=== PATIENT | female | born 1945 | race Caucasian/White ===

== ENCOUNTER → 2017-04-12 | Outpatient (CLI) | payer MEDICARE ==
--- NOTE | 2017-04-18 10:42 | P.ARTDOP ---
Arterial Doppler LOWER EXTREMITY ARTERIAL DOPPLER: DATE OF SERVICE: 04/12/2017 Reason for study: Leg pain with walking. Doppler waveforms: Multiphasic bilaterally throughout. Pulse volume recording: Normal configuration. Pressure gradients: Mild gradient at the foot level. Ankle-brachial indices: Greater than 1 bilaterally. Toe pressures: 57 on the right, 75 on the left Impression: Normal study at the ankle and above. Mild decrease in toe pressures could be related to very distal disease or vasospastic phenomenon. Clinical correlation recommended.
== END ==
LOC: RADUSWWP 13:50
PROVIDERS: ATTEND Family Medicine
DX: I70.213 Atherosclerosis of native arteries of extremities with intermittent claudication, bilateral legs (principal)
CPT/HCPCS: 93923

== ENCOUNTER → 2018-09-05 | Outpatient (CLI) | payer MEDICARE ==
--- NOTE | 2018-09-05 18:29 | BD ---
EXAMINATION TYPE: Axial Bone Density DATE OF EXAM: 09/05/2018 CLINICAL HISTORY: 73-year-old female postmenopausal screening Height: 60.5 inches Weight: 198 FRAX RISK QUESTIONS: Alcohol (3 or more units per day): no Family History (Parent hip fracture): no Glucocorticoids (More than 3mos): no (Ex: prednisone, prednisolone, methylprednisolone, dexamethasone, and hydrocortisone). History of Fracture in Adulthood: yes Secondary Osteoporosis: 1. Type 1 Diabetes: no 2. Hyperthyroidism: no 3. Menopause before 45: hysterectomy age 37, 48 bilateral ovary removal 4. Malnutrition: no 5. Chronic liver disease: no Rheumatoid Arthritis: no Current Tobacco Use: no RISK FACTORS HISTORY OF: History of Wrist Fracture: yes When: 1989 Surgery to Wrist (right): yes, no metal used, was bone grafted When: about 1989 Family History of Osteoporosis: yes Active: yes Diet low in dairy products/other sources of calcium: no Postmenopausal woman: yes Take estrogen and/or progesterone medications: unsure Lost more than 2 inches in height since high school: yes Frequent falls: no Poor Health: no Hyperparathyroidism: no Adrenal Insufficiency: no MEDICATIONS: Prednisone or other steroids: no Thyroid Medications: no Osteoporosis Medications: no Additional Medications: blood pressure meds Additional History: checks sugar but not on meds for diabetes EXAM MEASUREMENTS: Bone mineral densitometry was performed using the [employer] System. Bone mineral density as measured about the Lumbar spine is: ----- L1-L4(G/cm2): 1.223 T Score Values are as follows: ----- L2: 0.8 ----- L3: -0.2 ----- L4: 0.3 ----- L1-L4: 0.4 Bone mineral density not previously done at this facility Bone mineral density about the R hip (g/cm2): 0.981 Bone mineral density about the L hip (g/cm2): 1.061 T Score values are as follows: -----R Neck: -0.4 -----L Neck: 0.2 -----R Total: -0.7 -----L Total: -0.9 Bone mineral density not previously done at this facility IMPRESSION: Normal (Values between +1 and -1 indicate normal bone mass). Consider repeating this study in 5 year s or sooner if there is some new clinical indication. NOTE: T-SCORE=SD OF THE YOUNG ADULT MEAN.
== END | disposition home or self-care (01) ==
LOC: RADBDWWP 12:15
PROVIDERS: ATTEND Family Medicine
DX: N95.1 Menopausal and female climacteric states (principal)
CPT/HCPCS: 77080

== ENCOUNTER 2019-12-09 19:42 | Emergency (ER) | payer MEDICARE ==
[2019-12-09] MEDS ORDERED: ACETAMINOPHEN TAB 500 MG TAB PO STA (21:24)
[2019-12-09] MEDS ORDERED: SODIUM CHLORIDE 0.9% 1,000 ML IV STA (21:25)
--- NOTE | 2019-12-09 21:49 | XR ---
EXAMINATION TYPE: XR chest 2V DATE OF EXAM: 12/09/2019 COMPARISON: NONE HISTORY: Cough and fever TECHNIQUE: 2 views FINDINGS: There is some mild linear density left lung base. Heart size is normal. There is thoracolum bar kyphotic deformity. Thoracic aorta is atheromatous. There are no hilar masses. IMPRESSION: Subsegmental atelectasis at the left lung base. No heart failure seen. Mild pulmonary fib rotic changes.
[2019-12-09 22:24] LABS: Basophils % (A) 1 %; Eosinophils # (A) 0.1 k/uL (0-0.7); Eosinophils % (A) 1 %; HCT 42.2 % (34.0-46.0); Lymphocytes # (A) 0.5 k/uL (1.0-4.8); Lymphocytes % (A) 9 %; MCH 31.1 pg (25.0-35.0); MCHC 33.3 g/dL (31.0-37.0); MCV 93.4 fL (80.0-100.0); Monocytes # (A) 0.3 k/uL (0-1.0); Monocytes % (A) 6 %; Neutrophils % (A) 83 %; Platelet Count 209 k/uL (150-450); RBC 4.52 m/uL (3.80-5.40); WBC 6.1 k/uL (3.8-10.6)
[2019-12-09 22:28] LABS: ALT 18 U/L (4-34); AST 25 U/L (14-36); African American GFR (CKD) >90 (>60 ml/min/1.73 sqM); Albumin 4.1 g/dL (3.5-5.0); Alkaline Phosphatase 69 U/L (38-126); Anion Gap 8 mmol/L; Blood Urea Nitrogen 16 mg/dL (7-17); Calcium 9.2 mg/dL (8.4-10.2); Carbon Dioxide 28 mmol/L (22-30); Chloride 95 mmol/L (98-107); Glucose 130 mg/dL (74-99); Non-African American GFR(CKD) 88 (>60 ml/min/1.73 sqM); Potassium 3.8 mmol/L (3.5-5.1); Sodium 131 mmol/L (137-145); Total Bilirubin 0.5 mg/dL (0.2-1.3); Total Protein 7.2 g/dL (6.3-8.2)
[2019-12-09] MEDS ORDERED: IPRATROPIUM-ALBUTEROL 3 ML NEB INHALATION STA (22:41)
[2019-12-09 22:49] VITALS: BP 145/95; RESP 20
--- NOTE | 2019-12-09 23:35 | ED ---
General Adult HPI - General Chief complaint: Upper Respiratory Infection Stated complaint: Pneumonia, SOB Time Seen by Provider: 12/09/19 20:37 Source: patient, RN notes reviewed Mode of arrival: wheelchair Limitations: no limitations - History of Present Illness Initial comments: 74-year-old female presents to the emergency department for a chief complaint of cough. Patient has had a cough for about 4-5 days. Patient was unaware of any fevers until she presented to the emergency Department. Patient denies any shortness of breath or chest pain associated with this. States cough is nonproductive. States she does feel a little bit tired because of this cough but does not feel weak. She has mild congestion as well. Denies sore throat. Patient denies any recent travel. Patient has no other complaints at this time including shortness of breath, chest pain, abdominal pain, nausea or vomiting, headache, or visual changes. - Related Data Home Medications Medication Instructions Recorded Confirmed Atenolol [Tenormin] 50 mg PO BID 10/02/14 06/10/18 Losartan/Hydrochlorothiazide 1 each PO DAILY 10/02/14 06/10/18 [Losartan-Hctz 100-25 mg Tab] Multivitamin/Iron/Folic Acid 1 each PO DAILY 10/10/14 06/10/18 [Centrum Complete Multivit Tab] Cholecalciferol [Vitamin D3] 1,000 unit PO DAILY 06/06/18 06/10/18 Garlic 1 each PO DAILY 06/06/18 06/10/18 Oxybutynin Chloride [Ditropan XL] 5 mg PO DAILY 06/06/18 06/10/18 Previous Rx's Medication Instructions Recorded Albuterol Inhaler [Ventolin Hfa 1 - 2 puff INHALATION Q6HR PRN #1 12/09/19 Inhaler] inhaler Azithromycin [Zithromax Z-pack] 250 mg PO DIRECTED #6 tab 12/09/19 Allergies Allergy/AdvReac Type Severity Reaction Status Date / Time No Known Allergies Allergy Verified 12/09/19 20:25 Review of Systems ROS Statement: Those systems with pertinent positive or pertinent negative responses have been documented in the HPI. ROS Other: All systems not noted in ROS Statement are negative. Past Medical History Past Medical History: Diabetes Mellitus, Eye Disorder, GERD/Reflux, Hearing Disorder / Deafness, Hypertension, Osteoarthritis (OA) Additional Past Medical History / Comment(s): MACULAR DEGENERATION, cataracts, osteoporosis, diet controlled diabetic History of Any Multi-Drug Resistant Organisms: None Reported Past Surgical History: Cholecystectomy, Hysterectomy Additional Past Surgical History / Comment(s): ORIF RT WRIST-HAD BONE GRAFT FROM HIP, asher fundoplasty Past Anesthesia/Blood Transfusion Reactions: No Reported Reaction Past Psychological History: No Psychological Hx Reported Smoking Status: Never smoker Past Alcohol Use History: None Reported Past Drug Use History: None Reported - Past Family History Brother(s) Family Medical History: Cancer Mother Family Medical History: Cancer General Exam Limitations: no limitations General appearance: alert, in no apparent distress Head exam: Present: atraumatic, normocephalic, normal inspection Eye exam: Present: normal appearance, PERRL, EOMI. Absent: scleral icterus, conjunctival injection, periorbital swelling ENT exam: Present: normal exam, normal oropharynx, mucous membranes moist, TM's normal bilaterally, normal external ear exam Neck exam: Present: normal inspection, full ROM. Absent: tenderness, meningismus, lymphadenopathy Respiratory exam: Present: normal lung sounds bilaterally. Absent: respiratory distress, wheezes, rales, rhonchi, stridor Cardiovascular Exam: Present: regular rate, normal rhythm, normal heart sounds. Absent: systolic murmur, diastolic murmur, rubs, gallop, clicks GI/Abdominal exam: Present: soft, normal bowel sounds. Absent: distended, tenderness, guarding, rebound, rigid Neurological exam: Present: alert Course Vital Signs 12/09/19 12/09/19 20:21 22:45 Temperature 101.7 F H Pulse Rate 85 91 Respiratory 18 20 Rate Blood Pressure 165/119 145/95 O2 Sat by Pulse 94 L 95 Oximetry Medical Decision Making - Medical Decision Making Vitals are stable. Patient does have a fever of 101.7, given Tylenol. CBC is unremarkable. CMP does show mild hyponatremia, patient given normal saline. Chest x-ray shows subsegmental atelectasis at the left lung base without heart failure. Mild pulmonary fibrotic changes. Patient denies any smoking history. I discussed this with patient. Patient is concerned she could still have an underlying pneumonia. Patient will be treated with a Z-Quinn although I did discuss that this is likely viral in nature. Patient was also given an inhaler as she did feel that the albuterol treatment helped with her cough. I discussed following up with primary care in 1-2 days and returning for any worsening symptoms. Strict return parameters given. I discussed this case with attending Dr. Simmons who agrees with this assessment and treatment plan. - Lab Data Result diagrams: 12/09/19 22:09 12/09/19 22:09 Lab Results 12/09/19 12/09/19 12/09/19 Range/Units 22:09 22:09 22:09 WBC 6.1 (3.8-10.6) k/uL RBC 4.52 (3.80-5.40) m/uL Hgb 14.0 (11.4-16.0) gm/dL Hct 42.2 (34.0-46.0) % MCV 93.4 (80.0-100.0) fL MCH 31.1 (25.0-35.0) pg MCHC 33.3 (31.0-37.0) g/dL RDW 13.0 (11.5-15.5) % Plt Count 209 (150-450) k/uL Neutrophils % 83 % Lymphocytes % 9 % Monocytes % 6 % Eosinophils % 1 % Basophils % 1 % Neutrophils # 5.0 (1.3-7.7) k/uL Lymphocytes # 0.5 L (1.0-4.8) k/uL Monocytes # 0.3 (0-1.0) k/uL Eosinophils # 0.1 (0-0.7) k/uL Basophils # 0.0 (0-0.2) k/uL Sodium 131 L (137-145) mmol/L Potassium 3.8 (3.5-5.1) mmol/L Chloride 95 L (98-107) mmol/L Carbon Dioxide 28 (22-30) mmol/L Anion Gap 8 mmol/L BUN 16 (7-17) mg/dL Creatinine 0.68 (0.52-1.04) mg/dL Est GFR (CKD-EPI)AfAm >90 (>60 ml/min/1.73 sqM) Est GFR (CKD-EPI)NonAf 88 (>60 ml/min/1.73 sqM) Glucose 130 H (74-99) mg/dL Plasma Lactic Acid Carlos A 1.4 (0.7-2.0) mmol/L Calcium 9.2 (8.4-10.2) mg/dL Total Bilirubin 0.5 (0.2-1.3) mg/dL AST 25 (14-36) U/L ALT 18 (4-34) U/L Alkaline Phosphatase 69 (38-126) U/L Total Protein 7.2 (6.3-8.2) g/dL Albumin 4.1 (3.5-5.0) g/dL Disposition Clinical Impression: Cough, Fever Disposition: HOME SELF-CARE Condition: Good Instructions (If sedation given, give patient instructions): Acute Cough (ED) Additional Instructions: Please take Motrin and Tylenol for fever. Please drink plenty of fluids. Use inhaler as needed. Take medications as prescribed. Follow up with primary care tomorrow for recheck. If you have any worsening symptoms return to the emergency department. Prescriptions: Albuterol Inhaler [Ventolin Hfa Inhaler] 1 - 2 puff INHALATION Q6HR PRN #1 inhaler PRN Reason: Shortness Of Breath Azithromycin [Zithromax Z-pack] 250 mg PO DIRECTED #6 tab Is patient prescribed a controlled substance at d/c from ED?: No Referrals: Peter De Santiago MD [Primary Care Provider] - 1-2 days Time of Disposition: 23:33
[2019-12-09 23:45] VITALS: PULSE 68
[2019-12-09 23:46] VITALS: TEMP 98.5
== END 2019-12-09 23:46 | disposition home or self-care (01) ==
LOC: EC 19:42
DX: R05 Cough (principal); R50.9 Fever, unspecified; R09.89 Other specified symptoms and signs involving the circulatory and respiratory systems; E87.1 Hypo-osmolality and hyponatremia; J98.11 Atelectasis; E11.9 Type 2 diabetes mellitus without complications; I10 Essential (primary) hypertension; M81.0 Age-related osteoporosis without current pathological fracture; K21.9 Gastro-esophageal reflux disease without esophagitis; Z79.899 Other long term (current) drug therapy
CPT/HCPCS: 36415; 71046; 80053; 83605; 85025; 87040; 94640; 96360; 96361; 99284

== ENCOUNTER → 2019-12-15 | Outpatient (CLI) | payer MEDICARE | END | disposition home or self-care (01) | CPT/HCPCS: 36415; 83036; 87502; 87634 ==

== ENCOUNTER → 2020-03-04 | Outpatient (CLI) | payer MEDICARE ==
--- NOTE | 2020-03-04 14:25 | XR ---
EXAMINATION TYPE: XR cervical spine limited DATE OF EXAM: 03/04/2020 TECHNIQUE: Frontal, lateral, swimmers, and open mouth view of the cervical spine are obtained. HISTORY: DDD neck pain COMPARISON: None FINDINGS: The cervical spine is visualized from C1 thru the top of T6 level, it is satisfactory in a lignment without evidence of acute fracture or dislocation. The pre-vertebral soft tissue appears wi thin normal limits. The C1-C2 articulation is within normal limits on the open mouth view. Multileve l uncovertebral hypertrophy is seen. Fullness of the right superior mediastinum noted on the frontal view. Mild diffuse osseous demineralization. Carotid atherosclerosis is incidentally seen. IMPRESSION: No acute fracture or dislocation is seen in the cervical spine. Mild multilevel degenera tive change of the cervical spine. Right superior mediastinal fullness. Chest x-ray recommended.
--- NOTE | 2020-03-04 14:31 | XR ---
EXAMINATION TYPE: XR thoracic spine 2V DATE OF EXAM: 03/04/2020 CLINICAL HISTORY: Degenerative disc disease and back pain TECHNIQUE: Frontal, lateral, and swimmer's view of thoracic spine are obtained. COMPARISON: Chest x-ray dated 12/09/2019. FINDINGS: There is an exaggerated thoracic kyphosis. Mid thoracic mild compression deformities appear unchanged from 12/09/2019. Compression deformity at the lumbosacral junction also appears unchanged. Moderate degenerative change of the thoracic spine with intervertebral disc height loss at multiple l evels, endplate sclerosis and anterior osteophytes. Mediastinum is suboptimally evaluated given the d egree of penetration on the current exam. Cholecystectomy clips noted. Diffuse osseous demineralizati on. Very mild reverse S-shaped scoliosis seen. IMPRESSION: No acute fracture or dislocation is seen in the thoracic spine. Multiple chronic daniel josué deformities as seen on 12/09/2019, very mild reverse S-shaped scoliosis, diffuse osseous deminera lization, exaggerated thoracic kyphosis and moderate degenerative disc disease of the thoracic spine.
== END | disposition home or self-care (01) ==
LOC: RADXRMAIN 13:06
PROVIDERS: ATTEND Family Medicine
DX: M51.34 Other intervertebral disc degeneration, thoracic region (principal); M43.8X4 Other specified deforming dorsopathies, thoracic region; M40.294 Other kyphosis, thoracic region
CPT/HCPCS: 72040; 72070

== ENCOUNTER → 2021-01-28 | Outpatient (CLI) | payer MEDICARE ==
--- NOTE | 2021-01-31 10:35 | MM ---
Reason for exam: screening (asymptomatic). Last mammogram was performed 4 years and 8 months ago. History: Patient is postmenopausal. Benign cyst aspiration of the right breast. Physical Findings: A clinical breast exam by your physician is recommended on an annual basis and results should be correlated with mammographic findings. MG Screening Mammo w CAD Bilateral CC and MLO view(s) were taken. Prior study comparison: June 14, 2016, bilateral MG 3d screening mammo w/cad. April 29, 2015, bilateral MG screening mammo w CAD. There are scattered fibroglandular densities. Benign appearing bilateral calcifications. There is chronic nodularity in the left breast. No significant changes when compared with prior studies. ASSESSMENT: Benign, BI-RAD 2 RECOMMENDATION: Routine screening mammogram of both breasts in 1 year.
== END | disposition home or self-care (01) ==
LOC: RADMAMWWP 10:49
PROVIDERS: ATTEND Family Medicine
DX: Z12.31 Encounter for screening mammogram for malignant neoplasm of breast (principal); Z78.0 Asymptomatic menopausal state
CPT/HCPCS: 77067

== ENCOUNTER 2021-05-09 12:05 | Emergency (ER) | payer MEDICARE ==
[2021-05-09 12:18] VITALS: RESP 18; TEMP 98.1
--- NOTE | 2021-05-09 13:51 | ED ---
Lower Extremity Injury HPI - General Chief Complaint: Extremity Injury, Lower Stated Complaint: hip pain Time Seen by Provider: 05/09/21 12:55 Source: patient Mode of arrival: ambulatory Limitations: physical limitation - History of Present Illness Initial Comments: Patient is a 76-year-old female presenting to the emergency Department with complaints of pain in her left low back that shoots into her left hip. She states she has been going to physical therapy for left-sided sciatic pain, has been helping. She states she ran out of visits a couple weeks ago but has been doing well since then. She states over the past 2 days she's been walking more and feels like she might have aggravated it. That 2 mornings ago and started having some discomfort of her left lower back. She states it feels the same as her sciatica in the past. She has been taking Tylenol which does seem to help a little bit. She does use a walker with a seat on it. She denies any falls or trauma. She denies any bowel or bladder incontinence, no numbness and tingling into her lower extremity. She denies any fevers or chills, no chest pain or shortness of breath. She has no further complaints. - Related Data Home Medications Medication Instructions Recorded Confirmed Atenolol [Tenormin] 50 mg PO BID 10/02/14 06/10/18 Losartan/Hydrochlorothiazide 1 each PO DAILY 10/02/14 06/10/18 [Losartan-Hctz 100-25 mg Tab] Multivitamin/Iron/Folic Acid 1 each PO DAILY 10/10/14 06/10/18 [Centrum Complete Multivit Tab] Cholecalciferol [Vitamin D3] 1,000 unit PO DAILY 06/06/18 06/10/18 Garlic 1 each PO DAILY 06/06/18 06/10/18 Oxybutynin Chloride [Ditropan XL] 5 mg PO DAILY 06/06/18 06/10/18 Previous Rx's Medication Instructions Recorded Albuterol Inhaler (Mhu) [Ventolin 1 - 2 puff INHALATION Q6HR PRN #1 12/09/19 Hfa Inhaler (Mhu)] inhaler Azithromycin [Zithromax Z-pack (6 250 mg PO DIRECTED #6 tab 12/09/19 tabs)] Cyclobenzaprine [Flexeril] 5 mg PO HS #5 tab 05/09/21 predniSONE [Deltasone] 20 mg PO BID 5 Days #10 tab 05/09/21 Allergies Allergy/AdvReac Type Severity Reaction Status Date / Time No Known Allergies Allergy Verified 05/09/21 12:18 Review of Systems ROS Statement: Those systems with pertinent positive or pertinent negative responses have been documented in the HPI. ROS Other: All systems not noted in ROS Statement are negative. Past Medical History Past Medical History: Diabetes Mellitus, Eye Disorder, GERD/Reflux, Hearing Disorder / Deafness, Hypertension, Osteoarthritis (OA) Additional Past Medical History / Comment(s): MACULAR DEGENERATION, cataracts, osteoporosis, diet controlled diabetic, History of Any Multi-Drug Resistant Organisms: None Reported Past Surgical History: Cholecystectomy, Hysterectomy Additional Past Surgical History / Comment(s): ORIF RT WRIST-HAD BONE GRAFT FROM HIP, asher fundoplasty, Past Anesthesia/Blood Transfusion Reactions: No Reported Reaction Past Psychological History: No Psychological Hx Reported Smoking Status: Never smoker Past Alcohol Use History: None Reported Past Drug Use History: None Reported - Past Family History Brother(s) Family Medical History: Cancer Mother Family Medical History: Cancer General Exam - General Exam Comments Initial Comments: GENERAL: Patient is well-developed and well-nourished. Patient is nontoxic and in no acute distress. HEAD: Atraumatic, normocephalic. EYES: Pupils equal round and reactive to light, extraocular movements intact, sclera anicteric, conjunctiva are normal. Eyelids were unremarkable. NECK: Normal range of motion, supple without lymphadenopathy or JVD.no midline tenderness. LUNGS: Unlabored respirations. Breath sounds clear to auscultation bilaterally and equal. No wheezes rales or rhonchi. HEART: Regular rate and rhythm without murmurs, rubs or gallops. ABDOMEN: Soft, nontender, normoactive bowel sounds. No guarding, no rebound. No masses appreciated. : Deferred MUSCULOSKELETAL: Mild pain with palpation of the left lumbar paraspinals, left glute area. Normal extremities with adequate strength and normal range of motion, no pitting or edema. No clubbing or cyanosis. NEUROLOGICAL: Patient is alert and oriented x 3. Motor and sensory are also intact. Cranial nerves II through XII grossly intact. Symmetrical smile. Normal speech, normal gait. PSYCH: Normal mood, normal affect. SKIN: Warm, Dry, normal turgor, no rashes or lesions noted. Limitations: physical limitation Course Vital Signs 05/09/21 12:14 Temperature 98.1 F Pulse Rate 67 Respiratory 18 Rate Blood Pressure 144/71 O2 Sat by Pulse 95 Oximetry Medical Decision Making - Medical Decision Making patient is a 76-year-old female here with left-sided low back pain with some mild sciatica. She has had history with this in the past, finished with physical therapy 2 weeks ago. She does a lot of walking over the past few days and feels like it is flared up. She denies any falls or trauma. No fevers. She has no alarming symptoms or findings on exam. Her exam is consistent with some mild sciatica with low back pain. I did recommend her continue the Ty lenol, I will give her a few days of steroids as well as a mild muscle relaxer take at night. She is agreeable to this plan of care. She can follow up with her primary care. Return parameters were discussed with her and she verbalized understanding. Discussed with Dr. Carlos. Disposition Clinical Impression: Left-sided low back pain with sciatica Disposition: HOME SELF-CARE Condition: Stable Instructions (If sedation given, give patient instructions): Sciatica (ED) Additional Instructions: Please return to the Emergency Department if symptoms worsen or any other concerns. Take steroids as prescribed. You may continue with Tylenol. Please use heat to the area. Try a muscle relaxer at night to try and help with spasm. Follow-up with your primary care physician. Prescriptions: predniSONE [Deltasone] 20 mg PO BID 5 Days #10 tab Cyclobenzaprine [Flexeril] 5 mg PO HS #5 tab Is patient prescribed a controlled substance at d/c from ED?: No Referrals: Peter De Santiago MD [Primary Care Provider] - 1-2 days Time of Disposition: 13:50
[2021-05-09 14:18] VITALS: BP 142/70; PULSE 70
== END 2021-05-09 14:16 | disposition home or self-care (01) ==
LOC: EC 12:05
DX: M54.42 Lumbago with sciatica, left side (principal); M25.552 Pain in left hip; E11.9 Type 2 diabetes mellitus without complications; H91.90 Unspecified hearing loss, unspecified ear; I10 Essential (primary) hypertension; M81.0 Age-related osteoporosis without current pathological fracture; Z79.899 Other long term (current) drug therapy
CPT/HCPCS: 99283

== ENCOUNTER → 2021-05-19 | Outpatient (CLI) | payer MEDICARE ==
--- NOTE | 2021-05-19 13:39 | US ---
EXAMINATION TYPE: US venous doppler duplex LE BI DATE OF EXAM: 05/19/2021 1:32 PM COMPARISON: NONE CLINICAL HISTORY: I73.9 PERIPHERAL VASCULAR DISEASE. back/hip pain SIDE PERFORMED: Bilateral TECHNIQUE: The lower extremity deep venous system is examined utilizing real time linear array sonog mariluz with graded compression, doppler sonography and color-flow sonography. VESSELS IMAGED: Common Femoral Vein Deep Femoral Vein Greater Saphenous Vein * Femoral Vein Popliteal Vein Small Saphenous Vein * Proximal Calf Veins (* superficial vessels) Right Leg: Negative for DVT Left Leg: Negative for DVT IMPRESSION: No evidence for DVT at this time.
== END | disposition home or self-care (01) ==
LOC: RADUSWWP 12:47
PROVIDERS: ATTEND Family Medicine
DX: I73.9 Peripheral vascular disease, unspecified (principal); M79.662 Pain in left lower leg; M79.661 Pain in right lower leg
CPT/HCPCS: 93970

== ENCOUNTER → 2022-03-09 | Outpatient (CLI) | payer MEDICARE ==
--- NOTE | 2022-03-09 16:51 | BD ---
EXAMINATION TYPE: Axial Bone Density DATE OF EXAM: 03/09/2022 COMPARISON: 09/05/2018 CLINICAL HISTORY: 76 years year old Female. ICD-10 CODE: Z78.0 post menop without HRT Height: 59.5 IN Weight: 217 LBS RISK FACTORS HISTORY OF: History of Wrist Fracture: RT WRIST FX AGE 32 Active: LIMITED Postmenopausal woman: HYSTERECTOMY AGE 47 Lost more than 2 inches in height since high school: YES 4" MEDICATIONS: Additional Medications: VIT D, CALCIUM, HIGH BLOOD PRESSURE MEDS, ACID REFLUX MEDS, ALLERGY MEDS, EXAM MEASUREMENTS: Bone mineral densitometry was performed using the [employer] System. Bone mineral density as measured about the Lumbar spine is: ----- L1-L4(G/cm2): 1.169 T Score Values are as follows: ----- L1: -0.7 ----- L2: 0.0 ----- L3: 0.3 ----- L4: 0.0 ----- L1-L4: -0.1 Bone mineral density has: Decreased -1.9% since study of: 09/05/2018 Bone mineral density about the R hip (g/cm2): 0.852 Bone mineral density about the L hip (g/cm2): 1.034 T Score values are as follows: -----R Neck: -1.3 -----L Neck: 0.0 -----R Total: -1.8 -----L Total: -0.8 Bone mineral density has: Decreased -7.1% since study of: 09/05/2018 FRAX%s: The graph provided illustrates a 5.0 chance for a major osteoporotic fx and a 1.1 chance for the hips probability for fx in 10 years time. IMPRESSION: Osteopenia (T Score between -2.5 and -1). There is slightly increased risk of fracture and the patient may be considered for treatment. Re-Screen 2-5 years. NOTE: T-SCORE=SD OF THE YOUNG ADULT MEAN.
--- NOTE | 2022-03-10 13:54 | MM ---
Reason for Exam: Screening (asymptomatic). Last mammogram was performed 1 year(s) and 2 month(s) ago. Patient History: Menarche at age 15. First Full-Term at age 21. Left ovary removed at age 48. Right ovary removed at age 48. Hysterectomy at age 37. Postmenopausal. Benign Cyst Aspiration on the right side. Risk Values: Melonie 5 year model risk: 1.3%. NCI Lifetime model risk: 3.0%. Prior Study Comparison: 04/29/2015 Bilateral Screening Mammogram, [facility]. 06/14/2016 Bilateral Screening Mammogram, [facility]. 01/28/2021 Bilateral Screening Mammogram, [facility]. Tissue Density: There are scattered fibroglandular densities. Findings: Analyzed By CAD. Chronic nodularity is on the left. No suspicious groups of microcalcifications, spiculated or lobular masses, architectural distortion or other secondary signs of malignancy are mammographically apparent. Overall Assessment: Benign, BI-RAD 2 Management: Screening Mammogram of both breasts in 1 year. A negative mammogram report should not preclude additional follow up of suspicious palpable abnormalities. Patient should continue monthly self breast exam. A clinical breast exam by your physician is recommended on an annual basis and results should be correlated with mammographic findings. Electronically signed and approved by: Stas Zamora D.O. Radiologis
== END | disposition home or self-care (01) ==
LOC: RADMAMWWP 14:40
PROVIDERS: ATTEND Family Medicine
DX: Z12.31 Encounter for screening mammogram for malignant neoplasm of breast (principal); M85.89 Other specified disorders of bone density and structure, multiple sites; Z78.0 Asymptomatic menopausal state
CPT/HCPCS: 77063; 77067; 77080

== ENCOUNTER 2022-08-03 06:48 | Day surgery (SDC) | payer MEDICARE ==
[2022-07-31 14:47] VITALS: BMI 43.0
[~2022-08-03 06:48] MED LIST: LACTATED RINGERS 1,000 ML IV SCH
[2022-08-03 07:15] VITALS: TEMP 97
[2022-08-03 07:24] LABS: Glucose,Whole Blood 166 mg/dL (70-110)
[2022-08-03] MEDS ORDERED: LACTATED RINGERS 1,000 ML IV ONE (07:26)
[2022-08-03] MEDS ORDERED: LIDOCAINE 2% INJ 20 MG/ML (2 ML VIAL) ONE (07:48)
[2022-08-03] MEDS ORDERED: PROPOFOL 10 MG/ML 20 ML VIAL IV ONE (07:48)
--- NOTE | 2022-08-03 07:52 | P.GSHP ---
History of Present Illness H&P Date: 08/03/22 Chief Complaint: History of colon polyps Is a 77-year-old female with previous history of colon polyps. Patient presents today for colonoscopy. Past Medical History Past Medical History: Diabetes Mellitus, Eye Disorder, GERD/Reflux, Hearing Disorder / Deafness, Hypertension, Osteoarthritis (OA) Additional Past Medical History / Comment(s): MACULAR DEGENERATION, cataracts, osteoporosis, diet controlled diabetic, History of Any Multi-Drug Resistant Organisms: None Reported Past Surgical History: Cholecystectomy, Hysterectomy Additional Past Surgical History / Comment(s): ORIF RT WRIST-HAD BONE GRAFT FROM HIP, asher fundoplasty, Past Anesthesia/Blood Transfusion Reactions: No Reported Reaction Smoking Status: Never smoker - Past Family History Brother(s) Family Medical History: Cancer Additional Family Medical History / Comment(s): LUNG Mother Family Medical History: Cancer Sister(s) Family Medical History: Cancer Medications and Allergies Home Medications Medication Instructions Recorded Confirmed Type Losartan/Hydrochlorothiazide 1 each PO BID 10/02/14 08/03/22 History [Losartan-Hctz 100-25 mg Tab] Multivitamin/Iron/Folic Acid 1 each PO DAILY 10/10/14 08/03/22 History [Centrum Complete Multivit Tab] Cholecalciferol [Vitamin D3] 1,000 unit PO DAILY 06/06/18 08/03/22 History Oxybutynin Chloride [Ditropan XL] 10 mg PO HS 06/06/18 08/03/22 History Montelukast [Singulair] 10 mg PO DAILY 07/31/22 08/03/22 History Omeprazole [PriLOSEC] 40 mg PO DAILY 07/31/22 08/03/22 History Vit C/E/Zn/Coppr/Lutein/Zeaxan 1 each PO DAILY 07/31/22 08/03/22 History [Preservision Areds 2 Softgel] atenoloL [Tenormin] 100 mg PO BID 07/31/22 08/03/22 History Allergies Allergy/AdvReac Type Severity Reaction Status Date / Time No Known Allergies Allergy Verified 08/03/22 07:10 Surgical - Exam Vital Signs Temp Pulse Resp BP Pulse Ox 97 F L 81 16 145/70 97 08/03/22 07:08 08/03/22 07:08 08/03/22 07:08 08/03/22 07:08 08/03/22 07:08 - General well developed, well nourished, no distress - Eyes PERRL - ENT normal pinna - Neck no masses - Respiratory normal expansion - Cardiovascular Rhythm: regular - Abdomen Abdomen: soft, non tender Results - Labs Abnormal Lab Results - Last 24 Hours (Table) 08/03/22 Range/Units 07:23 POC Glucose (mg/dL) 166 H (70-110) mg/dL Assessment and Plan Assessment: History of colon polyps. We'll perform colonoscopy.
--- NOTE | 2022-08-03 08:04 | P.OP ---
Date of Procedure: 08/03/22 Preoperative Diagnosis: History of colon polyps Postoperative Diagnosis: Right colon polyp diverticulosis Procedure(s) Performed: Colonoscopy Anesthesia: MAC Surgeon: Gaurav Correa Pathology: other (Right colon polyp) Condition: stable Disposition: PACU Description of Procedure: The patient's placed on the endoscopy table in the lateral position. She received IV sedation. Digital rectal exam was performed. This revealed no abnormalities. The flexible colonoscope was then placed patient anus and passed throughout the entire colon. The ileocecal valve was visualized. The cecum, an ascending colon appeared normal. In the right colon there was a small polyp seen this was near the hepatic flexure. This removed the cold forcep. In the transverse colon a few scattered diverticula. In the descending sigmoid colon there was more extensive diverticulosis. Scope was then brought back the rectum and this appeared normal. Scope withdrawn for patient.
[2022-08-03 08:43] VITALS: BP 111/65; PULSE 72; RESP 15
== END 2022-08-03 09:03 | disposition home or self-care (01) ==
LOC: ORWHC2ENDO 06:48
PROVIDERS: ATTEND Surgery
DX: Z12.11 Encounter for screening for malignant neoplasm of colon (principal); K63.5 Polyp of colon; K57.30 Diverticulosis of large intestine without perforation or abscess without bleeding; E11.9 Type 2 diabetes mellitus without complications; K21.9 Gastro-esophageal reflux disease without esophagitis; I10 Essential (primary) hypertension; M19.90 Unspecified osteoarthritis, unspecified site; Z90.49 Acquired absence of other specified parts of digestive tract; Z90.710 Acquired absence of both cervix and uterus; Z80.1 Family history of malignant neoplasm of trachea, bronchus and lung; Z79.899 Other long term (current) drug therapy; Z86.010 Personal history of colon polyps
CPT/HCPCS: 88305; 45380; J2704; J2001

== ENCOUNTER 2022-12-17 18:11 | Emergency (ER) | payer MEDICARE, OTHER ==
[2022-12-17 18:30] VITALS: RESP 18; TEMP 97.9
[2022-12-17] MEDS ORDERED: SODIUM CHLORIDE 0.9% 500 ML 500 ML IV ONE (18:46)
--- NOTE | 2022-12-17 18:57 | ED ---
General Adult HPI - General Chief complaint: Dizziness Stated complaint: Hypotension,Blurred Vision Time Seen by Provider: 12/17/22 18:36 Source: patient, RN notes reviewed, old records reviewed Mode of arrival: ambulatory Limitations: no limitations - History of Present Illness Initial comments: 77 yo female who presents emergency department with low blood pressure here patient is on multiple antihypertensive medications. These have not recently changed. She had some low blood pressure is 90 systolic. This was associated with some blurred vision. No chest pain or abdominal pain. No vomiting or diarrhea. No fevers. No focal numbness or weakness. - Related Data Home Medications Medication Instructions Recorded Confirmed Losartan/Hydrochlorothiazide 1 each PO BID 10/02/14 08/03/22 [Losartan-Hctz 100-25 mg Tab] Oxybutynin Chloride [Ditropan XL] 10 mg PO HS 06/06/18 08/03/22 Montelukast [Singulair] 10 mg PO DAILY 07/31/22 08/03/22 Omeprazole [PriLOSEC] 40 mg PO DAILY 07/31/22 08/03/22 atenoloL [Tenormin] 100 mg PO BID 07/31/22 08/03/22 Acetaminophen [Tylenol Arthritis] 1,300 mg PO HS 12/17/22 12/17/22 Acetaminophen [Tylenol Extra 1,000 mg PO Q6H PRN 12/17/22 12/17/22 Strength] Alendronate Sodium [Fosamax] 70 mg PO MO 12/17/22 12/17/22 Ibuprofen [Motrin Ib] 400 mg PO HS PRN 12/17/22 12/17/22 Lidocaine 5% Patch [Lidoderm] 1 patch TOPICAL DAILY PRN 12/17/22 12/17/22 Tirzepatide [Mounjaro] 2.5 mg SQ WE 12/17/22 12/17/22 rOPINIRole HCL [Requip] 1 mg PO HS 12/17/22 12/17/22 Allergies Allergy/AdvReac Type Severity Reaction Status Date / Time No Known Allergies Allergy Verified 12/17/22 20:40 Review of Systems ROS Statement: Those systems with pertinent positive or pertinent negative responses have been documented in the HPI. ROS Other: All systems not noted in ROS Statement are negative. Past Medical History Past Medical History: Diabetes Mellitus, Eye Disorder, GERD/Reflux, Hearing Disorder / Deafness, Hypertension, Osteoarthritis (OA) Additional Past Medical History / Comment(s): MACULAR DEGENERATION, cataracts, osteoporosis, diet controlled diabetic, History of Any Multi-Drug Resistant Organisms: None Reported Past Surgical History: Cholecystectomy, Hysterectomy Additional Past Surgical History / Comment(s): ORIF RT WRIST-HAD BONE GRAFT FROM HIP, asher fundoplasty, Past Anesthesia/Blood Transfusion Reactions: No Reported Reaction Past Psychological History: Anxiety, Depression Smoking Status: Never smoker Past Alcohol Use History: None Reported Past Drug Use History: None Reported - Past Family History Brother(s) Family Medical History: Cancer Additional Family Medical History / Comment(s): LUNG Mother Family Medical History: Cancer Sister(s) Family Medical History: Cancer General Exam Limitations: no limitations General appearance: alert, in no apparent distress Head exam: Present: atraumatic, normocephalic Eye exam: Present: normal appearance ENT exam: Present: mucous membranes dry Neck exam: Present: normal inspection. Absent: tenderness, meningismus Respiratory exam: Present: normal lung sounds bilaterally. Absent: respiratory distress Cardiovascular Exam: Present: regular rate, normal rhythm GI/Abdominal exam: Present: soft. Absent: distended, tenderness Extremities exam: Present: normal inspection, normal capillary refill Neurological exam: Present: alert, oriented X3, CN II-XII intact. Absent: motor sensory deficit Psychiatric exam: Present: normal affect, normal mood Skin exam: Present: warm, dry, intact. Absent: cyanosis, diaphoretic Course Vital Signs 12/17/22 18:26 Temperature 97.9 F Pulse Rate 84 Respiratory 18 Rate Blood Pressure 130/72 O2 Sat by Pulse 98 Oximetry EKG Findings - EKG Comments: EKG Findings:: EKG: Sinus rhythm rate of 76, AR interval 149, QRS duration 86, QTC [address] segment changes. - EKG Results: EKG: interpreted by ER[facility] Medical Decision Making - Medical Decision Making Was pt. sent in by a medical professional or institution (, PA, ELECTRONIC SCALE TESTER, urgent care, hospital, or [place] health [place] facility...) When possible be specific @ -No Did you speak to anyone other than the patient for history (EMS, parent, family, police, friend...)? What history was obtained from this source @ -No Did you review nursing and triage notes (agree or disagree)? Why? @ -I reviewed and agree with nursing and triage notes Were old charts reviewed (outside hosp., previous admission, EMS record, old EKG, old radiological studies, urgent care reports/EKG's, [place] health care facility records)? Report findings @ -No old charts were reviewed Differential Diagnosis (chest pain, altered mental status, abdominal pain women, abdominal pain men, vaginal bleeding, weakness, fever, dyspnea, syncope, headache, dizziness, GI bleed, back pain, seizure, CVA, palpatations, mental health, musculoskeletal)? @ -Differential Weakness: Hypoglycemia, shock, sepsis, hyponatremia, anemia, infection, IL, ETOH, adverse medicine reaction, overdose, stroke, this is not meant to be an all-inclusive list. EKG interpreted by me (3pts min.). @ -As above X-rays interpreted by me (1pt min.). @ -None done CT interpreted by me (1pt min.). @ -None done U/S interpreted by me (1pt. min.). @ -None done What testing was considered but not performed or refused? (CT, X-rays, U/S, labs)? Why? @ -None What meds were considered but not given or refused? Why? @ -None Did you discuss the management of the patient with other professionals (professionals i.e. , PA, ELECTRONIC SCALE TESTER, lab, RT, psych nurse, child welfare social worker, produce production team member, teacher, financial officer, employment case manager)? Give summary @ -No Was smoking cessation discussed for >3mins.? @ -No Was critical care preformed (if so, how long)? @ -No Were there social determinants of health that impacted care today? How? (Homelessness, low income, unemployed, alcoholism, drug addiction, transp ortation, low edu. Level, literacy, decrease access to med. care, halfway, rehab)? @ -No Was there de-escalation of care discussed even if they declined (Discuss DNR or withdrawal of care, Hospice)? DNR status @ -No What co-morbidities impacted this encounter? (DM, HTN, Smoking, COPD, CAD, Cancer, CVA, ARF, Chemo, Hep., AIDS, mental health diagnosis, sleep apnea, morbid obesity)? @ -None Was patient admitted / discharged? Hospital course, mention meds given and route, prescriptions, significant lab abnormalities, going to OR and other pertinent info. @ -77-year-old female with several low reading cell blood pressure at home. Patient is essentially asymptomatic at the time my evaluation, blood pressure is stable. She is in sinus rhythm. She has normal laboratory testing. We did discuss the blood pressure medications that she is currently on which is aten olol to the morning and 2 in the evening as well as losartan the morning and losartan the evening. We discussed cutting her atenolol dose in half. She will monitor her blood pressure at home and follow up with her primary care physician Dr. De Santiago. This plan was discussed with movement Dr. De Santiago who will follow up as an outpatient. @ -No Drug Therapy requiring intensive monitoring for toxicity (Heparin, Nitro, Insulin, Cardizem)? @ -No Were any procedures done? @ -No Diagnosis/symptom? @ -hypotension, medication effect Acute, or Chronic, or Acute on Chronic? @ -acute Uncomplicated (without systemic symptoms) or Complicated (systemic symptoms)? @ -uncomplicated Side effects of treatment? @ -No Exacerbation, Progression, or Severe Exacerbation? @ -No Poses a threat to life or bodily function? How? (Chest pain, USA, IL, pneumonia, PE, COPD, DKA, ARF, appy, cholecystitis, CVA, Diverticulitis, Homicidal, Suicidal, threat to staff... and all critical care pts) @ -No - Lab Data Result diagrams: 12/17/22 19:20 12/17/22 19:20 Lab Results 12/17/22 12/17/22 12/17/22 Range/Units 17:57 19:20 19:20 WBC 9.3 (3.8-10.6) k/uL RBC 4.34 (3.80-5.40) m/uL Hgb 12.6 (11.4-16.0) gm/dL Hct 38.0 (34.0-46.0) % MCV 87.5 (80.0-100.0) fL MCH 29.1 (25.0-35.0) pg MCHC 33.2 (31.0-37.0) g/dL RDW 14.0 (11.5-15.5) % Plt Count 274 (150-450) k/uL MPV 8.1 Neutrophils % 74 % Lymphocytes % 15 % Monocytes % 7 % Eosinophils % 1 % Basophils % 0 % Neutrophils # 6.9 (1.3-7.7) k/uL Lymphocytes # 1.4 (1.0-4.8) k/uL Monocytes # 0.6 (0-1.0) k/uL Eosinophils # 0.1 (0-0.7) k/uL Basophils # 0.0 (0-0.2) k/uL PT 9.7 (9.0-12.0) sec INR 0.9 (<1.2) APTT 22.3 (22.0-30.0) sec Sodium (137-145) mmol/L Potassium (3.5-5.1) mmol/L Chloride (98-107) mmol/L Carbon Dioxide (22-30) mmol/L Anion Gap mmol/L BUN (7-17) mg/dL Creatinine (0.52-1.04) mg/dL Est GFR (CKD-EPI)AfAm (>60 ml/min/1.73 sqM) Est GFR (CKD-EPI)NonAf (>60 ml/min/1.73 sqM) Glucose (74-99) mg/dL Calcium (8.4-10.2) mg/dL Magnesium (1.6-2.3) mg/dL Total Bilirubin (0.2-1.3) mg/dL AST (14-36) U/L ALT (4-34) U/L Alkaline Phosphatase (38-126) U/L Total Protein (6.3-8.2) g/dL Albumin (3.5-5.0) g/dL Urine Color Yellow Urine Appearance Clear (Clear) Urine pH 5.5 (5.0-8.0) Ur Specific [place] 1.023 (1.001-1.035) Urine Protein Negative (Negative) Urine Glucose (UA) Negative (Negative) Urine Ketones Negative (Negative) Urine Blood Negative (Negative) Urine Nitrite Negative (Negative) Urine Bilirubin Negative (Negative) Urine Urobilinogen <2.0 (<2.0) mg/dL Ur Leukocyte Esterase Small H (Negative) Urine RBC <1 (0-5) /hpf Urine WBC 11 H (0-5) /hpf Ur Squamous Epith Cells 1 (0-4) /hpf Urine Mucus Rare H (None) /hpf 12/17/22 Range/Units 19:20 WBC (3.8-10.6) k/uL RBC (3.80-5.40) m/uL Hgb (11.4-16.0) gm/dL Hct (34.0-46.0) % MCV (80.0-100.0) fL MCH (25.0-35.0) pg MCHC (31.0-37.0) g/dL RDW (11.5-15.5) % Plt Count (150-450) k/uL MPV Neutrophils % % Lymphocytes % % Monocytes % % Eosinophils % % Basophils % % Neutrophils # (1.3-7.7) k/uL Lymphocytes # (1.0-4.8) k/uL Monocytes # (0-1.0) k/uL Eosinophils # (0-0.7) k/uL Basophils # (0-0.2) k/uL PT (9.0-12.0) sec INR (<1.2) APTT (22.0-30.0) sec Sodium 131 L (137-145) mmol/L Potassium 3.7 (3.5-5.1) mmol/L Chloride 98 (98-107) mmol/L Carbon Dioxide 26 (22-30) mmol/L Anion Gap 7 mmol/L BUN 27 H (7-17) mg/dL Creatinine 0.56 (0.52-1.04) mg/dL Est GFR (CKD-EPI)AfAm >90 (>60 ml/min/1.73 sqM) Est GFR (CKD-EPI)NonAf >90 (>60 ml/min/1.73 sqM) Glucose 95 (74-99) mg/dL Calcium 8.7 (8.4-10.2) mg/dL Magnesium 1.6 (1.6-2.3) mg/dL Total Bilirubin 0.3 (0.2-1.3) mg/dL AST 23 (14-36) U/L ALT 20 (4-34) U/L Alkaline Phosphatase 79 (38-126) U/L Total Protein 6.4 (6.3-8.2) g/dL Albumin 3.7 (3.5-5.0) g/dL Urine Color Urine Appearance (Clear) Urine pH (5.0-8.0) Ur Specific [place] (1.001-1.035) Urine Protein (Negative) Urine Glucose (UA) (Negative) Urine Ketones (Negative) Urine Blood (Negative) Urine Nitrite (Negative) Urine Bilirubin (Negative) Urine Urobilinogen (<2.0) mg/dL Ur Leukocyte Esterase (Negative) Urine RBC (0-5) /hpf Urine WBC (0-5) /hpf Ur Squamous Epith Cells (0-4) /hpf Urine Mucus (None) /hpf Disposition Clinical Impression: Orthostatic hypotension Disposition: HOME SELF-CARE Condition: Fair Instructions (If sedation given, give patient instructions): Dizziness (ED) Additional Instructions: Please cut your atenolol dose in half both morning and evening. Please follow up with her primary care physician. Is patient prescribed a controlled substance at d/c from ED?: No Referrals: Peter De Santiago MD [Primary Care Provider] - 1-2 days Time of Disposition: 20:50
[2022-12-17 20:05] LABS: Basophils % (A) 0 %; Eosinophils # (A) 0.1 k/uL (0-0.7); Eosinophils % (A) 1 %; HGB 12.6 gm/dL (11.4-16.0); Lymphocytes # (A) 1.4 k/uL (1.0-4.8); Lymphocytes % (A) 15 %; MCH 29.1 pg (25.0-35.0); MCHC 33.2 g/dL (31.0-37.0); MCV 87.5 fL (80.0-100.0); Mean Platelet Volume 8.1; Monocytes # (A) 0.6 k/uL (0-1.0); Monocytes % (A) 7 %; Neutrophils # (A) 6.9 k/uL (1.3-7.7); Neutrophils % (A) 74 %; Platelet Count 274 k/uL (150-450); RBC 4.34 m/uL (3.80-5.40); WBC 9.3 k/uL (3.8-10.6)
[2022-12-17 20:16] LABS: Appearance,Urine Clear (Clear); Bilirubin,Urine Negative (Negative); Blood,Urine Negative (Negative); Color,Urine Yellow; Glucose,Urine (UA) Negative (Negative); Ketones,Urine Negative (Negative); Leukocyte Esterase,Urine Small (Negative); Mucus,Urine Rare /hpf; Nitrite,Urine Negative (Negative); PH, Urine 5.5 (5.0-8.0); Protein,Urine Negative (Negative); RBC,Urine <1 /hpf (0-5); Specific Gravity,Urine 1.023 (1.001-1.035); Squamous Epithelial Cell,Urine 1 /hpf (0-4); Urobilinogen,Urine <2.0 mg/dL (<2.0); WBC,Urine 11 /hpf (0-5)
[2022-12-17 20:18] LABS: INR 0.9 (<1.2); Partial Thromboplastin Time 22.3 sec (22.0-30.0); Prothrombin Time 9.7 sec (9.0-12.0)
[2022-12-17 20:30] LABS: ALT 20 U/L (4-34); AST 23 U/L (14-36); African American GFR (CKD) >90 (>60 ml/min/1.73 sqM); Albumin 3.7 g/dL (3.5-5.0); Alkaline Phosphatase 79 U/L (38-126); Anion Gap 7 mmol/L; Blood Urea Nitrogen 27 mg/dL (7-17); Calcium 8.7 mg/dL (8.4-10.2); Carbon Dioxide 26 mmol/L (22-30); Chloride 98 mmol/L (98-107); Glucose 95 mg/dL (74-99); Magnesium 1.6 mg/dL (1.6-2.3); Non-African American GFR(CKD) >90 (>60 ml/min/1.73 sqM); Potassium 3.7 mmol/L (3.5-5.1); Sodium 131 mmol/L (137-145); Total Bilirubin 0.3 mg/dL (0.2-1.3); Total Protein 6.4 g/dL (6.3-8.2)
[2022-12-17 21:29] VITALS: BP 136/76; PULSE 87
== END 2022-12-17 21:29 | disposition home or self-care (01) ==
LOC: EC 18:11
DX: I95.1 Orthostatic hypotension (principal); E11.9 Type 2 diabetes mellitus without complications; K21.9 Gastro-esophageal reflux disease without esophagitis; I10 Essential (primary) hypertension; M19.90 Unspecified osteoarthritis, unspecified site; M81.0 Age-related osteoporosis without current pathological fracture; F41.9 Anxiety disorder, unspecified; F32.A Depression, unspecified; Z90.49 Acquired absence of other specified parts of digestive tract; Z79.899 Other long term (current) drug therapy
CPT/HCPCS: 36415; 80053; 81001; 83735; 85025; 85610; 85730; 87086; 93005; 99284

== ENCOUNTER 2023-03-11 17:10 | Observation (INO) | payer MEDICARE, OTHER ==
[2023-03-11] MEDS ORDERED: MECLIZINE 12.5 MG TAB PO STA ×2 (19:19→21:37)
[2023-03-11] MEDS ORDERED: ONDANSETRON 4 MG/2 ML VIAL IVP STA (19:19)
[2023-03-11] MEDS ORDERED: SODIUM CHLORIDE 0.9% 500 ML 500 ML IV STA (19:19)
[2023-03-11 20:07] LABS: Basophils % (A) 0 %; Eosinophils # (A) 0.2 k/uL (0-0.7); Eosinophils % (A) 2 %; HCT 37.7 % (34.0-46.0); Lymphocytes # (A) 1.6 k/uL (1.0-4.8); Lymphocytes % (A) 17 %; MCH 27.5 pg (25.0-35.0); MCHC 31.9 g/dL (31.0-37.0); MCV 86.2 fL (80.0-100.0); Mean Platelet Volume 8.1; Monocytes # (A) 0.5 k/uL (0-1.0); Monocytes % (A) 6 %; Neutrophils # (A) 6.9 k/uL (1.3-7.7); Neutrophils % (A) 73 %; Platelet Count 277 k/uL (150-450); RBC 4.38 m/uL (3.80-5.40); RDW 15.3 % (11.5-15.5); WBC 9.4 k/uL (3.8-10.6)
[2023-03-11 20:19] LABS: ALT 22 U/L (4-34); AST 27 U/L (14-36); African American GFR (CKD) >90 (>60 ml/min/1.73 sqM); Albumin 3.8 g/dL (3.5-5.0); Alkaline Phosphatase 91 U/L (38-126); Anion Gap 10 mmol/L; Blood Urea Nitrogen 17 mg/dL (7-17); Calcium 9.1 mg/dL (8.4-10.2); Carbon Dioxide 24 mmol/L (22-30); Chloride 97 mmol/L (98-107); Glucose 89 mg/dL (74-99); Magnesium 1.8 mg/dL (1.6-2.3); Non-African American GFR(CKD) >90 (>60 ml/min/1.73 sqM); Potassium 3.8 mmol/L (3.5-5.1); Sodium 131 mmol/L (137-145); Total Bilirubin 0.3 mg/dL (0.2-1.3); Total Protein 6.7 g/dL (6.3-8.2)
--- NOTE | 2023-03-11 20:55 | CT ---
EXAMINATION TYPE: CT brain wo con CT DLP: 1198.4 mGycm, Automated exposure control for dose reduction was used. DATE OF EXAM: 03/11/2023 8:45 PM COMPARISON: None. CLINICAL INDICATION:Female, 77 years old with history of dizziness, dizziness TECHNIQUE: Brain: Axial CT images of the brain were obtained with coronal and sagittal reformats created and rev iewed. Contrast used: None. Oral contrast used: None. FINDINGS: Brain: Extra-axial spaces: No abnormal extra-axial fluid collections. Ventricular system: Dilatation in proportion to cerebral atrophy. Cerebral parenchyma: No acute intraparenchymal hemorrhage or mass effect. The ramirez-white junction is well differentiated. Scattered hypoattenuating areas are seen within the white matter. Cerebellum: Unremarkable. Mass effect: No evidence of midline shift. Intracranial vasculature: Atherosclerotic calcifications of the intracranial vessels. Soft tissues: Normal. Calvarium/osseous structures: No depressed skull fracture. Paranasal sinuses and mastoid air cells: Mild scattered paranasal sinus disease. Left maxillary sinus retention cyst. Visualized orbits: Bilateral aphakia IMPRESSION: 1. No acute intracranial process. 2. Nonspecific white matter changes, likely secondary to chronic small vessel ischemic disease.
[2023-03-11 21:14] LABS: Appearance,Urine Clear (Clear); Bacteria,Urine Rare /hpf; Bilirubin,Urine Negative (Negative); Blood,Urine Negative (Negative); Color,Urine Light Yellow; Glucose,Urine (UA) Negative (Negative); Ketones,Urine Negative (Negative); Leukocyte Esterase,Urine Large (Negative); Nitrite,Urine Negative (Negative); PH, Urine 6.5 (5.0-8.0); Protein,Urine Negative (Negative); RBC,Urine 1 /hpf (0-5); Specific Gravity,Urine 1.007 (1.001-1.035); Squamous Epithelial Cell,Urine 1 /hpf (0-4); Urobilinogen,Urine <2.0 mg/dL (<2.0); WBC,Urine 59 /hpf (0-5)
--- NOTE | 2023-03-11 21:15 | ED ---
General Adult HPI - General Chief complaint: Dizziness Stated complaint: DIZZINESS Time Seen by Provider: 03/11/23 18:59 Source: patient, RN notes reviewed Mode of arrival: ambulatory Limitations: no limitations - History of Present Illness Initial comments: 77-year-old female presents emergency Department chief complaint of feeling lightheaded, dizzy. Patient states that she had a busy day yesterday woke up this morning felt slightly off balance but she isn't dehydrated her meds and states that shortly back down initially helped but states that she felt dizzy again with movement. States is up at rest denies any focal weakness no chest pain or shortness breath patient denies other associated symptoms - Related Data Home Medications Medication Instructions Recorded Confirmed Losartan/Hydrochlorothiazide 1 tab PO DAILY 10/02/14 03/11/23 [Losartan-Hctz 100-25 mg Tab] Montelukast [Singulair] 10 mg PO DAILY 07/31/22 03/11/23 Omeprazole [PriLOSEC] 40 mg PO DAILY 07/31/22 03/11/23 atenoloL [Tenormin] 50 mg PO BID 07/31/22 03/11/23 Acetaminophen [Tylenol Extra 1,000 mg PO Q6H PRN 12/17/22 03/11/23 Strength] rOPINIRole HCL [Requip] 1 mg PO HS 12/17/22 03/11/23 Terbinafine [LamISIL] 250 mg PO DAILY 03/11/23 03/11/23 Tiotropium 2.5 Mcg/Puff [Spiriva 1 puff INHALATION RT-DAILY 03/11/23 03/11/23 Respimat 2.5 Mcg] Tirzepatide [Mounjaro] 7.5 mg SQ WE 03/11/23 03/11/23 oxyBUTYnin chloride [Ditropan] 5 mg PO BID 03/11/23 03/11/23 Allergies Allergy/AdvReac Type Severity Reaction Status Date / Time No Known Allergies Allergy Verified 03/11/23 21:52 Review of Systems ROS Statement: Those systems with pertinent positive or pertinent negative responses have been documented in the HPI. ROS Other: All systems not noted in ROS Statement are negative. Past Medical History Past Medical History: Diabetes Mellitus, Eye Disorder, GERD/Reflux, Hearing Disorder / Deafness, Hypertension, Osteoarthritis (OA) Additional Past Medical History / Comment(s): MACULAR DEGENERATION, cataracts, osteoporosis, diet controlled diabetic, History of Any Multi-Drug Resistant Organisms: None Reported Past Surgical History: Cholecystectomy, Hysterectomy Additional Past Surgical History / Comment(s): ORIF RT WRIST-HAD BONE GRAFT FROM HIP, asher fundoplasty, Past Anesthesia/Blood Transfusion Reactions: No Reported Reaction Past Psychological History: Anxiety, Depression Smoking Status: Never smoker Past Alcohol Use History: None Reported Past Drug Use History: None Reported - Past Family History Brother(s) Family Medical History: Cancer Additional Family Medical History / Comment(s): LUNG Mother Family Medical History: Cancer Sister(s) Family Medical History: Cancer General Exam Limitations: no limitations General appearance: alert, in no apparent distress Head exam: Present: atraumatic, normocephalic, normal inspection Eye exam: Present: normal appearance, PERRL, EOMI. Absent: scleral icterus, conjunctival injection, periorbital swelling ENT exam: Present: normal exam, mucous membranes moist Neck exam: Present: normal inspection, full ROM. Absent: tenderness, meningismus, lymphadenopathy Respiratory exam: Present: normal lung sounds bilaterally. Absent: respiratory distress, wheezes, rales, rhonchi, stridor Cardiovascular Exam: Present: regular rate, normal rhythm, normal heart sounds. Absent: systolic murmur, diastolic murmur, rubs, gallop, clicks GI/Abdominal exam: Present: soft, normal bowel sounds. Absent: distended, tenderness, guarding, rebound, rigid Neurological exam: Present: alert, oriented X3, CN II-XII intact, reflexes normal. Absent: motor sensory deficit Skin exam: Present: warm, dry, intact, normal color. Absent: rash Course Vital Signs 03/11/23 17:29 Temperature 98.3 F Pulse Rate 85 Respiratory 20 Rate Blood Pressure 131/75 O2 Sat by Pulse 99 Oximetry EKG Findings - EKG Comments: EKG Findings:: EKG performed at 19:38 sinus rhythm rate of 84 DE 147 QRS 76 QT status QTC 373 /414 - EKG Results: EKG: interpreted by JUAN Medical Decision Making - Medical Decision Making Was pt. sent in by a medical professional or institution (, PA, VAULT MAKER, urgent care, hospital, or longterm...) When possible be specific @ -No Did you speak to anyone other than the patient for history (EMS, parent, family, police, friend...)? What history was obtained from this source @ -No Did you review nursing and triage notes (agree or disagree)? Why? @ -I reviewed and agree with nursing and triage notes Were old charts reviewed (outside hosp., previous admission, EMS record, old EKG, old radiological studies, urgent care reports/EKG's, longterm records)? Report findings @ -Reviewed prior laboratory studies reviewed Differential Diagnosis (chest pain, altered mental status, abdominal pain women, abdominal pain men, vaginal bleeding, weakness, fever, dyspnea, syncope, headache, dizziness, GI bleed, back pain, seizure, CVA, palpatations, mental health, musculoskeletal)? @ -Differential Dizziness: Benign paroxysmal positional Vertigo, Menieres disease, otitis media, acoustic neuroma, vertebrobasilar insufficiency, cerebellar stroke, encephalitis, hypovolemic, arrhythmia, coronary artery syndrome, anemia, this is not meant to be an all-inclusive listable EKG interpreted by me (3pts min.). @ -As above X-rays interpreted by me (1pt min.). @ -None done CT interpreted by me (1pt min.). @ -CT of the brain shows no acute intracranial process U/S interpreted by me (1pt. min.). @ -None done What testing was considered but not performed or refused? (CT, X-rays, U/S, lab s)? Why? @ -None What meds were considered but not given or refused? Why? @ -None Did you discuss the management of the patient with other professionals (professionals i.e. , PA, VAULT MAKER, lab, RT, psych nurse, foster care social worker, rn pediatric icu, teacher, corporate officer, rn case management)? Give summary @ - for admission given persistent for dizziness symptoms patient was given multiple rounds of medications with no relief symptoms. Patient unsteady to go home. Was smoking cessation discussed for >3mins.? @ -No Was critical care preformed (if so, how long)? @ -No Were there social determinants of health that impacted care today? How? (Homelessness, low income, unemployed, alcoholism, drug addiction, transportat ion, low edu. Level, literacy, decrease access to med. care, half-way, rehab)? @ -No Was there de-escalation of care discussed even if they declined (Discuss DNR or withdrawal of care, Hospice)? DNR status @ -No What co-morbidities impacted this encounter? (DM, HTN, Smoking, COPD, CAD, Cancer, CVA, ARF, Chemo, Hep., AIDS, mental health diagnosis, sleep apnea, morbid obesity)? @ -Diabetes hypertension Was patient admitted / discharged? Hospital course, mention meds given and route, prescriptions, significant lab abnormalities, going to OR and other pertinent info. @ -Admitted patient has significant for dizziness symptoms with no focal deficits. Patient will be admitted for neurology evaluation and treatment for UTI. Undiagnosed new problem with uncertain prognosis? @ -No Drug Therapy requiring intensive monitoring for toxicity (Heparin, Nitro, Insulin, Cardizem)? @ -No Were any procedures done? @ -No Diagnosis/symptom? @ -vertigo, UTI Acute, or Chronic, or Acute on Chronic? @ -Acute Uncomplicated (without systemic symptoms) or Complicated (systemic symptoms)? @ -Uncomplicated Side effects of treatment? @ -No Exacerbation, Progression, or Severe Exacerbation? @ -No Poses a threat to life or bodily function? How? (Chest pain, [place], NE, pneumonia, PE, COPD, DKA, ARF, appy, cholecystitis, CVA, Diverticulitis, Homicidal, Suicidal, threat to staff... and all critical care pts) @ -No - Lab Data Result diagrams: 03/11/23 19:30 03/11/23 19:30 Lab Results 03/11/23 03/11/23 03/11/23 Range/Units 19:30 19:30 19:30 WBC 9.4 (3.8-10.6) k/uL RBC 4.38 (3.80-5.40) m/uL Hgb 12.0 (11.4-16.0) gm/dL Hct 37.7 (34.0-46.0) % MCV 86.2 (80.0-100.0) fL MCH 27.5 (25.0-35.0) pg MCHC 31.9 (31.0-37.0) g/dL RDW 15.3 (11.5-15.5) % Plt Count 277 (150-450) k/uL MPV 8.1 Neutrophils % 73 % Lymphocytes % 17 % Monocytes % 6 % Eosinophils % 2 % Basophils % 0 % Neutrophils # 6.9 (1.3-7.7) k/uL Lymphocytes # 1.6 (1.0-4.8) k/uL Monocytes # 0.5 (0-1.0) k/uL Eosinophils # 0.2 (0-0.7) k/uL Basophils # 0.0 (0-0.2) k/uL Sodium 131 L (137-145) mmol/L Potassium 3.8 (3.5-5.1) mmol/L Chloride 97 L (98-107) mmol/L Carbon Dioxide 24 (22-30) mmol/L Anion Gap 10 mmol/L BUN 17 (7-17) mg/dL Creatinine 0.54 (0.52-1.04) mg/dL Est GFR (CKD-EPI)AfAm >90 (>60 ml/min/1.73 sqM) Est GFR (CKD-EPI)NonAf >90 (>60 ml/min/1.73 sqM) Glucose 89 (74-99) mg/dL Calcium 9.1 (8.4-10.2) mg/dL Magnesium 1.8 (1.6-2.3) mg/dL Total Bilirubin 0.3 (0.2-1.3) mg/dL AST 27 (14-36) U/L ALT 22 (4-34) U/L Alkaline Phosphatase 91 (38-126) U/L Troponin I <0.012 (0.000-0.034) ng/mL Total Protein 6.7 (6.3-8.2) g/dL Albumin 3.8 (3.5-5.0) g/dL Urine Color Urine Appearance (Clear) Urine pH (5.0-8.0) Ur Specific [place] (1.001-1.035) Urine Protein (Negative) Urine Glucose (UA) (Negative) Urine Ketones (Negative) Urine Blood (Negative) Urine Nitrite (Negative) Urine Bilirubin (Negative) Urine Urobilinogen (<2.0) mg/dL Ur Leukocyte Esterase (Negative) Urine RBC (0-5) /hpf Urine WBC (0-5) /hpf Ur Squamous Epith Cells (0-4) /hpf Urine Bacteria (None) /hpf 03/11/23 Range/Units 20:58 WBC (3.8-10.6) k/uL RBC (3.80-5.40) m/uL Hgb (11.4-16.0) gm/dL Hct (34.0-46.0) % MCV (80.0-100.0) fL MCH (25.0-35.0) pg MCHC (31.0-37.0) g/dL RDW (11.5-15.5) % Plt Count (150-450) k/uL MPV Neutrophils % % Lymphocytes % % Monocytes % % Eosinophils % % Basophils % % Neutrophils # (1.3-7.7) k/uL Lymphocytes # (1.0-4.8) k/uL Monocytes # (0-1.0) k/uL Eosinophils # (0-0.7) k/uL Basophils # (0-0.2) k/uL Sodium (137-145) mmol/L Potassium (3.5-5.1) mmol/L Chloride (98-107) mmol/L Carbon Dioxide (22-30) mmol/L Anion Gap mmol/L BUN (7-17) mg/dL Creatinine (0.52-1.04) mg/dL Est GFR (CKD-EPI)AfAm (>60 ml/min/1.73 sqM) Est GFR (CKD-EPI)NonAf (>60 ml/min/1.73 sqM) Glucose (74-99) mg/dL Calcium (8.4-10.2) mg/dL Magnesium (1.6-2.3) mg/dL Total Bilirubin (0.2-1.3) mg/dL AST (14-36) U/L ALT (4-34) U/L Alkaline Phosphatase (38-126) U/L Troponin I (0.000-0.034) ng/mL Total Protein (6.3-8.2) g/dL Albumin (3.5-5.0) g/dL Urine Color Light Yellow Urine Appearance Clear (Clear) Urine pH 6.5 (5.0-8.0) Ur Specific [place] 1.007 (1.001-1.035) Urine Protein Negative (Negative) Urine Glucose (UA) Negative (Negative) Urine Ketones Negative (Negative) Urine Blood Negative (Negative) Urine Nitrite Negative (Negative) Urine Bilirubin Negative (Negative) Urine Urobilinogen <2.0 (<2.0) mg/dL Ur Leukocyte Esterase Large H (Negative) Urine RBC 1 (0-5) /hpf Urine WBC 59 H (0-5) /hpf Ur Squamous Epith Cells 1 (0-4) /hpf Urine Bacteria Rare H (None) /hpf Disposition Clinical Impression: Vertigo, UTI (urinary tract infection) Disposition: ADMITTED IP TO THIS HOSP Referrals: Peter De Santiago MD [Primary Care Provider] - 1-2 days Time of Disposition: 22:12
[2023-03-11] MEDS ORDERED: METOCLOPRAMIDE 5 MG/ML 2 ML VIAL IVP STA (21:37)
[2023-03-11] MEDS ORDERED: cefTRIAXone IN SWFI 1,000 MG/10 ML SYRINGE IVP STA (22:08)
[2023-03-11] MEDS ORDERED: ONDANSETRON 4 MG/2 ML VIAL IVP PRN (22:12)
[2023-03-11] MEDS ORDERED: NALOXONE 0.4 MG/ML 1 ML VIAL IV PRN (22:12)
[2023-03-11] MEDS ORDERED: MECLIZINE 25 MG TAB PO PRN (22:13)
[2023-03-11] MEDS: ACETAMINOPHEN TAB 325 MG TAB PO PRN (22:24)
[2023-03-12] MEDS: ACETAMINOPHEN TAB 325 MG TAB PO PRN ×3 (04:53→21:35)
[2023-03-12] MEDS: PANTOPRAZOLE 40 MG TABLET PO SCH (08:24)
[2023-03-12] MEDS: MONTELUKAST 10 MG TAB PO SCH (08:24)
[2023-03-12] MEDS: atenoloL 50 MG TAB PO SCH ×2 (08:24→20:33)
[2023-03-12] MEDS: oxyBUTYnin chloride 5 MG TAB PO SCH ×2 (08:24→20:33)
[2023-03-12] MEDS: IPRATROPIUM 0.5 MG/2.5 ML NEBU INHALATION SCH ×3 (08:50→16:25)
[2023-03-12] MEDS: LOSARTAN-HCTZ 50-12.5 MG 1 EACH TAB PO SCH (09:32)
--- NOTE | 2023-03-12 12:54 | US ---
EXAMINATION TYPE: US carotid duplex BILAT DATE OF EXAM: 03/12/2023 COMPARISON: NONE CLINICAL INDICATION: Female, 77 years old with history of Dizziness; Dizziness TECHNIQUE: Carotid duplex ultrasound examination. Indirect Doppler criteria was utilized. FINDINGS: EXAM MEASUREMENTS: RIGHT: Peak Systolic Velocity (PSV) cm/sec ----- Right CCA: 62.5 ----- Right ICA: 88.4 ----- Right ECA: 58.0 ICA/CCA ratio: 1.41 RIGHT: End Diastole cm/sec ----- Right CCA: 17.8 ----- Right ICA: 22.4 ----- Right ECA: 4.0 LEFT: Peak Systolic Velocity (PSV) cm/sec ----- Left CCA: 84.2 ----- Left ICA: 104 ----- Left ECA: 80.9 ICA/CCA ratio: 1.24 LEFT: End Diastole cm/sec ----- Left CCA: 23.4 ----- Left ICA: 27.5 ----- Left ECA: 6.9 VERTEBRALS (direction of flow): Right Vertebral: Antegrade Left Vertebral: Antegrade Rhythm: Normal ADMINISTRATIVE HEARING OFFICER NOTES: Mild plaque bilateral bifurcations. No evidence of increased velocities IMPRESSION: No evidence for hemodynamically significant stenosis. Criteria for Assigning % of Stenosis / Diameter reduction (Estimation based on the indirect measurements of the internal carotid artery velocities (ICA PSV). 1. Normal (no stenosis)=ICA PSV < 125 cm/s: ratio < 2.0: ICA EDV<40 cm/s. 2. Less than 50% stenosis=ICA PSV < 125 cm/s: ratio < 2.0: ICA EDV<40 cm/s. 3. 50 to 69% stenosis=ICA PSV of 125 to 230 cm/s: ration 2.0 ? 4.0: ICA EDV 40-100 cm/s. 4. Greater than 70% stenosis to near occlusion= ICA PSV > 230 cm/s: ratio > 4.0: ICA EDV > 100 cm/s. 5. Near occlusion= ICA PSV velocities may be low or undetectable: variable ratio and ICA EDV. 6. Total occlusion=unable to detect flow.
--- NOTE | 2023-03-12 13:42 | P.CNNES ---
History of Present Illness Consult date: 03/12/23 Requesting physician: Elver Kaba Reason for Consult: Dizziness History of Present Illness: Patient is a 77-year-old right handed female came to the hospital yesterday at 5:10 PM for dizziness. Patient states that she got up yesterday at 7 AM and was feeling fine. She took her pills, drink her coffee and sat in the chair. At around 11 AM while watching TV, she developed blurred vision, felt dizzy. She got up, walked around and felt was spinning. She said on because of dizziness. She felt that she was not drinking water, drank some water thinking that she would be better, but later as she was not feeling better, she called her kids and they drove her to the hospital. Patient denies any slurred speech, facial droop, or any pain anywhere, any visual problems besides her history of macular degeneration. Patient denies any recent upper respiratory infection, although about 2 weeks ago she was sneezing, blowing nose has some sinus congestion which she just got over it. Vital signs on arrival blood pressure 131/75, pulse rate 85 temperature 98.3. Orthostatics checked supine blood pressure 146/83, pulse rate 85, sitting was 152/102 and pulse rate 100 and standing blood pressure was 181/102, with pulse rate of 96. Orthostatics negative. Blood test shows normal CBC, sodium 131 potassium 3.8, normal renal, hepatic panel, troponin is negative. UA shows large amount of leukocyte esterase and 59 WBC and rare bacteria. CT head showed no acute intracranial process. I pe rsonally reviewed CT head, agree with the findings. External auditory canals are clear. 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 EKG with sinus rhythm. Patient has never smoked, does not drink alcohol. Patient says that she has been using walker for last 6 months because of balance issues. She has never had experienced vertigo like this. Patient's home medications include losartan/HCTZ, omeprazole, Singulair, atenolol 50 mg twice a day, Requip 1 mg at bedtime, oxybutynin 5 mg twice a day, Lamisil and Mounjero. Overall she states that she is feeling better, her vision is better since early this morning. Review of Systems Patient has history of hip pain with sciatica, weight loss related to medication use. Constitutional: Reports weight loss, Denies chills, Denies fever Eyes: bilateral blurred vision, denies diplopia, denies pain (eyes aching ), denies loss of vision, denies tunnel vision/blind spots Ears: bilateral: decreased hearing (Hearing aids), deny: ear discharge, tinnitus Ears, nose, mouth and throat: Denies headache, Denies sore throat Cardiovascular: Denies chest pain, Denies shortness of breath Respiratory: Denies cough, Denies excessive sputum Gastrointestinal: Denies abdominal pain, Denies diarrhea, Denies nausea, Denies vomiting Genitourinary: Denies dysuria, Denies hematuria Musculoskeletal: Denies low back pain, Denies myalgias, Denies neck pain Integumentary: Denies pruritus, Denies rash Neurological: Reports as per HPI Psychiatric: Denies anxiety, Denies depression Endocrine: Reports weight change, Denies fatigue Past Medical History Past Medical History: Diabetes Mellitus, Eye Disorder, GERD/Reflux, Hearing Disorder / Deafness, Hypertension, Osteoarthritis (OA) Additional Past Medical History / Comment(s): MACULAR DEGENERATION, cataracts, osteoporosis, diet controlled diabetic, History of Any Multi-Drug Resistant Organisms: None Reported Past Surgical History: Cholecystectomy, Hysterectomy Additional Past Surgical History / Comment(s): ORIF RT WRIST-HAD BONE GRAFT FROM HIP, asher fundoplasty, Past Anesthesia/Blood Transfusion Reactions: No Reported Reaction Past Psychological History: Anxiety, Depression Smoking Status: Never smoker Past Alcohol Use History: None Reported Past Drug Use History: None Reported - Past Family History Brother(s) Family Medical History: Cancer Additional Family Medical History / Comment(s): LUNG Mother Family Medical History: Cancer Sister(s) Family Medical History: Cancer Medications and Allergies Home Medications Medication Instructions Recorded Confirmed Type Losartan/Hydrochlorothiazide 1 tab PO DAILY 10/02/14 03/11/23 History [Losartan-Hctz 100-25 mg Tab] Montelukast [Singulair] 10 mg PO DAILY 07/31/22 03/11/23 History Omeprazole [PriLOSEC] 40 mg PO DAILY 07/31/22 03/11/23 History atenoloL [Tenormin] 50 mg PO BID 07/31/22 03/11/23 History Acetaminophen [Tylenol Extra 1,000 mg PO Q6H PRN 12/17/22 03/11/23 History Strength] rOPINIRole HCL [Requip] 1 mg PO HS 12/17/22 03/11/23 History Terbinafine [LamISIL] 250 mg PO DAILY 03/11/23 03/11/23 History Tiotropium 2.5 Mcg/Puff [Spiriva 1 puff INHALATION RT-DAILY 03/11/23 03/11/23 History Respimat 2.5 Mcg] Tirzepatide [Mounjaro] 7.5 mg SQ WE 03/11/23 03/11/23 History oxyBUTYnin chloride [Ditropan] 5 mg PO BID 03/11/23 03/11/23 History Allergies Allergy/AdvReac Type Severity Reaction Status Date / Time No Known Allergies Allergy Verified 03/11/23 21:52 Physical Examination - Vital Signs Vital Signs: Vital Signs Temp Pulse Pulse Pulse Pulse Resp BP 03/12/23 09:01 87 03/12/23 08:54 03/12/23 08:48 91 03/12/23 07:45 98.1 F 100 96 85 16 03/12/23 06:44 106 H 18 154/84 03/12/23 04:27 99 18 146/81 03/12/23 00:04 89 18 153/92 03/11/23 22:00 70 180/92 03/11/23 21:00 03/11/23 20:45 03/11/23 17:29 98.3 F 85 20 131/75 BP BP BP Pulse Ox 03/12/23 09:01 03/12/23 08:54 94 L 03/12/23 08:48 03/12/23 07:45 152/102 181/102 146/83 97 03/12/23 06:44 95 03/12/23 04:27 96 03/12/23 00:04 96 03/11/23 22:00 03/11/23 21:00 94 L 03/11/23 20:45 95 03/11/23 17:29 99 Intake and Output 03/11/23 03/12/23 03/12/23 22:59 06:59 14:59 Intake Total 118 Balance 118 Intake: Oral 118 Other: Weight 94.801 kg Patient is an elderly female, very pleasant, in no acute distress. Patient is alert awake oriented to time place and person. Speech and language functions are normal. Patient can name and repeat very well. No aphasia or dysarthria. Attention, concentration and fund of knowledge is adequate. On cranial nerve examination, pupils are equal, round and reacting to light, visual blunt are full on confrontation, with no neglect on double simultaneous stimulation. Extraocular muscles are intact with no nystagmus. Face is symmetric, tongue protrudes to the midline. Palatal elevation and sensation normal, hearing is decreased bilaterally and shoulder shrug normal, facial sensation normal. On muscle strength testing, there is no pronator drift and the strength is norm al in arms and legs distally and proximally. Deep tendon reflexes are symmetric 2 at the biceps, 2 brachioradialis, 2 at the knees, 1+ ankles and plantars are downgoing bilaterally. Sensory to touch is equal with no neglect on double simultaneous stimulation. Cerebellar function showed no ataxia for [id number] testing. No dysdiadochokinesia. No ataxia for [id number] testing on either side. Tone and bulk of muscles normal. Gait deferred.. On general examination, there is no carotid bruit or murmur, S1-S2 audible. Chest is clear on consultation. Abdomen is soft nontender. No organomegaly, bowel sounds present. Peripheral pulses are present. No edema. Results - Laboratory Findings CBC and BMP: 03/11/23 19:30 03/11/23 19:30 Abnormal Lab Findings: Abnormal Labs 03/11/23 03/11/23 19:30 20:58 Sodium 131 L Chloride 97 L Ur Leukocyte Esterase Large H Urine WBC 59 H Urine Bacteria Rare H Assessment and Plan Assessment: * New onset vertigo, probably due to peripheral vestibular dysfunction. Patient does have mild upper respiratory symptoms in the last 2 weeks, which may have contributed to the vertigo. Patient also has possible mild UTI. * Blurred vision, probably due to above. * Diabetes * Hypertension * Osteoarthritis * Macular degeneration Plan: * Carotid Doppler to rule out stenosis * B12, folate, TSH * Patient has probable UTI. Patient on ceftriaxone, ID on board. * Meclizine as needed. * May consider Medrol Dosepak. * Neurology will follow. Thank you for the consult.
--- NOTE | 2023-03-12 21:54 | P.CONS ---
History of Present Illness - Reason for Consult Consult date: 03/12/23 - History of Present Illness Patient is 77-year-old female with a past medical history significant for diabetes mellitus hypertension osteoarthritis reflux has been brought to the ER for evaluation of feeling lightheaded and dizzy patient denies any headache or URI symptoms denies any pain to the ear or any drainage patient denies having any chest pain or shortness of breath or cough no nausea vomiting abdominal pain or diarrhea on presentation to hospital patient was afebrile and no fever has been recorded subsequently patient did have a normal white count kidney function was normal liver enzymes are normal did have a positive UA with large leukocyte esterase more than 5010 WBC patient did have a CT of the brain that was negative for any bleed patient was given a dose of Rocephin has been admitted to hospital concerning for UTI infectious disease was consulted for further management of antibiotic therapy Past Medical History Past Medical History: Diabetes Mellitus, Eye Disorder, GERD/Reflux, Hearing Disorder / Deafness, Hypertension, Osteoarthritis (OA) Additional Past Medical History / Comment(s): MACULAR DEGENERATION, cataracts, osteoporosis, diet controlled diabetic, History of Any Multi-Drug Resistant Organisms: None Reported Past Surgical History: Cholecystectomy, Hysterectomy Additional Past Surgical History / Comment(s): ORIF RT WRIST-HAD BONE GRAFT FROM HIP, asher fundoplasty, Past Anesthesia/Blood Transfusion Reactions: No Reported Reaction Past Psychological History: Anxiety, Depression Smoking Status: Never smoker Past Alcohol Use History: None Reported Past Drug Use History: None Reported - Past Family History Brother(s) Family Medical History: Cancer Additional Family Medical History / Comment(s): LUNG Mother Family Medical History: Cancer Sister(s) Family Medical History: Cancer Medications and Allergies Home Medications Medication Instructions Recorded Confirmed Type Losartan/Hydrochlorothiazide 1 tab PO DAILY 10/02/14 03/11/23 History [Losartan-Hctz 100-25 mg Tab] Montelukast [Singulair] 10 mg PO DAILY 07/31/22 03/11/23 History Omeprazole [PriLOSEC] 40 mg PO DAILY 07/31/22 03/11/23 History atenoloL [Tenormin] 50 mg PO BID 07/31/22 03/11/23 History Acetaminophen [Tylenol Extra 1,000 mg PO Q6H PRN 12/17/22 03/11/23 History Strength] rOPINIRole HCL [Requip] 1 mg PO HS 12/17/22 03/11/23 History Terbinafine [LamISIL] 250 mg PO DAILY 03/11/23 03/11/23 History Tiotropium 2.5 Mcg/Puff [Spiriva 1 puff INHALATION RT-DAILY 03/11/23 03/11/23 History Respimat 2.5 Mcg] Tirzepatide [Mounjaro] 7.5 mg SQ WE 03/11/23 03/11/23 History oxyBUTYnin chloride [Ditropan] 5 mg PO BID 03/11/23 03/11/23 History Allergies Allergy/AdvReac Type Severity Reaction Status Date / Time No Known Allergies Allergy Verified 03/11/23 21:52 Physical Exam Vitals: Vital Signs Temp Pulse Pulse Pulse Pulse Resp BP 03/12/23 16:35 85 03/12/23 16:25 82 03/12/23 14:51 97.5 F L 83 16 03/12/23 12:47 84 03/12/23 12:37 87 03/12/23 09:01 87 03/12/23 08:54 03/12/23 08:48 91 03/12/23 07:45 98.1 F 100 96 85 16 03/12/23 06:44 106 H 18 154/84 03/12/23 04:27 99 18 146/81 03/12/23 00:04 89 18 153/92 03/11/23 22:00 70 180/92 BP BP BP Pulse Ox 03/12/23 16:35 03/12/23 16:25 03/12/23 14:51 127/84 97 03/12/23 12:47 03/12/23 12:37 03/12/23 09:01 03/12/23 08:54 94 L 03/12/23 08:48 03/12/23 07:45 152/102 181/102 146/83 97 03/12/23 06:44 95 03/12/23 04:27 96 03/12/23 00:04 96 03/11/23 22:00 Intake and Output 03/12/23 03/12/23 03/12/23 06:59 14:59 22:59 Intake Total 648 600 Balance 648 600 Intake: Intake, IV Titration 50 Amount cefTRIAXone 1 gm In 50 Sodium Chloride 0.9% 50 ml @ 100 mls/hr IVPB Q24HR [facility] Rx#:[id number] Oral 598 600 Results CBC & Chem 7: 03/11/23 19:30 03/11/23 19:30 Assessment and Plan Plan: 1patient is in hospital with weakness feeling tired did have a positive UA some urinary symptoms concerning for possible symptomatic UTI likely from enteric gram-negative pathogen patient currently do not have any URI symptoms, lungs are clear to auscultation abdominal soft on clinical examination 2-we will start patient on Rocephin 1 g daily while waiting for the culture to finalize 3-gentle IV fluid We will follow on clinical condition and cultures to further adjust medication if needed Thank you for this consultation we will follow the patient along with you Time with Patient: Greater than 30
[2023-03-12] MEDS ORDERED: ZOLPIDEM 5 MG TAB PO ONE (23:59)
[2023-03-13] MEDS: IPRATROPIUM 0.5 MG/2.5 ML NEBU INHALATION SCH ×4 (00:13→16:09)
--- NOTE | 2023-03-13 01:56 | HP ---
HISTORY AND PHYSICAL HISTORY OF PRESENT ILLNESS: The patient came to emergency room with dizziness, lightheadedness. She is dehydrated. She was out in poor air outside all day, breathing in this high polluted air. She levels. She became dizzy, lightheaded, and was admitted for dehydration, given fluids. She feels much better since she has been admitted. Neurology consult is pending. Does not drink alcohol, but has difficulty with her breathing. REVIEW OF SYSTEMS: A 14-point review of system negative except for mentioned in HPI. PAST MEDICAL HISTORY: Diabetes mellitus, eye disorder, GERD, hearing disorder, hypertension, osteoarthritis . PAST SURGICAL HISTORY: Cholecystectomy, hysterectomy. MEDICATIONS: See list reviewed. ALLERGIES: Negative. PHYSICAL EXAMINATION: VITAL SIGNS: 150s to 140s up to 180s over 83 to 102, O2 saturation is 94, up to 99. LUNGS: Decreased breath sounds x4. CARDIOVASCULAR: S1, S2. HEMATOLOGY: Negative for Homans. NEUROLOGIC: Alert and oriented x3. LABS: Reviewed, sodium 131, potassium 3.8. ASSESSMENT: Dehydration, COPD exacerbation, hypoxemia, respiratory failure, hypertension acceleration, probable UTI. Did give her meclizine, Medrol Dosepak, Rocephin. Wait for urine cultures. Rehydrate. Prognosis guarded. MMODL / IJN: [id number] /
[2023-03-13] MEDS: PANTOPRAZOLE 40 MG TABLET PO SCH (06:28)
[2023-03-13 07:26] VITALS: RESP 16
[2023-03-13] MEDS: atenoloL 50 MG TAB PO SCH (08:15)
[2023-03-13] MEDS: ACETAMINOPHEN TAB 325 MG TAB PO PRN (08:15)
[2023-03-13] MEDS: MONTELUKAST 10 MG TAB PO SCH (08:15)
[2023-03-13] MEDS: oxyBUTYnin chloride 5 MG TAB PO SCH (08:15)
[2023-03-13] MEDS: LOSARTAN-HCTZ 50-12.5 MG 1 EACH TAB PO SCH (08:15)
[2023-03-13 14:25] VITALS: BP 147/85; TEMP 97.8
[2023-03-13 16:21] VITALS: PULSE 90
[2023-03-13] MEDS ORDERED: CEPHALEXIN 250 MG CAP PO SCH (22:00)
[2023-03-14] MEDS ORDERED: NON FORMULARY DRUG (Tirzepatide [Mounjaro] 7.5 MG/0.5 ML Pen.Injctr) SQ SCH (09:00)
== END 2023-03-13 18:38 | disposition home or self-care (01) ==
LOC: EC 17:10 → 6NMEDSUR 22:16
PROVIDERS: ADMIT Family Medicine; ATTEND Family Medicine
DX: E86.0 Dehydration (principal); J44.1 Chronic obstructive pulmonary disease with (acute) exacerbation; J96.91 Respiratory failure, unspecified with hypoxia; I67.2 Cerebral atherosclerosis; J34.1 Cyst and mucocele of nose and nasal sinus; H27.03 Aphakia, bilateral; K21.9 Gastro-esophageal reflux disease without esophagitis; I10 Essential (primary) hypertension; H35.30 Unspecified macular degeneration; M54.30 Sciatica, unspecified side; M81.0 Age-related osteoporosis without current pathological fracture; F41.9 Anxiety disorder, unspecified; F32.A Depression, unspecified; E11.36 Type 2 diabetes mellitus with diabetic cataract; Z79.899 Other long term (current) drug therapy; Z90.49 Acquired absence of other specified parts of digestive tract; Z90.710 Acquired absence of both cervix and uterus; Z80.1 Family history of malignant neoplasm of trachea, bronchus and lung; Z80.9 Family history of malignant neoplasm, unspecified
CPT/HCPCS: 96365; 96366; 96376; 96361; 96375; 99285; 36415; 94640 ×4; 94760 ×2; 93005; 85379; 80053; 84443; 82607; 82746; 83735; 84484; 85025; 81001; 87086; 93880; 70450; G0378 ×3; J2765; J2405; J0696 ×3

== ENCOUNTER 2023-05-24 16:28 | Inpatient (IN) | payer MEDICARE, OTHER ==
[2023-05-24 17:00] LABS: Glucose,Whole Blood 90 mg/dL (70-110)
--- NOTE | 2023-05-24 17:30 | ED ---
Altered Mental Status HPI - General Chief Complaint: Altered Mental Status Stated Complaint: AMS Time Seen by Provider: 05/24/23 17:10 Source: patient, EMS Mode of arrival: EMS Limitations: altered mental status - History of Present Illness Initial Comments: 78-year-old female with past history of diabetes, hypertension who presents emergency department with altered mental status. EMS originally report that the patient has had some confusion which has been slowly progressive. Evaluating the patient she is unable to really describe her symptoms. Patient daughter does arrive at 17 10 PM and states that her mother was completely normal around 3 PM when they were running some errands. Shortly after 3 PM patient became acutely confused with speech difficulties. She did drop the patient off at home and she made a phone call to her daughter. Daughter states that she had completely garbled speech and therefore she called EMS. Patient denies any headaches or visual changes. No lateralizing weakness. No history of stroke. Does not take any blood thinners. She denies any chest pain or shortness of breath. No bowel or bladder changes. No other alleviating, precipitating modifying factors - Related Data Home Medications Medication Instructions Recorded Confirmed Losartan/Hydrochlorothiazide 1 tab PO BID 10/02/14 05/24/23 [Losartan-Hctz 100-25 mg Tab] Montelukast [Singulair] 10 mg PO DAILY 07/31/22 05/24/23 Omeprazole [PriLOSEC] 40 mg PO DAILY 07/31/22 05/24/23 atenoloL [Tenormin] 100 mg PO BID 07/31/22 05/24/23 Acetaminophen [Tylenol Extra 1,000 mg PO Q6H PRN 12/17/22 05/24/23 Strength] rOPINIRole HCL [Requip] 1 mg PO HS 12/17/22 05/24/23 Terbinafine [LamISIL] 250 mg PO DAILY 03/11/23 05/24/23 Tiotropium 2.5 Mcg/Puff [Spiriva 1 puff INHALATION RT-DAILY 03/11/23 05/24/23 Respimat 2.5 Mcg] Tirzepatide [Mounjaro] 7.5 mg SQ WE 03/11/23 05/24/23 oxyBUTYnin chloride [Ditropan] 5 mg PO BID 03/11/23 05/24/23 Nystatin 100,000Unit/gm Cream 1 applic TOPICAL BID 05/24/23 05/24/23 [Mycostatin Cream] Allergies Allergy/AdvReac Type Severity Reaction Status Date / Time No Known Allergies Allergy Verified 05/24/23 19:09 Review of Systems ROS Statement: Those systems with pertinent positive or pertinent negative responses have been documented in the HPI. ROS Other: All systems not noted in ROS Statement are negative. Past Medical History Past Medical History: Diabetes Mellitus, Eye Disorder, GERD/Reflux, Hearing Disorder / Deafness, Hypertension, Osteoarthritis (OA) Additional Past Medical History / Comment(s): MACULAR DEGENERATION, cataracts, osteoporosis, diet controlled diabetic, History of Any Multi-Drug Resistant Organisms: None Reported Past Surgical History: Cholecystectomy, Hysterectomy Additional Past Surgical History / Comment(s): ORIF RT WRIST-HAD BONE GRAFT FROM HIP, asher fundoplasty, Past Anesthesia/Blood Transfusion Reactions: No Reported Reaction Past Psychological History: Anxiety, Depression Smoking Status: Never smoker Past Alcohol Use History: None Reported Past Drug Use History: None Reported - Past Family History Brother(s) Family Medical History: Cancer Additional Family Medical History / Comment(s): LUNG Mother Family Medical History: Cancer Sister(s) Family Medical History: Cancer General Exam Limitations: altered mental status General appearance: alert, anxious Head exam: Present: atraumatic, normocephalic, normal inspection Eye exam: Present: normal appearance, PERRL, EOMI. Absent: scleral icterus, conjunctival injection, periorbital swelling ENT exam: Present: normal exam, mucous membranes moist Respiratory exam: Present: normal lung sounds bilaterally. Absent: respiratory distress, wheezes, rales, rhonchi, stridor Cardiovascular Exam: Present: regular rate, normal rhythm, normal heart sounds. Absent: systolic murmur, diastolic murmur, rubs, gallop, clicks GI/Abdominal exam: Present: soft, normal bowel sounds. Absent: distended, tenderness, guarding, rebound, rigid Extremities exam: Present: normal inspection, full ROM, normal capillary refill. Absent: tenderness, pedal edema, joint swelling, calf tenderness Neurological exam: Present: alert, oriented X3, other (Patient is able to name items off of the page. She has no slurred speech. She is unable to describe the image within the stroke packet. She does have significant expressive aphasia however she can repeat words without difficulty) Psychiatric exam: Present: anxious Skin exam: Present: warm, dry, intact, normal color. Absent: rash Course Vital Signs 05/24/23 05/24/23 05/24/23 16:52 17:15 17:45 Temperature 97.3 F L Pulse Rate 86 100 91 Respiratory 18 20 22 Rate Blood Pressure 145/67 135/77 137/111 O2 Sat by Pulse 100 99 100 Oximetry 05/24/23 05/24/23 05/24/23 18:00 18:15 18:30 Temperature Pulse Rate 107 H 98 96 Respiratory 22 19 19 Rate Blood Pressure 165/144 172/92 145/88 O2 Sat by Pulse 100 99 100 Oximetry 05/24/23 05/24/23 05/24/23 18:45 19:00 19:15 Temperature Pulse Rate 94 93 100 Respiratory 19 19 20 Rate Blood Pressure 133/81 125/75 135/77 O2 Sat by Pulse 100 100 99 Oximetry 05/24/23 05/24/23 05/24/23 20:00 20:03 21:00 Temperature Pulse Rate 98 92 94 Respiratory 20 18 17 Rate Blood Pressure 134/79 129/80 135/77 O2 Sat by Pulse 99 98 100 Oximetry 05/24/23 05/24/23 05/25/23 21:03 22:03 00:03 Temperature Pulse Rate 95 93 92 Respiratory 18 18 18 Rate Blood Pressure 122/78 135/87 132/86 O2 Sat by Pulse 98 96 98 Oximetry - Reevaluation(s) Reevaluation #1: Spoke with stroke team - can not see images. working to see images. 05/24/23 17:38 Reevaluation #2: Dr. Alberts states he recommends tPA if the patient has an NIH of 3 or greater. I did repeat a NIH on the patient and her deficit remains at a 2 therefore it is not recommend that TPA be administered. Spoke with the patient's family who also agrees that they do not want TPA is not recommended by the neuro proposal development manager 05/24/23 17:45 Medical Decision Making - Medical Decision Making Was pt. sent in by a medical professional or institution (, PA, INSIDE SALES DIRECTOR, urgent care, hospital, or half-way...) When possible be specific @ -No Did you speak to anyone other than the patient for history (EMS, parent, family, police, friend...)? What history was obtained from this source @ -I spoke with EMS who state that the confusion was slowly progressive. Daughter does present at 1710 and states that the mental status change was acute and at 3:00 Did you review nursing and triage notes (agree or disagree)? Why? @ -I reviewed and agree with nursing and triage notes Were old charts reviewed (outside hosp., previous admission, EMS record, old EKG, old radiological studies, urgent care reports/EKG's, half-way records)? Report findings @ -No old charts were reviewed Differential Diagnosis (chest pain, altered mental status, abdominal pain women, abdominal pain men, vaginal bleeding, weakness, fever, dyspnea, syncope, headache, dizziness, GI bleed, back pain, seizure, CVA, palpatations, mental health, musculoskeletal)? @ -Differential CVA Ischemic stroke, hemorrhagic stroke, brain tumor, atypical migraine, Wernicke's encephalopathy, seizure, multiple sclerosis, meningitis, encephalitis, hypoglycemia, Guillain-[place], electrolytes disturbance, myasthenia gravis.... This is not meant to be an all-inclusive list EKG interpreted by me (3pts min.). @ -Yes and demonstrates sinus rhythm rate 91. UT interval of 156. QRS 81. QTC of 431. No acute ST segment elevations or depressions X-rays interpreted by me (1pt min.). @ -Yes and demonstrates no acute intrathoracic process CT interpreted by me (1pt min.). @ -Yes and demonstrates no acute intracranial process U/S interpreted by me (1pt. min.). @ -None done What testing was considered but not performed or refused? (CT, X-rays, U/S, labs)? Why? @ -None What meds were considered but not given or refused? Why? @ -Alteplase was considered however NIH is 1. Neuro-proposal development manager did recommend alteplase if patient had an NIH of 3 or greater. I did discuss the reasoning with the family and they were agreeable to not receiving alteplase due to risks versus benefits Did you discuss the management of the patient with other professionals (professionals i.e. , PA, INSIDE SALES DIRECTOR, lab, RT, psych nurse, social insurance adviser, financial aids officer, teacher, employment security officer, family service caseworker)? Give summary @ -Spoke with Dr. Coburn who stated that the patient should receive alteplase if NIH was greater or equal to 3 Was smoking cessation discussed for >3mins.? @ -No Was critical care preformed (if so, how long)? @ -Yes, 40 minutes for code alteplase Were there social determinants of health that impacted care today? How? (Elizabeth elessness, low income, unemployed, alcoholism, drug addiction, transportation, low edu. Level, literacy, decrease access to med. care, halfway, rehab)? @ -No Was there de-escalation of care discussed even if they declined (Discuss DNR or withdrawal of care, Hospice)? DNR status @ -No What co-morbidities impacted this encounter? (DM, HTN, Smoking, COPD, CAD, Cancer, CVA, ARF, Chemo, Hep., AIDS, mental health diagnosis, sleep apnea, morbid obesity)? @ -None Was patient admitted / discharged? Hospital course, mention meds given and route, prescriptions, significant lab abnormalities, going to OR and other pertinent info. @ -Upon arrival patient had been placed into room 3. Thorough history and physical exam was performed. Patient cannot voice to me her symptoms. EMS did state that the altered mental status was slowly progressive and did not alert to possible stroke. I evaluated the patient myself and daughter doesn't enter the room 1710. It is recognized the patient has expressive aphasia. Daughter states that the altered mental status was sudden onset at 3 PM. Because of this I did feel the patient met code alteplase criteria and it is activated at this time. Patient does go for CT and CT angiography. I spoke with Dr. Coburn who states that the patient should receive alteplase if her NIH is greater than 3. NIH is 1 in the patient for her expressive aphasia. Family was agreeable that the patient should not receive alteplase due to risks versus benefits. Therefore it is not given. CT angiography does not demonstrate clot and theref ore patient has not a thrombectomy candidate. Remaining labs are within normal limits. Did recommend admission as there is concern for stroke. Patient was agreeable to admission. She was given an aspirin and a statin. Patient is admitted to Dr. Henry who did accept the admission with neurology on consultation Undiagnosed new problem with uncertain prognosis? @ -Yes Drug Therapy requiring intensive monitoring for toxicity (Heparin, Nitro, Insulin, Cardizem)? @ -No Were any procedures done? @ -No Diagnosis/symptom? @ -Acute expressive aphasia, suspected acute CVA Acute, or Chronic, or Acute on Chronic? @ -Acute Uncomplicated (without systemic symptoms) or Complicated (systemic symptoms)? @ -complicated Side effects of treatment? @ -No Exacerbation, Progression, or Severe Exacerbation? @ -No Poses a threat to life or bodily function? How? (Chest pain, USA, MS, pneumonia, PE, COPD, DKA, ARF, appy, cholecystitis, CVA, Diverticulitis, Homicidal, Suicidal, threat to staff... and all critical care pts) @ -Yes patient does present with concerning signs for stroke - Lab Data Result diagrams: 05/24/23 17:38 05/24/23 17:38 Lab Results 05/24/23 05/24/23 05/24/23 Range/Units 16:59 17:38 17:38 WBC 8.1 (3.8-10.6) k/uL RBC 4.51 (3.80-5.40) m/uL Hgb 11.9 (11.4-16.0) gm/dL Hct 35.9 (34.0-46.0) % MCV 79.7 L (80.0-100.0) fL MCH 26.3 (25.0-35.0) pg MCHC 33.0 (31.0-37.0) g/dL RDW 14.7 (11.5-15.5) % Plt Count 331 (150-450) k/uL MPV 7.6 Neutrophils % 75 % Lymphocytes % 16 % Monocytes % 6 % Eosinophils % 1 % Basophils % 0 % Neutrophils # 6.1 (1.3-7.7) k/uL Lymphocytes # 1.3 (1.0-4.8) k/uL Monocytes # 0.5 (0-1.0) k/uL Eosinophils # 0.1 (0-0.7) k/uL Basophils # 0.0 (0-0.2) k/uL PT 9.8 (9.0-12.0) sec INR 0.9 (<1.2) APTT 22.6 (22.0-30.0) sec Sodium (137-145) mmol/L Potassium (3.5-5.1) mmol/L Chloride (98-107) mmol/L Carbon Dioxide (22-30) mmol/L Anion Gap mmol/L BUN (7-17) mg/dL Creatinine (0.52-1.04) mg/dL Est GFR (CKD-EPI)AfAm (>60 ml/min/1.73 sqM) Est GFR (CKD-EPI)NonAf (>60 ml/min/1.73 sqM) Glucose (74-99) mg/dL POC Glucose (mg/dL) 90 (70-110) mg/dL POC Glu Manager [employer] ID March, Calcium (8.4-10.2) mg/dL Total Bilirubin (0.2-1.3) mg/dL AST (14-36) U/L ALT (4-34) U/L Alkaline Phosphatase (38-126) U/L Creatine Kinase (30-135) U/L Troponin I (0.000-0.034) ng/mL Total Protein (6.3-8.2) g/dL Albumin (3.5-5.0) g/dL Urine Color Urine Appearance (Clear) Urine pH (5.0-8.0) Ur Specific [place] (1.001-1.035) Urine Protein (Negative) Urine Glucose (UA) (Negative) Urine Ketones (Negative) Urine Blood (Negative) Urine Nitrite (Negative) Urine Bilirubin (Negative) Urine Urobilinogen (<2.0) mg/dL Ur Leukocyte Esterase (Negative) 05/24/23 05/24/23 05/24/23 Range/Units 17:38 17:38 18:07 WBC (3.8-10.6) k/uL RBC (3.80-5.40) m/uL Hgb (11.4-16.0) gm/dL Hct (34.0-46.0) % MCV (80.0-100.0) fL MCH (25.0-35.0) pg MCHC (31.0-37.0) g/dL RDW (11.5-15.5) % Plt Count (150-450) k/uL MPV Neutrophils % % Lymphocytes % % Monocytes % % Eosinophils % % Basophils % % Neutrophils # (1.3-7.7) k/uL Lymphocytes # (1.0-4.8) k/uL Monocytes # (0-1.0) k/uL Eosinophils # (0-0.7) k/uL Basophils # (0-0.2) k/uL PT (9.0-12.0) sec INR (<1.2) APTT (22.0-30.0) sec Sodium 129 L (137-145) mmol/L Potassium 3.2 L (3.5-5.1) mmol/L Chloride 97 L (98-107) mmol/L Carbon Dioxide 18 L (22-30) mmol/L Anion Gap 14 mmol/L BUN 14 (7-17) mg/dL Creatinine 0.63 (0.52-1.04) mg/dL Est GFR (CKD-EPI)AfAm >90 (>60 ml/min/1.73 sqM) Est GFR (CKD-EPI)NonAf 87 (>60 ml/min/1.73 sqM) Glucose 89 (74-99) mg/dL POC Glucose (mg/dL) (70-110) mg/dL POC Glu Manager [employer] ID Calcium 9.3 (8.4-10.2) mg/dL Total Bilirubin 0.5 (0.2-1.3) mg/dL AST 25 (14-36) U/L ALT 21 (4-34) U/L Alkaline Phosphatase 94 (38-126) U/L Creatine Kinase 51 (30-135) U/L Troponin I <0.012 (0.000-0.034) ng/mL Total Protein 7.0 (6.3-8.2) g/dL Albumin 4.0 (3.5-5.0) g/dL Urine Color Yellow Urine Appearance Clear (Clear) Urine pH 8.5 H (5.0-8.0) Ur Specific [place] 1.028 (1.001-1.035) Urine Protein Negative (Negative) Urine Glucose (UA) Negative (Negative) Urine Ketones 1+ H (Negative) Urine Blood Negative (Negative) Urine Nitrite Negative (Negative) Urine Bilirubin Negative (Negative) Urine Urobilinogen <2.0 (<2.0) mg/dL Ur Leukocyte Esterase Negative (Negative) Disposition Clinical Impression: Expressive aphasia, CVA (cerebral vascular accident) Disposition: ADMITTED IP TO THIS [facility] Condition: Stable Is patient prescribed a controlled substance at d/c from ED?: No Time of Disposition: 18:55 Decision to Admit Reason: Admit from EC Decision Date: 05/24/23 Decision Time: 18:55
--- NOTE | 2023-05-24 17:46 | CT ---
EXAMINATION: CT brain wo con for TPA: 05/24/2023 5:33 PM CLINICAL INDICATION: Neuro deficit, acute, stroke suspected TECHNIQUE: Standard departmental protocol.; CT DLP: 1140.3 mGycm. Automated Exposure Control for Dose Reduction was Utilized. COMPARISON: 03/11/2023 FINDINGS: The calvarium is intact. There is no intracranial hemorrhage. There is no intracranial mass or mass effect. No definite new intra-axial or extra-axial attenuation defect. The paranasal sinuses, middle ear cavities, and mastoid sinus air cells are clear. The orbits are unremarkable. IMPRESSION: No acute process.
--- NOTE | 2023-05-24 17:48 | XR ---
EXAMINATION: XR chest 2V: 05/24/2023 5:40 PM CLINICAL INDICATION: altered mental status TECHNIQUE: Departmental protocol COMPARISON: 12/09/2019 FINDINGS: Prominent overlying soft tissues and prominent AP chest dimension noted. The lungs appear to be clear. The pleural spaces are negative. The cardiac silhouette is at least moderately enlarged. Tortuosity of the thoracic aorta redemonstrat ed. The skeletal structures and soft tissues are negative for acute findings. IMPRESSION: No definite acute process.
[2023-05-24 18:07] LABS: Basophils % (A) 0 %; Eosinophils # (A) 0.1 k/uL (0-0.7); Eosinophils % (A) 1 %; HCT 35.9 % (34.0-46.0); HGB 11.9 gm/dL (11.4-16.0); Lymphocytes # (A) 1.3 k/uL (1.0-4.8); Lymphocytes % (A) 16 %; MCH 26.3 pg (25.0-35.0); MCV 79.7 fL (80.0-100.0); Mean Platelet Volume 7.6; Monocytes # (A) 0.5 k/uL (0-1.0); Monocytes % (A) 6 %; Neutrophils # (A) 6.1 k/uL (1.3-7.7); Neutrophils % (A) 75 %; Platelet Count 331 k/uL (150-450); RBC 4.51 m/uL (3.80-5.40); RDW 14.7 % (11.5-15.5); WBC 8.1 k/uL (3.8-10.6)
--- NOTE | 2023-05-24 18:07 | CT ---
EXAMINATION TYPE: CT angio head neck DATE OF EXAM: 05/24/2023 HISTORY: cva COMPARISON: CT head without contrast 05/24/2023 5:[address] DLP: 575.2 mGycm. Automated Exposure Control for Dose Reduction was Utilized. TECHNIQUE: CTA scan of the head and neck is performed with IV Contrast, patient injected with 65cc m L of Isovue 370, axial images are obtained, coronal and sagittal reformatted images are reviewed. 3D reconstructed images are created on an independent workstation and reviewed. FINDINGS: CTA NECK Carotid arteries: There is marked bilateral CCA and ICA tortuosity. At the right carotid bulb there i s calcified plaque producing approximately 40% stenosis. There are no hemodynamically significant rig ht or left carotid stenoses, and no dissection or other acute abnormality. Vertebral arteries: The right and left vertebral arteries are widely patent, without evidence of diss ection or thrombus. They are of equal caliber. Miscellaneous: No acute incidental findings. CTA BRAIN Anterior circulation is widely patent, without thrombus or dissection or aneurysm. Posterior circulation is widely patent, without thrombus or dissection or aneurysm. Dural venous sinuses are patent. Miscellaneous: No acute incidental findings. Limitation of the study: There is patient motion artifact degradation of image quality. IMPRESSION: No acute CTA process. NASCET criteria was used in interpretation of this exam?
[2023-05-24 18:14] LABS: ALT 21 U/L (4-34); AST 25 U/L (14-36); African American GFR (CKD) >90 (>60 ml/min/1.73 sqM); Alkaline Phosphatase 94 U/L (38-126); Anion Gap 14 mmol/L; Blood Urea Nitrogen 14 mg/dL (7-17); Calcium 9.3 mg/dL (8.4-10.2); Carbon Dioxide 18 mmol/L (22-30); Chloride 97 mmol/L (98-107); Creatine Kinase 51 U/L (30-135); Glucose 89 mg/dL (74-99); Non-African American GFR(CKD) 87 (>60 ml/min/1.73 sqM); Potassium 3.2 mmol/L (3.5-5.1); Sodium 129 mmol/L (137-145); Total Bilirubin 0.5 mg/dL (0.2-1.3)
[2023-05-24] MEDS ORDERED: SODIUM CHLORIDE 0.9% 1,000 ML IV ONE (18:16)
[2023-05-24 18:17] LABS: Appearance,Urine Clear (Clear); Bilirubin,Urine Negative (Negative); Blood,Urine Negative (Negative); Color,Urine Yellow; Glucose,Urine (UA) Negative (Negative); Ketones,Urine 1+ (Negative); Leukocyte Esterase,Urine Negative (Negative); Nitrite,Urine Negative (Negative); PH, Urine 8.5 (5.0-8.0); Protein,Urine Negative (Negative); Specific Gravity,Urine 1.028 (1.001-1.035); Urobilinogen,Urine <2.0 mg/dL (<2.0)
[2023-05-24 18:18] LABS: INR 0.9 (<1.2); Partial Thromboplastin Time 22.6 sec (22.0-30.0); Prothrombin Time 9.8 sec (9.0-12.0)
[2023-05-24] MEDS ORDERED: NALOXONE 0.4 MG/ML 1 ML VIAL IV PRN (18:55)
[2023-05-24] MEDS: SODIUM CHLORIDE 0.9% 1,000 ML IV SCH (18:56)
[2023-05-24] MEDS ORDERED: ASPIRIN 325 MG TAB PO STA (18:58)
[2023-05-24] MEDS ORDERED: ACETAMINOPHEN TAB 325 MG TAB PO PRN (19:24)
[2023-05-24] MEDS ORDERED: ATORVASTATIN 80 MG TAB PO ONE (21:00)
[2023-05-25] MEDS: SODIUM CHLORIDE 0.9% 1,000 ML IV SCH ×3 (05:21→21:26)
[2023-05-25] MEDS ORDERED: IPRATROPIUM 0.5 MG/2.5 ML NEBU INHALATION SCH (08:00)
[2023-05-25] MEDS ORDERED: LOSARTAN-HCTZ 50-12.5 MG 1 EACH TAB PO SCH (09:00)
[2023-05-25] MEDS ORDERED: oxyBUTYnin chloride 5 MG TAB PO SCH (09:00)
[2023-05-25] MEDS: BUDESONIDE 0.5 MG/2 ML NEBU INHALATION SCH ×2 (10:16→21:17)
[2023-05-25] MEDS: IPRATROPIUM-ALBUTEROL 3 ML NEB INHALATION SCH ×4 (10:17→21:18)
[2023-05-25] MEDS: MONTELUKAST 10 MG TAB PO SCH (11:00)
[2023-05-25] MEDS: ATORVASTATIN 40 MG TAB PO SCH (11:00)
[2023-05-25] MEDS: atenoloL 50 MG TAB PO SCH ×2 (11:00→21:25)
[2023-05-25] MEDS: ASPIRIN 325 MG TAB PO SCH (11:00)
[2023-05-25 11:11] LABS: Chol/HDL Ratio 2.32 Ratio; LDL Cholesterol,Calculated 38.8 mg/dL (0.0-131.0); VLDL Calculation 14.16 mg/dL (5.00-40.00)
[2023-05-25 11:35] LABS: Glucose,Whole Blood 97 mg/dL (70-110)
--- NOTE | 2023-05-25 12:33 | CA ---
Transthoracic Echo Report Name: Katherine Barlow Age: 78 Gender: F : 1945 Exam Date: 05/25/2023 10:50 Exam Location: [facility] Ht (in): 64 Wt (lb): 200 Ordering Physician: Peter De Santiago MD Attending/Referring Phys: Platen Press Operator Apprentice Giovana Duong RDCS Procedure CPT: Indications: dyspnea Cardiac Hx: Technical Quality: Good Contrast 1: Total Dose (mL): Contrast 2: Total Dose (mL): MEASUREMENTS (Male / Female) Normal Values 2D ECHO LV Diastolic Diameter PLAX 4.6 cm 4.2 - 5.9 / 3.9 - 5.3 cm LV Systolic Diameter PLAX 3.5 cm IVS Diastolic Thickness 1.1 cm 0.6 - 1.0 / 0.6 - 0.9 cm LVPW Diastolic Thickness 1.0 cm 0.6 - 1.0 / 0.6 - 0.9 cm LV Relative Wall Thickness 0.5 RV Internal Dim ED PLAX 3.5 cm LA Systolic Diameter LX 3.6 cm 3.0 - 4.0 / 2.7 - 3.8 cm LV Diastolic Volume MOD 4C 52.6 cm??? LV Systolic Volume MOD 4C 21.7 cm??? LV Ejection Fraction MOD 4C 58.7 % LV Cardiac Index MOD 4C 1228.1 cm???/min???m??? LV Diastolic Length 4C 6.2 cm LV Systolic Length 4C 5.3 cm LV Diastolic Volume MOD 2C 35.6 cm??? LV Systolic Volume MOD 2C 16.6 cm??? LV Ejection Fraction MOD 2C 53.4 % LV Cardiac Index MOD 2C 756.5 cm???/min???m??? LV Diastolic Length 2C 6.0 cm LV Systolic Length 2C 4.8 cm LA Volume 62.7 cm??? 18 - 58 / 22 - 52 cm??? M-MODE Aortic Root Diameter MM 3.1 cm MV E Point Septal Separation 0.3 cm AV Cusp Separation MM 1.9 cm DOPPLER AV Peak Velocity 135.5 cm/s AV Peak Gradient 7.3 mmHg MV Peak Velocity 145.4 cm/s MV Peak Gradient 8.5 mmHg MV Mean Velocity 86.9 cm/s MV Mean Gradient 3.6 mmHg MV Velocity Time Integral 28.1 cm MV Area PHT 3.7 cm??? Mitral E Point Velocity 125.2 cm/s Mitral A Point Velocity 92.3 cm/s Mitral E to A Ratio 1.4 MV Deceleration Time 204.0 ms MV E' Velocity 4.7 cm/s Mitral E to MV E' Ratio 26.4 TR Peak Velocity 275.9 cm/s TR Peak Gradient 30.5 mmHg Right Ventricular Systolic Press 35.4 mmHg FINDINGS Left Ventricle Left ventricular ejection fraction is estimated at 55-60 %. Left ventricular cavity size normal. Mildly increased septal wall thickness. Right Ventricle Mild right ventricular dilatation. Mild pulmonary hypertension. Right Atrium Normal right atrial size. Left Atrium Mildly increased left atrial volume. Mitral Valve Mitral valve thickened. Mild mitral annular calcification. Mild mitral regurgitation. Aortic Valve Trileaflet aortic valve. No aortic valve stenosis or regurgitation. Tricuspid Valve Structurally normal tricuspid valve. Mild tricuspid regurgitation. Pulmonic Valve Pulmonic valve not well visualized. No pulmonic regurgitation. Pericardium No pericardial effusion. Aorta Normal size aortic root and proximal ascending aorta. CONCLUSIONS normal Previewed by: Dr. Raphael Mitchell MD (Electronically Signed) Final Date: 25 May 2023 12:33
[2023-05-25] MEDS: ACETAMINOPHEN TAB 500 MG TAB PO PRN ×2 (15:39→21:27)
[2023-05-25 16:47] LABS: Glucose,Whole Blood 100 mg/dL (70-110)
[2023-05-25 17:30] LABS: Basophils % (A) 0 %; Eosinophils # (A) 0.2 k/uL (0-0.7); Eosinophils % (A) 3 %; HCT 30.9 % (34.0-46.0); Hypochromasia Slight; Lymphocytes # (A) 1.1 k/uL (1.0-4.8); Lymphocytes % (A) 22 %; MCH 26.4 pg (25.0-35.0); MCHC 32.2 g/dL (31.0-37.0); Mean Platelet Volume 7.7; Monocytes # (A) 0.4 k/uL (0-1.0); Monocytes % (A) 7 %; Neutrophils # (A) 3.4 k/uL (1.3-7.7); Neutrophils % (A) 66 %; Platelet Count 298 k/uL (150-450); RBC 3.76 m/uL (3.80-5.40); RDW 14.8 % (11.5-15.5); WBC 5.2 k/uL (3.8-10.6)
[2023-05-25 17:47] LABS: HGB 9.9 gm/dL (11.4-16.0)
[2023-05-25 17:50] LABS: ALT 16 U/L (4-34); AST 18 U/L (14-36); African American GFR (CKD) >90 (>60 ml/min/1.73 sqM); Albumin 2.9 g/dL (3.5-5.0); Alkaline Phosphatase 65 U/L (38-126); Anion Gap 7 mmol/L; Blood Urea Nitrogen 13 mg/dL (7-17); Calcium 8.3 mg/dL (8.4-10.2); Carbon Dioxide 20 mmol/L (22-30); Chloride 104 mmol/L (98-107); Glucose 93 mg/dL (74-99); Non-African American GFR(CKD) >90 (>60 ml/min/1.73 sqM); Potassium 3.9 mmol/L (3.5-5.1); Sodium 131 mmol/L (137-145); Total Bilirubin 0.3 mg/dL (0.2-1.3); Total Protein 5.4 g/dL (6.3-8.2)
[2023-05-25 20:20] LABS: Glucose,Whole Blood 131 mg/dL (70-110)
--- NOTE | 2023-05-25 22:23 | HP ---
HISTORY AND PHYSICAL HISTORY OF PRESENT ILLNESS: The patient was outside with her daughter shopping at [employer]. She came in, was unpacking groceries and she had some garbled speech. Daughter was concerned at which time because she had some confusion too and some garbled speech. EMS was called, brought to the hospital, was admitted for possible CVA, TIA. HOME MEDICINES: 1. Losartan 100/25 daily. 2. Singulair 10 mg daily. 3. Prilosec 40 mg daily. 4. Tenormin 100 b.i.d. 5. She takes ReQuip 1 mg at night. 6. Lamisil 250 daily. 7. Mounjaro weekly. 8. Oxybutynin 5 mg b.i.d. REVIEW OF SYSTEMS: A 14-point review of systems otherwise negative. ALLERGIES: Negative. PAST MEDICAL HISTORY: Diabetes mellitus, GERD, hearing disorder, deafness, hypertension, COPD, osteoarthritis, macular degeneration. PAST SURGICAL HISTORY: Cholecystectomy, hysterectomy. PSYCHIATRIC HISTORY: Anxiety, depression. FAMILY HISTORY: Mother and sister with cancers. PHYSICAL EXAMINATION: VITAL SIGNS: Temperature 97.3, blood pressure is 130s to 140s over 60s to 70s, O2 is 99% to 100%, pulse rate is 98 to 106, respiratory rate 18 to 22. She did not have tPA in the ER due to NIH less than 3. PSYCH: She is alert, oriented x3. Speech is normal. CARDIOVASCULAR: S1, S2. LUNGS: Decreased breath sounds x4 NEUROLOGIC: She can move 4 extremities. Cranial nerves appear to be intact. ENDOCRINE: BMI is over 40 CT of the head, CAT scan of the head shows no strokes. Currently today she is feeling back to her normal self. She is talking, no speech impediments, no dysarthria or dysphagia. She feels her normal self, sitting up in the chair, moving all extremities, talking normally. Hematology 1 to 2+ edema. Sodium is 129, potassium 3.2, BUN is 14, creatinine 0.63. UA is negative. Albumin is 4.0. Troponins negative. ASSESSMENT: Expressive an aphasia, probable TIA versus CVA. MRI of the brain was ordered, echo with a bubble study has been ordered. She has COPD, pulmonary hypertension, dehydration, hyponatremia secondary to dehydration, hypokalemia secondary to dehydration. She is rehydrated. She is doing much better today back to her normal self left toe. Rule out TIA. She wants to be ruled out for CVA with an MRI of the brain. Electrolytes are being replaced. IV fluids have been given. Wait for Neurology recommendations. MMODL / IJN: [id number] /
--- NOTE | 2023-05-26 02:00 | CT ---
EXAMINATION TYPE: CT angio chest DATE OF EXAM: 05/25/2023 11:12 PM COMPARISON: None HISTORY: elevated d dimer CT DLP: 635.2 mGycm Automated exposure control for dose reduction was used. CONTRAST: CTA scan of the thorax is performed with IV Contrast, patient injected with 50 mL of Isovue 370, pulm onary embolism protocol. . FINDINGS: LUNGS: Bilateral groundglass changes with subsegmental areas of consolidation. No sizable pleural eff usion or pneumothorax. 1 the posterior wall of the trachea there is a soft tissue nodule. MEDIASTINUM: There is suboptimal enhancement of the pulmonary artery and its branches, there is no ce ntral pulmonary embolism. Secondary and distal branches are nondiagnostic and limited pulmonary embo lism in this distribution not excluded particular attention to the right upper lobe branch and bilate ral lower lobe branches. There are no greater than 1 cm hilar or mediastinal lymph nodes. Small peric ardial effusion is seen. Aorta of normal caliber OTHER: Large hiatal hernia. Esophagus is dilated at the level of the upper thoracic level. Postchole cystectomy changes are noted. Diffuse osteopenia with hypertrophic and degenerative changes of the sp ine. Correlate for previous gastric surgery. IMPRESSION: 1. Suboptimal enhancement of pulmonary arteries with artifact. No evidence of pulmonary embolism with in the central pulmonary artery or main right or left branches. Secondary, segmental and distal branc hes nondiagnostic. Pulmonary embolism cannot be excluded in this region. 2. Bilateral areas of consolidation and favor atelectasis over pneumonia correlate clinically. Large hiatal hernia.
[2023-05-26] MEDS: SODIUM CHLORIDE 0.9% 1,000 ML IV SCH ×3 (05:41→17:52)
[2023-05-26 05:46] VITALS: RESP 16
[2023-05-26 06:21] LABS: Glucose,Whole Blood 103 mg/dL (70-110)
--- NOTE | 2023-05-26 07:52 | P.CNNES ---
History of Present Illness Consult date: 05/25/23 Requesting physician: Karon Mercer Reason for Consult: acute expressive aphasia, suspected cva History of Present Illness: Patient is a 78-year-old right-handed female with history of diabetes came to the hospital by ambulance yesterday at 4:28 PM for an acute episode of speech difficulty. Patient states that yesterday she came from shopping, put stuff over and suddenly developed acute confusion with speech difficulty in the afternoon. She was confused, mixed up words and could not put words together. She did not know what was going on. They called the EMS at 3:49 PM. Patient bit his symptoms were present for about 20 minutes prior to calling the EMS. She denied any numbness tingling, paralysis, facial droop, visual disturbance any vertigo, dizziness or nausea vomiting. Patient states when EMS came, was not making sense. In the ED report, it was mentioned that patient's daughter has mentioned that she had completely garbled speech therefore they called the EMS. It was also reported by the patient's family that shortly after 3 PM patient became acutely confused with speech difficulties. As per EMS to sheet, it was reported that patient called family and she sounded confused on the phone. Patient was recently treated for UTI. Patient is alert and oriented 3 with slight confusion on assessment. Patient is normally alert and oriented 4. Patient denied any chest pain shortness of breath, dizziness headache nausea vomiting or diarrhea. Patient has rapid respirations. Pupils are equal. EKG shows sinus rhythm. Stroke scale was negative. Vital signs at the scene was blood pressure 152/94, pulse rate 86, respiration 22, saturation 95%, blood sugar 118. Temperature 97.6. Vital signs arrival blood pressure 145/67, pulse 86, temperature 97.3. Blood test shows normal CBC PT/PTT, sodium 129 potassium 3.2, normal hepatic panel, liver panel, troponin, CK. Cholesterol is 93, LDL 38, HDL 40 and triglycerides 70. UA negative. CT head revealed no acute process. I personally reviewed CT head, agree with the findings. There is some small vessel disease. Chest x-ray normal, EKG with sinus rhythm with sinus arrhythmia. Patient was evaluated by ED staff, and the ED staff discussed with neuro intervention Dr. Coburn. Patient was considered not a candidate for TPA, as her NIH stroke scale was 1. ED staff also discussed with family, and the declined TPA because risks are more than benefits. Patient states that when she was in the ER, she still could not talk and could not find words to say. Her symptoms persisted before she went to sleep. However this morning she woke up and the symptoms have resolved. Patient admits that her symptoms may be because she was not using oxygen at night as she should. She was also not using her nebulizer as she should. She also believes that it was very hot, humid and there was no air conditioning working. She felt she was dehydrated. She had history of hip replacement 2 weeks ago. Patient has history of hypertension, diabetes for last couple years. Denies hyperlipidemia, no previous history of strokes or TIA. Patient does take losartan/ACTZ, omeprazole, Singulair, atenolol, Requip, oxybutynin, Lamisil, Mounjaro. Patient does not take any antiplatelet medication at home. Patient denies any tobacco or alcohol use. Patient lives by herself. She uses walker all the time for last 6 was because of her balance issues. Review of Systems Constitutional: Denies chills, Denies fever Eyes: denies blurred vision, denies diplopia, denies pain Ears: deny: decreased hearing, ear discharge Ears, nose, mouth and throat: Denies headache, Denies sore throat Cardiovascular: Denies chest pain, Denies shortness of breath Respiratory: Denies cough, Denies excessive sputum Gastrointestinal: Denies abdominal pain, Denies diarrhea, Denies nausea, Denies vomiting Genitourinary: Denies dysuria, Denies hematuria Musculoskeletal: Denies low back pain, Denies myalgias, Denies neck pain Integumentary: Denies pruritus, Denies rash Neurological: Reports as per HPI Psychiatric: Denies anxiety, Denies depression Endocrine: Reports fatigue, Denies weight change Hematologic/Lymphatic: Denies easy bleeding, Denies easy bruising Past Medical History Past Medical History: Diabetes Mellitus, Eye Disorder, GERD/Reflux, Hearing Disorder / Deafness, Hypertension, Osteoarthritis (OA) Additional Past Medical History / Comment(s): MACULAR DEGENERATION, cataracts, osteoporosis, diet controlled diabetic, History of Any Multi-Drug Resistant Organisms: None Reported Past Surgical History: Cholecystectomy, Hysterectomy Additional Past Surgical History / Comment(s): ORIF RT WRIST-HAD BONE GRAFT FROM HIP, asher fundoplasty, Past Anesthesia/Blood Transfusion Reactions: No Reported Reaction Past Psychological History: Anxiety, Depression Smoking Status: Never smoker Past Alcohol Use History: None Reported Past Drug Use History: None Reported - Past Family History Brother(s) Family Medical History: Cancer Additional Family Medical History / Comment(s): LUNG Mother Family Medical History: Cancer Sister(s) Family Medical History: Cancer Medications and Allergies Home Medications Medication Instructions Recorded Confirmed Type Losartan/Hydrochlorothiazide 1 tab PO BID 10/02/14 05/24/23 History [Losartan-Hctz 100-25 mg Tab] Montelukast [Singulair] 10 mg PO DAILY 07/31/22 05/24/23 History Omeprazole [PriLOSEC] 40 mg PO DAILY 07/31/22 05/24/23 History atenoloL [Tenormin] 100 mg PO BID 07/31/22 05/24/23 History Acetaminophen [Tylenol Extra 1,000 mg PO Q6H PRN 12/17/22 05/24/23 History Strength] rOPINIRole HCL [Requip] 1 mg PO HS 12/17/22 05/24/23 History Terbinafine [LamISIL] 250 mg PO DAILY 03/11/23 05/24/23 History Tiotropium 2.5 Mcg/Puff [Spiriva 1 puff INHALATION RT-DAILY 03/11/23 05/24/23 History Respimat 2.5 Mcg] Tirzepatide [Mounjaro] 7.5 mg SQ WE 03/11/23 05/24/23 History oxyBUTYnin chloride [Ditropan] 5 mg PO BID 03/11/23 05/24/23 History Nystatin 100,000Unit/gm Cream 1 applic TOPICAL BID 05/24/23 05/24/23 History [Mycostatin Cream] Allergies Allergy/AdvReac Type Severity Reaction Status Date / Time No Known Allergies Allergy Verified 05/24/23 19:09 Physical Examination - Vital Signs Vital Signs: Vital Signs Temp Pulse Pulse Pulse Resp BP BP 05/25/23 20:00 97.6 F 77 16 138/80 05/25/23 18:00 83 18 127/77 05/25/23 16:38 80 05/25/23 16:28 76 05/25/23 12:30 97.5 F L 77 18 128/77 05/25/23 10:25 84 05/25/23 10:17 84 05/25/23 08:20 98 F 96 16 156/88 05/25/23 00:03 92 18 132/86 05/25/23 00:00 98.4 F 78 20 157/88 05/24/23 22:03 93 18 135/87 05/24/23 21:03 95 18 122/78 05/24/23 21:00 94 17 135/77 Pulse Ox FiO2 05/25/23 20:00 96 05/25/23 18:00 98 05/25/23 16:38 05/25/23 16:28 05/25/23 12:30 94 L 05/25/23 10:25 05/25/23 10:17 97 21 05/25/23 08:20 98 05/25/23 00:03 98 05/25/23 00:00 96 05/24/23 22:03 96 05/24/23 21:03 98 05/24/23 21:00 100 Intake and Output 05/25/23 05/25/23 05/25/23 06:59 14:59 22:59 Intake Total 720 Balance 720 Intake: Oral 720 Other: # Voids 1 3 Weight 90.718 kg Patient is an elderly female, very pleasant, in no acute distress. Patient is alert awake oriented to time place and person. Speech and language functions are normal. Patient can name and repeat very well. No aphasia or dysarthria. Attention, concentration and fund of knowledge is adequate. On cranial nerve examination, pupils are equal, round and reacting to light, visual blunt are full on confrontation, with no neglect on double simultaneous stimulation. Extraocular muscles are intact with no nystagmus. Face is symmetric, tongue protrudes to the midline. Palatal elevation and sensation normal, hearing and shoulder shrug normal, facial sensation normal. On muscle strength testing, there is no pronator drift and the strength is normal in arms and legs distally and proximally. Deep tendon reflexes are symmetric 2 at the biceps, 2 brachioradialis, 1+ at the knees and plantars downgoing bilaterally. Sensory to touch is equal with no neglect on double simultaneous stimulation. Cerebellar function showed no ataxia for [id number] testing. No dysdiadochokinesia. No ataxia for [id number] testing on either side. Tone and bulk of muscles normal. Gait deferred.. On general examination, there is no carotid bruit or murmur, S1-S2 audible. Chest is clear on consultation. Abdomen is soft nontender. No organomegaly, bowel sounds present. Peripheral pulses are present. No edema. Results - Laboratory Findings CBC and BMP: 05/25/23 16:58 05/25/23 16:58 Abnormal Lab Findings: Abnormal Labs 05/24/23 05/24/23 05/24/23 17:38 17:38 18:07 RBC Hgb Hct MCV 79.7 L D-Dimer Sodium 129 L Potassium 3.2 L Chloride 97 L Carbon Dioxide 18 L POC Glucose (mg/dL) Calcium Total Protein Albumin Urine pH 8.5 H Urine Ketones 1+ H 05/25/23 05/25/23 05/25/23 03:19 16:58 16:58 RBC 3.76 L Hgb 9.9 L D Hct 30.9 L MCV D-Dimer 0.82 H Sodium 131 L Potassium Chloride Carbon Dioxide 20 L POC Glucose (mg/dL) Calcium 8.3 L Total Protein 5.4 L Albumin 2.9 L Urine pH Urine Ketones 05/25/23 20:18 RBC Hgb Hct MCV D-Dimer Sodium Potassium Chloride Carbon Dioxide POC Glucose (mg/dL) 131 H Calcium Total Protein Albumin Urine pH Urine Ketones Assessment and Plan Assessment: * Probable TIA manifesting with expressive aphasia that lasted for several hours. This morning the symptoms have completely resolved. Her current NIH stroke scale is 0. * Hypertension * Diabetes * Recent hip replacement Plan: * Patient's symptoms at present has completely resolved. * MRI of the brain has been initiated by PCP to rule out CVA. * 2-D echo revealed normal left ventricular ejection fraction about 55-60%. Mildly increased septal wall thickness. Left atrium mildly increased in size. No aortic stenosis. * CTA head and neck showed: No abnormalities. No stenosis or aneurysm. * Fasting a.m. lipid panel with cholesterol 93, LDL 38, HDL 40 and triglycerides 70. Patient started on Lipitor 40 mg daily. * Hemoglobin A1c * Permissive hypertension for next 24-48 hours * Patient was not taking any antiplatelet medication at home. Patient has been started on aspirin 325 mg daily. This will be continued. * Close neuro checks as per protocol. * Telemetry monitoring rule out any arrhythmia * DVT prophylaxis: Heparin 5000 units subcu every 8 hours * Neurology will continue ot follow. Thank you for the consult.
[2023-05-26 08:48] VITALS: TEMP 97.7
[2023-05-26] MEDS: ATORVASTATIN 40 MG TAB PO SCH (08:48)
[2023-05-26] MEDS: atenoloL 50 MG TAB PO SCH (08:48)
[2023-05-26] MEDS: MONTELUKAST 10 MG TAB PO SCH (08:48)
[2023-05-26] MEDS: ASPIRIN 325 MG TAB PO SCH (08:48)
[2023-05-26 09:43] LABS: Basophils % (A) 0 %; Eosinophils # (A) 0.2 k/uL (0-0.7); Eosinophils % (A) 4 %; HCT 29.7 % (34.0-46.0); HGB 9.2 gm/dL (11.4-16.0); Hypochromasia Moderate; Lymphocytes # (A) 0.8 k/uL (1.0-4.8); Lymphocytes % (A) 17 %; MCH 25.8 pg (25.0-35.0); MCHC 31.1 g/dL (31.0-37.0); MCV 82.9 fL (80.0-100.0); Mean Platelet Volume 7.5; Monocytes # (A) 0.3 k/uL (0-1.0); Monocytes % (A) 6 %; Neutrophils # (A) 3.6 k/uL (1.3-7.7); Neutrophils % (A) 72 %; Platelet Count 275 k/uL (150-450); RBC 3.58 m/uL (3.80-5.40); RDW 14.8 % (11.5-15.5); WBC 5.1 k/uL (3.8-10.6)
[2023-05-26] MEDS: BUDESONIDE 0.5 MG/2 ML NEBU INHALATION SCH (09:43)
[2023-05-26] MEDS: IPRATROPIUM-ALBUTEROL 3 ML NEB INHALATION SCH ×3 (09:43→15:53)
[2023-05-26 09:58] LABS: ALT 15 U/L (4-34); AST 18 U/L (14-36); African American GFR (CKD) >90 (>60 ml/min/1.73 sqM); Albumin 2.7 g/dL (3.5-5.0); Alkaline Phosphatase 59 U/L (38-126); Anion Gap 7 mmol/L; Blood Urea Nitrogen 12 mg/dL (7-17); Carbon Dioxide 21 mmol/L (22-30); Chloride 107 mmol/L (98-107); Glucose 128 mg/dL (74-99); Non-African American GFR(CKD) >90 (>60 ml/min/1.73 sqM); Potassium 3.8 mmol/L (3.5-5.1); Sodium 135 mmol/L (137-145); Total Bilirubin 0.3 mg/dL (0.2-1.3); Total Protein 5.1 g/dL (6.3-8.2)
[2023-05-26 11:13] LABS: Glucose,Whole Blood 85 mg/dL (70-110)
--- NOTE | 2023-05-26 13:13 | MR ---
EXAMINATION TYPE: MR brain wo/w con DATE OF EXAM: 05/26/2023 12:17 PM CLINICAL INDICATION:Female, 78 years old with history of cva/tia; Acute expressive aphasia, evaluate for CVA. COMPARISON: 05/24/2023 CT TECHNIQUE: Multi planar, multi sequence imaging was performed through the brain including: T1, T2, In version recovery, susceptibility weighted imaging and gradient echo imaging and Diffusion weighted im aging. The patient was then given intravenous contrast and multi planar, T1 fat-saturation images wer e obtained. IV Contrast: 9 cc Gadavist FINDINGS: Motion artifact limits evaluation. Cerebral atrophy with proportional dilation of ventricular system. . Diffusion-weighted imaging shows no evidence of restricted diffusion to suggest acute/subacute inf arct. Intracranial arterial flow voids are maintained. Midline structures show no abnormality. Scatte red foci of high T2 signal intensity are seen within the periventricular white matter. The susceptibi lity weighted images do not reveal any evidence for micro-hemorrhage. After administration of gadolin ium, no abnormal enhancement is seen. The bone marrow signal is within normal limits. Paranasal sinuses and mastoid air cells: No significant paranasal sinus disease. Visualized orbits: Orbital contents are intact. IMPRESSION: Motion limited exam. 1. No evidence of intracranial mass, acute/subacute infarct, or abnormal enhancement. 2. Nonspecific white matter changes, likely related to small vessel ischemic disease
[2023-05-26 15:17] VITALS: BP 147/86
[2023-05-26 16:04] VITALS: PULSE 72
[2023-05-26] MEDS: ACETAMINOPHEN TAB 500 MG TAB PO PRN (16:30)
--- NOTE | 2023-05-27 12:22 | P.PN ---
Subjective Progress Note Date: 05/26/23 Patient was seen for a follow-up. Patient offers no complains. No deficits. Objective - Vital Signs Vital signs: Vital Signs Temp 97.7 F 05/26/23 08:47 Pulse 72 05/26/23 16:04 Resp 16 05/26/23 16:04 BP 147/86 05/26/23 15:16 Pulse Ox 97 05/26/23 15:53 FiO2 21 05/25/23 10:17 Intake & Output 05/26/23 05/27/23 05/27/23 18:59 06:59 18:59 Other: Voiding Method Toilet Diaper - Exam Examination nonfocal. - Labs CBC & Chem 7: 05/26/23 08:49 05/26/23 08:49 Assessment and Plan Assessment: * Probable TIA manifesting with expressive aphasia that lasted for several hours. This morning the symptoms have completely resolved. Her current NIH stroke scale is 0. * Hypertension * Diabetes * Recent hip replacement Plan: * Patient's symptoms at present has completely resolved. * MRI of the brain showed no evidence of intracranial mass, acute/subacute infarct or abnormal enhancement. Nonspecific white matter changes, likely is related to small vessel ischemic disease. * 2-D echo revealed normal left ventricular ejection fraction about 55-60%. Mildly increased septal wall thickness. Left atrium mildly increased in size. No aortic stenosis. * CTA head and neck showed: No abnormalities. No stenosis or aneurysm. * Fasting a.m. lipid panel with cholesterol 93, LDL 38, HDL 40 and triglycerides 70. Patient started on Lipitor 40 mg daily. * Hemoglobin A1c pending * Optimize control of blood pressure to normotensive level. * Patient was not taking any antiplatelet medication at home. Patient has been started on aspirin 325 mg daily. This will be continued. * Telemetry monitoring rule out any arrhythmia * Neurologically clear for discharge.
--- NOTE | 2023-05-30 15:27 | PN ---
PROGRESS NOTE SUBJECTIVE: A 78-year-old white female with a TIA versus CVA. Waiting for MRI and pelvis study and the echo to be read. She is back to her normal, so she wants to go home, but I told her she should wait there and she gets those tests back before going home. OBJECTIVE: VITAL SIGNS: Stable at this point. GENERAL: She is sitting up in the chair, giving appropriate answers. NEUROLOGIC: No neurologic weakness found. She is not garbled in her speech at all. CARDIOVASCULAR: S1, S2. LUNGS: Clear. EXTREMITIES: She can move four extremities. 2+ edema. ENDOCRINE: BMI is over 40. ASSESSMENT: Transient ischemic attack versus cerebrovascular accident, restless legs syndrome. She has chronic obstructive pulmonary disease, pulmonary hypertension, dyslipidemia, and hypertension. Continue to wait for MRI and pelvis study prior to going home. MMODL / IJN: [id number] /
== END 2023-05-26 17:47 | disposition home or self-care (01) | DRG 69 ==
LOC: EC 16:28 → 3SCARD 18:58
PROVIDERS: ADMIT Family Medicine; ATTEND Family Medicine
DX: G45.9 Transient cerebral ischemic attack, unspecified (principal); R47.01 Aphasia; E87.1 Hypo-osmolality and hyponatremia; I27.20 Pulmonary hypertension, unspecified; E86.0 Dehydration; I10 Essential (primary) hypertension; E11.9 Type 2 diabetes mellitus without complications; J44.9 Chronic obstructive pulmonary disease, unspecified; H91.90 Unspecified hearing loss, unspecified ear; K21.9 Gastro-esophageal reflux disease without esophagitis; M19.90 Unspecified osteoarthritis, unspecified site; M81.0 Age-related osteoporosis without current pathological fracture; H35.30 Unspecified macular degeneration; E87.6 Hypokalemia; Z96.649 Presence of unspecified artificial hip joint; Z79.899 Other long term (current) drug therapy
CPT/HCPCS: 36415; 70450; 70496; 70498; 70553; 71046; 71275; 80053; 80061; 81003; 82550; 83036; 84484; 85025; 85379; 85610; 85730; 93005; 93306; 94640; 94760; 96360; 99291

== ENCOUNTER 2023-10-06 10:35 | Inpatient (IN) | payer MEDICARE, OTHER ==
--- NOTE | 2023-10-06 11:22 | ED ---
General Adult HPI - General Source: patient Mode of arrival: ambulatory Limitations: no limitations <Wayne De Santiago - Last Filed: 10/06/23 11:17> <Leon Trinidad - Last Filed: 10/06/23 15:05> - General Chief complaint: Shortness of Breath Stated complaint: sob yellowing of skin - History of Present Illness Initial comments: Quick note: 78 year old female presents for shortness of breath which started about 1 week ago. She has never had similar issues. She is also concerned because she feels her skin has been yellow. She was also told this at urgent care. Patient does require 2 L O2 at night and an inhaler. She thinks she maybe has COPD (Wayne De Santiago) Dictation was produced using [employer] dictation software. please excuse any grammatical, word or spelling errors. Chief Complaint: 78-year-old female presents to the emergency department for several days of shortness of breath. She was seen in urgent care told her to come here because her skin looked jaundiced History of Present Illness: Patient is 78-year-old male she has no significant comorbidities. Presents emergency department for yellowing of the skin. She was seen at an urgent care and was told that he has some yellowing on her skin. She is also told by friends that she should be evaluated for jaundice. Patient has any abdominal pain. She has been complaining of some shortness of breath for the last few days. Patient has a history of cardiac disease or heart failure. Denies any fever or constitutional symptoms. No cough. The ROS documented in this emergency department record has been reviewed and confirmed by me. Those systems with pertinent positive or negative responses have been documented in the HPI. All other systems are other negative and/or noncontributory. (Leon Trinidad) - Related Data Home Medications Medication Instructions Recorded Confirmed Montelukast [Singulair] 10 mg PO DAILY 07/31/22 05/24/23 Omeprazole [PriLOSEC] 40 mg PO DAILY 07/31/22 05/24/23 atenoloL [Tenormin] 100 mg PO BID 07/31/22 05/24/23 Acetaminophen [Tylenol Extra 1,000 mg PO Q6H PRN 12/17/22 05/24/23 Strength] rOPINIRole HCL [Requip] 1 mg PO HS 12/17/22 05/24/23 Terbinafine [LamISIL] 250 mg PO DAILY 03/11/23 05/24/23 Tiotropium 2.5 Mcg/Puff [Spiriva 1 puff INHALATION RT-DAILY 03/11/23 05/24/23 Respimat 2.5 Mcg] Tirzepatide [Mounjaro] 7.5 mg SQ WE 03/11/23 05/24/23 Nystatin 100,000Unit/gm Cream 1 applic TOPICAL BID 05/24/23 05/24/23 [Mycostatin Cream] Previous Rx's Medication Instructions Recorded Aspirin 325 mg PO DAILY tab 05/26/23 Atorvastatin [Lipitor] 40 mg PO DAILY 90 Days #90 tab 05/26/23 Budesonide [Pulmicort] 0.5 mg INHALATION RT-BID 30 Days 05/26/23 #60 ml Ipratropium-Albuterol Nebulize 3 ml INHALATION RT-QID 30 Days 05/26/23 [Duoneb 0.5 mg-3 mg/3 ml Soln] #120 each Allergies Allergy/AdvReac Type Severity Reaction Status Date / Time No Known Allergies Allergy Verified 10/06/23 11:06 Review of Systems ROS Other: All systems not noted in ROS Statement are negative. <Wayne De Santiago - Last Filed: 10/06/23 11:17> ROS Other: All systems not noted in ROS Statement are negative. <Leon Trinidad - Last Filed: 10/06/23 15:05> ROS Statement: Those systems with pertinent positive or pertinent negative responses have been documented in the HPI. Past Medical History Past Medical History: Diabetes Mellitus, Eye Disorder, GERD/Reflux, Hearing Disorder / Deafness, Hypertension, Osteoarthritis (OA) Additional Past Medical History / Comment(s): MACULAR DEGENERATION, cataracts, osteoporosis, diet controlled diabetic, History of Any Multi-Drug Resistant Organisms: None Reported Past Surgical History: Cholecystectomy, Hysterectomy Additional Past Surgical History / Comment(s): ORIF RT WRIST-HAD BONE GRAFT FROM HIP, asher fundoplasty, Past Anesthesia/Blood Transfusion Reactions: No Reported Reaction Past Psychological History: Anxiety, Depression Smoking Status: Never smoker Past Alcohol Use History: None Reported Past Drug Use History: None Reported - Past Family History Brother(s) Family Medical History: Cancer Additional Family Medical History / Comment(s): LUNG Mother Family Medical History: Cancer Sister(s) Family Medical History: Cancer <Wayne DeS antiago - Last Filed: 10/06/23 11:17> General Exam Limitations: no limitations <Wayne De Santiago - Last Filed: 10/06/23 11:17> <Leon Trinidad - Last Filed: 10/06/23 15:05> - General Exam Comments Initial Comments: visual physical exam: well appearing no distress (Wayne De Santiago) PHYSICAL EXAM: General Impression: Alert and oriented x3, not in acute distress HEENT: Normocephalic atraumatic, extra-ocular movements intact, pupils equal and reactive to light bilaterally, mucous membranes moist. Cardiovascular: Heart regular rate and rhythm Chest: Able to complete full sentences, no retractions, no tachypnea Abdomen: abdomen soft, non-tender, non-distended, no organomegaly Musculoskeletal: Pulses present and equal in all extremities, no peripheral edema Motor: no focal deficits noted Neurological: CN II-XII grossly intact, no focal motor or sensory deficits noted Skin: Intact with no visualized rashes Psych: Normal affect and mood (Leon Trinidad) Course Vital Signs 10/06/23 11:04 Temperature 98.4 F Pulse Rate 73 Respiratory 20 Rate Blood Pressure 118/67 O2 Sat by Pulse 96 Oximetry EKG Findings - EKG Comments: EKG Findings:: My EKG interpretation: Ventricular rate 68, sinus rhythm,. 141, QRS 77, QTC 428. No ND prolongation, no QTC prolongation, no ST changes noted. EKG compared to 05/24/2023 showing new t wave lead 2 and avf. Overall, this EKG is nonspecific. <Leon Trinidad - Last Filed: 10/06/23 15:05> Medical Decision Making - Lab Data Result diagrams: 10/06/23 12:58 10/06/23 12:58 <Leon Trinidad - Last Filed: 10/06/23 15:05> - Medical Decision Making Was pt. sent in by a medical professional or institution (, PA, STREET INSPECTOR, urgent care, hospital, or [facility]...) When possible be specific @ -Instructed to come to the ER per urgent care Did you speak to anyone other than the patient for history (EMS, parent, family, police, friend...)? What history was obtained from this source @ -No Did you review nursing and triage notes (agree or disagree)? Why? @ -I reviewed and agree with nursing and triage notes Were old charts reviewed (outside hosp., previous admission, EMS record, old EKG, old radiological studies, urgent care reports/EKG's, [facility] records)? Report findings @ -No old charts were reviewed Differential Diagnosis (chest pain, altered mental status, abdominal pain women, abdominal pain men, vaginal bleeding, musculoskeletal, weakness, fever, dyspnea, syncope, headache, dizziness, GI bleed, back pain, seizure, CVA, palpatations, mental health)? @ -Differential Dyspnea: Coronary syndrome, arrhythmia, tamponade, asthma, COPD, pulmonary embolism, pneumonia, pneumothorax, pulmonary effusion, anaphylaxis, diabetic ketoacidosis, flailed chest, pulmonary contusion, diaphragmatic rupture, anemia, neuromuscular, this is not meant to be an all-inclusive list. EKG interpreted by me (3pts min.). @ -see above X-rays interpreted by me (1pt min.). @ -Chest x-ray shows pulmonary edema CT interpreted by me (1pt min.). @ -None done U/S interpreted by me (1pt. min.). @ -None done What testing was considered but not performed or refused? (CT, X-rays, U/S, labs)? Why? @ -None What meds were considered but not given or refused? Why? @ -None Did you discuss the management of the patient with other professionals (professionals i.e. , PA, STREET INSPECTOR, lab, RT, psych nurse, social media analyst, chucking machine set up operator tool, teacher, debt recovery officer, embedded case manager)? Give summary @ -Case discussed with hospitalist for admission Was smoking cessation discussed for >3mins.? @ -No Was critical care preformed (if so, how long)? @ -No Were there social determinants of health that impacted care today? How? (Homelessness, low income, unemployed, alcoholism, drug addiction, tr ansportation, low edu. Level, literacy, decrease access to med. care, senior care, rehab)? @ -No Was there de-escalation of care discussed even if they declined (Discuss DNR or withdrawal of care, Hospice)? DNR status @ -No What co-morbidities impacted this encounter? (DM, HTN, Smoking, COPD, CAD, Cancer, CVA, ARF, Chemo, Hep., AIDS, mental health diagnosis, sleep apnea, morbid obesity)? @ -None Was patient admitted / discharged? Hospital course, mention meds given and route, prescriptions, significant lab abnormalities, going to OR and other pertinent info. @ -78-year-old female presents to the emergency department for exertional dyspnea along with yellowing of the skin. Vital signs are stable. Patient is well-appearing at this time. In no acute distress at the bedside. Laboratory evaluation obtained. Patient has microcytic anemia likely secondary deficiency. Coag panel metabolic panel is unremarkable. She was negative. BNP is elevated. Viral testing negative. Chest X-ray shows heart failure. Patient has no history of cardiomyopathy. Patient be admitted with cartilage consultation. Started on oral Lasix regimen. Undiagnosed new problem with uncertain prognosis? @ -No Drug Therapy requiring intensive monitoring for toxicity (Heparin, Nitro, Insulin, Cardizem)? @ -No Were any procedures done? @ -No Diagnosis/symptom? Acute, or Chronic, or Acute on Chronic? Uncomplicated (without systemic symptoms) or Complicated (systemic symptoms)? @ -New onset cardiomyopathy Side effects of treatment? @ -No Exacerbation, Progression, or Severe Exacerbation? @ -No Poses a threat to life or bodily function? How? (Chest pain, [place], [place], pneumonia, PE, COPD, DKA, ARF, appy, cholecystitis, CVA, Diverticulitis, Homicidal, Suicidal, threat to staff... and all critical care pts) @ -yes (Leon Trinidad) - Lab Data Lab Results 10/06/23 10/06/23 10/06/23 Range/Units 12:58 12:58 12:58 WBC 8.5 (3.8-10.6) k/uL RBC 3.61 L (3.80-5.40) m/uL Hgb 7.5 L (11.4-16.0) gm/dL Hct 25.5 L (34.0-46.0) % MCV 70.6 L (80.0-100.0) fL MCH 20.6 L (25.0-35.0) pg MCHC 29.2 L (31.0-37.0) g/dL RDW 18.6 H (11.5-15.5) % Plt Count 335 (150-450) k/uL MPV 8.0 Neutrophils % 78 % Lymphocytes % 12 % Monocytes % 6 % Eosinophils % 3 % Basophils % 1 % Neutrophils # 6.6 (1.3-7.7) k/uL Lymphocytes # 1.0 (1.0-4.8) k/uL Monocytes # 0.5 (0-1.0) k/uL Eosinophils # 0.3 (0-0.7) k/uL Basophils # 0.1 (0-0.2) k/uL Hypochromasia Marked Poikilocytosis Slight Anisocytosis Slight Microcytosis Marked PT 10.7 (10.0-12.5) sec INR 1.0 (<1.2) APTT 22.1 (22.0-30.0) sec Sodium 137 (137-145) mmol/L Potassium 4.7 (3.5-5.1) mmol/L Chloride 104 (98-107) mmol/L Carbon Dioxide 23 (22-30) mmol/L Anion Gap 10 mmol/L BUN 14 (7-17) mg/dL Creatinine 0.54 (0.52-1.04) mg/dL Est GFR (CKD-EPI)AfAm >90 (>60 ml/min/1.73 sqM) Est GFR (CKD-EPI)NonAf >90 (>60 ml/min/1.73 sqM) Glucose 100 H (74-99) mg/dL Calcium 8.7 (8.4-10.2) mg/dL Total Bilirubin 0.6 (0.2-1.3) mg/dL Conjugated Bilirubin 0.0 (0.0-0.3) mg/dL Unconjugated Bilirubin 0.5 (0.0-1.1) mg/dL Delta Bilirubin 0.1 (0.0-0.2) mg/dL AST 47 H (14-36) U/L ALT 49 H (4-34) U/L Alkaline Phosphatase 226 H (38-126) U/L Troponin I (0.000-0.034) ng/mL NT-Pro-B Natriuret Pep 1420 pg/mL Total Protein 6.2 L (6.3-8.2) g/dL Albumin 3.4 L (3.5-5.0) g/dL Influenza Type A (PCR) (Not Detectd) Influenza Type B (PCR) (Not Detectd) RSV (PCR) (Not Detectd) SARS-CoV-2 (PCR) (Not Detectd) 10/06/23 10/06/23 Range/Units 12:58 12:58 WBC (3.8-10.6) k/uL RBC (3.80-5.40) m/uL Hgb (11.4-16.0) gm/dL Hct (34.0-46.0) % MCV (80.0-100.0) fL MCH (25.0-35.0) pg MCHC (31.0-37.0) g/dL RDW (11.5-15.5) % Plt Count (150-450) k/uL MPV Neutrophils % % Lymphocytes % % Monocytes % % Eosinophils % % Basophils % % Neutrophils # (1.3-7.7) k/uL Lymphocytes # (1.0-4.8) k/uL Monocytes # (0-1.0) k/uL Eosinophils # (0-0.7) k/uL Basophils # (0-0.2) k/uL Hypochromasia Poikilocytosis Anisocytosis Microcytosis PT (10.0-12.5) sec INR (<1.2) APTT (22.0-30.0) sec Sodium (137-145) mmol/L Potassium (3.5-5.1) mmol/L Chloride (98-107) mmol/L Carbon Dioxide (22-30) mmol/L Anion Gap mmol/L BUN (7-17) mg/dL Creatinine (0.52-1.04) mg/dL Est GFR (CKD-EPI)AfAm (>60 ml/min/1.73 sqM) Est GFR (CKD-EPI)NonAf (>60 ml/min/1.73 sqM) Glucose (74-99) mg/dL Calcium (8.4-10.2) mg/dL Total Bilirubin (0.2-1.3) mg/dL Conjugated Bilirubin (0.0-0.3) mg/dL Unconjugated Bilirubin (0.0-1.1) mg/dL Delta Bilirubin (0.0-0.2) mg/dL AST (14-36) U/L ALT (4-34) U/L Alkaline Phosphatase (38-126) U/L Troponin I 0.012 (0.000-0.034) ng/mL NT-Pro-B Natriuret Pep pg/mL Total Protein (6.3-8.2) g/dL Albumin (3.5-5.0) g/dL Influenza Type A (PCR) Not Detected (Not Detectd) Influenza Type B (PCR) Not Detected (Not Detectd) RSV (PCR) Not Detected (Not Detectd) SARS-CoV-2 (PCR) Not Detected (Not Detectd) Disposition <Wayne De Santiago - Last Filed: 10/06/23 11:17> Decision Time: 15:05 <Leon Trinidad - Last Filed: 10/06/23 15:05> Clinical Impression: Congestive heart failure Disposition: ADMITTED IP TO THIS HOSP Condition: Fair Referrals: Peter De Santiago MD [Primary Care Provider] - 1-2 days
[2023-10-06 13:25] LABS: Anisocytosis Slight; Basophils # (A) 0.1 k/uL (0-0.2); Basophils % (A) 1 %; Eosinophils # (A) 0.3 k/uL (0-0.7); Eosinophils % (A) 3 %; HCT 25.5 % (34.0-46.0); HGB 7.5 gm/dL (11.4-16.0); Hypochromasia Marked; Lymphocytes % (A) 12 %; MCH 20.6 pg (25.0-35.0); MCHC 29.2 g/dL (31.0-37.0); MCV 70.6 fL (80.0-100.0); Microcytosis Marked; Monocytes # (A) 0.5 k/uL (0-1.0); Monocytes % (A) 6 %; Neutrophils # (A) 6.6 k/uL (1.3-7.7); Neutrophils % (A) 78 %; Platelet Count 335 k/uL (150-450); Poikilocytosis Slight; RBC 3.61 m/uL (3.80-5.40); RDW 18.6 % (11.5-15.5); WBC 8.5 k/uL (3.8-10.6)
--- NOTE | 2023-10-06 13:40 | XR ---
EXAMINATION TYPE: XR chest 2V DATE OF EXAM: 10/06/2023 COMPARISON: 05/24/2023 HISTORY: 78 year-old female shortness of breath TECHNIQUE: PA and lateral views FINDINGS: [id number] bilateral pleural effusions partially obscuring the heart margins. Heart likely mildly enlarged. Interstitial prominence. Similar accentuated lower thoracic kyphosis. IMPRESSION: Correlate for the development of CHF with pulmonary vascular congestion. New [id number] bilate ral pleural effusions.
[2023-10-06 13:41] LABS: Partial Thromboplastin Time 22.1 sec (22.0-30.0); Prothrombin Time 10.7 sec (10.0-12.5)
[2023-10-06 13:52] LABS: ALT 49 U/L (4-34); AST 47 U/L (14-36); African American GFR (CKD) >90 (>60 ml/min/1.73 sqM); Albumin 3.4 g/dL (3.5-5.0); Alkaline Phosphatase 226 U/L (38-126); Anion Gap 10 mmol/L; Bilirubin, Delta 0.1 mg/dL (0.0-0.2); Bilirubin,Unconjugated 0.5 mg/dL (0.0-1.1); Blood Urea Nitrogen 14 mg/dL (7-17); Calcium 8.7 mg/dL (8.4-10.2); Carbon Dioxide 23 mmol/L (22-30); Chloride 104 mmol/L (98-107); Glucose 100 mg/dL (74-99); Non-African American GFR(CKD) >90 (>60 ml/min/1.73 sqM); Potassium 4.7 mmol/L (3.5-5.1); Sodium 137 mmol/L (137-145); Total Bilirubin 0.6 mg/dL (0.2-1.3); Total Protein 6.2 g/dL (6.3-8.2)
[2023-10-06 14:00] LABS: NT-Pro-B-Type Natriuretic Pept 1420 pg/mL
[2023-10-06] MEDS: FUROSEMIDE 10 MG/ML 4 ML VIAL IV SCH ×2 (15:30→21:34)
[2023-10-06] MEDS: IPRATROPIUM-ALBUTEROL 3 ML NEB INHALATION SCH (19:55)
[2023-10-06] MEDS ORDERED: ALBUTEROL NEBULIZED 2.5 MG/3 ML INHALATION PRN (20:00)
[2023-10-06] MEDS ORDERED: ZOLPIDEM 5 MG TAB PO PRN (20:05)
[2023-10-06 20:23] LABS: Glucose,Whole Blood 153 mg/dL (70-110)
[2023-10-06] MEDS: INSULIN ASPART (NovoLOG) 100 UNIT/ML VIAL SQ SCH (20:44)
--- NOTE | 2023-10-06 21:13 | HP ---
HISTORY AND PHYSICAL HISTORY OF PRESENT ILLNESS: A 78-year-old female with shortness of breath started a week ago. She has been exposed to COVID. Her family all has COVID. she has trouble with shortness of breath. She is supposed to wear her oxygen and doing her breathing treatments, which she has not been doing. She is admitted with congestive heart failure. She has PND, orthopnea, and dyspnea with exertion. HOME MEDICATIONS: 1. Singulair 10 mg daily. 2. Atenolol 100 b.i.d. 3. Prilosec 40 daily. 4. Requip 1 mg daily. 5. Lamisil 250 daily. 6. Spiriva 2 puffs daily. 7. Mounjaro 7.5 weekly. 8. Nystatin swish and swallow. ALLERGIES: Negative. REVIEW OF SYSTEMS: A 14-point review of systems as mentioned above. PAST MEDICAL HISTORY: GERD, hearing disorder, deafness, hypertension, osteoarthritis, diabetes mellitus. FAMILY HISTORY: Brother, cancer of the lung. Mother, cancer. Sister, cancer. PHYSICAL EXAMINATION: VITAL SIGNS: Temperature 98.4, pulse 73, respiratory rate 18 to 20, blood pressure 118/67, O2 of 96%. EKG sinus rhythm, no ischemia. LUNGS: Scattered rhonchi and wheeze. CARDIOVASCULAR: S1, S2. NEUROLOGIC: Cranial nerves intact. PSYCH: Fair mood and affect. HEMATOLOGY: 2+ edema. HEENT: Normocephalic, atraumatic. ASSESSMENT: Respiratory failure, acute on chronic. Suspect possible early COVID that has not tested positive yet. She is exposed to it. Chronic obstructive pulmonary disease exacerbation, tracheobronchitis, acute on chronic diastolic heart failure, pulmonary hypertension. Please see further orders. Prognosis guarded. Get Dr. Ley involved. Cardiology is involved. Please see further orders. MMODL / IJN: [id number] /
[2023-10-06] MEDS: atenoloL 50 MG TAB PO SCH (21:27)
[2023-10-06] MEDS: ENOXAPARIN 40 MG/0.4 ML SYRINGE SQ SCH (21:28)
[2023-10-06] MEDS: traMADol 50 MG TAB PO SCH (21:29)
[2023-10-06] MEDS: DAPAGLIFLOZIN PROPANEDIOL 5 MG TABLET PO SCH (21:30)
[2023-10-06] MEDS: GABAPENTIN 300 MG CAP PO SCH (21:30)
[2023-10-06] MEDS: PANTOPRAZOLE 40 MG TABLET PO SCH (21:31)
[2023-10-06] MEDS: methylPREDNISolone SOD SUCCI 40 MG/ML 1 ML VIAL IV SCH (21:35)
[2023-10-06] MEDS: DOXYCYCLINE 100 MG in SODIUM CHLORIDE 0.9% 100 ML IVPB SCH (21:36)
[2023-10-07] MEDS: methylPREDNISolone SOD SUCCI 40 MG/ML 1 ML VIAL IV SCH ×4 (00:08→22:01)
--- NOTE | 2023-10-07 01:32 | CT ---
EXAM: CT Angiography Chest With Intravenous Contrast CLINICAL HISTORY: ITS.REASON CT Reason: elevated ddimer TECHNIQUE: Axial computed tomographic angiography images of the chest with intravenous contrast. CTDI is 31.8 mGy and DLP is 562.5 mGy-cm. This CT exam was performed using one or more of the following dose reduction techniques: automated exposure control, adjustment of the mA and/or kV according to patient size, and/or use of iterative reconstruction technique. MIP reconstructed images were created and reviewed. COMPARISON: Chest CT May 25, 2023. FINDINGS: Pulmonary arteries: Unremarkable. No acute pulmonary embolism. Aorta: No acute findings. No thoracic aortic aneurysm. Lungs: Atelectasis in the angle and lung bases. No mass. Pleural space: Mild-moderate bilateral pleural effusions. No pneumothorax. Heart: Cardiomegaly. No significant pericardial effusion. No evidence of RV dysfunction. Bones/joints: No acute fracture. No dislocation. Soft tissues: Mild-moderate hiatal hernia contains a proximal stomach. Lymph nodes: Unremarkable. No enlarged lymph nodes. Gallbladder and bile ducts: Hepatic steatosis. Cholecystectomy. IMPRESSION: 1. No acute pulmonary embolism. 2. Mild-moderate bilateral pleural effusions. 3. Mild-moderate hiatal hernia contains a proximal stomach. 4. Hepatic steatosis. Cholecystectomy.
[2023-10-07] MEDS: ACETAMINOPHEN TAB 500 MG TAB PO PRN ×2 (03:36→16:06)
[2023-10-07 06:15] LABS: Glucose,Whole Blood 180 mg/dL (70-110)
[2023-10-07] MEDS: PANTOPRAZOLE 40 MG TABLET PO SCH ×2 (06:44→16:06)
[2023-10-07] MEDS: INSULIN ASPART (NovoLOG) 100 UNIT/ML VIAL SQ SCH ×4 (06:45→20:17)
[2023-10-07] MEDS ORDERED: PANTOPRAZOLE 40 MG TABLET PO SCH (07:30)
[2023-10-07] MEDS: IPRATROPIUM-ALBUTEROL 3 ML NEB INHALATION SCH ×4 (08:26→20:55)
[2023-10-07] MEDS: FUROSEMIDE 10 MG/ML 4 ML VIAL IV SCH ×2 (08:58→20:17)
[2023-10-07] MEDS: ENOXAPARIN 40 MG/0.4 ML SYRINGE SQ SCH (08:58)
[2023-10-07] MEDS: ASPIRIN 325 MG TAB PO SCH (08:59)
[2023-10-07] MEDS: LIDOCAINE 4% PATCH TOPICAL SCH (08:59)
[2023-10-07] MEDS: MONTELUKAST 10 MG TAB PO SCH (08:59)
[2023-10-07] MEDS: atenoloL 50 MG TAB PO SCH ×2 (08:59→20:17)
[2023-10-07] MEDS: ATORVASTATIN 40 MG TAB PO SCH (08:59)
[2023-10-07] MEDS: DOXYCYCLINE 100 MG in SODIUM CHLORIDE 0.9% 100 ML IVPB SCH ×2 (09:03→22:01)
[2023-10-07] MEDS: DAPAGLIFLOZIN PROPANEDIOL 5 MG TABLET PO SCH (11:05)
[2023-10-07 11:13] LABS: Glucose,Whole Blood 234 mg/dL (70-110)
--- NOTE | 2023-10-07 13:08 | P.CRDCN ---
History of Present Illness Consult date: 10/07/23 Consult reason: congestive heart failure History of present illness: The patient is a 78-year-old female who presented to the emergency room with worsening shortness of breath. She states this has been occurring over the last 2-3 weeks, with repeat noticeably worse within the last 48 hours. DIAGNOSTICS: EKG shows sinus rhythm without acute ST or T-wave abnormalities Chest x-ray shows pulmonary vascular congestion with small to moderate bilateral pleural effusions Computed tomography scan of the chest shows moderate size bilateral pleural effusions. No evidence of pulmonary embolism Lab data: WBC 8.5, hemoglobin 7.5, hematocrit 25.5, platelet 335, d-dimer 1.65, sodium 137, potassium 4.7, BUN 14, creatinine 0.54, AST 47, ALT 49, ALP 226, troponin negative 2, BNP 1420 REVIEW OF SYSTEMS: No fever or chills. No cough or expectoration. No diaphoresis. Patient denies headache, dizziness, blurred vision, double vision. Patient denies any stomach discomfort. No nausea, vomiting. No hematochezia. No hematemesis. Denies any black stools or blood in his stools. Denies dysuria or hematuria. No muscle weakness or numbness. Positive for shortness of breath. Positive for fatigue PHYSICAL EXAMINATION: This is a 78-year-old female in no apparent distress at the time of my examination. HEENT: Head is atraumatic, normocephalic. Pupils are equal, round. There is no jugular venous distention. No carotid bruit is heard. CHEST EXAMINATION: Lungs are diminished to auscultation. No chest wall tenderness is noted on palpation or with deep breathing. HEART EXAMINATION: Heart regular rate and rhythm. S1, S2 heard. No murmurs, gallops or rub. ABDOMEN: Soft, nontender. Bowel sounds are heard. No organomegaly noted. EXTREMITIES: 2+ peripheral pulses. Mild peripheral edema and no calf tenderness noted. NEUROLOGIC EXAMINATION: Patient is awake, alert and oriented x3. FINAL ASSESSMENT AND PLAN: Shortness of breath, COPD versus CHF Elevated BNP Diabetes mellitus type 2 History of TIA Hypertension PLAN: Echocardiogram and Doppler study to assess heart structure and function Agree with IV diuresis Further recommendations based on clinical course I am dictating on behalf of Dr Raphael Mitchell's history/physical and assessment/pl an. Past Medical History Past Medical History: Diabetes Mellitus, Eye Disorder, GERD/Reflux, Hearing Disorder / Deafness, Hypertension, Osteoarthritis (OA) Additional Past Medical History / Comment(s): MACULAR DEGENERATION, cataracts, osteoporosis, diet controlled diabetic, TIA History of Any Multi-Drug Resistant Organisms: None Reported Past Surgical History: Cholecystectomy, Hysterectomy Additional Past Surgical History / Comment(s): ORIF RT WRIST-HAD BONE GRAFT FROM HIP, asher fundoplasty, teeth pulled Past Anesthesia/Blood Transfusion Reactions: No Reported Reaction Past Psychological History: Anxiety, Depression Smoking Status: Never smoker Past Alcohol Use History: None Reported Past Drug Use History: None Reported - Past Family History Brother(s) Family Medical History: Cancer Additional Family Medical History / Comment(s): LUNG Mother Family Medical History: Cancer Sister(s) Family Medical History: Cancer Medications and Allergies Home Medications Medication Instructions Recorded Confirmed Type Montelukast [Singulair] 10 mg PO DAILY 07/31/22 10/06/23 History Omeprazole [PriLOSEC] 40 mg PO DAILY 07/31/22 10/06/23 History atenoloL [Tenormin] 50 mg PO BID 07/31/22 10/06/23 History Acetaminophen [Tylenol Extra 1,000 mg PO Q6H PRN 12/17/22 10/06/23 History Strength] Tiotropium 2.5 Mcg/Puff [Spiriva 1 puff INHALATION RT-DAILY 03/11/23 10/06/23 History Respimat 2.5 Mcg] Nystatin 100,000Unit/gm Cream 1 applic TOPICAL BID 05/24/23 10/06/23 History [Mycostatin Cream] Aspirin 325 mg PO DAILY tab 05/26/23 10/06/23 Rx Atorvastatin [Lipitor] 40 mg PO DAILY 90 Days #90 tab 05/26/23 10/06/23 Rx Ipratropium-Albuterol Nebulize 3 ml INHALATION RT-QID 30 Days 05/26/23 10/06/23 Rx [Duoneb 0.5 mg-3 mg/3 ml Soln] #120 each Albuterol Sulfate [Albuterol 2 puff INHALATION RT-QID PRN 10/06/23 10/06/23 History Sulfate Hfa] Bumetanide [Bumex] 1 mg PO DAILY 10/06/23 10/06/23 History Gabapentin 300 mg PO HS 10/06/23 10/06/23 History Garlique 1 cap PO DAILY 10/06/23 10/06/23 History Ibuprofen [Motrin Ib] 400 mg PO HS 10/06/23 10/06/23 History Ibuprofen [Motrin] 600 mg PO Q8HR PRN 10/06/23 10/06/23 History Lidocaine 5% Patch [Lidoderm] 1 patch TRANSDERM DAILY 10/06/23 10/06/23 History Prevagen 1 cap PO DAILY 10/06/23 10/06/23 History traMADol HCL 50 mg PO HS 10/06/23 10/06/23 History Allergies Allergy/AdvReac Type Severity Reaction Status Date / Time No Known Allergies Allergy Verified 10/06/23 11:06 Physical Exam Vitals: Vital Signs Temp Pulse Pulse Resp BP BP Pulse Ox 10/07/23 12:22 66 10/07/23 12:13 65 10/07/23 11:05 63 18 123/68 96 10/07/23 08:53 97.8 F 76 18 136/74 95 10/07/23 08:38 66 10/07/23 08:27 71 10/07/23 03:33 97.5 F L 70 16 137/75 96 10/07/23 00:40 98.0 F 81 20 144/77 95 10/06/23 20:06 76 10/06/23 19:57 75 10/06/23 19:42 80 18 137/71 97 10/06/23 16:48 98.2 F 65 18 127/70 Intake and Output 10/06/23 10/07/23 10/07/23 22:59 06:59 14:59 Intake Total 540 Output Total 1100 Balance -560 Intake: IV 20 Invasive Line 1 20 Intake, IV Titration 100 Amount Doxycycline 100 mg In 100 Sodium Chloride 0.9% 100 ml @ 100 mls/hr IVPB Q12HR [facility] Rx#:[id number] Oral 420 Output: Urine 1100 Other: # Voids 4 2 Weight 91.626 kg Results 10/06/23 12:58 10/06/23 12:58 Cardiac Enzymes 10/06/23 10/06/23 10/06/23 Range/Units 12:58 12:58 20:12 AST 47 H (14-36) U/L Troponin I 0.012 <0.012 (0.000-0.034) ng/mL Coagulation 10/06/23 Range/Units 12:58 PT 10.7 (10.0-12.5) sec APTT 22.1 (22.0-30.0) sec CBC 10/06/23 Range/Units 12:58 WBC 8.5 (3.8-10.6) k/uL RBC 3.61 L (3.80-5.40) m/uL Hgb 7.5 L (11.4-16.0) gm/dL Hct 25.5 L (34.0-46.0) % Plt Count 335 (150-450) k/uL Comprehensive Metabolic Panel 10/06/23 Range/Units 12:58 Sodium 137 (137-145) mmol/L Potassium 4.7 (3.5-5.1) mmol/L Chloride 104 (98-107) mmol/L Carbon Dioxide 23 (22-30) mmol/L BUN 14 (7-17) mg/dL Creatinine 0.54 (0.52-1.04) mg/dL Glucose 100 H (74-99) mg/dL Calcium 8.7 (8.4-10.2) mg/dL Unconjugated Bilirubin 0.5 (0.0-1.1) mg/dL AST 47 H (14-36) U/L ALT 49 H (4-34) U/L Alkaline Phosphatase 226 H (38-126) U/L Total Protein 6.2 L (6.3-8.2) g/dL Albumin 3.4 L (3.5-5.0) g/dL Current Medications Generic Name Dose Route Start Last Admin Trade Name Freq PRN Reason Stop Dose Admin Acetaminophen 1,000 mg 10/06/23 20:00 10/07/23 03:36 Acetaminophen Tab 500 Mg Tab PO 1,000 mg Q6H PRN Administration Fever and/ or Pain Albuterol Sulfate 2.5 mg 10/06/23 20:00 Albuterol Nebulized 2.5 Mg/3 Ml INHALATION RT-QID PRN Shortness Of Breath Albuterol/Ipratropium 3 ml 10/06/23 20:00 10/07/23 12:12 Ipratropium-Albuterol 3 Ml Neb INHALATION 3 ml RT-QID KEE Administration Aspirin 325 mg 10/07/23 09:00 10/07/23 08:59 Aspirin 325 Mg Tab PO 325 mg DAILY KEE Administration Atenolol 50 mg 10/06/23 21:00 10/07/23 08:59 Atenolol 50 Mg Tab PO 50 mg BID KEE Administration Atorvastatin Calcium 40 mg 10/07/23 09:00 10/07/23 08:59 Atorvastatin 40 Mg Tab PO 40 mg DAILY KEE Administration Dapagliflozin 5 mg 10/06/23 19:30 10/07/23 11:05 Dapagliflozin Propanediol 5 Mg Tablet PO 5 mg DAILY KEE Administration Enoxaparin Sodium 40 mg 10/06/23 19:45 10/07/23 08:58 Enoxaparin 40 Mg/0.4 Ml Syringe SQ 40 mg DAILY KEE Administration Furosemide 40 mg 10/06/23 15:00 10/07/23 08:58 Furosemide 10 Mg/Ml 4 Ml Vial IV 40 mg Q12HR KEE Administration Gabapentin 300 mg 10/06/23 21:00 10/06/23 21:30 Gabapentin 300 Mg Cap PO 300 mg HS KEE Administration Doxycycline Hyclate 100 mg/ 100 mls @ 100 mls/hr 10/06/23 21:00 10/07/23 09:03 Sodium Chloride IVPB 100 mls/hr Q12HR KEE Administration Protocol Insulin Aspart 0 unit 10/06/23 21:00 10/07/23 12:11 Insulin Aspart (Novolog) 100 Unit/Ml Vial SQ 4 unit ACHS KEE Administration Protocol Lidocaine 1 patch 10/07/23 09:00 10/07/23 08:59 Lidocaine 4% Patch TOPICAL 1 patch DAILY KEE Administration Methylprednisolone Sodium Succinate 40 mg 10/06/23 19:30 10/07/23 08:59 Methylprednisolone Sod Succi 40 Mg/Ml 1 Ml Vial IV 40 mg Q8HR KEE Administration Montelukast Sodium 10 mg 10/07/23 09:00 10/07/23 08:59 Montelukast 10 Mg Tab PO 10 mg DAILY KEE Administration Pantoprazole Sodium 40 mg 10/06/23 19:15 10/07/23 06:44 Pantoprazole 40 Mg Tablet PO 40 mg AC-BID KEE Administration Tramadol HCl 50 mg 10/06/23 21:00 10/06/23 21:29 Tramadol 50 Mg Tab PO 50 mg HS KEE Administration Zolpidem Tartrate 5 mg 10/06/23 20:05 Zolpidem 5 Mg Tab PO HS PRN Insomnia Intake and Output 10/06/23 10/07/23 10/07/23 22:59 06:59 14:59 Intake Total 540 Output Total 1100 Balance -560 Intake: IV 20 Invasive Line 1 20 Intake, IV Titration 100 Amount Doxycycline 100 mg In 100 Sodium Chloride 0.9% 100 ml @ 100 mls/hr IVPB Q12HR [facility] Rx#:[id number] Oral 420 Output: Urine 1100 Other: # Voids 4 2 Weight 91.626 kg 10/06/23 12:58 10/06/23 12:58
[2023-10-07 16:20] LABS: Glucose,Whole Blood 283 mg/dL (70-110)
[2023-10-07 20:12] LABS: Glucose,Whole Blood 248 mg/dL (70-110)
[2023-10-07] MEDS: traMADol 50 MG TAB PO SCH (20:17)
[2023-10-07] MEDS: GABAPENTIN 300 MG CAP PO SCH (20:17)
[2023-10-07 23:06] LABS: % Iron Saturation 2.6 (12.00-45.00)
[2023-10-08] MEDS ORDERED: SODIUM CHLORIDE 0.9% IVPB SCH ×2
[2023-10-08] MEDS ORDERED: [UNRECOGNIZED DRUG - OTHER] IVPB SCH ×2
[2023-10-08] MEDS: SODIUM FERRIC GLUCONAT-SUCROSE 125 MG in SODIUM CHLORIDE 0.9% 100 ML IVPB SCH ×2 (00:23→08:46)
[2023-10-08 05:54] LABS: Glucose,Whole Blood 231 mg/dL (70-110)
[2023-10-08] MEDS: INSULIN ASPART (NovoLOG) 100 UNIT/ML VIAL SQ SCH ×4 (06:02→20:48)
[2023-10-08] MEDS: PANTOPRAZOLE 40 MG TABLET PO SCH ×2 (06:02→17:22)
[2023-10-08] MEDS: IPRATROPIUM-ALBUTEROL 3 ML NEB INHALATION SCH ×4 (08:29→21:12)
[2023-10-08] MEDS: atenoloL 50 MG TAB PO SCH ×2 (08:46→20:48)
[2023-10-08] MEDS: MONTELUKAST 10 MG TAB PO SCH (08:46)
[2023-10-08] MEDS: ATORVASTATIN 40 MG TAB PO SCH (08:46)
[2023-10-08] MEDS: DAPAGLIFLOZIN PROPANEDIOL 5 MG TABLET PO SCH (08:46)
[2023-10-08] MEDS: ASPIRIN 325 MG TAB PO SCH (08:46)
[2023-10-08] MEDS: LIDOCAINE 4% PATCH TOPICAL SCH (08:47)
[2023-10-08] MEDS: FUROSEMIDE 10 MG/ML 4 ML VIAL IV SCH ×2 (08:47→20:48)
[2023-10-08] MEDS: DOXYCYCLINE 100 MG in SODIUM CHLORIDE 0.9% 100 ML IVPB SCH ×2 (08:47→20:48)
[2023-10-08] MEDS: methylPREDNISolone SOD SUCCI 40 MG/ML 1 ML VIAL IV SCH ×3 (08:47→23:22)
[2023-10-08] MEDS: ENOXAPARIN 40 MG/0.4 ML SYRINGE SQ SCH (08:47)
--- NOTE | 2023-10-08 10:29 | CA ---
Transthoracic Echo Report Name: Katherine Barlow Age: 78 Gender: F : 1945 Exam Date: 10/08/2023 07:58 Exam Location: [facility] Ht (in): 60 Wt (lb): 202 Ordering Physician: Peter De Santiago MD Attending/Referring Phys: [employer] Preparer Giovana Duong RDCS Procedure CPT: Indications: chf Cardiac Hx: Technical Quality: Fair Contrast 1: Total Dose (mL): Contrast 2: Total Dose (mL): MEASUREMENTS (Male / Female) Normal Values 2D ECHO LV Diastolic Diameter PLAX 4.6 cm 4.2 - 5.9 / 3.9 - 5.3 cm LV Systolic Diameter PLAX 3.1 cm IVS Diastolic Thickness 1.4 cm 0.6 - 1.0 / 0.6 - 0.9 cm LVPW Diastolic Thickness 1.4 cm 0.6 - 1.0 / 0.6 - 0.9 cm LV Relative Wall Thickness 0.6 RV Internal Dim ED PLAX 2.5 cm LA Systolic Diameter LX 3.9 cm 3.0 - 4.0 / 2.7 - 3.8 cm LV Diastolic Volume MOD 4C 55.0 cm??? LV Systolic Volume MOD 4C 18.9 cm??? LV Ejection Fraction MOD 4C 65.7 % LV Cardiac Index MOD 4C 1306.4 cm???/min???m??? LV Diastolic Length 4C 7.3 cm LV Systolic Length 4C 5.7 cm LV Diastolic Volume MOD 2C 52.5 cm??? LV Systolic Volume MOD 2C 21.0 cm??? LV Ejection Fraction MOD 2C 60.1 % LV Cardiac Index MOD 2C 1140.2 cm???/min???m??? LV Diastolic Length 2C 6.8 cm LV Systolic Length 2C 5.3 cm LA Volume 68.7 cm??? 18 - 58 / 22 - 52 cm??? LA Volume Index 34.0 cm???/m??? 16 - 28 cm???/m??? M-MODE Aortic Root Diameter MM 3.2 cm MV E Point Septal Separation 0.6 cm AV Cusp Separation MM 2.2 cm DOPPLER AV Peak Velocity 187.0 cm/s AV Peak Gradient 14.0 mmHg MV Area PHT 2.7 cm??? Mitral E Point Velocity 122.5 cm/s Mitral A Point Velocity 71.8 cm/s Mitral E to A Ratio 1.7 MV Deceleration Time 285.9 ms MV E' Velocity 5.3 cm/s Mitral E to MV E' Ratio 23.0 TR Peak Velocity 364.7 cm/s TR Peak Gradient 53.2 mmHg Right Ventricular Systolic Press 56.2 mmHg FINDINGS Left Ventricle Left ventricular ejection fraction is estimated at 60-65 %. Left ventricular cavity size normal. Moderately increased septal wall thickness. Moderately increased posterior wall thickness. Right Ventricle Normal right ventricular size. mioderate to Severe pulmonary hypertension. Right ventricular systolic pressure estimated at 56 mm hg. Right Atrium Normal right atrial size. Left Atrium Moderately increased left atrial volume. Mildly increased left atrial area. Mitral Valve Structurally normal mitral valve. Mild mitral annular calcification. Trace to mild mitral regurgitation. Aortic Valve Trileaflet aortic valve. No aortic valve stenosis or regurgitation. Tricuspid Valve Structurally normal tricuspid valve. Mild tricuspid regurgitation. Pulmonic Valve Pulmonic valve not well visualized. No pulmonic regurgitation. Pericardium No pericardial effusion. Aorta Normal size aortic root and proximal ascending aorta. CONCLUSIONS Normal LV systolic function Moderate to severe pulmonary hypertension Dilated left atrium Previewed by: Dr. Jj Crews MD (Electronically Signed) Final Date: 08 October 2023 10:28
[2023-10-08 11:51] LABS: Glucose,Whole Blood 142 mg/dL (70-110)
--- NOTE | 2023-10-08 12:20 | P.PN ---
Subjective HISTORY OF PRESENT ILLNESS: The patient is a 78-year-old female who presented to the emergency room with worsening shortness of breath. She states this has been occurring over the last 2-3 weeks, with repeat noticeably worse within the last 48 hours. DIAGNOSTICS: EKG shows sinus rhythm without acute ST or T-wave abnormalities Chest x-ray shows pulmonary vascular congestion with small to moderate bilateral pleural effusions Computed tomography scan of the chest shows moderate size bilateral pleural effusions. No evidence of pulmonary embolism Lab data: WBC 8.5, hemoglobin 7.5, hematocrit 25.5, platelet 335, d-dimer 1.65, sodium 137, potassium 4.7, BUN 14, creatinine 0.54, AST 47, ALT 49, ALP 226, troponin negative 2, BNP 1420 10/08/2023 Patient examined this morning. Patient is sitting up in the chair. She denies chest pain or pressure. She reports mild shortness of breath. She continues to have lower extremity edema. She is currently receiving IV diuretics. Vital signs are stable. Telemetry reveals sinus mechanism. Echocardiogram completed revealing ejection fraction 60-65% with moderate to severe pulmonary hypertension PHYSICAL EXAM: VITAL SIGNS: Reviewed. GENERAL: Well-developed in no acute distress. NECK: Supple. No JVD or thyromegaly LUNGS: Respirations even and unlabored. Lungs with crackles at the bases HEART: Regular rate and rhythm. S1 and S2 heard. EXTREMITIES: Normal range of motion. No clubbing or cyanosis. Peripheral pulses intact. 2+ bilateral pitting lower extremity edema ASSESSMENT: Shortness of breath Acute COPD exacerbation Acute on chronic heart failure with preserved EF, 60-65% Hypertension History of TIA Diabetes Moderate to severe pulmonary hypertension PLAN: Continue current cardiac medications Continue IV Lasix 40 mg every 12 hours Daily weights, accurate I&O, and monitor kidney function Further recommendations pending patient's course Nurse practitioner note has been reviewed by physician. Signing provider agrees with the documented findings, assessment, and plan of care. Objective - Vital Signs Vital signs: Vital Signs Temp 97.4 F L 10/08/23 08:00 Pulse 68 10/08/23 11:38 Resp 18 10/08/23 08:00 BP 140/73 10/08/23 08:00 Pulse Ox 97 10/08/23 08:00 FiO2 Intake & Output 01/07/24 01/08/24 01/08/24 18:59 06:59 18:59 Intake Total 900 260 120 Output Total 1999 1200 850 Balance -6116 -730 -060 Weight 88.1 kg Intake: IV 20 20 Invasive Line 1 20 20 Intake, IV Titration 100 Amount Doxycycline 100 mg In 100 Sodium Chloride 0.9% 100 ml @ 100 mls/hr IVPB Q12HR [facility] Rx#:[id number] Oral 780 240 120 Output: Urine 1999 1200 850 Other: Voiding Method Bedside Commode Bedside Commode # Voids 2 2 1 # Bowel Movements 0 - Labs CBC & Chem 7: 10/06/23 12:58 10/06/23 12:58 Labs: Abnormal Lab Results - Last 24 Hours (Table) 10/07/23 10/07/23 10/07/23 Range/Units 15:47 16:15 20:06 POC Glucose (mg/dL) 283 H 248 H (70-110) mg/dL Iron 9 L (50-170) UG/DL % Saturation 2.60 L (12.00-45.00) 10/08/23 10/08/23 Range/Units 05:52 11:49 POC Glucose (mg/dL) 231 H 142 H (70-110) mg/dL Iron (50-170) UG/DL % Saturation (12.00-45.00)
[2023-10-08] MEDS: ACETAMINOPHEN TAB 500 MG TAB PO PRN (14:45)
[2023-10-08 16:24] VITALS: BMI 37.9
[2023-10-08 16:45] LABS: Glucose,Whole Blood 177 mg/dL (70-110)
[2023-10-08] MEDS ORDERED: MELATONIN 1 MG TAB PO PRN (20:41)
[2023-10-08 20:45] LABS: Glucose,Whole Blood 229 mg/dL (70-110)
[2023-10-08] MEDS: GABAPENTIN 300 MG CAP PO SCH (20:48)
[2023-10-08] MEDS: traMADol 50 MG TAB PO SCH (20:49)
[2023-10-09 05:47] LABS: Glucose,Whole Blood 248 mg/dL (70-110)
[2023-10-09] MEDS: INSULIN ASPART (NovoLOG) 100 UNIT/ML VIAL SQ SCH ×2 (06:09→12:07)
[2023-10-09] MEDS: PANTOPRAZOLE 40 MG TABLET PO SCH ×2 (06:09→16:20)
[2023-10-09 07:24] LABS: African American GFR (CKD) >90 (>60 ml/min/1.73 sqM); Anion Gap 10 mmol/L; Blood Urea Nitrogen 26 mg/dL (7-17); Calcium 8.7 mg/dL (8.4-10.2); Carbon Dioxide 25 mmol/L (22-30); Chloride 101 mmol/L (98-107); Glucose 207 mg/dL (74-99); Non-African American GFR(CKD) 89 (>60 ml/min/1.73 sqM); Potassium 3.7 mmol/L (3.5-5.1); Sodium 136 mmol/L (137-145)
[2023-10-09] MEDS: DOXYCYCLINE 100 MG in SODIUM CHLORIDE 0.9% 100 ML IVPB SCH (08:35)
[2023-10-09] MEDS: atenoloL 50 MG TAB PO SCH (08:36)
[2023-10-09] MEDS: FUROSEMIDE 40 MG TAB PO SCH ×2 (08:36→16:20)
[2023-10-09] MEDS: ASPIRIN 325 MG TAB PO SCH (08:36)
[2023-10-09] MEDS: MONTELUKAST 10 MG TAB PO SCH (08:36)
[2023-10-09] MEDS: SODIUM FERRIC GLUCONAT-SUCROSE 125 MG in SODIUM CHLORIDE 0.9% 100 ML IVPB SCH (08:36)
[2023-10-09] MEDS: ENOXAPARIN 40 MG/0.4 ML SYRINGE SQ SCH (08:36)
[2023-10-09] MEDS: ATORVASTATIN 40 MG TAB PO SCH (08:36)
[2023-10-09] MEDS: DAPAGLIFLOZIN PROPANEDIOL 5 MG TABLET PO SCH (08:36)
[2023-10-09] MEDS: LIDOCAINE 4% PATCH TOPICAL SCH (08:37)
[2023-10-09] MEDS: IPRATROPIUM-ALBUTEROL 3 ML NEB INHALATION SCH ×3 (08:58→15:08)
[2023-10-09] MEDS ORDERED: predniSONE 20 MG TAB PO SCH (09:00)
[2023-10-09] MEDS ORDERED: DOCUSATE 100 MG CAP PO SCH (09:00)
[2023-10-09 11:14] LABS: Glucose,Whole Blood 196 mg/dL (70-110)
[2023-10-09 11:26] VITALS: RESP 14; TEMP 98
--- NOTE | 2023-10-09 12:33 | P.PN ---
Subjective HISTORY OF PRESENT ILLNESS: The patient is a 78-year-old female who presented to the emergency room with worsening shortness of breath. She states this has been occurring over the last 2-3 weeks, with repeat noticeably worse within the last 48 hours. DIAGNOSTICS: EKG shows sinus rhythm without acute ST or T-wave abnormalities Chest x-ray shows pulmonary vascular congestion with small to moderate bilateral pleural effusions Computed tomography scan of the chest shows moderate size bilateral pleural effusions. No evidence of pulmonary embolism Lab data: WBC 8.5, hemoglobin 7.5, hematocrit 25.5, platelet 335, d-dimer 1.65, sodium 137, potassium 4.7, BUN 14, creatinine 0.54, AST 47, ALT 49, ALP 226, troponin negative 2, BNP 1420 10/08/2023 Patient examined this morning. Patient is sitting up in the chair. She denies chest pain or pressure. She reports mild shortness of breath. She continues to have lower extremity edema. She is currently receiving IV diuretics. Vital signs are stable. Telemetry reveals sinus mechanism. Echocardiogram completed revealing ejection fraction 60-65% with moderate to severe pulmonary hypertension Lopez 2023 Patient examined this morning at the bedside. Patient denies chest pain or pressure. She denies shortness of breath. She's been transitioned to oral Lasix. Her lower extremity edema has improved. Vital signs are stable. PHYSICAL EXAM: VITAL SIGNS: Reviewed. GENERAL: Well-developed in no acute distress. NECK: Supple. No JVD or thyromegaly LUNGS: Respirations even and unlabored. Lungs with crackles at the bases HEART: Regular rate and rhythm. S1 and S2 heard. EXTREMITIES: Normal range of motion. No clubbing or cyanosis. Peripheral pulses intact. 2+ bilateral pitting lower extremity edema ASSESSMENT: Shortness of breath Acute COPD exacerbation Acute on chronic heart failure with preserved EF, 60-65% Hypertension History of TIA Diabetes Moderate to severe pulmonary hypertension PLAN: Continue current cardiac medications Patient is currently stable for discharge from a cardiac standpoint Patient to follow-up post discharge in the office Nurse practitioner note has been reviewed by physician. Signing provider agrees with the documented findings, assessment, and plan of care. Objective - Vital Signs Vital signs: Vital Signs Temp 98.0 F 10/09/23 12:00 Pulse 68 10/09/23 12:00 Resp 14 10/09/23 12:00 BP 132/76 10/09/23 12:00 Pulse Ox 97 10/09/23 12:00 FiO2 Intake & Output 10/08/23 10/09/23 10/09/23 18:59 06:59 18:59 Intake Total 560 20 180 Output Total 1150 1150 300 Balance -590 -1130 -120 Weight 88.1 kg Intake: IV 20 Invasive Line 1 10 Invasive Line 3 10 Intake, IV Titration 200 Amount Doxycycline 100 mg In 100 Sodium Chloride 0.9% 100 ml @ 100 mls/hr IVPB Q12HR [facility] Rx#:[id number] Sodium Ferric Gluconat- 100 Sucrose 125 mg In Sodium Chloride 0.9% 100 ml @ 100 mls/hr IVPB DAILY [facility] Rx#:[id number] Oral 360 0 180 Output: Urine 1150 1150 300 Other: Voiding Method Bedside Commode Toilet Toilet # Voids 0 # Bowel Movements 0 - Labs CBC & Chem 7: 10/06/23 12:58 10/09/23 06:28 Labs: Abnormal Lab Results - Last 24 Hours (Table) 10/08/23 10/08/23 10/09/23 Range/Units 16:42 20:44 05:46 Sodium (137-145) mmol/L BUN (7-17) mg/dL Glucose (74-99) mg/dL POC Glucose (mg/dL) 177 H 229 H 248 H (70-110) mg/dL 10/09/23 10/09/23 Range/Units 06:28 11:13 Sodium 136 L (137-145) mmol/L BUN 26 H (7-17) mg/dL Glucose 207 H (74-99) mg/dL POC Glucose (mg/dL) 196 H (70-110) mg/dL
[2023-10-09 16:45] LABS: Glucose,Whole Blood 246 mg/dL (70-110)
[2023-10-09 17:02] VITALS: BP 126/71; PULSE 63
--- NOTE | 2023-10-09 23:08 | PN ---
PROGRESS NOTE SUBJECTIVE: This is a 78-year-old white female, CHF, COPD. She has been treated with IV Lasix. Cardiology kind of cleared her to go home. She is getting better. OBJECTIVE: VITAL SIGNS: Blood pressure 130/87, 95 on room air, pulse 75, respiratory rate 18, and temperature 97.6. CARDIOVASCULAR: S1, S2. LUNGS: Wheezes at the bases. HEMATOLOGY: 2 to 3+ edema. ABDOMEN: Distended and obese. PSYCH: Fair mood and affect. Her sugars are mid 200s to mid 100s. Echocardiogram was done, chest CTA was done. Echocardiogram showed right ventricular systolic pressure 56, 60% to 65% ejection fraction, [id number] pulmonary hypertension. Prognosis guarded. Continue current treatment. PROGNOSIS: Guarded. Follow up as an outpatient. MMODL / IJN: [id number] /
== END 2023-10-09 18:06 | disposition home or self-care (01) | DRG 291 ==
LOC: EC 10:35 → OBSVTOIN 15:02 → 3SCARD 15:02
PROVIDERS: ADMIT Family Medicine; ATTEND Family Medicine
DX: I11.0 Hypertensive heart disease with heart failure (principal); I50.33 Acute on chronic diastolic (congestive) heart failure; J96.20 Acute and chronic respiratory failure, unspecified whether with hypoxia or hypercapnia; J44.1 Chronic obstructive pulmonary disease with (acute) exacerbation; F41.9 Anxiety disorder, unspecified; I27.20 Pulmonary hypertension, unspecified; H91.90 Unspecified hearing loss, unspecified ear; H35.30 Unspecified macular degeneration; Z20.822 Contact with and (suspected) exposure to COVID-19; K21.9 Gastro-esophageal reflux disease without esophagitis; M19.90 Unspecified osteoarthritis, unspecified site; F32.A Depression, unspecified; D50.9 Iron deficiency anemia, unspecified; I42.9 Cardiomyopathy, unspecified; M81.0 Age-related osteoporosis without current pathological fracture; Z79.82 Long term (current) use of aspirin; Z79.899 Other long term (current) drug therapy; Z86.73 Personal history of transient ischemic attack (TIA), and cerebral infarction without residual deficits; Z79.51 Long term (current) use of inhaled steroids; Z79.1 Long term (current) use of non-steroidal anti-inflammatories (NSAID)
CPT/HCPCS: 36415; 71046; 71275; 80048; 80053; 82248; 83540; 83550; 83880; 84145; 84484; 85025; 85379; 85610; 85730; 87636; 93005; 93306; 94640; 96365; 96366; 96375; 96376; 99285

== ENCOUNTER 2023-10-09 22:12 | Emergency (ER) | payer MEDICARE ==
[2023-10-09 22:36] VITALS: RESP 18
[2023-10-09 23:48] LABS: Anisocytosis Slight; Basophils % (A) 0 %; Eosinophils % (A) 0 %; HCT 27.9 % (34.0-46.0); HGB 8.3 gm/dL (11.4-16.0); Hypochromasia Marked; Lymphocytes # (A) 1.8 k/uL (1.0-4.8); Lymphocytes % (A) 10 %; MCH 20.7 pg (25.0-35.0); MCV 69.2 fL (80.0-100.0); Mean Platelet Volume 7.7; Microcytosis Marked; Monocytes # (A) 1.1 k/uL (0-1.0); Monocytes % (A) 6 %; Neutrophils # (A) 15.1 k/uL (1.3-7.7); Neutrophils % (A) 83 %; Platelet Count 441 k/uL (150-450); Poikilocytosis Moderate; RBC 4.02 m/uL (3.80-5.40); RDW 19.2 % (11.5-15.5); WBC 18.2 k/uL (3.8-10.6)
[2023-10-09 23:59] LABS: ALT 32 U/L (4-34); AST 26 U/L (14-36); African American GFR (CKD) 63 (>60 ml/min/1.73 sqM); Albumin 3.6 g/dL (3.5-5.0); Alkaline Phosphatase 195 U/L (38-126); Anion Gap 15 mmol/L; Blood Urea Nitrogen 31 mg/dL (7-17); Carbon Dioxide 22 mmol/L (22-30); Chloride 97 mmol/L (98-107); Glucose 227 mg/dL (74-99); Non-African American GFR(CKD) 54 (>60 ml/min/1.73 sqM); Potassium 3.4 mmol/L (3.5-5.1); Sodium 134 mmol/L (137-145); Total Bilirubin 0.4 mg/dL (0.2-1.3); Total Protein 6.5 g/dL (6.3-8.2)
[2023-10-10 00:07] LABS: NT-Pro-B-Type Natriuretic Pept 1210 pg/mL
[2023-10-10] MEDS ORDERED: INSULIN REGULAR 100 UNIT/ML VIAL (IV) SQ STA (01:09)
--- NOTE | 2023-10-10 01:36 | ED ---
General Adult HPI - General Chief complaint: Dizziness Stated complaint: Dizziness Time Seen by Provider: 10/09/23 22:24 Source: patient, EMS Mode of arrival: EMS Limitations: no limitations - History of Present Illness Initial comments: This patient is 78-year-old woman who presents to have evaluation for elevated blood sugar and also feeling off balance. The patient relates that she had been in the hospital from October 06 to October 09 being just discharged today. She states that after she got home her blood sugar had been over 300 and she was fe eling off balance. Patient denies chest pain, dyspnea, vomiting. No fever noted. No focal weakness. -: hour(s) Severity scale (1-10): 0 Consistency: intermittent Improves with: none Worsens with: movement Associated Symptoms: other (Dizziness) Treatments Prior to Arrival: none - Related Data Home Medications Medication Instructions Recorded Confirmed Montelukast [Singulair] 10 mg PO DAILY 07/31/22 10/06/23 atenoloL [Tenormin] 50 mg PO BID 07/31/22 10/06/23 Acetaminophen [Tylenol Extra 1,000 mg PO Q6H PRN 12/17/22 10/06/23 Strength] Tiotropium 2.5 Mcg/Puff [Spiriva 1 puff INHALATION RT-DAILY 03/11/23 10/06/23 Respimat 2.5 Mcg] Nystatin 100,000Unit/gm Cream 1 applic TOPICAL BID 05/24/23 10/06/23 [Mycostatin Cream] Albuterol Sulfate [Albuterol 2 puff INHALATION RT-QID PRN 10/06/23 10/06/23 Sulfate Hfa] Gabapentin 300 mg PO HS 10/06/23 10/06/23 Garlique 1 cap PO DAILY 10/06/23 10/06/23 Ibuprofen [Motrin Ib] 400 mg PO HS 10/06/23 10/06/23 Lidocaine 5% Patch [Lidoderm 5% 1 patch TRANSDERM DAILY 10/06/23 10/06/23 Patch] Prevagen 1 cap PO DAILY 10/06/23 10/06/23 traMADol HCL 50 mg PO HS 10/06/23 10/06/23 Previous Rx's Medication Instructions Recorded Aspirin 325 mg PO DAILY tab 05/26/23 Atorvastatin [Lipitor] 40 mg PO DAILY 90 Days #90 tab 05/26/23 Ipratropium-Albuterol Nebulize 3 ml INHALATION RT-QID 30 Days 05/26/23 [Duoneb 0.5 mg-3 mg/3 ml Soln] #120 each Dapagliflozin Propanediol [Farxiga] 5 mg PO DAILY 90 Days #90 tab 10/09/23 Docusate [Colace] 100 mg PO BID cap 10/09/23 Furosemide [Lasix] 40 mg PO BID@0900,1600 90 Days 10/09/23 #180 tab Pantoprazole [Protonix] 40 mg PO AC-BID 90 Days #189 tab 10/09/23 predniSONE [Deltasone] 40 mg PO DAILY 5 Days #5 tab 10/09/23 metFORMIN HCL [Glucophage] 500 mg PO BID #10 tab 10/10/23 Allergies Allergy/AdvReac Type Severity Reaction Status Date / Time No Known Allergies Allergy Verified 10/09/23 22:25 Review of Systems ROS Statement: Those systems with pertinent positive or pertinent negative responses have been documented in the HPI. ROS Other: All systems not noted in ROS Statement are negative. Constitutional: Denies: fever, chills Eyes: Denies: vision change Respiratory: Denies: cough, dyspnea Cardiovascular: Denies: chest pain, palpitations, syncope Gastrointestinal: Denies: abdominal pain, vomiting, diarrhea Genitourinary: Denies: dysuria Musculoskeletal: Denies: back pain Skin: Denies: rash Neurological: Denies: headache, weakness Past Medical History Past Medical History: Diabetes Mellitus, Eye Disorder, GERD/Reflux, Hearing Disorder / Deafness, Hypertension, Osteoarthritis (OA) Additional Past Medical History / Comment(s): MACULAR DEGENERATION, cataracts, osteoporosis, diet controlled diabetic, TIA History of Any Multi-Drug Resistant Organisms: None Reported Past Surgical History: Cholecystectomy, Hysterectomy Additional Past Surgical History / Comment(s): ORIF RT WRIST-HAD BONE GRAFT FROM HIP, asher fundoplasty, teeth pulled Past Anesthesia/Blood Transfusion Reactions: No Reported Reaction Past Psychological History: Anxiety, Depression Smoking Status: Never smoker Past Alcohol Use History: None Reported Past Drug Use History: None Reported - Past Family History Brother(s) Family Medical History: Cancer Additional Family Medical History / Comment(s): LUNG Mother Family Medical History: Cancer Sister(s) Family Medical History: Cancer General Exam Limitations: no limitations General appearance: alert, in no apparent distress Head exam: Present: atraumatic, normocephalic Eye exam: Present: normal appearance. Absent: scleral icterus, conjunctival injection Neck exam: Present: normal inspection Respiratory exam: Present: normal lung sounds bilaterally. Absent: respiratory distress, wheezes, rales, rhonchi, stridor Cardiovascular Exam: Present: regular rate, normal rhythm, normal heart sounds. Absent: systolic murmur, diastolic murmur, rubs, gallop GI/Abdominal exam: Present: soft. Absent: distended, tenderness, guarding, rebound, rigid, mass Extremities exam: Present: normal inspection, normal capillary refill Back exam: Present: normal inspection Neurological exam: Present: alert, oriented X3, CN II-XII intact. Absent: motor sensory deficit Skin exam: Present: warm, dry, intact, normal color. Absent: rash Course Vital Signs 10/09/23 10/10/23 22:16 02:45 Temperature 97.7 F 98.1 F Pulse Rate 122 H 113 H Respiratory 18 18 Rate Blood Pressure 127/81 114/72 O2 Sat by Pulse 97 96 Oximetry Medical Decision Making - Medical Decision Making Patient is 78-year-old woman just discharged from the hospital today and concerned because her blood sugar remained high and she was feeling off balance. Patient feeling better here after treatment. We discussed that she had been discharged on steroids and that these will tend to affect blood sugar. The diabetic diarrhea and forced. Also discussed other strategies related to blood sugar. Patient stable at this point to continue as outpatient. She does have leukocytosis that does appear to be related to the steroid use rather than acute infection at this point. Was pt. sent in by a medical professional or institution (, PA, RN FACULTY, urgent care, hospital, or halfway...) When possible be specific @ -[No] Did you speak to anyone other than the patient for history (EMS, parent, family, police, friend...)? What history was obtained from this source @ -[No] Did you review nursing and triage notes (agree or disagree)? Why? @ -[I reviewed and agree with nursing and triage notes] Were old charts reviewed (outside hosp., previous admission, EMS record, old EKG, old radiological studies, urgent care reports/EKG's, halfway records)? Report findings @ -[No old charts were reviewed] Differential Diagnosis (chest pain, altered mental status, abdominal pain women, abdominal pain men, vaginal bleeding, weakness, fever, dyspnea, syncope, headache, dizziness, GI bleed, back pain, seizure, CVA, palpatations, mental health, musculoskeletal)? @ -[Differential Dizziness: Benign paroxysmal positional Vertigo, Menieres disease, otitis media, acoustic neuroma, vertebrobasilar insufficiency, cerebellar stroke, encephalitis, hypovolemic, arrhythmia, coronary artery syndrome, anemia, this is not meant to be an all-inclusive list EKG interpreted by me (3pts min.). @ -[As above] X-rays interpreted by me (1pt min.). @ -[None done] CT interpreted by me (1pt min.). @ -[None done] U/S interpreted by me (1pt. min.). @ -[None done] What testing was considered but not performed or refused? (CT, X-rays, U/S, labs)? Why? @ -[None] What meds were considered but not given or refused? Why? @ -[None] Did you discuss the management of the patient with other professionals (professionals i.e. , PA, RN FACULTY, lab, RT, psych nurse, medical social worker, leadlighter, teacher, airport operations officer, case advocate)? Give summary @ -[No] Was smoking cessation discussed for >3mins.? @ -[No] Was critical care preformed (if so, how long)? @ -[No] Were there social determinants of health that impacted care today? How? (Homelessness, low income, unemployed, alcoholism, drug addiction, transportation, low edu. Level, literacy, decrease access to med. care, penitentiary, rehab)? @ -[No] Was there de-escalation of care discussed even if they declined (Discuss DNR or withdrawal of care, Hospice)? DNR status @ -[No] What co-morbidities impacted this encounter? (DM, HTN, Smoking, COPD, CAD, Cancer, CVA, ARF, Chemo, Hep., AIDS, mental health diagnosis, sleep apnea, morbid obesity)? @ -[Diabetes hypertension COPD Was patient admitted / discharged? Hospital course, mention meds given and route, prescriptions, significant lab abnormalities, going to OR and other pertinent info. @ -['s see above, patient discharged with close follow-up Undiagnosed new problem with uncertain prognosis? @ -[No] Drug Therapy requiring intensive monitoring for toxicity (Heparin, Nitro, Insulin, Cardizem)? @ -[No] Were any procedures done? @ -[No] Diagnosis/symptom? @ -[Acute hyperglycemia in diabetic patient Acute, or Chronic, or Acute on Chronic? @ -Acute on chronic Uncomplicated (without systemic symptoms) or Complicated (systemic symptoms)? @ -[Complicated by dizziness Side effects of treatment? @ -[No] Exacerbation, Progression, or Severe Exacerbation? @ -[No] Poses a threat to life or bodily function? How? (Chest pain, [place], [place], pneumonia, PE, COPD, DKA, ARF, appy, cholecystitis, CVA, Diverticulitis, Homicidal, Suicidal, threat to staff... and all critical care pts) @ -[Low likelihood - Lab Data Result diagrams: 10/09/23 23:39 10/09/23 23:39 Lab Results 10/09/23 10/09/23 10/10/23 Range/Units 23:39 23:39 02:37 WBC 18.2 H (3.8-10.6) k/uL RBC 4.02 (3.80-5.40) m/uL Hgb 8.3 L (11.4-16.0) gm/dL Hct 27.9 L (34.0-46.0) % MCV 69.2 L (80.0-100.0) fL MCH 20.7 L (25.0-35.0) pg MCHC 30.0 L (31.0-37.0) g/dL RDW 19.2 H (11.5-15.5) % Plt Count 441 (150-450) k/uL MPV 7.7 Neutrophils % 83 % Lymphocytes % 10 % Monocytes % 6 % Eosinophils % 0 % Basophils % 0 % Neutrophils # 15.1 H (1.3-7.7) k/uL Lymphocytes # 1.8 (1.0-4.8) k/uL Monocytes # 1.1 H (0-1.0) k/uL Eosinophils # 0.0 (0-0.7) k/uL Basophils # 0.0 (0-0.2) k/uL Hypochromasia Marked Poikilocytosis Moderate Anisocytosis Slight Microcytosis Marked Sodium 134 L (137-145) mmol/L Potassium 3.4 L (3.5-5.1) mmol/L Chloride 97 L (98-107) mmol/L Carbon Dioxide 22 (22-30) mmol/L Anion Gap 15 mmol/L BUN 31 H (7-17) mg/dL Creatinine 1.01 (0.52-1.04) mg/dL Est GFR (CKD-EPI)AfAm 63 (>60 ml/min/1.73 sqM) Est GFR (CKD-EPI)NonAf 54 (>60 ml/min/1.73 sqM) Glucose 227 H (74-99) mg/dL POC Glucose (mg/dL) 173 H (70-110) mg/dL POC Glu Senior Foreman ID Anila Jauregui Calcium 9.0 (8.4-10.2) mg/dL Total Bilirubin 0.4 (0.2-1.3) mg/dL AST 26 (14-36) U/L ALT 32 (4-34) U/L Alkaline Phosphatase 195 H (38-126) U/L NT-Pro-B Natriuret Pep 1210 pg/mL Total Protein 6.5 (6.3-8.2) g/dL Albumin 3.6 (3.5-5.0) g/dL Acetone, Qual Negative (Negative) Disposition Clinical Impression: Hyperglycemia Disposition: HOME SELF-CARE Condition: Good Instructions (If sedation given, give patient instructions): Diabetic Hyperglycemia (ED) Prescriptions: metFORMIN HCL [Glucophage] 500 mg PO BID #10 tab Is patient prescribed a controlled substance at d/c from ED?: No Referrals: Peter De Santiago MD [Primary Care Provider] - 1-2 days
[2023-10-10] MEDS ORDERED: ACETAMINOPHEN TAB 325 MG TAB PO STA (02:25)
[2023-10-10 02:48] LABS: Glucose,Whole Blood 173 mg/dL (70-110)
[2023-10-10 02:57] VITALS: BP 114/72; PULSE 113; TEMP 98.1
== END 2023-10-10 02:47 | disposition home or self-care (01) ==
LOC: EC 22:12
DX: E11.65 Type 2 diabetes mellitus with hyperglycemia (principal); D72.829 Elevated white blood cell count, unspecified; E11.36 Type 2 diabetes mellitus with diabetic cataract; I10 Essential (primary) hypertension; J44.9 Chronic obstructive pulmonary disease, unspecified; Z79.899 Other long term (current) drug therapy; Z86.73 Personal history of transient ischemic attack (TIA), and cerebral infarction without residual deficits; Z90.49 Acquired absence of other specified parts of digestive tract
CPT/HCPCS: 36415; 80053; 82009; 83880; 85025; 99284

== ENCOUNTER 2023-11-02 19:24 | Inpatient (IN) | payer MEDICARE ==
--- NOTE | 2023-11-02 19:54 | ED ---
General Adult HPI - General Chief complaint: Recheck/Abnormal Lab/Rx Stated complaint: Low Hemoglobin Time Seen by Provider: 11/02/23 19:30 Source: patient, EMS, RN notes reviewed, old records reviewed Mode of arrival: EMS - History of Present Illness Initial comments: This is a 78-year-old female comes to us from shelter because patient was weak in the shower and they did a hemoglobin and she was 6.9. Patient's states she has a history of atrial fibrillation congestive heart failure and recently diagnosed with influenza. Patient states she has been feeling weaker lately. Patient states she is on Eliquis. Patient states your hemoglobin has been slowly coming down lately. Patient denies any black or bloody stools. Patient denies any chest pain or palpitations. Patient [place] shortness of breath or difficulty breathing. Patient denies any leg swelling or calf tenderness - Related Data Home Medications Medication Instructions Recorded Confirmed Montelukast [Singulair] 10 mg PO DAILY 07/31/22 10/06/23 atenoloL [Tenormin] 50 mg PO BID 07/31/22 10/06/23 Acetaminophen [Tylenol Extra 1,000 mg PO Q6H PRN 12/17/22 10/06/23 Strength] Tiotropium 2.5 Mcg/Puff [Spiriva 1 puff INHALATION RT-DAILY 03/11/23 10/06/23 Respimat 2.5 Mcg] Nystatin 100,000Unit/gm Cream 1 applic TOPICAL BID 05/24/23 10/06/23 [Mycostatin Cream] Albuterol Sulfate [Albuterol 2 puff INHALATION RT-QID PRN 10/06/23 10/06/23 Sulfate Hfa] Gabapentin 300 mg PO HS 10/06/23 10/06/23 Garlique 1 cap PO DAILY 10/06/23 10/06/23 Ibuprofen [Motrin Ib] 400 mg PO HS 10/06/23 10/06/23 Lidocaine 5% Patch [Lidoderm 5% 1 patch TRANSDERM DAILY 10/06/23 10/06/23 Patch] Prevagen 1 cap PO DAILY 10/06/23 10/06/23 traMADol HCL 50 mg PO HS 10/06/23 10/06/23 Previous Rx's Medication Instructions Recorded Aspirin 325 mg PO DAILY tab 05/26/23 Atorvastatin [Lipitor] 40 mg PO DAILY 90 Days #90 tab 05/26/23 Ipratropium-Albuterol Nebulize 3 ml INHALATION RT-QID 30 Days 05/26/23 [Duoneb 0.5 mg-3 mg/3 ml Soln] #120 each Dapagliflozin Propanediol [Farxiga] 5 mg PO DAILY 90 Days #90 tab 10/09/23 Docusate [Colace] 100 mg PO BID cap 10/09/23 Furosemide [Lasix] 40 mg PO BID@0900,1600 90 Days 10/09/23 #180 tab Pantoprazole [Protonix] 40 mg PO AC-BID 90 Days #189 tab 10/09/23 predniSONE [Deltasone] 40 mg PO DAILY 5 Days #5 tab 10/09/23 metFORMIN HCL [Glucophage] 500 mg PO BID #10 tab 10/10/23 Allergies Allergy/AdvReac Type Severity Reaction Status Date / Time No Known Allergies Allergy Verified 11/02/23 19:32 Review of Systems ROS Statement: Those systems with pertinent positive or pertinent negative responses have been documented in the HPI. ROS Other: All systems not noted in ROS Statement are negative. Past Medical History Past Medical History: Diabetes Mellitus, Eye Disorder, GERD/Reflux, Hearing Disorder / Deafness, Hypertension, Osteoarthritis (OA) Additional Past Medical History / Comment(s): MACULAR DEGENERATION, cataracts, osteoporosis, diet controlled diabetic, TIA History of Any Multi-Drug Resistant Organisms: None Reported Past Surgical History: Cholecystectomy, Hysterectomy Additional Past Surgical History / Comment(s): ORIF RT WRIST-HAD BONE GRAFT FROM HIP, asher fundoplasty, teeth pulled Past Anesthesia/Blood Transfusion Reactions: No Reported Reaction Past Psychological History: Anxiety, Depression Smoking Status: Never smoker Past Alcohol Use History: None Reported Past Drug Use History: None Reported - Past Family History Brother(s) Family Medical History: Cancer Additional Family Medical History / Comment(s): LUNG Mother Family Medical History: Cancer Sister(s) Family Medical History: Cancer General Exam - General Exam Comments Initial Comments: GENERAL: Patient is well-developed and well-nourished. Patient is nontoxic and well- hydrated and is in mild e distress. ENT: Neck is soft and supple. No significant lymphadenopathy is noted. Oropharynx is clear. Moist mucous membranes. Neck has full range of motion without eliciting any pain. EYES: The sclera were anicteric and conjunctiva were pink and moist. Extraocular movements were intact and pupils were equal round and reactive to light. Eyelids were unremarkable. PULMONARY: Unlabored respirations. Good breath sounds bilaterally. No audible rales rhonchi or wheezing was noted. CARDIOVASCULAR: There is a regular rate and rhythm without any murmurs gallops or rubs. ABDOMEN: Soft and nontender with normal bowel sounds. SKIN: Patient's skin is pale NEUROLOGIC: Patient is alert and oriented x3. Cranial nerves II through XII are grossly intact. Motor and sensory are also intact. Normal speech, volume and content. Symmetrical smile. MUSCULOSKELETAL: Normal extremities with adequate strength and full range of motion. LYMPHATICS: No significant lymphadenopathy is noted PSYCHIATRIC: Normal psychiatric evaluation. Course Vital Signs 11/02/23 19:26 Temperature 98.9 F Pulse Rate 53 L Respiratory 14 Rate Blood Pressure 100/62 O2 Sat by Pulse 100 Oximetry Medical Decision Making - Medical Decision Making Was pt. sent in by a medical professional or institution (, PA, PATHOLOGY SECRETARY, urgent care, hospital, or shelter...) When possible be specific @ -[facility] sent the patient in Did you speak to anyone other than the patient for history (EMS, parent, family, police, friend...)? What history was obtained from this source @ -No Did you review nursing and triage notes (agree or disagree)? Why? @ -I reviewed and agree with nursing and triage notes Were old charts reviewed (outside hosp., previous admission, EMS record, old EKG, old radiological studies, urgent care reports/EKG's, shelter records)? Report findings @ -I reviewed prior charts and prior lab work on this patient Differential Diagnosis (chest pain, altered mental status, abdominal pain women, abdominal pain men, vaginal bleeding, weakness, fever, dyspnea, syncope, headache, dizziness, GI bleed, back pain, seizure, CVA, palpatations, mental health, musculoskeletal)? @ -Differential GI Bleed: Esophageal varices, aortoenteric fistula, Leisa-Lawler, gastritis, peptic ulcer disease, diverticulosis, inflammatory bowel disease, hemorrhoids, fissure, colitis, malignancy, Meckels diverticulum, this is not meant to be an all- inclusive list. EKG interpreted by me (3pts min.). @ -As above X-rays interpreted by me (1pt min.). @ -None done CT interpreted by me (1pt min.). @ -None done U/S interpreted by me (1pt. min.). @ -None done What testing was considered but not performed or refused? (CT, X-rays, U/S, labs)? Why? @ -None What meds were considered but not given or refused? Why? @ -None Did you discuss the management of the patient with other professionals (professionals i.e. , PA, PATHOLOGY SECRETARY, lab, RT, psych nurse, social media marketer, solar sales, teacher, navigating officer, nurse case management)? Give summary @ -[facility] the patient wrote admitting orders Was smoking cessation discussed for >3mins.? @ -No Was critical care preformed (if so, how long)? @ -No Were there social determinants of health that impacted care today? How? (Homelessness, low income, unemployed, alcoholism, drug addiction, transportation, low edu. Level, literacy, decrease access to med. care, penitentiary, rehab)? @ -No Was there de-escalation of care discussed even if they declined (Discuss DNR or withdrawal of care, Hospice)? DNR status @ -No What co-morbidities impacted this encounter? (DM, HTN, Smoking, COPD, CAD, Cancer, CVA, ARF, Chemo, Hep., AIDS, mental health diagnosis, sleep apnea, morbid obesity)? @ -None Was patient admitted / discharged? Hospital course, mention meds given and route, prescriptions, significant lab abnormalities, going to OR and other pertinent info. @ -Patient's hemoglobin 6.8. I ordered 1 unit of packed red blood cells. [facility] admit the patient and wrote admitting orders. Undiagnosed new problem with uncertain prognosis? @ -No Drug Therapy requiring intensive monitoring for toxicity (Heparin, Nitro, Insulin, Cardizem)? @ -No Were any procedures done? @ -No Diagnosis/symptom? @ -Anemia Acute, or Chronic, or Acute on Chronic? @ -Acute on chronic Uncomplicated (without systemic symptoms) or Complicated (systemic symptoms)? @ -Complicated Side effects of treatment? @ -No Exacerbation, Progression, or Severe Exacerbation? @ -No Poses a threat to life or bodily function? How? (Chest pain, [place], [place], pneumonia, PE, COPD, DKA, ARF, appy, cholecystitis, CVA, Diverticulitis, Homicidal, Suicidal, threat to staff... and all critical care pts) @ -Yes this could lead to hypoxia and endorgan dysfunction - Lab Data Result diagrams: 11/02/23 19:51 11/02/23 19:51 Lab Results 11/02/23 11/02/23 11/02/23 Range/Units 19:50 19:51 19:51 WBC 7.2 (3.8-10.6) k/uL RBC 3.26 L (3.80-5.40) m/uL Hgb 6.8 L* D (11.4-16.0) gm/dL Hct 23.6 L (34.0-46.0) % MCV 72.2 L (80.0-100.0) fL MCH 20.7 L (25.0-35.0) pg MCHC 28.7 L (31.0-37.0) g/dL RDW 20.8 H (11.5-15.5) % Plt Count 283 (150-450) k/uL MPV 8.1 Neutrophils % 81 % Lymphocytes % 11 % Monocytes % 5 % Eosinophils % 3 % Basophils % 0 % Neutrophils # 5.8 (1.3-7.7) k/uL Lymphocytes # 0.8 L (1.0-4.8) k/uL Monocytes # 0.3 (0-1.0) k/uL Eosinophils # 0.2 (0-0.7) k/uL Basophils # 0.0 (0-0.2) k/uL Hypochromasia Marked Poikilocytosis Moderate Anisocytosis Moderate Microcytosis Marked PT 12.2 (10.0-12.5) sec INR 1.1 (<1.2) APTT 22.5 (22.0-30.0) sec Sodium (137-145) mmol/L Potassium (3.5-5.1) mmol/L Chloride (98-107) mmol/L Carbon Dioxide (22-30) mmol/L Anion Gap mmol/L BUN (7-17) mg/dL Creatinine (0.52-1.04) mg/dL Est GFR (CKD-EPI)AfAm (>60 ml/min/1.73 sqM) Est GFR (CKD-EPI)NonAf (>60 ml/min/1.73 sqM) Glucose (74-99) mg/dL Calcium (8.4-10.2) mg/dL Total Bilirubin (0.2-1.3) mg/dL AST (14-36) U/L ALT (4-34) U/L Alkaline Phosphatase (38-126) U/L Troponin I (0.000-0.034) ng/mL Total Protein (6.3-8.2) g/dL Albumin (3.5-5.0) g/dL Blood Type O Positive Blood Type Recheck No Previous Record Bld Type Recheck Status CABO Indicated Antibody Screen NEGATIVE Spec Expiration Date 11/05/2023 - 235011/02/23 11/02/23 Range/Units 19:51 19:51 WBC (3.8-10.6) k/uL RBC (3.80-5.40) m/uL Hgb (11.4-16.0) gm/dL Hct (34.0-46.0) % MCV (80.0-100.0) fL MCH (25.0-35.0) pg MCHC (31.0-37.0) g/dL RDW (11.5-15.5) % Plt Count (150-450) k/uL MPV Neutrophils % % Lymphocytes % % Monocytes % % Eosinophils % % Basophils % % Neutrophils # (1.3-7.7) k/uL Lymphocytes # (1.0-4.8) k/uL Monocytes # (0-1.0) k/uL Eosinophils # (0-0.7) k/uL Basophils # (0-0.2) k/uL Hypochromasia Poikilocytosis Anisocytosis Microcytosis PT (10.0-12.5) sec INR (<1.2) APTT (22.0-30.0) sec Sodium 132 L (137-145) mmol/L Potassium 3.9 (3.5-5.1) mmol/L Chloride 99 (98-107) mmol/L Carbon Dioxide 26 (22-30) mmol/L Anion Gap 7 mmol/L BUN 17 (7-17) mg/dL Creatinine 0.92 (0.52-1.04) mg/dL Est GFR (CKD-EPI)AfAm 70 (>60 ml/min/1.73 sqM) Est GFR (CKD-EPI)NonAf 61 (>60 ml/min/1.73 sqM) Glucose 137 H (74-99) mg/dL Calcium 7.8 L (8.4-10.2) mg/dL Total Bilirubin 0.7 (0.2-1.3) mg/dL AST 27 (14-36) U/L ALT 21 (4-34) U/L Alkaline Phosphatase 98 (38-126) U/L Troponin I <0.012 (0.000-0.034) ng/mL Total Protein 5.3 L (6.3-8.2) g/dL Albumin 2.6 L (3.5-5.0) g/dL Blood Type Blood Type Recheck Bld Type Recheck Status Antibody Screen Spec Expiration Date Critical Care Time Critical Care Time: Yes Total Critical Care Time: 35 Disposition Clinical Impression: Anemia Disposition: ADMITTED IP TO THIS [facility] Referrals: Van Mo MD [Primary Care Provider] - 1-2 days Time of Disposition: 20:54
[2023-11-02 19:59] LABS: Anisocytosis Moderate; Basophils % (A) 0 %; Eosinophils # (A) 0.2 k/uL (0-0.7); Eosinophils % (A) 3 %; Hypochromasia Marked; Lymphocytes # (A) 0.8 k/uL (1.0-4.8); Lymphocytes % (A) 11 %; MCH 20.7 pg (25.0-35.0); MCHC 28.7 g/dL (31.0-37.0); MCV 72.2 fL (80.0-100.0); Mean Platelet Volume 8.1; Microcytosis Marked; Monocytes # (A) 0.3 k/uL (0-1.0); Monocytes % (A) 5 %; Neutrophils # (A) 5.8 k/uL (1.3-7.7); Neutrophils % (A) 81 %; Platelet Count 283 k/uL (150-450); Poikilocytosis Moderate; RBC 3.26 m/uL (3.80-5.40); RDW 20.8 % (11.5-15.5); WBC 7.2 k/uL (3.8-10.6)
[2023-11-02 20:08] LABS: ALT 21 U/L (4-34); AST 27 U/L (14-36); African American GFR (CKD) 70 (>60 ml/min/1.73 sqM); Albumin 2.6 g/dL (3.5-5.0); Alkaline Phosphatase 98 U/L (38-126); Anion Gap 7 mmol/L; Blood Urea Nitrogen 17 mg/dL (7-17); Calcium 7.8 mg/dL (8.4-10.2); Carbon Dioxide 26 mmol/L (22-30); Chloride 99 mmol/L (98-107); Glucose 137 mg/dL (74-99); Non-African American GFR(CKD) 61 (>60 ml/min/1.73 sqM); Potassium 3.9 mmol/L (3.5-5.1); Sodium 132 mmol/L (137-145); Total Bilirubin 0.7 mg/dL (0.2-1.3); Total Protein 5.3 g/dL (6.3-8.2)
[2023-11-02 20:09] LABS: INR 1.1 (<1.2); Partial Thromboplastin Time 22.5 sec (22.0-30.0); Prothrombin Time 12.2 sec (10.0-12.5)
[2023-11-02 20:32] LABS: HGB 6.8 gm/dL (11.4-16.0)
[2023-11-02 20:33] LABS: HCT 23.6 % (34.0-46.0)
[2023-11-02] MEDS: SODIUM CHLORIDE 0.9% 500 ML 500 ML IV STA (21:08)
--- NOTE | 2023-11-02 22:03 | XR ---
EXAMINATION TYPE: XR chest 2V DATE OF EXAM: 11/02/2023 9:29 PM CLINICAL INDICATION:Female, 78 years old with history of pain; low hemoglobin, productive cough COMPARISON: CT angiogram of chest and chest x-ray 10/06/2023 and 10/07/2023 TECHNIQUE: XR chest 2V. Frontal and lateral views of the chest.. FINDINGS: No indwelling lines are seen. The patient is slightly rotated exaggerating the cardiomediastinal silh ouette. Heart again appears enlarged. Similar appearing bulbous deformity /enlargement of the right u pper mediastinal silhouette, likely combination of tortuous aorta and other overlying anatomic struct ures on correlation with the recent prior CT. Mild pulmonary vascular congestion and interstitial prominence suggesting edema, similar to before. S mall to moderate bilateral pleural effusions and adjacent infiltrates/atelectasis have slightly impro rupesh, with small residual. No new or worsening infiltrate. No visible pneumothorax. Osseous structures appear grossly stable. Generalized osteopenia. Multilevel degenerative changes of the spine with exa ggerated kyphosis and at least one mild compression deformity in the lower thoracic region redemonstr ated without significant interval change. IMPRESSION: 1. Cardiomegaly with prominent cardiomediastinal silhouette. 2. Pulmonary vascular congestion and mild interstitial edema, unchanged. 3. Decreased bilateral pleural effusions compared to the prior study, now small.
[2023-11-03] MEDS: SODIUM CHLORIDE 0.9% 1,000 ML IV ONE (03:00)
[2023-11-03 03:58] LABS: Anisocytosis Moderate; Basophils % (A) 0 %; Eosinophils # (A) 0.2 k/uL (0-0.7); Eosinophils % (A) 3 %; Hypochromasia Marked; Lymphocytes % (A) 16 %; MCH 22.2 pg (25.0-35.0); MCHC 29.7 g/dL (31.0-37.0); MCV 74.8 fL (80.0-100.0); Mean Platelet Volume 8.6; Microcytosis Moderate; Monocytes # (A) 0.4 k/uL (0-1.0); Monocytes % (A) 6 %; Neutrophils # (A) 4.3 k/uL (1.3-7.7); Neutrophils % (A) 72 %; Platelet Count 269 k/uL (150-450); Poikilocytosis Moderate; RBC 3.74 m/uL (3.80-5.40)
[2023-11-03 03:59] LABS: HGB 8.3 gm/dL (11.4-16.0)
[2023-11-03] MEDS: IPRATROPIUM-ALBUTEROL 3 ML NEB INHALATION SCH (11:22)
--- NOTE | 2023-11-03 13:37 | P.CONS ---
History of Present Illness - Reason for Consult Consult date: 11/03/23 anemia Requesting physician: Peter De Santiago - Chief Complaint Weak - History of Present Illness Ms. Barlow is a very pleasant 78 yo female with multiple comoribidities inc luding atrial fibrillation and CHF on eliquis, who is here for increased weakness. Found to have Hgb 6.8, normal WBC and plt. She was admitted with hematology consult. Transfused and Hgb up to 8.3. MCV low at 74. Trending her labs, her Hgb was 11-13 as baseline prior to 05/2023, with MCV 80's, but since 05/2023, Hgb has been 7-8's, with MCV 70's. Denies any obvious bleeding. Had recent colonoscopy in 2022 which she says showed polyps that were removed. No prior EGD. No other complaints. She denies any smoking, alcohol, or drugs. No known family history of anemia or blood disorders. Past Medical History Past Medical History: Diabetes Mellitus, Eye Disorder, GERD/Reflux, Hearing Disorder / Deafness, Hypertension, Osteoarthritis (OA) Additional Past Medical History / Comment(s): MACULAR DEGENERATION, cataracts, osteoporosis, diet controlled diabetic, TIA History of Any Multi-Drug Resistant Organisms: None Reported Past Surgical History: Cholecystectomy, Hysterectomy Additional Past Surgical History / Comment(s): ORIF RT WRIST-HAD BONE GRAFT FROM HIP, asher fundoplasty, teeth pulled Past Anesthesia/Blood Transfusion Reactions: No Reported Reaction Past Psychological History: Anxiety, Depression Smoking Status: Never smoker Past Alcohol Use History: None Reported Past Drug Use History: None Reported - Past Family History Brother(s) Family Medical History: Cancer Additional Family Medical History / Comment(s): LUNG Mother Family Medical History: Cancer Sister(s) Family Medical History: Cancer Medications and Allergies Home Medications Medication Instructions Recorded Confirmed Type Montelukast [Singulair] 10 mg PO HS@2100 07/31/22 11/03/23 History Gabapentin 300 mg PO TID@0900,1300,2100 10/06/23 11/03/23 History Amiodarone [Cordarone] 200 mg PO BID@0900,2100 11/03/23 11/03/23 History Apixaban [Eliquis] 5 mg PO BID@0900,2100 11/03/23 11/03/23 History Aspirin EC [Ecotrin Low Dose] 81 mg PO DAILY@0911/03/23 11/03/23 History Atorvastatin [Lipitor] 40 mg PO HS@209911/03/23 11/03/23 History Budesonide [Pulmicort] 0.5 mg INHALATION RT-BID@0600,1800 11/03/23 11/03/23 History Empagliflozin [Jardiance] 10 mg PO DAILY@0911/03/23 11/03/23 History Furosemide [Lasix] 40 mg PO DAILY@0911/03/23 11/03/23 History Ipratropium-Albuterol Nebulize 3 ml INHALATION RT-QID@00,06,12,18 11/03/23 11/03/23 History [Duoneb 0.5 mg-3 mg/3 ml Soln] Lactulose 20 gm PO TID@06,,21 11/03/23 11/03/23 History Melatonin 10 mg PO HS@209911/03/23 11/03/23 History Metoprolol Tartrate [Lopressor] 50 mg PO BID@0900,2100 PRN 11/03/23 11/03/23 History Ondansetron [Zofran] 4 mg PO Q8H PRN 11/03/23 11/03/23 History Pantoprazole [Protonix] 40 mg PO DAILY@89911/03/23 11/03/23 History Potassium Bicarbonate/Cit AC 20 meq PO DAILY@0911/03/23 11/03/23 History [K-Lyte] metFORMIN HCL [Glucophage] 500 mg PO BID@0900,2100 11/03/23 11/03/23 History Allergies Allergy/AdvReac Type Severity Reaction Status Date / Time No Known Allergies Allergy Verified 11/03/23 12:21 Physical Exam Vitals: Vital Signs Temp Pulse Resp BP Pulse Ox 11/03/23 09:00 72 20 125/75 94 L 11/03/23 07:27 67 16 114/62 94 L 11/03/23 04:30 57 L 17 117/60 95 11/03/23 04:00 60 16 121/58 95 11/03/23 03:30 63 18 116/60 95 11/03/23 03:00 63 17 128/64 95 11/03/23 02:50 98.3 F 59 L 19 128/64 98 11/03/23 02:30 60 13 122/62 96 11/03/23 02:00 62 16 96/57 96 11/03/23 01:30 58 L 17 118/63 98 11/03/23 01:00 66 17 106/64 96 11/03/23 00:36 98.6 F 64 12 106/64 99 11/03/23 00:00 61 16 106/68 100 11/02/23 23:30 60 12 110/59 100 11/02/23 23:25 59 L 17 108/57 100 11/02/23 23:20 60 19 110/61 98 11/02/23 23:10 61 25 H 109/57 99 11/02/23 23:07 98.1 F 59 L 13 109/57 100 11/02/23 22:57 98.6 F 59 L 18 104/56 98 11/02/23 22:41 98.9 F 60 18 106/55 98 11/02/23 19:26 98.9 F 53 L 14 100/62 100 Intake and Output 11/02/23 11/03/23 11/03/23 22:59 06:59 14:59 Intake Total 0 310 Balance 0 310 Intake: Blood Product 0 310 Rc As-1 Unit 0 310 [id number] Other: Weight 89.358 kg Patient is alert and oriented 3. Appears in no acute distress. No respiratory distress. On oxygen by [place] (home oxygen). No jaundice. Mucosa moist. Does have generalized pallor and conjunctival pallor. Results CBC & Chem 7: 11/03/23 03:32 11/02/23 19:51 Labs: Abnormal Lab Results - Last 24 Hours (Table) 11/02/23 11/02/23 11/02/23 Range/Units 19:50 19:51 19:51 RBC 3.26 L (3.80-5.40) m/uL Hgb 6.8 L* D (11.4-16.0) gm/dL Hct 23.6 L (34.0-46.0) % MCV 72.2 L (80.0-100.0) fL MCH 20.7 L (25.0-35.0) pg MCHC 28.7 L (31.0-37.0) g/dL RDW 20.8 H (11.5-15.5) % Lymphocytes # 0.8 L (1.0-4.8) k/uL Sodium (137-145) mmol/L Glucose (74-99) mg/dL Plasma Lactic Acid Carlos A (0.7-2.0) mmol/L Calcium (8.4-10.2) mg/dL Total Protein (6.3-8.2) g/dL Albumin (3.5-5.0) g/dL Stool Occult Blood Positive H (Negative) Crossmatch See Detail 11/02/23 11/02/23 11/02/23 Range/Units 19:51 19:51 23:59 RBC (3.80-5.40) m/uL Hgb (11.4-16.0) gm/dL Hct (34.0-46.0) % MCV (80.0-100.0) fL MCH (25.0-35.0) pg MCHC (31.0-37.0) g/dL RDW (11.5-15.5) % Lymphocytes # (1.0-4.8) k/uL Sodium 132 L (137-145) mmol/L Glucose 137 H (74-99) mg/dL Plasma Lactic Acid Carlos A 3.2 H* 2.3 H* (0.7-2.0) mmol/L Calcium 7.8 L (8.4-10.2) mg/dL Total Protein 5.3 L (6.3-8.2) g/dL Albumin 2.6 L (3.5-5.0) g/dL Stool Occult Blood (Negative) Crossmatch 11/03/23 Range/Units 03:32 RBC 3.74 L (3.80-5.40) m/uL Hgb 8.3 L D (11.4-16.0) gm/dL Hct 28.0 L (34.0-46.0) % MCV 74.8 L (80.0-100.0) fL MCH 22.2 L (25.0-35.0) pg MCHC 29.7 L (31.0-37.0) g/dL RDW 20.0 H (11.5-15.5) % Lymphocytes # (1.0-4.8) k/uL Sodium (137-145) mmol/L Glucose (74-99) mg/dL Plasma Lactic Acid Carlos A (0.7-2.0) mmol/L Calcium (8.4-10.2) mg/dL Total Protein (6.3-8.2) g/dL Albumin (3.5-5.0) g/dL Stool Occult Blood (Negative) Crossmatch Chest x-ray: report reviewed Assessment and Plan Assessment: 1. Weakness due to acute on chronic anemia 2. Anemia likely due to iron deficiency 3. Rule out GIB 4. Pulmonary vascular congestion 5. Acute on chronic decompensated systolic heart failure Plan: Ms. Barlow is a very pleasant 78 yo female with history of multiple comorbidities including cardiac disease on eliquis, here for weakness, found to have severe microcytic anemia with Hgb 6.8. - Will complete work up for anemia, suspect iron deficiency with new microcytic anemia since 05/2023 - GI evaluation to rule out GIB, no other obvious signs of bleeding - Monitor H/H, supportive transfusion to maintain Hgb >7 - Hold AC for now if able from cardiac stand point - Being diuresed for CHF exacerbation - Antibiotics Discussed with pt and she is agreeable. All questions answered.
[2023-11-03] MEDS: FUROSEMIDE 40 MG TAB PO SCH (16:12)
[2023-11-03 16:41] LABS: Glucose,Whole Blood 73 mg/dL (70-110)
[2023-11-03] MEDS: PANTOPRAZOLE 40 MG TABLET PO SCH (18:04)
--- NOTE | 2023-11-03 18:58 | HP ---
HISTORY AND PHYSICAL HISTORY OF PRESENT ILLNESS: Katherine Barlow is a 78-year-old white female, came in with severe anemia from the [facility]. Apparently, she is noncompliant on the medicines up there. She has a history of AFib; CHF, on Eliquis; increased weakness. 6.8 normal white count. Hematology was consulted for blood transfusion, her hemoglobin is dropped. PAST MEDICAL HISTORY: Diabetes mellitus, hearing disorder, deafness, hypertension, osteoarthritis, macular degeneration, anxiety, depression. HOME MEDICINES: 1. Singulair 10 mg daily. 2. Gabapentin 300 t.i.d. 3. Cordarone 200 b.i.d. 4. Eliquis 5 b.i.d. 5. Aspirin 81 daily. 6. Lipitor 40 daily. 7. b.i.d. 8. Jardiance 10 mg daily. 9. Lasix 40 mg daily. 10.DuoNeb q.i.d. 11.Lactulose 20 t.i.d. 12.Metoprolol 50 b.i.d. 13.Protonix 40 daily. PHYSICAL EXAMINATION: VITAL SIGNS: Temperature 99, pulse 66, respiratory rate 14 to 16, blood pressure 100s over 50s to 60s. GENERAL: She is alert and oriented x3. Given appropriate answers. NEUROLOGIC: Cranial nerves are intact. CARDIOVASCULAR: S1, S2. LUNGS: Decreased breath sounds. ABDOMEN: Distended. Obesity. EXTREMITIES: 2 to 3+ edema. ASSESSMENT: Weakness due to acute on chronic anemia, chronic obstructive pulmonary disease, pulmonary hypertension, anemia, rule out gastrointestinal bleed, pulmonary vascular congestion, chronic decompensated heart failure if there are any signs of further bleeding. Prognosis is guarded. Blood pressure control. Please see further orders. MMODL / IJN: [id number] /
[2023-11-03] MEDS: FORMOTEROL FUMARATE 20 MCG/2 ML NEBU INHALATION SCH (20:25)
[2023-11-03 20:28] LABS: Glucose,Whole Blood 115 mg/dL (70-110)
[2023-11-03] MEDS ORDERED: traMADol 50 MG TAB PO SCH (21:00)
[2023-11-03] MEDS: DOCUSATE 100 MG CAP PO SCH (21:11)
[2023-11-03] MEDS: GABAPENTIN 300 MG CAP PO SCH (21:11)
[2023-11-03] MEDS: atenoloL 50 MG TAB PO SCH (21:11)
[2023-11-04] MEDS: ACETAMINOPHEN TAB 500 MG TAB PO PRN (00:45)
[2023-11-04 06:02] LABS: Glucose,Whole Blood 95 mg/dL (70-110)
[2023-11-04 07:45] LABS: % Iron Saturation 6.25 (12.00-45.00); Ferritin 53.9 ng/mL (10.0-291.0)
[2023-11-04 08:07] LABS: Anisocytosis Moderate; Basophils % (A) 0 %; Eosinophils # (A) 0.2 k/uL (0-0.7); Eosinophils % (A) 4 %; HCT 26.2 % (34.0-46.0); HGB 7.7 gm/dL (11.4-16.0); Hypochromasia Marked; Lymphocytes # (A) 0.7 k/uL (1.0-4.8); Lymphocytes % (A) 16 %; MCH 21.6 pg (25.0-35.0); MCHC 29.3 g/dL (31.0-37.0); MCV 73.8 fL (80.0-100.0); Mean Platelet Volume 9.2; Microcytosis Marked; Monocytes # (A) 0.5 k/uL (0-1.0); Monocytes % (A) 10 %; Neutrophils # (A) 3.1 k/uL (1.3-7.7); Neutrophils % (A) 67 %; Platelet Count 316 k/uL (150-450); Poikilocytosis Moderate; RBC 3.55 m/uL (3.80-5.40); RDW 20.4 % (11.5-15.5); WBC 4.6 k/uL (3.8-10.6)
[2023-11-04 08:21] LABS: ALT 15 U/L (4-34); AST 19 U/L (14-36); African American GFR (CKD) 83 (>60 ml/min/1.73 sqM); Albumin 2.1 g/dL (3.5-5.0); Albumin/Globulin Ratio 0.8; Alkaline Phosphatase 84 U/L (38-126); Anion Gap 4 mmol/L; Blood Urea Nitrogen 12 mg/dL (7-17); Calcium 7.9 mg/dL (8.4-10.2); Carbon Dioxide 30 mmol/L (22-30); Chloride 103 mmol/L (98-107); Globulin 2.5 g/dL; Glucose 63 mg/dL (74-99); Non-African American GFR(CKD) 72 (>60 ml/min/1.73 sqM); Potassium 3.6 mmol/L (3.5-5.1); Sodium 137 mmol/L (137-145); Total Bilirubin 0.8 mg/dL (0.2-1.3); Total Protein 4.6 g/dL (6.3-8.2)
[2023-11-04] MEDS ORDERED: ATORVASTATIN 40 MG TAB PO SCH (09:00)
[2023-11-04] MEDS ORDERED: GARLIQUE PO SCH (09:00)
[2023-11-04] MEDS ORDERED: ASPIRIN 325 MG TAB PO SCH (09:00)
[2023-11-04] MEDS ORDERED: LIDOCAINE 4% PATCH TOPICAL SCH (09:00)
[2023-11-04] MEDS ORDERED: NON FORMULARY DRUG (Empagliflozin [Jardiance] 10 MG Tablet) PO SCH (09:00)
[2023-11-04] MEDS: FUROSEMIDE 40 MG TAB PO SCH (09:45)
[2023-11-04] MEDS: DAPAGLIFLOZIN PROPANEDIOL 5 MG TABLET PO SCH (09:45)
[2023-11-04] MEDS: predniSONE 20 MG TAB PO SCH (09:45)
[2023-11-04] MEDS: APIXABAN 5 MG TAB PO SCH (09:45)
[2023-11-04] MEDS: MONTELUKAST 10 MG TAB PO SCH (09:45)
[2023-11-04] MEDS: AMIODARONE 200 MG TAB PO SCH (09:45)
[2023-11-04] MEDS: ASPIRIN 81 MG PO SCH (09:45)
--- NOTE | 2023-11-04 10:46 | PN ---
PROGRESS NOTE A 78-year-old white female, with atrial fibrillation, CHF on Eliquis, increased weakness. Hemoglobin of 6.8, normal white count, platelets normal. Hematology consult. Hemoglobin is up to 8.3. Denies any bleeding. She had a unit of blood in the ER. No prior EGD. No other complaints. PAST MEDICAL HISTORY: Diabetes mellitus, GERD, hearing disorder, deafness, hypertension, osteoarthritis, macular degeneration, cataracts, osteoporosis, TIA, anxiety, depression. PAST SURGICAL HISTORY: Cholecystectomy, hysterectomy. FAMILY HISTORY: Brother, with lung cancer. Mother had cancer. Sister with cancer. HOME MEDICINES: Reviewed. PHYSICAL EXAMINATION: VITAL SIGNS: Temp 98.9, blood pressure 100/62, pulse 50s to 60s, respiratory rate of 14 to 16. CARDIOVASCULAR: S1, S2. LUNGS: Scattered wheeze and rhonchi. Hemoglobin is now up to 8.3, weakness secondary to chronic anemia, secondary to iron deficiency, rule out GI bleed. Wait for surgical consult or GI consult. systolic heart failure, microcytic anemia, weakness. She is on Eliquis. prognosis guarded. Please see further orders. MMODL / IJN: [id number] /
[2023-11-04 11:27] LABS: Glucose,Whole Blood 97 mg/dL (70-110)
[2023-11-04] MEDS: LACTULOSE 20 GM/30 ML CUP PO PRN (11:36)
--- NOTE | 2023-11-04 12:28 | P.GSCN ---
History of Present Illness Consult date: 11/04/23 Reason for Consult: GI bleed History of present illness: 78-year-old female on outpatient anticoagulation came to the hospital for anemia and weakness. Patient hemoglobin 6.9. Up to 7.7 after 1 unit. Colonoscopy the last in August 2022 showed no recurrent colon polyps. Last EGD 2017. She is occult blood positive. We were consulted for possible GI bleed. Hematology advising GI workup. Patient without abdominal pain. No rectal bleeding or melena at home. Review of Systems The patient denies any acute changes in vision or hearing, no dysphagia or odynophagia, no chest pain or shortness of breath, no dysuria or hematuria, no headache, no runny nose, no rectal bleeding or melena, no unexplained weight loss Past Medical History Past Medical History: Diabetes Mellitus, Eye Disorder, GERD/Reflux, Hearing Disorder / Deafness, Hypertension, Osteoarthritis (OA) Additional Past Medical History / Comment(s): MACULAR DEGENERATION, cataracts, osteoporosis, diet controlled diabetic, TIA History of Any Multi-Drug Resistant Organisms: None Reported Past Surgical History: Cholecystectomy, Hysterectomy Additional Past Surgical History / Comment(s): ORIF RT WRIST-HAD BONE GRAFT FROM HIP, asher fundoplasty, teeth pulled Past Anesthesia/Blood Transfusion Reactions: No Reported Reaction Past Psychological History: Anxiety, Depression Smoking Status: Never smoker Past Alcohol Use History: None Reported Past Drug Use History: None Reported - Past Family History Brother(s) Family Medical History: Cancer Additional Family Medical History / Comment(s): LUNG Mother Family Medical History: Cancer Sister(s) Family Medical History: Cancer Medications and Allergies Home Medications Medication Instructions Recorded Confirmed Type Montelukast [Singulair] 10 mg PO HS@209907/31/22 11/03/23 History Gabapentin 300 mg PO TID@0900,1300,209910/06/23 11/03/23 History Amiodarone [Cordarone] 200 mg PO BID@0900,209911/03/23 11/03/23 History Apixaban [Eliquis] 5 mg PO BID@0900,209911/03/23 11/03/23 History Aspirin EC [Ecotrin Low Dose] 81 mg PO DAILY@0900 11/03/23 11/03/23 History Atorvastatin [Lipitor] 40 mg PO HS@209911/03/23 11/03/23 History Budesonide [Pulmicort] 0.5 mg INHALATION RT-BID@0600,1800 11/03/23 11/03/23 History Empagliflozin [Jardiance] 10 mg PO DAILY@0900 11/03/23 11/03/23 History Furosemide [Lasix] 40 mg PO DAILY@0900 11/03/23 11/03/23 History Ipratropium-Albuterol Nebulize 3 ml INHALATION RT-QID@00,06,12,18 11/03/23 11/03/23 History [Duoneb 0.5 mg-3 mg/3 ml Soln] Lactulose 20 gm PO TID@06,13,21 11/03/23 11/03/23 History Melatonin 10 mg PO HS@2100 11/03/23 11/03/23 History Metoprolol Tartrate [Lopressor] 50 mg PO BID@0900,2100 PRN 11/03/23 11/03/23 History Ondansetron [Zofran] 4 mg PO Q8H PRN 11/03/23 11/03/23 History Pantoprazole [Protonix] 40 mg PO DAILY@0900 11/03/23 11/03/23 History Potassium Bicarbonate/Cit AC 20 meq PO DAILY@0900 11/03/23 11/03/23 History [K-Lyte] metFORMIN HCL [Glucophage] 500 mg PO BID@0900,2100 11/03/23 11/03/23 History Allergies Allergy/AdvReac Type Severity Reaction Status Date / Time No Known Allergies Allergy Verified 11/03/23 12:21 Surgical - Exam Vital Signs Temp Pulse Resp BP Pulse Ox 98.9 F 53 L 14 100/62 100 11/02/23 19:26 11/02/23 19:26 11/02/23 19:26 11/02/23 19:26 11/02/23 19:26 Physical exam: General: Well-developed, well-nourished HEENT: Normocephalic, sclerae nonicteric Abdomen: Nontender, nondistended Extremities: No edema Neuro: Alert and oriented Results - Labs 11/04/23 06:32 11/04/23 06:32 Abnormal Lab Results - Last 24 Hours (Table) 11/03/23 11/03/23 11/04/23 Range/Units 12:26 20:27 06:32 RBC 3.55 L (3.80-5.40) m/uL Hgb 7.7 L (11.4-16.0) gm/dL Hct 26.2 L (34.0-46.0) % MCV 73.8 L (80.0-100.0) fL MCH 21.6 L (25.0-35.0) pg MCHC 29.3 L (31.0-37.0) g/dL RDW 20.4 H (11.5-15.5) % Lymphocytes # 0.7 L (1.0-4.8) k/uL Glucose (74-99) mg/dL POC Glucose (mg/dL) 115 H (70-110) mg/dL Calcium (8.4-10.2) mg/dL Iron 14 L (50-170) UG/DL TIBC 224 L (228-460) UG/DL % Saturation 6.25 L (12.00-45.00) Transferrin 160.0 L (204.0-354.0) mg/dL Total Protein (6.3-8.2) g/dL Albumin (3.5-5.0) g/dL Vitamin B12 1598.0 H (200.0-944.0) pg/mL 11/04/23 Range/Units 06:32 RBC (3.80-5.40) m/uL Hgb (11.4-16.0) gm/dL Hct (34.0-46.0) % MCV (80.0-100.0) fL MCH (25.0-35.0) pg MCHC (31.0-37.0) g/dL RDW (11.5-15.5) % Lymphocytes # (1.0-4.8) k/uL Glucose 63 L (74-99) mg/dL POC Glucose (mg/dL) (70-110) mg/dL Calcium 7.9 L (8.4-10.2) mg/dL Iron (50-170) UG/DL TIBC (228-460) UG/DL % Saturation (12.00-45.00) Transferrin (204.0-354.0) mg/dL Total Protein 4.6 L (6.3-8.2) g/dL Albumin 2.1 L (3.5-5.0) g/dL Vitamin B12 (200.0-944.0) pg/mL Microbiology - Last 24 Hours (Table) 11/02/23 22:18 Blood Culture - Preliminary Blood 11/02/23 22:14 Blood Culture - Preliminary Blood Diabetes panel 11/04/23 Range/Units 06:32 Sodium 137 (137-145) mmol/L Potassium 3.6 (3.5-5.1) mmol/L Chloride 103 (98-107) mmol/L Carbon Dioxide 30 (22-30) mmol/L BUN 12 (7-17) mg/dL Creatinine 0.80 (0.52-1.04) mg/dL Glucose 63 L (74-99) mg/dL Calcium 7.9 L (8.4-10.2) mg/dL AST 19 (14-36) U/L ALT 15 (4-34) U/L Alkaline Phosphatase 84 (38-126) U/L Total Protein 4.6 L (6.3-8.2) g/dL Albumin 2.1 L (3.5-5.0) g/dL Calcium panel 11/04/23 Range/Units 06:32 Calcium 7.9 L (8.4-10.2) mg/dL Albumin 2.1 L (3.5-5.0) g/dL Pituitary panel 11/04/23 Range/Units 06:32 Sodium 137 (137-145) mmol/L Potassium 3.6 (3.5-5.1) mmol/L Chloride 103 (98-107) mmol/L Carbon Dioxide 30 (22-30) mmol/L BUN 12 (7-17) mg/dL Creatinine 0.80 (0.52-1.04) mg/dL Glucose 63 L (74-99) mg/dL Calcium 7.9 L (8.4-10.2) mg/dL Adrenal panel 11/04/23 Range/Units 06:32 Sodium 137 (137-145) mmol/L Potassium 3.6 (3.5-5.1) mmol/L Chloride 103 (98-107) mmol/L Carbon Dioxide 30 (22-30) mmol/L BUN 12 (7-17) mg/dL Creatinine 0.80 (0.52-1.04) mg/dL Glucose 63 L (74-99) mg/dL Calcium 7.9 L (8.4-10.2) mg/dL Total Bilirubin 0.8 (0.2-1.3) mg/dL AST 19 (14-36) U/L ALT 15 (4-34) U/L Alkaline Phosphatase 84 (38-126) U/L Total Protein 4.6 L (6.3-8.2) g/dL Albumin 2.1 L (3.5-5.0) g/dL Assessment and Plan (1) GI bleed Narrative/Plan: 78-year-old female with suspected GI bleed. Continue to hold anticoagulation. Will plan upper and lower endoscopy this hospital stay. Current Visit: Yes Status: Acute Code(s): K92.2 - GASTROINTESTINAL HEMORRHAGE, UNSPECIFIED SNOMED Code(s): 50936905
[2023-11-04] MEDS: PEG 3350 (236 GM/BTL) + LYTES 4,000 ML BOTTLE PO ONE (16:12)
[2023-11-04 16:48] LABS: Glucose,Whole Blood 215 mg/dL (70-110)
[2023-11-04 19:51] LABS: Glucose,Whole Blood 302 mg/dL (70-110)
[2023-11-04] MEDS: ATORVASTATIN 40 MG TAB PO SCH (20:19)
[2023-11-04] MEDS: MELATONIN 5 MG TABLET PO SCH (20:19)
[2023-11-04] MEDS: BUDESONIDE 0.5 MG/2 ML NEBU INHALATION SCH (21:49)
[2023-11-05 05:35] LABS: Glucose,Whole Blood 174 mg/dL (70-110)
[2023-11-05 06:45] LABS: ALT 18 U/L (4-34); AST 19 U/L (14-36); African American GFR (CKD) >90 (>60 ml/min/1.73 sqM); Albumin 2.4 g/dL (3.5-5.0); Albumin/Globulin Ratio 0.9; Alkaline Phosphatase 93 U/L (38-126); Anion Gap 4 mmol/L; Blood Urea Nitrogen 11 mg/dL (7-17); Calcium 8.2 mg/dL (8.4-10.2); Carbon Dioxide 31 mmol/L (22-30); Chloride 103 mmol/L (98-107); Globulin 2.8 g/dL; Glucose 151 mg/dL (74-99); Non-African American GFR(CKD) >90 (>60 ml/min/1.73 sqM); Potassium 3.4 mmol/L (3.5-5.1); Sodium 138 mmol/L (137-145); Total Bilirubin 0.8 mg/dL (0.2-1.3); Total Protein 5.2 g/dL (6.3-8.2)
[2023-11-05 07:00] LABS: Anisocytosis Moderate; Basophils % (A) 0 %; Eosinophils % (A) 1 %; HCT 28.8 % (34.0-46.0); HGB 8.6 gm/dL (11.4-16.0); Hypochromasia Marked; Lymphocytes # (A) 0.7 k/uL (1.0-4.8); Lymphocytes % (A) 15 %; MCH 21.9 pg (25.0-35.0); MCHC 29.8 g/dL (31.0-37.0); MCV 73.6 fL (80.0-100.0); Mean Platelet Volume 7.6; Microcytosis Marked; Monocytes # (A) 0.4 k/uL (0-1.0); Monocytes % (A) 9 %; Neutrophils # (A) 3.4 k/uL (1.3-7.7); Neutrophils % (A) 72 %; Platelet Count 358 k/uL (150-450); Poikilocytosis Moderate; RBC 3.92 m/uL (3.80-5.40); RDW 20.7 % (11.5-15.5); WBC 4.7 k/uL (3.8-10.6)
[2023-11-05] MEDS: IPRATROPIUM 0.5 MG/2.5 ML NEBU INHALATION SCH (07:44)
[2023-11-05] MEDS: POTASSIUM CHLORIDE ER 20 MEQ TAB.ER PO STA (08:15)
[2023-11-05] MEDS ORDERED: LIDOCAINE 1% INJ 10MG/ML (20 ML MDV) ONE (10:39)
[2023-11-05] MEDS ORDERED: PROPOFOL 10 MG/ML 20 ML VIAL IV ONE (10:39)
[2023-11-05] MEDS: SODIUM CHLORIDE 0.9% 500 ML 500 ML IV ONE ×2 (10:45→11:11)
--- NOTE | 2023-11-05 11:24 | P.OP ---
Date of Procedure: 11/05/23 Preoperative Diagnosis: Anemia GI bleed Postoperative Diagnosis: Antral gastritis Lower Esophageal mass Diverticulosis Right colon polyp Procedure(s) Performed: EGD Colonoscopy Anesthesia: MAC Surgeon: Gaurav Correa Pathology: other (Antrum, esophagus, right colon polyp) Condition: stable Disposition: PACU Description of Procedure: Patient was placed on the endoscopy table in the lateral position. She received IV sedation. The gastro/oropharynx passed in the esophagus into the stomach. Scope was then placed through the pylorus. The first and second portion of the duodenum appeared normal. Scope was then repacked the antrum and this appeared minimally inflamed and a biopsy was performed. The scope was then brought back through the stomach. Then retroflexed and there was a large hiatal hernia. The GE junction was at 38 cm. In the distal esophagus there is a mass seen in the lower third. This was biopsied. The mass was friable and was bleeding minimally. The mid and upper esophagus appeared normal. The scope was then drawn from the patient. Next digital rectal exam was performed. This revealed no abnormalities. The flexible colonoscope was then placed the patient anus and passed throughout the entire colon. The ileocecal valve was visualized. The right colon appeared normal. In the distal right colon near the hepatic flexure a small polyp was seen. This removed with a cold forcep. The remainder the transverse colon appeared normal. The descending and sigmoid colon mild diverticulosis. The scope was then brought back to the rectum and this appeared normal. Scope withdrawn from the patient.
[2023-11-05 11:30] LABS: Glucose,Whole Blood 195 mg/dL (70-110)
[2023-11-05] MEDS: SODIUM FERRIC GLUCONAT-SUCROSE 125 MG in SODIUM CHLORIDE 0.9% 100 ML IVPB SCH (13:42)
[2023-11-05 16:29] LABS: Glucose,Whole Blood 313 mg/dL (70-110)
[2023-11-05] MEDS ORDERED: DEXTROSE 50% SYRINGE 50 ML IVP PRN ×2 (16:43)
[2023-11-05] MEDS: INSULIN ASPART (NovoLOG) 100 UNIT/ML VIAL SQ SCH (16:58)
--- NOTE | 2023-11-05 19:37 | PN ---
PROGRESS NOTE SUBJECTIVE: The patient had EGD today for GI bleed. She had stomach biopsy by Dr. Correa. She has some kind of esophageal tumor that he found is a large hiatal hernia. Distal esophagus with a mass in the lower 3rd, it was biopsied. The mid and upper esophagus appeared normal. Wait for the biopsy report to come back prior and check hemoglobin to be sure she is not bleeding anymore and wait for possible biopsy report on the esophageal mass. She has 100% on room air. OBJECTIVE: VITAL SIGNS: Blood pressure 144/78, temperature 97.4, pulse 60 to 64, respiratory rate 16 to 18. CARDIOVASCULAR: S1, S2. LUNGS: Decreased wheezes x4. PSYCH: Fair mood and affect. NEUROLOGIC: Alert and oriented x3. ASSESSMENT: Esophageal tumor, GI bleed, COPD, pulmonary hypertension. We will monitor electrolytes. Possibly go home. Wait for biopsy come back to further surgical workup on esophageal mass. MMODL / IJN: [id number] /
[2023-11-05 20:29] LABS: Glucose,Whole Blood 274 mg/dL (70-110)
[2023-11-06 06:18] LABS: Glucose,Whole Blood 198 mg/dL (70-110)
[2023-11-06 07:51] LABS: Albumin 2.6 g/dL (3.8-4.9); Protein, Total 4.7 g/dL (6.2-8.2)
--- NOTE | 2023-11-06 08:19 | P.PN ---
Subjective Progress Note Date: 11/05/23 Principal diagnosis: anemia, GI bleed At today's visit patient is resting comfortably in bed. Patient is scheduled for EGD and colonoscopy today. Hemoglobin stable at 8.6, S/P 1 unit PRBCs. Iron studies reveal iron deficiency anemia, parental iron ordered. Objective - Vital Signs Vital signs: Vital Signs Temp 97.7 F 11/05/23 07:14 Pulse 60 11/05/23 12:47 Resp 18 11/05/23 07:14 BP 131/76 11/05/23 07:14 Pulse Ox 100 11/05/23 07:14 FiO2 Intake & Output 11/04/23 11/05/23 11/05/23 18:59 06:59 18:59 Intake Total 400 Balance 400 Weight 85 kg Intake: IV 400 Other: Voiding Method Bedside Commode Bedside Commode # Voids 5 6 # Bowel Movements 1 6 - Constitutional General appearance: Present: average body habitus, no acute distress - EENT Eyes: Present: anicteric sclerae, EOMI ENT: Present: hearing grossly normal - Respiratory Details: breathing even and unlabored - Cardiovascular Details: skin warm and dry - Integumentary Integumentary: Absent: cyanotic - Musculoskeletal Musculoskeletal: Present: strength equal bilaterally - Psychiatric Psychiatric: Present: A&O x's 3 - Labs CBC & Chem 7: 11/05/23 06:44 11/05/23 06:06 Labs: Abnormal Lab Results - Last 24 Hours (Table) 11/04/23 11/04/23 11/05/23 Range/Units 16:45 19:50 05:33 Hgb (11.4-16.0) gm/dL Hct (34.0-46.0) % MCV (80.0-100.0) fL MCH (25.0-35.0) pg MCHC (31.0-37.0) g/dL RDW (11.5-15.5) % Lymphocytes # (1.0-4.8) k/uL Potassium (3.5-5.1) mmol/L Carbon Dioxide (22-30) mmol/L Glucose (74-99) mg/dL POC Glucose (mg/dL) 215 H 302 H 174 H (70-110) mg/dL Calcium (8.4-10.2) mg/dL Total Protein (6.3-8.2) g/dL Albumin (3.5-5.0) g/dL 11/05/23 11/05/23 11/05/23 Range/Units 06:06 06:44 11:29 Hgb 8.6 L (11.4-16.0) gm/dL Hct 28.8 L (34.0-46.0) % MCV 73.6 L (80.0-100.0) fL MCH 21.9 L (25.0-35.0) pg MCHC 29.8 L (31.0-37.0) g/dL RDW 20.7 H (11.5-15.5) % Lymphocytes # 0.7 L (1.0-4.8) k/uL Potassium 3.4 L (3.5-5.1) mmol/L Carbon Dioxide 31 H (22-30) mmol/L Glucose 151 H (74-99) mg/dL POC Glucose (mg/dL) 195 H (70-110) mg/dL Calcium 8.2 L (8.4-10.2) mg/dL Total Protein 5.2 L (6.3-8.2) g/dL Albumin 2.4 L (3.5-5.0) g/dL Microbiology - Last 24 Hours (Table) 11/02/23 22:18 Blood Culture - Preliminary Blood 11/02/23 22:14 Blood Culture - Preliminary Blood Assessment and Plan (1) Anemia Current Visit: Yes Status: Acute Priority: High Code(s): D64.9 - ANEMIA, UNSPECIFIED SNOMED Code(s): 500390011 (2) GI bleed Current Visit: Yes Status: Acute Priority: High Code(s): K92.2 - GASTROINTESTINAL HEMORRHAGE, UNSPECIFIED SNOMED Code(s): 83609364 Plan: Microcytic anemia: - Will complete work up for anemia, suspect iron deficiency with new microcytic anemia since 05/2023. Iron studies consistent with [place], parenteral iron ordered. No Vit B12 or folate def noted - GI evaluation to rule out GIB. Underwent EGD/colonoscopy today. Colonoscopy revealed small polyp in distal right colon. Mild diverticulosis in ascending and sigmoid colon. No acute bleeding noted. EGD revealed large hiatal hernia. With mass noted in distal esophagus, biopsy obtained. Mass appeared to be friable and was bleeding minimally. Esophageal mass biopsy pending. We will obtain PET CT the outpatient setting pending biopsy results. - Monitor H/H, supportive transfusion to maintain Hgb >7 - Hold AC for now if able from cardiac stand point
[2023-11-06 08:51] LABS: BUN/Creat Ratio 11.71 Ratio (12.00-20.00); Blood Urea Nitrogen 8.2 mg/dL (9.0-27.0); Carbon Dioxide 29.5 mmol/L (21.6-31.8); Chloride 103 mmol/L (96-109); Glucose 166 mg/dL (70-110); Potassium 3.5 mmol/L (3.5-5.5); Sodium 143 mmol/L (135-145)
[2023-11-06 08:52] LABS: ALT 14 U/L (8-44); AST 12 U/L (13-35); Albumin 2.8 g/dL (3.8-4.9); Albumin/Globulin Ratio 1.27 Ratio (1.60-3.17); Alkaline Phosphatase 80 U/L (41-126); Calcium 8.4 mg/dL (8.7-10.3); Globulin 2.2 g/dL (1.6-3.3); Total Bilirubin 0.4 mg/dL (0.3-1.2)
[2023-11-06 09:32] LABS: Basophils # (A) 0.01 X 10*3/uL (0.00-0.10); Basophils % (A) 0.2 %; Eosinophils # (A) 0.01 X 10*3/uL (0.04-0.35); Eosinophils % (A) 0.2 %; HCT 27.6 % (37.2-46.3); HGB 7.5 g/dL (12.0-15.0); Lymphocytes # (A) 0.75 X 10*3/uL (0.90-5.00); Lymphocytes % (A) 16.6 %; MCH 20.6 pg (27.0-32.0); MCHC 27.2 g/dL (32.0-37.0); MCV 75.8 FL (80.0-97.0); Mean Platelet Volume 10.4 FL (9.5-12.2); Monocytes # (A) 0.64 X 10*3/uL (0.20-1.00); Monocytes % (A) 14.2 %; NRBC Per 100 WBC 0.03 X 10*3/uL (0.00-0.01); Neutrophils # (A) 3.05 X 10*3/uL (1.80-7.70); Neutrophils % (A) 67.7 %; Platelet Count 440 X 10*3/uL (140-440); RBC 3.64 X 10*6/uL (4.10-5.20); RDW 23.2 % (11.5-14.5); WBC 4.51 X 10*3/uL (4.50-10.00)
[2023-11-06 11:54] LABS: Glucose,Whole Blood 191 mg/dL (70-110)
[2023-11-06 15:01] LABS: Free Kappa Lt Chain Qnt, Serum 5.99 mg/dL (0.33-1.94); Free Lambda Lt Chain Qnt, Seru 3.55 mg/dL (0.57-2.63)
--- NOTE | 2023-11-06 15:36 | P.PN ---
Subjective Progress Note Date: 11/06/23 CHIEF COMPLAINT: Anemia HISTORY OF PRESENT ILLNESS: Patient is status post EGD and colonoscopy revealing antral gastritis, lower esophageal mass with minimal bleeding, large hiatal hernia diverticulosis, right colon polyp and diverticulosis. Patient denies any abdominal pain. She is tolerating diet. She denies any blood in her stools. Hemoglobin 7.5. Biopsy results pending PHYSICAL EXAM: VITAL SIGNS: Reviewed. GENERAL: Well-developed in no acute distress. ABDOMEN: Soft. Nondistended. Nontender. NEUROLOGIC: Alert and oriented. Cranial nerves II through XII grossly intact. ASSESSMENT: 1. Anemia likely related to bleeding from the lower esophageal mass 2. Status post EGD and colonoscopy revealing antral gastritis, lower esophageal mass with minimal bleeding, large hiatal hernia diverticulosis, right colon polyp and diverticulosis. PLAN: -Follow-up on biopsy results -Continue to monitor hemoglobin -Continue to monitor for any signs or symptoms of bleeding -Continue regular diet Physician Network Analyst note has been reviewed by physician. Signing provider agrees with the documented findings, assessment, and plan of care. Objective - Vital Signs Vital signs: Vital Signs Temp 98.0 F 11/06/23 07:05 Pulse 68 11/06/23 09:13 Resp 18 11/06/23 07:05 BP 146/81 11/06/23 07:05 Pulse Ox 95 11/06/23 07:05 FiO2 Intake & Output 11/05/23 11/06/23 11/06/23 18:59 06:59 18:59 Intake Total 400 Balance 400 Weight 85.5 kg Intake: IV 400 Other: Voiding Method Bedside Commode # Voids 3 3 # Bowel Movements 3 - Labs CBC & Chem 7: 11/06/23 05:52 11/06/23 05:52 Labs: Abnormal Lab Results - Last 24 Hours (Table) 11/03/23 11/05/23 11/05/23 Range/Units 12:26 16:28 20:26 RBC (4.10-5.20) X 10*6/uL Hgb (12.0-15.0) g/dL Hct (37.2-46.3) % MCV (80.0-97.0) FL MCH (27.0-32.0) pg MCHC (32.0-37.0) g/dL RDW (11.5-14.5) % Immature Gran # (0.00-0.04) X 10*3/uL Lymphocytes # (0.90-5.00) X 10*3/uL Eosinophils # (0.04-0.35) X 10*3/uL NRBC/100 WBC Diff (0.00-0.01) X 10*3/uL BUN (9.0-27.0) mg/dL BUN/Creatinine Ratio (12.00-20.00) Ratio Glucose (70-110) mg/dL POC Glucose (mg/dL) 313 H 274 H (70-110) mg/dL Hemoglobin A1c (<=6.0) % Calcium (8.7-10.3) mg/dL AST (13-35) U/L Total Protein (6.2-8.2) g/dL Total Protein (PEP) 4.7 L (6.2-8.2) g/dL Albumin (3.8-4.9) g/dL Albumin (PEP) 2.6 L (3.8-4.9) g/dL Albumin/Globulin Ratio (1.60-3.17) Ratio 11/06/23 11/06/23 11/06/23 Range/Units 05:52 05:52 05:52 RBC 3.64 L (4.10-5.20) X 10*6/uL Hgb 7.5 L (12.0-15.0) g/dL Hct 27.6 L (37.2-46.3) % MCV 75.8 L (80.0-97.0) FL MCH 20.6 L (27.0-32.0) pg MCHC 27.2 L (32.0-37.0) g/dL RDW 23.2 H (11.5-14.5) % Immature Gran # 0.05 H (0.00-0.04) X 10*3/uL Lymphocytes # 0.75 L (0.90-5.00) X 10*3/uL Eosinophils # 0.01 L (0.04-0.35) X 10*3/uL NRBC/100 WBC Diff 0.03 H (0.00-0.01) X 10*3/uL BUN 8.2 L (9.0-27.0) mg/dL BUN/Creatinine Ratio 11.71 L (12.00-20.00) Ratio Glucose 166 H (70-110) mg/dL POC Glucose (mg/dL) (70-110) mg/dL Hemoglobin A1c 6.2 H (<=6.0) % Calcium 8.4 L (8.7-10.3) mg/dL AST 12 L (13-35) U/L Total Protein 5.0 L (6.2-8.2) g/dL Total Protein (PEP) (6.2-8.2) g/dL Albumin 2.8 L (3.8-4.9) g/dL Albumin (PEP) (3.8-4.9) g/dL Albumin/Globulin Ratio 1.27 L (1.60-3.17) Ratio /03/24 Range/Units 06:15 RBC (4.10-5.20) X 10*6/uL Hgb (12.0-15.0) g/dL Hct (37.2-46.3) % MCV (80.0-97.0) FL MCH (27.0-32.0) pg MCHC (32.0-37.0) g/dL RDW (11.5-14.5) % Immature Gran # (0.00-0.04) X 10*3/uL Lymphocytes # (0.90-5.00) X 10*3/uL Eosinophils # (0.04-0.35) X 10*3/uL NRBC/100 WBC Diff (0.00-0.01) X 10*3/uL BUN (9.0-27.0) mg/dL BUN/Creatinine Ratio (12.00-20.00) Ratio Glucose (70-110) mg/dL POC Glucose (mg/dL) 198 H (70-110) mg/dL Hemoglobin A1c (<=6.0) % Calcium (8.7-10.3) mg/dL AST (13-35) U/L Total Protein (6.2-8.2) g/dL Total Protein (PEP) (6.2-8.2) g/dL Albumin (3.8-4.9) g/dL Albumin (PEP) (3.8-4.9) g/dL Albumin/Globulin Ratio (1.60-3.17) Ratio Microbiology - Last 24 Hours (Table) 11/02/23 22:18 Blood Culture - Preliminary Blood 11/02/23 22:14 Blood Culture - Preliminary Blood
--- NOTE | 2023-11-06 15:50 | P.PN ---
Subjective Progress Note Date: 11/06/23 Principal diagnosis: anemia, GI bleed At today's visit patient is resting comfortably in bed. S/p EGD and colonoscopy with distal esophageal mass noted with minimal bleeding, biopsy pending. No reported episodes of melena. Hemoglobin 7.5. Iron studies reveal iron deficiency anemia, parental iron ordered. Objective - Vital Signs Vital signs: Vital Signs Temp 98.0 F 11/06/23 07:05 Pulse 70 11/06/23 12:33 Resp 18 11/06/23 07:05 BP 146/81 11/06/23 07:05 Pulse Ox 95 11/06/23 07:05 FiO2 Intake & Output 11/05/23 11/06/23 11/06/23 18:59 06:59 18:59 Intake Total 400 Balance 400 Weight 85.5 kg Intake: IV 400 Other: Voiding Method Bedside Commode # Voids 3 3 # Bowel Movements 3 - Constitutional General appearance: Present: average body habitus, no acute distress - EENT Eyes: Present: anicteric sclerae, EOMI ENT: Present: hearing grossly normal - Respiratory Details: breathing even and unlabored - Cardiovascular Details: skin warm and dry - Gastrointestinal General gastrointestinal: Present: soft. Absent: tenderness - Integumentary Integumentary: Absent: cyanotic, jaundiced - Musculoskeletal Musculoskeletal: Present: strength equal bilaterally - Psychiatric Psychiatric: Present: A&O x's 3 - Labs CBC & Chem 7: 11/06/23 05:52 11/06/23 05:52 Labs: Abnormal Lab Results - Last 24 Hours (Table) 11/03/23 11/05/23 11/05/23 Range/Units 12:26 16:28 20:26 RBC (4.10-5.20) X 10*6/uL Hgb (12.0-15.0) g/dL Hct (37.2-46.3) % MCV (80.0-97.0) FL MCH (27.0-32.0) pg MCHC (32.0-37.0) g/dL RDW (11.5-14.5) % Immature Gran # (0.00-0.04) X 10*3/uL Lymphocytes # (0.90-5.00) X 10*3/uL Eosinophils # (0.04-0.35) X 10*3/uL NRBC/100 WBC Diff (0.00-0.01) X 10*3/uL BUN (9.0-27.0) mg/dL BUN/Creatinine Ratio (12.00-20.00) Ratio Glucose (70-110) mg/dL POC Glucose (mg/dL) 313 H 274 H (70-110) mg/dL Hemoglobin A1c (<=6.0) % Calcium (8.7-10.3) mg/dL AST (13-35) U/L Total Protein (6.2-8.2) g/dL Total Protein (PEP) 4.7 L (6.2-8.2) g/dL Albumin (3.8-4.9) g/dL Albumin (PEP) 2.6 L (3.8-4.9) g/dL Albumin/Globulin Ratio (1.60-3.17) Ratio Free [place] LC, Quant 5.99 H (0.33-1.94) mg/dL Free Lambda LC, Quant 3.55 H (0.57-2.63) mg/dL 11/06/23 11/06/23 11/06/23 Range/Units 05:52 05:52 05:52 RBC 3.64 L (4.10-5.20) X 10*6/uL Hgb 7.5 L (12.0-15.0) g/dL Hct 27.6 L (37.2-46.3) % MCV 75.8 L (80.0-97.0) FL MCH 20.6 L (27.0-32.0) pg MCHC 27.2 L (32.0-37.0) g/dL RDW 23.2 H (11.5-14.5) % Immature Gran # 0.05 H (0.00-0.04) X 10*3/uL Lymphocytes # 0.75 L (0.90-5.00) X 10*3/uL Eosinophils # 0.01 L (0.04-0.35) X 10*3/uL NRBC/100 WBC Diff 0.03 H (0.00-0.01) X 10*3/uL BUN 8.2 L (9.0-27.0) mg/dL BUN/Creatinine Ratio 11.71 L (12.00-20.00) Ratio Glucose 166 H (70-110) mg/dL POC Glucose (mg/dL) (70-110) mg/dL Hemoglobin A1c 6.2 H (<=6.0) % Calcium 8.4 L (8.7-10.3) mg/dL AST 12 L (13-35) U/L Total Protein 5.0 L (6.2-8.2) g/dL Total Protein (PEP) (6.2-8.2) g/dL Albumin 2.8 L (3.8-4.9) g/dL Albumin (PEP) (3.8-4.9) g/dL Albumin/Globulin Ratio 1.27 L (1.60-3.17) Ratio Free [place] LC, Quant (0.33-1.94) mg/dL Free Lambda LC, Quant (0.57-2.63) mg/dL 11/06/23 11/06/23 Range/Units 06:15 11:53 RBC (4.10-5.20) X 10*6/uL Hgb (12.0-15.0) g/dL Hct (37.2-46.3) % MCV (80.0-97.0) FL MCH (27.0-32.0) pg MCHC (32.0-37.0) g/dL RDW (11.5-14.5) % Immature Gran # (0.00-0.04) X 10*3/uL Lymphocytes # (0.90-5.00) X 10*3/uL Eosinophils # (0.04-0.35) X 10*3/uL NRBC/100 WBC Diff (0.00-0.01) X 10*3/uL BUN (9.0-27.0) mg/dL BUN/Creatinine Ratio (12.00-20.00) Ratio Glucose (70-110) mg/dL POC Glucose (mg/dL) 198 H 191 H (70-110) mg/dL Hemoglobin A1c (<=6.0) % Calcium (8.7-10.3) mg/dL AST (13-35) U/L Total Protein (6.2-8.2) g/dL Total Protein (PEP) (6.2-8.2) g/dL Albumin (3.8-4.9) g/dL Albumin (PEP) (3.8-4.9) g/dL Albumin/Globulin Ratio (1.60-3.17) Ratio Free [place] LC, Quant (0.33-1.94) mg/dL Free Lambda LC, Quant (0.57-2.63) mg/dL Microbiology - Last 24 Hours (Table) 11/02/23 22:18 Blood Culture - Preliminary Blood 11/02/23 22:14 Blood Culture - Preliminary Blood Assessment and Plan (1) Anemia Current Visit: Yes Status: Acute Priority: High Code(s): D64.9 - ANEMIA, UNSPECIFIED SNOMED Code(s): 987596108 (2) GI bleed Current Visit: Yes Status: Acute Priority: High Code(s): K92.2 - GASTROINTESTINAL HEMORRHAGE, UNSPECIFIED SNOMED Code(s): 69504371 (3) Esophageal mass Current Visit: Yes Status: Acute Priority: High Code(s): K22.89 - OTHER S PECIFIED DISEASE OF ESOPHAGUS SNOMED Code(s): 812248525 Plan: Microcytic anemia: - Will complete work up for anemia, suspect iron deficiency with new microcytic anemia since 05/2023. Iron studies consistent with [place], parenteral iron ordered. No Vit B12 or folate def noted. SPEP, immunofixation and K/L LC pending - GI evaluation to rule out GIB. Underwent EGD/colonoscopy. Colonoscopy revealed small polyp in distal right colon. Mild diverticulosis in ascending and sigmoid colon. No acute bleeding noted. EGD revealed large hiatal hernia. With mass noted in distal esophagus, biopsy obtained. Mass appeared to be friable and was bleeding minimally. Esophageal mass biopsy pending. Discussed findings with patient and answered all questions - Monitor H/H, supportive transfusion to maintain Hgb >7 - Hold AC for now if able from cardiac stand point Esophageal mass: -Distal esophageal mass noted on EDG, biopsy pending -Pt denies personal history of cancer, but mother had hx of colon and esophageal cancer. Denies unintentional weight loss, but does report she was on ozempic and lost approx 15 lbs. Denies night sweats -Will await biopsy results. We will need to obtain PET CT in the outpatient setting pending biopsy results.
[2023-11-06 16:48] LABS: Glucose,Whole Blood 306 mg/dL (70-110)
--- NOTE | 2023-11-06 20:04 | PN ---
PROGRESS NOTE SUBJECTIVE: A 78-year-old female came in with a GI bleed. EGD showed distal esophageal mass. OBJECTIVE: VITAL SIGNS: Hemoglobin is 7.5, temperature 98, pulse 70, respiratory rate 16 to 18, blood pressure 146/81, O2 of 95%. CARDIOVASCULAR: S1, S2. LUNGS: Transmitted upper sounds. GI: Soft. HEMATOLOGY: Negative for Homans. PSYCH: Fair mood and affect. LABORATORY DATA: Hemoglobin A1c 6.2. Sugars in the mid 200s to 300s. Albumin is low at 2.6. ASSESSMENT AND PLAN: Anemia, GI bleed, esophageal mass. Workup for anemia is progressing iron deficiency, new microcytic anemia. Continue on IV parental iron. Status post biopsy. Waiting for that. Transfuse for hemoglobin under 7. Hold BARRY for now from a cardiac standpoint. Wait for biopsy. Possibly PET scan as an outpatient. Please see further orders. MMODL / IJN: [id number] /
[2023-11-06 21:16] LABS: Glucose,Whole Blood 195 mg/dL (70-110)
[2023-11-07] MEDS: METOPROLOL TARTRATE 50 MG TAB PO PRN (00:46)
[2023-11-07 06:23] LABS: Glucose,Whole Blood 173 mg/dL (70-110)
[2023-11-07 07:55] LABS: Gamma Globulin 0.87 g/dL (0.70-1.50)
[2023-11-07 11:06] LABS: Basophils # (A) 0.01 X 10*3/uL (0.00-0.10); Basophils % (A) 0.2 %; Eosinophils # (A) 0 X 10*3/uL (0.04-0.35); Eosinophils % (A) 0 %; HCT 27.5 % (37.2-46.3); HGB 7.7 g/dL (12.0-15.0); Lymphocytes # (A) 0.99 X 10*3/uL (0.90-5.00); MCH 21.2 pg (27.0-32.0); MCV 75.5 FL (80.0-97.0); Monocytes # (A) 0.61 X 10*3/uL (0.20-1.00); Monocytes % (A) 10.5 %; NRBC Per 100 WBC 0.08 X 10*3/uL (0.00-0.01); Neutrophils # (A) 4.08 X 10*3/uL (1.80-7.70); Neutrophils % (A) 70.1 %; Platelet Count 446 X 10*3/uL (140-440); RBC 3.64 X 10*6/uL (4.10-5.20); RDW 24.2 % (11.5-14.5); WBC 5.82 X 10*3/uL (4.50-10.00)
[2023-11-07 11:27] LABS: ALT 17 U/L (8-44); AST 12 U/L (13-35); Albumin 2.8 g/dL (3.8-4.9); Alkaline Phosphatase 81 U/L (41-126); BUN/Creat Ratio 13.29 Ratio (12.00-20.00); Blood Urea Nitrogen 9.3 mg/dL (9.0-27.0); Calcium 8.4 mg/dL (8.7-10.3); Carbon Dioxide 27.4 mmol/L (21.6-31.8); Chloride 102 mmol/L (96-109); Glucose 163 mg/dL (70-110); Potassium 3.9 mmol/L (3.5-5.5); Sodium 139 mmol/L (135-145); Total Bilirubin 0.3 mg/dL (0.3-1.2); Total Protein 4.8 g/dL (6.2-8.2)
[2023-11-07 11:47] LABS: Glucose,Whole Blood 154 mg/dL (70-110)
--- NOTE | 2023-11-07 15:45 | P.GSCN ---
History of Present Illness Consult date: 11/07/23 Reason for Consult: Esophageal cancer Requesting physician: Gaurav Correa History of present illness: This is a 78-year-old female patient follows outpatient with Dr. De Santiago for primary care. She has a previous medical history of hypertension, atrial fibrillation, diabetes, and TIA. She presented to [facility] emergency room from subacute rehab due to weakness. She was found to have a hemoglobin of 6.9, she had been on Eliquis for her atrial fibrillation. She denied any other symptoms. She was admitted for workup and underwent EGD and colonoscopy by Dr. Correa during which an esophageal biopsy was taken which was positive for invasive adenocarcinoma. Due to this finding consultation was placed to Dr. Barnes for surgical recommendations. Review of Systems Review of systems was completed and was negative except as noted - Constitutional Reports weakness Past Medical History Past Medical History: Diabetes Mellitus, Eye Disorder, GERD/Reflux, Hearing Disorder / Deafness, Hypertension, Osteoarthritis (OA) Additional Past Medical History / Comment(s): MACULAR DEGENERATION, cataracts, osteoporosis, diet controlled diabetic, TIA History of Any Multi-Drug Resistant Organisms: None Reported Past Surgical History: Cholecystectomy, Hysterectomy Additional Past Surgical History / Comment(s): ORIF RT WRIST-HAD BONE GRAFT FROM HIP, asher fundoplasty, teeth pulled Past Anesthesia/Blood Transfusion Reactions: No Reported Reaction Past Psychological History: Anxiety, Depression Smoking Status: Never smoker Past Alcohol Use History: None Reported Past Drug Use History: None Reported - Past Family History Brother(s) Family Medical History: Cancer Additional Family Medical History / Comment(s): LUNG Mother Family Medical History: Cancer Sister(s) Family Medical History: Cancer Medications and Allergies Home Medications Medication Instructions Recorded Confirmed Type Montelukast [Singulair] 10 mg PO HS@209907/31/22 11/03/23 History Gabapentin 300 mg PO TID@0900,1300,2100 10/06/23 11/03/23 History Amiodarone [Cordarone] 200 mg PO BID@0900,209911/03/23 11/03/23 History Apixaban [Eliquis] 5 mg PO BID@0900,2100 11/03/23 11/03/23 History Aspirin EC [Ecotrin Low Dose] 81 mg PO DAILY@0900 11/03/23 11/03/23 History Atorvastatin [Lipitor] 40 mg PO HS@2100 11/03/23 11/03/23 History Budesonide [Pulmicort] 0.5 mg INHALATION RT-BID@0600,1800 11/03/23 11/03/23 Hist ory Empagliflozin [Jardiance] 10 mg PO DAILY@0900 11/03/23 11/03/23 History Furosemide [Lasix] 40 mg PO DAILY@0900 11/03/23 11/03/23 History Ipratropium-Albuterol Nebulize 3 ml INHALATION RT-QID@00,06,12,18 11/03/23 11/03/23 History [Duoneb 0.5 mg-3 mg/3 ml Soln] Lactulose 20 gm PO TID@06,,11/03/23 11/03/23 History Melatonin 10 mg PO HS@2100 11/03/23 11/03/23 History Metoprolol Tartrate [Lopressor] 50 mg PO BID@0900,2100 PRN 11/03/23 11/03/23 History Ondansetron [Zofran] 4 mg PO Q8H PRN 11/03/23 11/03/23 History Pantoprazole [Protonix] 40 mg PO DAILY@0900 11/03/23 11/03/23 History Potassium Bicarbonate/Cit AC 20 meq PO DAILY@0900 11/03/23 11/03/23 History [K-Lyte] metFORMIN HCL [Glucophage] 500 mg PO BID@0900,2100 11/03/23 11/03/23 History Allergies Allergy/AdvReac Type Severity Reaction Status Date / Time No Known Allergies Allergy Verified 11/03/23 12:21 Surgical - Exam Vital Signs Temp Pulse Resp BP Pulse Ox 98.9 F 53 L 14 100/62 100 11/02/23 19:26 11/02/23 19:26 11/02/23 19:26 11/02/23 19:11/02/23 19:26 CONSTITUTIONAL: Awake and alert, appears comfortable, cooperative, well- developed, well-nourished, no pain, no acute distress EYES: Pupils equal, round, reactive to light, normal ocular movement ENT: Moist mucous membranes without oral lesions present NECK: No masses, no bruits, trachea midline RESPIRATORY: Lungs sounds diminished bilaterally. Respirations even, nonlabored. Currently on 2 L nasal cannula with oxygen saturation 95%. Strong cough. No chest wall deformities. No clubbing or cyanosis present CARDIOVASCULAR: S1, S2 present. Iregular rate and rhythm. Palpable peripheral pulses bilaterally. Bilateral lower extremity pitting edema present. No calf pain or tenderness noted GASTROINTESTINAL: Abdomen soft, nontender, nondistended without masses or organomegaly noted. There is no rebound or guarding present. Active bowel sounds present 4 quadrants. GENITOURINARY: Deferred INTEGUMENTARY: Skin is warm and dry NEUROLOGIC: Cranial nerves II through XII intact, normal coordination, no obvious motor or sensory deficits, speech is normal MUSKULOSKELETAL: Able to move all extremities, strength equal bilaterally, normal posture PSYCHIATRIC: Alert and oriented to person place and time, appropriate affect, intact judgment and insight Results - Labs 11/07/23 05:50 11/07/23 05:49 Abnormal Lab Results - Last 24 Hours (Table) 11/03/23 11/06/23 11/06/23 Range/Units 12:26 16:47 21:15 RBC (4.10-5.20) X 10*6/uL Hgb (12.0-15.0) g/dL Hct (37.2-46.3) % MCV (80.0-97.0) FL MCH (27.0-32.0) pg MCHC (32.0-37.0) g/dL RDW (11.5-14.5) % Plt Count (140-440) X 10*3/uL Immature Gran # (0.00-0.04) X 10*3/uL Eosinophils # (0.04-0.35) X 10*3/uL NRBC/100 WBC Diff (0.00-0.01) X 10*3/uL Glucose (70-110) mg/dL POC Glucose (mg/dL) 306 H 195 H (70-110) mg/dL Calcium (8.7-10.3) mg/dL AST (13-35) U/L Total Protein (6.2-8.2) g/dL Albumin (3.8-4.9) g/dL Albumin/Globulin Ratio (1.60-3.17) Ratio Kkxko-5-Pypznteqm 0.45 H (0.10-0.40) g/dL Beta Globulins 0.51 L (0.60-1.30) g/dL 11/07/23 11/07/23 11/07/23 Range/Units 05:49 05:50 06:21 RBC 3.64 L (4.10-5.20) X 10*6/uL Hgb 7.7 L (12.0-15.0) g/dL Hct 27.5 L (37.2-46.3) % MCV 75.5 L (80.0-97.0) FL MCH 21.2 L (27.0-32.0) pg MCHC 28.0 L (32.0-37.0) g/dL RDW 24.2 H (11.5-14.5) % Plt Count 446 H (140-440) X 10*3/uL Immature Gran # 0.13 H (0.00-0.04) X 10*3/uL Eosinophils # 0 L (0.04-0.35) X 10*3/uL NRBC/100 WBC Diff 0.08 H (0.00-0.01) X 10*3/uL Glucose 163 H (70-110) mg/dL POC Glucose (mg/dL) 173 H (70-110) mg/dL Calcium 8.4 L (8.7-10.3) mg/dL AST 12 L (13-35) U/L Total Protein 4.8 L (6.2-8.2) g/dL Albumin 2.8 L (3.8-4.9) g/dL Albumin/Globulin Ratio 1.40 L (1.60-3.17) Ratio Jrltg-6-Kwamctjus (0.10-0.40) g/dL Beta Globulins (0.60-1.30) g/dL 11/07/23 Range/Units 11:46 RBC (4.10-5.20) X 10*6/uL Hgb (12.0-15.0) g/dL Hct (37.2-46.3) % MCV (80.0-97.0) FL MCH (27.0-32.0) pg MCHC (32.0-37.0) g/dL RDW (11.5-14.5) % Plt Count (140-440) X 10*3/uL Immature Gran # (0.00-0.04) X 10*3/uL Eosinophils # (0.04-0.35) X 10*3/uL NRBC/100 WBC Diff (0.00-0.01) X 10*3/uL Glucose (70-110) mg/dL POC Glucose (mg/dL) 154 H (70-110) mg/dL Calcium (8.7-10.3) mg/dL AST (13-35) U/L Total Protein (6.2-8.2) g/dL Albumin (3.8-4.9) g/dL Albumin/Globulin Ratio (1.60-3.17) Ratio Ugseq-2-Kikcpyfcf (0.10-0.40) g/dL Beta Globulins (0.60-1.30) g/dL Diabetes panel 11/07/23 Range/Units 05:49 Sodium 139 (135-145) mmol/L Potassium 3.9 (3.5-5.5) mmol/L Chloride 102 (96-109) mmol/L Carbon Dioxide 27.4 (21.6-31.8) mmol/L BUN 9.3 (9.0-27.0) mg/dL Creatinine 0.7 (0.6-1.5) mg/dL Glucose 163 H (70-110) mg/dL Calcium 8.4 L (8.7-10.3) mg/dL AST 12 L (13-35) U/L ALT 17 (8-44) U/L Alkaline Phosphatase 81 (41-126) U/L Total Protein 4.8 L (6.2-8.2) g/dL Albumin 2.8 L (3.8-4.9) g/dL Calcium panel 11/07/23 Range/Units 05:49 Calcium 8.4 L (8.7-10.3) mg/dL Albumin 2.8 L (3.8-4.9) g/dL Pituitary panel 11/07/23 Range/Units 05:49 Sodium 139 (135-145) mmol/L Potassium 3.9 (3.5-5.5) mmol/L Chloride 102 (96-109) mmol/L Carbon Dioxide 27.4 (21.6-31.8) mmol/L BUN 9.3 (9.0-27.0) mg/dL Creatinine 0.7 (0.6-1.5) mg/dL Glucose 163 H (70-110) mg/dL Calcium 8.4 L (8.7-10.3) mg/dL Adrenal panel 11/07/23 Range/Units 05:49 Sodium 139 (135-145) mmol/L Potassium 3.9 (3.5-5.5) mmol/L Chloride 102 (96-109) mmol/L Carbon Dioxide 27.4 (21.6-31.8) mmol/L BUN 9.3 (9.0-27.0) mg/dL Creatinine 0.7 (0.6-1.5) mg/dL Glucose 163 H (70-110) mg/dL Calcium 8.4 L (8.7-10.3) mg/dL Total Bilirubin 0.3 (0.3-1.2) mg/dL AST 12 L (13-35) U/L ALT 17 (8-44) U/L Alkaline Phosphatase 81 (41-126) U/L Total Protein 4.8 L (6.2-8.2) g/dL Albumin 2.8 L (3.8-4.9) g/dL - Imaging CT scan - chest: report reviewed, image reviewed Assessment and Plan Assessment: Esophageal invasive adenocarcinoma Anemia History of hypertension Atrial fibrillation Diabetes TIA Addendum: Patient was seen and examined. Chart reviewed. She would be extremely high risk for Esophagectomy secondary multiple factors including very limited mobility, obesity, malnutrition. ECOG 3. Rec chemo/rad tx. Discussed w patient and daughter in law. JR Plan: The patient was seen and examined at the bedside with Dr. Barnes. Chart/ diagnostics reviewed. Patient is felt to be a very poor candidate for any surgical intervention and likely would not survive a major surgery. She has low albumin suggesting poor nutrition, BNP was elevated suggesting heart failure, she is obese and walks with a walker with limited mobility, and is currently residing in a rehab facility. Dr. Barnes did discuss these findings with Dr. Correa as well is the patient's [id number] Drew. Medical management per internal medicine, general surgery, oncology. Thank you Dr. Correa for this consult. Please call us with any further questions. I have personally seen and examined the patient, performed the documentation and the assessment and plan as written. Number of minutes spent on the visit: 30. YENY ShawC
--- NOTE | 2023-11-07 15:56 | P.PN ---
Subjective Progress Note Date: 11/07/23 CHIEF COMPLAINT: Anemia HISTORY OF PRESENT ILLNESS: Patient is status post EGD and colonoscopy revealing antral gastritis, lower esophageal mass with minimal bleeding, large hiatal hernia diverticulosis, right colon polyp and diverticulosis. Biopsy results positive for invasive adenocarcinoma of the esophagus. Patient denies any abdominal pain. She is tolerating diet. Hemoglobin 7.7 PHYSICAL EXAM: VITAL SIGNS: Reviewed. GENERAL: Well-developed in no acute distress. ABDOMEN: Soft. Nondistended. Nontender. NEUROLOGIC: Alert and oriented. Cranial nerves II through XII grossly intact. ASSESSMENT: 1. Anemia likely related to bleeding from the lower esophageal mass. Biopsy result positive for adenocarcinoma of the esophagus 2. Status post EGD and colonoscopy revealing antral gastritis, lower esophageal mass with minimal bleeding, large hiatal hernia diverticulosis, right colon polyp and diverticulosis. PLAN: -Consult cardiovascular surgeon regarding esophageal cancer -Continue regular diet -Continue to monitor hemoglobin Physician Heel Sander note has been reviewed by physician. Signing provider agrees with the documented findings, assessment, and plan of care. Objective - Vital Signs Vital signs: Vital Signs Temp 97.8 F 11/07/23 00:39 Pulse 72 11/07/23 15:41 Resp 17 11/07/23 00:39 BP 130/76 11/07/23 08:00 Pulse Ox 95 11/07/23 00:39 FiO2 Intake & Output 11/06/23 11/07/23 11/07/23 18:59 06:59 18:59 Intake Total 460 Balance 460 Weight 92 kg Intake: Intake, IV Titration 100 Amount Sodium Ferric Gluconat- 100 Sucrose 125 mg In Sodium Chloride 0.9% 100 ml @ 100 mls/hr IVPB DAILY [facility] Rx#:[id number] Oral 360 Other: Voiding Method Bedside Commode # Voids 4 - Labs CBC & Chem 7: 11/07/23 05:50 11/07/23 05:49 Labs: Abnormal Lab Results - Last 24 Hours (Table) 11/03/23 11/06/23 11/06/23 Range/Units 12:26 16:47 21:15 RBC (4.10-5.20) X 10*6/uL Hgb (12.0-15.0) g/dL Hct (37.2-46.3) % MCV (80.0-97.0) FL MCH (27.0-32.0) pg MCHC (32.0-37.0) g/dL RDW (11.5-14.5) % Plt Count (140-440) X 10*3/uL Immature Gran # (0.00-0.04) X 10*3/uL Eosinophils # (0.04-0.35) X 10*3/uL NRBC/100 WBC Diff (0.00-0.01) X 10*3/uL Glucose (70-110) mg/dL POC Glucose (mg/dL) 306 H 195 H (70-110) mg/dL Calcium (8.7-10.3) mg/dL AST (13-35) U/L Total Protein (6.2-8.2) g/dL Albumin (3.8-4.9) g/dL Albumin/Globulin Ratio (1.60-3.17) Ratio Udnbn-[id number] 0.45 H (0.10-0.40) g/dL Beta Globulins 0.51 L (0.60-1.30) g/dL 11/07/23 11/07/23 11/07/23 Range/Units 05:49 05:50 06:21 RBC 3.64 L (4.10-5.20) X 10*6/uL Hgb 7.7 L (12.0-15.0) g/dL Hct 27.5 L (37.2-46.3) % MCV 75.5 L (80.0-97.0) FL MCH 21.2 L (27.0-32.0) pg MCHC 28.0 L (32.0-37.0) g/dL RDW 24.2 H (11.5-14.5) % Plt Count 446 H (140-440) X 10*3/uL Immature Gran # 0.13 H (0.00-0.04) X 10*3/uL Eosinophils # 0 L (0.04-0.35) X 10*3/uL NRBC/100 WBC Diff 0.08 H (0.00-0.01) X 10*3/uL Glucose 163 H (70-110) mg/dL POC Glucose (mg/dL) 173 H (70-110) mg/dL Calcium 8.4 L (8.7-10.3) mg/dL AST 12 L (13-35) U/L Total Protein 4.8 L (6.2-8.2) g/dL Albumin 2.8 L (3.8-4.9) g/dL Albumin/Globulin Ratio 1.40 L (1.60-3.17) Ratio Ulesg-2-Fybbinblq (0.10-0.40) g/dL Beta Globulins (0.60-1.30) g/dL 11/07/23 Range/Units 11:46 RBC (4.10-5.20) X 10*6/uL Hgb (12.0-15.0) g/dL Hct (37.2-46.3) % MCV (80.0-97.0) FL MCH (27.0-32.0) pg MCHC (32.0-37.0) g/dL RDW (11.5-14.5) % Plt Count (140-440) X 10*3/uL Immature Gran # (0.00-0.04) X 10*3/uL Eosinophils # (0.04-0.35) X 10*3/uL NRBC/100 WBC Diff (0.00-0.01) X 10*3/uL Glucose (70-110) mg/dL POC Glucose (mg/dL) 154 H (70-110) mg/dL Calcium (8.7-10.3) mg/dL AST (13-35) U/L Total Protein (6.2-8.2) g/dL Albumin (3.8-4.9) g/dL Albumin/Globulin Ratio (1.60-3.17) Ratio Mmido-6-Gtfklfbit (0.10-0.40) g/dL Beta Globulins (0.60-1.30) g/dL
[2023-11-07] MEDS: ZINC OXIDE PASTE (Z-GUARD) 1 APPLIC TOPICAL PRN (16:37)
[2023-11-07 16:52] LABS: Glucose,Whole Blood 331 mg/dL (70-110)
[2023-11-07] MEDS: IOPAMIDOL CONTRAST (ORAL USE) VIAL PO PRN (20:07)
[2023-11-07 20:59] LABS: Glucose,Whole Blood 278 mg/dL (70-110)
--- NOTE | 2023-11-07 23:07 | PN ---
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 Surgery consultation does not recommend surgery. Discus with the family further options when I see her tonight. OBJECTIVE: VITAL SIGNS: Blood pressure 102/66, O2 98% on 3 L, pulse 104, pulse 70s, temperature 97.8. CARDIOVASCULAR: S1, S2. LUNGS: Transmitted upper sounds. GI: Soft. HEMATOLOGY: 2+ edema. NEUROLOGIC: Cranial nerves intact. PLAN: Transfuse if drops below 7. Possible transfer to [facility] if the patient agrees. Otherwise, we will send her home and get outpatient therapy, outpatient treatment with chemotherapy and radiation, etc. Prognosis guarded. Multiple other health problems. Continue current treatment. MMODL / IJN: [id number] /
[2023-11-08 06:34] LABS: Glucose,Whole Blood 185 mg/dL (70-110)
--- NOTE | 2023-11-08 08:14 | CT ---
EXAMINATION TYPE: CT ChestAbdPelvis w con CT DLP: 1844.2 mGycm, Automated exposure control for dose reduction was used. DATE OF EXAM: 11/07/2023 10:39 PM COMPARISON: None. CLINICAL INDICATION:Female, 78 years old with history of esophageal cancer; PHH, esophageal cancer Technique: CT ChestAbdPelvis w con; Multiple axial images were obtained. Two-dimensional coronal and sagittal reconstructions were obtained. Contrast used:100 mL of Isovue 300 with IV Contrast, Oral contrast used: with Oral Contrast Findings: CHEST: LUNGS/ PLEURA: 1 streaky atelectasis present throughout the lungs likely on basis of atelectasis/scar ring. No focal consolidation, pneumothorax or pleural effusion. AIRWAY: Patent and unremarkable. HEART: The heart is mildly enlarged for size. MEDIASTINUM: No gross evidence of adenopathy. Surgical clips in the distal esophagus with distal esop hageal circumferential wall thickening series 201 image 9 measuring up to 12 mm. VASCULATURE: No aortic aneurysm. MUSCULOSKELETAL: No acute osseous abnormalities. Multilevel wedging with osteophyte formation and fac et joint arthropathy. SOFT TISSUES/LYMPH NODES: Unremarkable. LOWER NECK: No significant findings. ABDOMEN: ABDOMEN LIVER: Unremarkable GALLBLADDER AND BILE DUCTS: Unremarkable. PANCREAS: Unremarkable. SPLEEN: Unremarkable. ADRENAL GLANDS: Unremarkable. KIDNEYS AND URETERS: No evidence of hydronephrosis or renal calculus. The ureters are unremarkable. Mild cortical thinning on the left mid kidney. PELVIS BLADDER: Unremarkable REPRODUCTIVE: Unremarkable. ABDOMEN & PELVIS STOMACH AND BOWEL: No evidence of bowel obstruction. Scattered colonic diverticula. PERITONEUM: No evidence of pneumoperitoneum or free fluid. VASCULATURE: No evidence of aortic aneurysm. MUSCULOSKELETAL: No acute osseous abnormalities, severe degeneration changes of the hips with joint s pace narrowing and osteophyte formation. LYMPH NODES: No gross evidence for lymphadenopathy. SOFT TISSUE/ABDOMINAL WALL: Unremarkable IMPRESSION: Circumferential wall thickening of the distal esophagus which may represent esophagitis versus remain ing tumor. No lymphadenopathy seen at this time or evidence for distant metastatic disease.
[2023-11-08 11:02] VITALS: BMI 39.8
[2023-11-08 11:34] LABS: Glucose,Whole Blood 230 mg/dL (70-110)
[2023-11-08 12:47] LABS: Anisocytosis Moderate; Basophils % (A) 0 %; Eosinophils % (A) 0 %; Hypochromasia Marked; Lymphocytes # (A) 0.7 k/uL (1.0-4.8); Lymphocytes % (A) 5 %; MCH 21.6 pg (25.0-35.0); MCHC 27.8 g/dL (31.0-37.0); MCV 77.7 fL (80.0-100.0); Mean Platelet Volume 7.9; Microcytosis Moderate; Monocytes # (A) 0.4 k/uL (0-1.0); Monocytes % (A) 3 %; Neutrophils # (A) 11.8 k/uL (1.3-7.7); Neutrophils % (A) 91 %; Platelet Count 518 k/uL (150-450); Poikilocytosis Moderate; RBC 4.63 m/uL (3.80-5.40); RDW 21.2 % (11.5-15.5); WBC 13.1 k/uL (3.8-10.6)
[2023-11-08 13:09] LABS: ALT 23 U/L (4-34); AST 38 U/L (14-36); African American GFR (CKD) >90 (>60 ml/min/1.73 sqM); Albumin 3.1 g/dL (3.5-5.0); Albumin/Globulin Ratio 1.1; Alkaline Phosphatase 116 U/L (38-126); Anion Gap 6 mmol/L; Blood Urea Nitrogen 14 mg/dL (7-17); Calcium 8.6 mg/dL (8.4-10.2); Carbon Dioxide 28 mmol/L (22-30); Chloride 101 mmol/L (98-107); Globulin 2.9 g/dL; Glucose 219 mg/dL (74-99); Non-African American GFR(CKD) 82 (>60 ml/min/1.73 sqM); Sodium 135 mmol/L (137-145); Total Bilirubin 0.6 mg/dL (0.2-1.3)
[2023-11-08 17:04] LABS: Glucose,Whole Blood 248 mg/dL (70-110)
--- NOTE | 2023-11-08 17:04 | P.PN ---
Subjective Progress Note Date: 11/08/23 CHIEF COMPLAINT: Anemia HISTORY OF PRESENT ILLNESS: Patient is status post EGD and colonoscopy revealing antral gastritis, lower esophageal mass with minimal bleeding, large hiatal hernia diverticulosis, right colon polyp and diverticulosis. Biopsy results positive for invasive adenocarcinoma of the esophagus. Patient denies any abdominal pain. She is tolerating diet. Patient seen by cardiothoracic service and is not considered a surgical candidate. Oncology service has ordered a CT scan of the chest abdomen pelvis PHYSICAL EXAM: VITAL SIGNS: Reviewed. GENERAL: Well-developed in no acute distress. ABDOMEN: Soft. Nondistended. Nontender. NEUROLOGIC: Alert and oriented. Cranial nerves II through XII grossly intact. ASSESSMENT: 1. Anemia likely related to bleeding from the lower esophageal mass. Biopsy result positive for adenocarcinoma of the esophagus 2. Status post EGD and colonoscopy revealing antral gastritis, lower esophageal mass with minimal bleeding, large hiatal hernia diverticulosis, right colon polyp and diverticulosis. PLAN: -Continue regular diet -Continue to monitor hemoglobin -Patient awaiting insurance authorization for ECF placement. The plan to follow -up with the cardiothoracic service at [facility] outpatient Physician Hr Generalist note has been reviewed by physician. Signing provider agrees with the documented findings, assessment, and plan of care. Objective - Vital Signs Vital signs: Vital Signs Temp 97.8 F 11/08/23 13:04 Pulse 76 11/08/23 15:52 Resp 18 11/08/23 13:04 BP 129/74 11/08/23 13:04 Pulse Ox 100 11/08/23 13:04 FiO2 Intake & Output 11/07/23 11/08/23 11/08/23 18:59 06:59 18:59 Intake Total 700 1840 Balance 700 1840 Weight 92.5 kg 92.5 kg Intake: Intake, IV Titration 100 100 Amount Sodium Ferric Gluconat- 100 Sucrose 125 mg In Sodium Chloride 0.9% 100 ml @ 100 mls/hr IVPB DAILY [facility] Rx#:[id number] cefTRIAXone 1 gm In 100 Sodium Chloride 0.9% 50 ml @ 100 mls/hr IVPB Q24H [facility] Rx#:[id number] Oral 600 1740 Other: Voiding Method Bedside Commode # Voids 2 - Labs CBC & Chem 7: 11/08/23 12:15 11/08/23 12:15 Labs: Abnormal Lab Results - Last 24 Hours (Table) 11/07/23 11/08/23 11/08/23 Range/Units 20:56 06:27 11:33 WBC (3.8-10.6) k/uL Hgb (11.4-16.0) gm/dL MCV (80.0-100.0) fL MCH (25.0-35.0) pg MCHC (31.0-37.0) g/dL RDW (11.5-15.5) % Plt Count (150-450) k/uL Neutrophils # (1.3-7.7) k/uL Lymphocytes # (1.0-4.8) k/uL Sodium (137-145) mmol/L Glucose (74-99) mg/dL POC Glucose (mg/dL) 278 H 185 H 230 H (70-110) mg/dL AST (14-36) U/L Total Protein (6.3-8.2) g/dL Albumin (3.5-5.0) g/dL 11/08/23 11/08/23 Range/Units 12:15 12:15 WBC 13.1 H (3.8-10.6) k/uL Hgb 10.0 L (11.4-16.0) gm/dL MCV 77.7 L (80.0-100.0) fL MCH 21.6 L (25.0-35.0) pg MCHC 27.8 L (31.0-37.0) g/dL RDW 21.2 H (11.5-15.5) % Plt Count 518 H (150-450) k/uL Neutrophils # 11.8 H (1.3-7.7) k/uL Lymphocytes # 0.7 L (1.0-4.8) k/uL Sodium 135 L (137-145) mmol/L Glucose 219 H (74-99) mg/dL POC Glucose (mg/dL) (70-110) mg/dL AST 38 H (14-36) U/L Total Protein 6.0 L (6.3-8.2) g/dL Albumin 3.1 L (3.5-5.0) g/dL Microbiology - Last 24 Hours (Table) 11/02/23 22:18 Blood Culture - Final Blood 11/02/23 22:14 Blood Culture - Final Blood
--- NOTE | 2023-11-08 18:30 | P.PN ---
Subjective Progress Note Date: 11/08/23 Principal diagnosis: anemia, GI bleed At today's visit patient is resting comfortably in bedside chair. No acute events. S/p EGD and colonoscopy with distal esophageal mass noted with minimal bleeding, biopsy positive for invasive adenocarcinoma. No reported episodes of melena/blood in stool. Hemoglobin 7.7 Objective - Vital Signs Vital signs: Vital Signs Temp 97.5 F L 11/08/23 07:09 Pulse 76 11/08/23 12:12 Resp 17 11/08/23 07:09 BP 125/85 11/08/23 07:09 Pulse Ox 100 11/08/23 07:09 FiO2 Intake & Output 11/07/23 11/08/23 11/08/23 18:59 06:59 18:59 Intake Total 700 1840 Balance 700 1840 Weight 92.5 kg 92.5 kg Intake: Intake, IV Titration 100 100 Amount Sodium Ferric Gluconat- 100 Sucrose 125 mg In Sodium Chloride 0.9% 100 ml @ 100 mls/hr IVPB DAILY [facility] Rx#:[id number] cefTRIAXone 1 gm In 100 Sodium Chloride 0.9% 50 ml @ 100 mls/hr IVPB Q24H [facility] Rx#:[id number] Oral 600 1740 Other: Voiding Method Bedside Commode # Voids 2 - Constitutional General appearance: Present: average body habitus, no acute distress - EENT Eyes: Present: anicteric sclerae, EOMI ENT: Present: hearing grossly normal - Respiratory Details: breathing mildly labored - Cardiovascular Details: skin warm and dry - Integumentary Integumentary: Absent: cyanotic, jaundiced - Neurologic Neurologic Comment(s): grossly intact - Musculoskeletal Musculoskeletal: Present: strength equal bilaterally - Psychiatric Psychiatric: Present: A&O x's 3 - Labs CBC & Chem 7: 11/08/23 12:15 11/08/23 12:15 Labs: Abnormal Lab Results - Last 24 Hours (Table) 11/07/23 11/07/23 11/08/23 Range/Units 16:51 20:56 06:27 POC Glucose (mg/dL) 331 H 278 H 185 H (70-110) mg/dL 11/08/23 Range/Units 11:33 POC Glucose (mg/dL) 230 H (70-110) mg/dL Microbiology - Last 24 Hours (Table) 11/02/23 22:18 Blood Culture - Final Blood 11/02/23 22:14 Blood Culture - Final Blood - Imaging and Cardiology CT scan - abdomen: report reviewed CT scan - chest: report reviewed CT scan - pelvis: report reviewed Assessment and Plan (1) Anemia Current Visit: Yes Status: Acute Priority: High Code(s): D64.9 - ANEMIA, UNSPECIFIED SNOMED Code(s): 772162124 (2) GI bleed Current Visit: Yes Status: Acute Priority: High Code(s): K92.2 - GASTROINTESTINAL HEMORRHAGE, UNSPECIFIED SNOMED Code(s): 78442725 (3) Esophageal mass Current Visit: Yes Status: Acute Priority: High Code(s): K22.89 - OTHER SPECIFIED DISEASE OF ESOPHAGUS SNOMED Code(s): 777590866 (4) Esophageal cancer Current Visit: Yes Status: Acute Priority: High Code(s): C15.9 - MALIGNANT NEOPLASM OF ESOPHAGUS, UNSPECIFIED SNOMED Code(s): 779157354 (5) MGUS (monoclonal gammopathy of unknown significance) Current Visit: Yes Status: Acute Priority: Medium Code(s): D47.2 - MONOCLONAL GAMMOPATHY SNOMED Code(s): 201020646 Plan: Microcytic anemia: - Anemia workup ordered, suspect iron deficiency with new microcytic anemia since 05/2023. - Iron studies consistent with [place], parenteral iron ordered. No Vit B12 or folate def noted. - Immunofixation revealed IgG lambda paraprotein, M spike 0.16 , K/L light chain ratio mildly elevated at 1.68. Findings consistent with MGUS. No need for further workup at this time, will continue to monitor in outpt setting. - GI evaluation to rule out GIB. Underwent EGD/colonoscopy. Colonoscopy revealed small polyp in distal right colon. Mild diverticulosis in ascending and sigmoid colon. No acute bleeding noted. EGD revealed large hiatal hernia. With mass noted in distal esophagus. Mass appeared to be friable and was bleeding minima lly. Esophageal mass biopsy positive invasive adenocarcinoma. - Monitor H/H, supportive transfusion to maintain Hgb >7 - Hold AC for now if able from cardiac stand point Esophageal adenocarcinoma: -Distal esophageal mass noted on EDG. Biopsy positive for invasive adenocarcinoma -CT CAP showed circumferential wall thickening of the distal esophagus. No lymphadenopathy seen at this time or evidence for distant metastatic disease -Will schedule outpt PET CT and EUS - NGS and PDL-1 requested on specimen - Clinic f/u will be scheduled to further discuss goals of care and treatment plan pending workup Patient and family updated on POC and were agreeable Greater than 30 mins spent with pt/family and coordinating care attests: I have seen and examined patient, performed H&P, developed impression and plan of care. Discussed with dictator. Agree with documentation, dictated as a scribe
[2023-11-08 21:12] LABS: Glucose,Whole Blood 301 mg/dL (70-110)
[2023-11-09 05:56] LABS: Glucose,Whole Blood 168 mg/dL (70-110)
[2023-11-09 08:37] LABS: Basophils # (A) 0.02 X 10*3/uL (0.00-0.10); Basophils % (A) 0.2 %; Eosinophils # (A) 0 X 10*3/uL (0.04-0.35); Eosinophils % (A) 0 %; HCT 31.1 % (37.2-46.3); HGB 8.8 g/dL (12.0-15.0); Lymphocytes # (A) 1.33 X 10*3/uL (0.90-5.00); MCH 21.6 pg (27.0-32.0); MCHC 28.3 g/dL (32.0-37.0); MCV 76.2 FL (80.0-97.0); Mean Platelet Volume 9.6 FL (9.5-12.2); Monocytes # (A) 0.69 X 10*3/uL (0.20-1.00); Monocytes % (A) 8.3 %; Neutrophils # (A) 6.06 X 10*3/uL (1.80-7.70); Neutrophils % (A) 73.1 %; Platelet Count 476 X 10*3/uL (140-440); RBC 4.08 X 10*6/uL (4.10-5.20); RDW 25.5 % (11.5-14.5)
[2023-11-09 08:56] LABS: ALT 16 U/L (8-44); AST 14 U/L (13-35); Albumin 2.9 g/dL (3.8-4.9); Albumin/Globulin Ratio 1.45 Ratio (1.60-3.17); Alkaline Phosphatase 80 U/L (41-126); BUN/Creat Ratio 19.43 Ratio (12.00-20.00); Blood Urea Nitrogen 13.6 mg/dL (9.0-27.0); Calcium 8.6 mg/dL (8.7-10.3); Carbon Dioxide 28.3 mmol/L (21.6-31.8); Chloride 103 mmol/L (96-109); Glucose 144 mg/dL (70-110); Potassium 3.4 mmol/L (3.5-5.5); Sodium 141 mmol/L (135-145); Total Bilirubin 0.3 mg/dL (0.3-1.2); Total Protein 4.9 g/dL (6.2-8.2)
[2023-11-09 11:00] LABS: Glucose,Whole Blood 221 mg/dL (70-110)
--- NOTE | 2023-11-09 11:36 | P.PN ---
Subjective Progress Note Date: 11/09/23 Ms. Barlow is a very pleasant 78 yo female with multiple comoribidities including atrial fibrillation and CHF on eliquis, who is here for increased weakness. Found to have Hgb 6.8, normal WBC and plt. Transfused and Hgb up to 8.3. MCV low at 74. Trending her labs, her Hgb was 11-13 as baseline prior to 05/2023, with MCV 80's, but since 05/2023, Hgb has been 7-8's, with MCV 70's. Denies any obvious bleeding. Had recent colonoscopy in 2022 which she says showed polyps that were removed. No prior EGD 11/09. Dr. Birch took over care from Dr. De Santiago. Lab work done this morning showed WBC 8.3, hemoglobin 8.8, platelet count 476, sodium 141, potassium 3.4. Denies any nausea or vomiting. Tolerating diet. REVIEW OF SYSTEMS: CONSTITUTIONAL: No fever, no malaise,. CARDIOVASCULAR: No chest pain, no palpitations, no syncope. PULMONARY: No shortness of breath, no cough, GASTROINTESTINAL: No diarrhea, no nausea, no vomiting, no abdominal pain. NEUROLOGICAL: No headaches, no weakness, PHYSICAL EXAMINATION: GENERAL: The patient is alert and oriented x3, not in any acute distress. Well developed, well nourished. HEENT: Pupils are round and equally reacting to light. EOMI. No scleral icterus. No conjunctival pallor. Normocephalic, atraumatic. No pharyngeal erythema. No thyromegaly. CARDIOVASCULAR: S1 and S2 present. No murmurs, rubs, or gallops. PULMONARY: Chest is clear to auscultation, no wheezing or crackles. ABDOMEN: Soft, nontender, nondistended, normoactive bowel sounds. No palpable organomegaly. MUSCULOSKELETAL: No joint swelling or deformity. EXTREMITIES: 1+ pitting edema lower extremities bilaterally NEUROLOGICAL: Gross neurological examination did not reveal any focal deficits. SKIN: No rashes. Assessment and plan GI bleed Esophageal adenocarcinoma Esophageal mass Weakness due to acute on chronic anemia Anemia likely due to iron deficiency GIB Pulmonary vascular congestion Acute on chronic decompensated systolic heart failure Monitor vital signs Monitor CBC Monitor CMP Continue aspirin and amiodarone Continue Lipitor Continue breathing treatments Iron studies consistent with [place] Patient underwent EGD/colonoscopy. Colonoscopy revealed small polyp in distal right colon. Mild diverticulosis in ascending and sigmoid colon. No acute bleeding noted. EGD revealed large hiatal hernia. With mass noted in distal esophagus. Mass appeared to be friable and was bleeding minimally. Esophageal mass biopsy positive invasive adenocarcinoma. Hematology oncology following, recommend outpatient PET/CT and EUS. Surgery following Labs and medication were reviewed.. Continue same treatment. Continue with symptomatic treatment. Resume home medication. Monitor labs and vitals. DVT and GI prophylaxis. Further recommendations as per clinical course of the patient Dictation was produced using [employer] dictation software. please excuse any gramm atical, word or spelling errors. Objective - Vital Signs Vital signs: Vital Signs Temp 97.7 F 11/09/23 07:38 Pulse 84 11/09/23 08:51 Resp 19 11/09/23 08:22 BP 145/95 11/09/23 07:38 Pulse Ox 97 11/09/23 08:33 FiO2 Intake & Output 11/08/23 11/09/23 11/09/23 18:59 06:59 18:59 Intake Total 1840 540 Balance 1840 540 Weight 92.5 kg Intake: Intake, IV Titration 100 Amount cefTRIAXone 1 gm In 100 Sodium Chloride 0.9% 50 ml @ 100 mls/hr IVPB Q24H [facility] Rx#:[id number] Oral 1740 540 Other: Voiding Method Bedside Commode Bedside Commode # Voids 2 1 - Labs CBC & Chem 7: 11/09/23 06:12 11/09/23 06:12 Labs: Abnormal Lab Results - Last 24 Hours (Table) 11/08/23 11/08/23 11/08/23 Range/Units 11:33 12:15 12:15 WBC 13.1 H (3.8-10.6) k/uL RBC (4.10-5.20) X 10*6/uL Hgb 10.0 L (11.4-16.0) gm/dL Hct (37.2-46.3) % MCV 77.7 L (80.0-100.0) fL MCH 21.6 L (25.0-35.0) pg MCHC 27.8 L (31.0-37.0) g/dL RDW 21.2 H (11.5-15.5) % Plt Count 518 H (150-450) k/uL Immature Gran # (0.00-0.04) X 10*3/uL Neutrophils # 11.8 H (1.3-7.7) k/uL Lymphocytes # 0.7 L (1.0-4.8) k/uL Eosinophils # (0.04-0.35) X 10*3/uL NRBC/100 WBC Diff (0.00-0.01) X 10*3/uL Sodium 135 L (137-145) mmol/L Potassium (3.5-5.5) mmol/L Glucose 219 H (74-99) mg/dL POC Glucose (mg/dL) 230 H (70-110) mg/dL Calcium (8.7-10.3) mg/dL AST 38 H (14-36) U/L Total Protein 6.0 L (6.3-8.2) g/dL Albumin 3.1 L (3.5-5.0) g/dL Albumin/Globulin Ratio (1.60-3.17) Ratio 11/08/23 11/08/23 11/09/23 Range/Units 17:03 21:10 05:55 WBC (3.8-10.6) k/uL RBC (4.10-5.20) X 10*6/uL Hgb (11.4-16.0) gm/dL Hct (37.2-46.3) % MCV (80.0-100.0) fL MCH (25.0-35.0) pg MCHC (31.0-37.0) g/dL RDW (11.5-15.5) % Plt Count (150-450) k/uL Immature Gran # (0.00-0.04) X 10*3/uL Neutrophils # (1.3-7.7) k/uL Lymphocytes # (1.0-4.8) k/uL Eosinophils # (0.04-0.35) X 10*3/uL NRBC/100 WBC Diff (0.00-0.01) X 10*3/uL Sodium (137-145) mmol/L Potassium (3.5-5.5) mmol/L Glucose (74-99) mg/dL POC Glucose (mg/dL) 248 H 301 H 168 H (70-110) mg/dL Calcium (8.7-10.3) mg/dL AST (14-36) U/L Total Protein (6.3-8.2) g/dL Albumin (3.5-5.0) g/dL Albumin/Globulin Ratio (1.60-3.17) Ratio 11/09/23 11/09/23 Range/Units 06:12 06:12 WBC (3.8-10.6) k/uL RBC 4.08 L (4.10-5.20) X 10*6/uL Hgb 8.8 L (11.4-16.0) gm/dL Hct 31.1 L (37.2-46.3) % MCV 76.2 L (80.0-100.0) fL MCH 21.6 L (25.0-35.0) pg MCHC 28.3 L (31.0-37.0) g/dL RDW 25.5 H (11.5-15.5) % Plt Count 476 H (150-450) k/uL Immature Gran # 0.20 H (0.00-0.04) X 10*3/uL Neutrophils # (1.3-7.7) k/uL Lymphocytes # (1.0-4.8) k/uL Eosinophils # 0 L (0.04-0.35) X 10*3/uL NRBC/100 WBC Diff 0.30 H (0.00-0.01) X 10*3/uL Sodium (137-145) mmol/L Potassium 3.4 L (3.5-5.5) mmol/L Glucose 144 H (74-99) mg/dL POC Glucose (mg/dL) (70-110) mg/dL Calcium 8.6 L (8.7-10.3) mg/dL AST (14-36) U/L Total Protein 4.9 L (6.3-8.2) g/dL Albumin 2.9 L (3.5-5.0) g/dL Albumin/Globulin Ratio 1.45 L (1.60-3.17) Ratio
--- NOTE | 2023-11-09 12:36 | P.CRDCN ---
History of Present Illness Consult date: 11/09/23 Requesting physician: David Birch Reason for Consult (text): history of afib on anticoagulation current gi bleed Chief complaint: weakness History of present illness: Is a pleasant 78-year-old female patient who resides in an extended care facility. She has a history of hypertension, diet-controlled diabetes, recently diagnosed atrial fibrillation and has been on Eliquis for the last 2 to 3 weeks. She was recently admitted here the beginning of October with complaints of shortness of breath at which time she was treated for CHF and noted to have a hemoglobin around 7.5. Echocardiogram at that time showed a normal LV systolic function with moderate to severe pulmonary hypertension. She was discharged home for plans for follow-up with Dr. Mitchell in the office. She was subsequently readmitted to [facility] and found to have new onset paroxysmal atrial fibrillation and was initiated on Eliquis. She was admitted here this admission on November 02 with complaints of weakness and a hemoglobin drawn as an outpatient of 6.9. We were asked to see the patient in consultation for recommendations regarding the anticoagulation. 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 She was seen by Dr. Barnes who felt she is a very high risk candidate and recommended management with chemotherapy and radiation. The patient is anticipating second opinion likely at [facility]. She denie s any evidence of melena or gross bleeding. She does feel occasional palpitations and at times mild dizziness but no syncope. She complains of recent edema and 5 pound weight gain this admission. She is short of breath with minimal activity and that has been going on since the beginning of October. She denies any chest discomfort, orthopnea or PND. She has had no nausea or vomiting. Past Medical History Past Medical History: Diabetes Mellitus, Eye Disorder, GERD/Reflux, Hearing Disorder / Deafness, Hypertension, Osteoarthritis (OA) Additional Past Medical History / Comment(s): MACULAR DEGENERATION, cataracts, osteoporosis, diet controlled diabetic, TIA History of Any Multi-Drug Resistant Organisms: None Reported Past Surgical History: Cholecystectomy, Hysterectomy Additional Past Surgical History / Comment(s): ORIF RT WRIST-HAD BONE GRAFT FROM HIP, asher fundoplasty, teeth pulled Past Anesthesia/Blood Transfusion Reactions: No Reported Reaction Past Psychological History: Anxiety, Depression Smoking Status: Never smoker Past Alcohol Use History: None Reported Past Drug Use History: None Reported - Past Family History Brother(s) Family Medical History: Cancer Additional Family Medical History / Comment(s): LUNG Mother Family Medical History: Cancer Sister(s) Family Medical History: Cancer Medications and Allergies Home Medications Medication Instructions Recorded Confirmed Type Montelukast [Singulair] 10 mg PO HS@209907/31/22 11/03/23 History Gabapentin 300 mg PO TID@0900,1300,209910/06/23 11/03/23 History Amiodarone [Cordarone] 200 mg PO BID@0900,209911/03/23 11/03/23 History Apixaban [Eliquis] 5 mg PO BID@0900,209911/03/23 11/03/23 History Aspirin EC [Ecotrin Low Dose] 81 mg PO DAILY@89911/03/23 11/03/23 History Atorvastatin [Lipitor] 40 mg PO HS@209911/03/23 11/03/23 History Budesonide [Pulmicort] 0.5 mg INHALATION RT-BID@0600,1800 11/03/23 11/03/23 History Empagliflozin [Jardiance] 10 mg PO DAILY@89911/03/23 11/03/23 History Furosemide [Lasix] 40 mg PO DAILY@89911/03/23 11/03/23 History Ipratropium-Albuterol Nebulize 3 ml INHALATION RT-QID@00,06,12,18 11/03/2311/03 History [Duoneb 0.5 mg-3 mg/3 ml Soln] Lactulose 20 gm PO TID@06,13,21 11/03/23 11/03/23 History Melatonin 10 mg PO HS@209911/03/23 11/03/23 History Metoprolol Tartrate [Lopressor] 50 mg PO BID@899,2099 PRN 11/03/23 11/03/23 History Ondansetron [Zofran] 4 mg PO Q8H PRN 11/03/23 11/03/23 History Pantoprazole [Protonix] 40 mg PO DAILY@89911/03/23 11/03/23 History Potassium Bicarbonate/Cit AC 20 meq PO DAILY@89911/03/23 11/03/23 History [K-Lyte] metFORMIN HCL [Glucophage] 500 mg PO BID@0900,2100 11/03/23 11/03/23 History Allergies Allergy/AdvReac Type Severity Reaction Status Date / Time No Known Allergies Allergy Verified 11/03/23 12:21 Physical Exam Vitals: Vital Signs Temp Pulse Pulse Resp BP BP Pulse Ox 11/09/23 12:01 92 11/09/23 11:52 89 11/09/23 08:51 84 11/09/23 08:43 80 11/09/23 08:33 97 11/09/23 08:31 82 11/09/23 08:22 19 11/09/23 07:38 97.7 F 87 19 145/95 100 11/09/23 01:55 97.0 F L 86 18 125/77 100 11/08/23 22:23 82 11/08/23 22:17 80 11/08/23 22:16 80 11/08/23 22:03 78 11/08/23 21:00 102 H 19 11/08/23 19:20 97.2 F L 102 H 19 133/76 98 11/08/23 15:52 76 11/08/23 15:41 74 11/08/23 13:04 97.8 F 125 H 18 129/74 100 Intake and Output 11/08/23 11/09/23 11/09/23 22:59 06:59 14:59 Intake Total 540 Balance 540 Intake: Oral 540 Other: Voiding Method Bedside Commode Bedside Commode # Voids 1 Weight 94.5 kg PHYSICAL EXAMINATION: This is a 78-year-old female in no apparent distress at the time of my examination. VITAL SIGNS: Reviewed HEENT: Head is atraumatic, normocephalic. Pupils are equal, round. Sclerae anicteric. Conjunctivae are clear. Mucous membranes of the mouth are moist. Neck is supple. There is no elevated jugular venous pressure. No carotid bruit is heard. CHEST EXAMINATION: Clear to auscultation bilaterally. No wheezes rales or rhonchi. Respirations even and nonlabored. HEART EXAMINATION: Heart irregular rate and rhythm, positive S1 and S2. No S3. No S4. Tachycardia noted on exam. ABDOMEN: Soft, nontender. Bowel sounds are heard. No organomegaly noted. EXTREMITIES: 2+ peripheral pulses with evidence of plus peripheral edema and no calf tenderness noted. NEUROLOGIC EXAMINATION: Patient is awake, alert and oriented x3. Results 11/09/23 06:12 11/09/23 06:12 Cardiac Enzymes 11/08/23 11/09/23 Range/Units 12:15 06:12 AST 38 H 14 (14-36) U/L CBC 11/08/23 11/09/23 Range/Units 12:15 06:12 WBC 13.1 H 8.30 (3.8-10.6) k/uL RBC 4.63 4.08 L (3.80-5.40) m/uL Hgb 10.0 L 8.8 L (11.4-16.0) gm/dL Hct 36.0 31.1 L (34.0-46.0) % Plt Count 518 H 476 H (150-450) k/uL Comprehensive Metabolic Panel 11/08/23 11/09/23 Range/Units 12:15 06:12 Sodium 135 L 141 (137-145) mmol/L Potassium 4.0 3.4 L (3.5-5.1) mmol/L Chloride 101 103 (98-107) mmol/L Carbon Dioxide 28 28.3 (22-30) mmol/L BUN 14 13.6 (7-17) mg/dL Creatinine 0.72 0.7 (0.52-1.04) mg/dL Glucose 219 H 144 H (74-99) mg/dL Calcium 8.6 8.6 L (8.4-10.2) mg/dL AST 38 H 14 (14-36) U/L ALT 23 16 (4-34) U/L Alkaline Phosphatase 116 80 (38-126) U/L Total Protein 6.0 L 4.9 L (6.3-8.2) g/dL Albumin 3.1 L 2.9 L (3.5-5.0) g/dL Current Medications Generic Name Dose Route Start Last Admin Trade Name Freq PRN Reason Stop Dose Admin Acetaminophen 1,000 mg 11/03/23 09:11 11/08/23 18:49 Acetaminophen Tab 500 Mg Tab PO 1,000 mg Q6H PRN Administration Fever and/ or Pain Albuterol/Ipratropium 3 ml 11/03/23 12:00 11/09/23 11:52 Ipratropium-Albuterol 3 Ml Neb INHALATION 3 ml RT-QID KEE Administration Amiodarone HCl 200 mg 11/04/23 09:00 11/09/23 08:22 Amiodarone 200 Mg Tab PO 200 mg BID@0900,2099 KEE Administration Aspirin 81 mg 11/04/23 09:00 11/09/23 08:22 Aspirin 81 Mg PO 81 mg DAILY@0900 KEE Administration Atorvastatin Calcium 40 mg 11/04/23 21:00 11/08/23 20:56 Atorvastatin 40 Mg Tab PO 40 mg HS@2099 KEE Administration Budesonide 0.5 mg 11/04/23 18:00 11/09/23 08:31 Budesonide 0.5 Mg/2 Ml Nebu INHALATION 0.5 mg RT-BID@0600,1800 KEE Administration Dapagliflozin 5 mg 11/04/23 09:00 11/09/23 08:21 Dapagliflozin Propanediol 5 Mg Tablet PO 5 mg DAILY KEE Administration Dextrose/Water 25 ml 11/05/23 16:43 Dextrose 50% Syringe 50 Ml IVP PER PROTOCOL PRN Hypoglycemia Protocol Dextrose/Water 50 ml 11/05/23 16:43 Dextrose 50% Syringe 50 Ml IVP PER PROTOCOL PRN Hypoglycemia Protocol Docusate Sodium 100 mg 11/03/23 21:00 11/09/23 08:22 Docusate 100 Mg Cap PO 100 mg BID KEE Administration Formoterol Fumarate 20 mcg 11/03/23 20:00 11/09/23 08:30 Formoterol Fumarate 20 Mcg/2 Ml Nebu INHALATION 20 mcg RT-BID KEE Administration Furosemide 40 mg 11/04/23 09:00 11/09/23 08:21 Furosemide 40 Mg Tab PO 40 mg DAILY@0900 KEE Administration Gabapentin 300 mg 11/03/23 21:00 11/08/23 20:57 Gabapentin 300 Mg Cap PO 300 mg HS KEE Administration Insulin Aspart 0 unit 11/05/23 17:30 11/09/23 12:17 Insulin Aspart (Novolog) 100 Unit/Ml Vial SQ 4 unit ACHS KEE Administration Protocol Lactulose 20 gm 11/04/23 09:50 11/04/23 11:36 Lactulose 20 Gm/30 Ml Cup PO 20 gm TID PRN Administration Constipation Melatonin 10 mg 11/04/23 21:00 11/08/23 20:57 Melatonin 5 Mg Tablet PO 10 mg HS@2099 KEE Administration Metoprolol Tartrate 50 mg 11/04/23 09:00 11/07/23 00:46 Metoprolol Tartrate 50 Mg Tab PO 50 mg BID@0900,2100 PRN Administration HOLD IF SBP <100 OR HR <60 Montelukast Sodium 10 mg 11/04/23 09:00 11/09/23 08:22 Montelukast 10 Mg Tab PO 10 mg DAILY KEE Administration Pantoprazole Sodium 40 mg 11/03/23 17:30 11/09/23 05:56 Pantoprazole 40 Mg Tablet PO 40 mg AC-BID KEE Administration Petrolatum 1 applic 11/07/23 14:48 11/07/23 16:37 Zinc Oxide Paste (Z-Guard) 1 Applic TOPICAL 1 applic DAILY PRN Administration Wound Healing Protocol Prednisone 40 mg 11/04/23 09:00 11/09/23 08:22 Prednisone 20 Mg Tab PO 40 mg DAILY KEE Administration Intake and Output 11/08/23 11/09/23 11/09/23 22:59 06:59 14:59 Intake Total 540 Balance 540 Intake: Oral 540 Other: Voiding Method Bedside Commode Bedside Commode # Voids 1 Weight 94.5 kg 11/09/23 06:12 11/09/23 06:12 Assessment and Plan Assessment: #1 anemia #2 invasive adenocarcinoma involving the distal esophagus #3 paroxysmal atrial fibrillation, currently in atrial fibrillation with rapid ventricular response during examination #4 hypertension #5 Diabetes mellitus type 2 #6 hyperlipidemia #7 lower extremity edema with 5 pound weight gain Plan: From cardiology's perspective we will discontinue amiodarone. Will resume regularly scheduled metoprolol tartrate 50 mg p.o. twice daily. Will switch to IV Lasix 40 mg twice daily. We will check an NT proBNP. At this time we will hold the anticoagulation due to anemia and evidence of GI bleed with invasive adenocarcinoma. At a later date depending on her clinical course further recommendations will be made regarding either resuming anticoagulation or possibly referring her for evaluation for left atrial appendage closure device. We will continue to follow the patient and provide further recommendations accordingly. CONTAINER COORDINATOR note has been reviewed, I agree with a documented findings and plan of care. Patient was seen and examined.
[2023-11-09] MEDS: METOPROLOL TARTRATE 50 MG TAB PO SCH (13:31)
--- NOTE | 2023-11-09 13:34 | P.PN ---
Subjective Progress Note Date: 11/09/23 CHIEF COMPLAINT: Anemia HISTORY OF PRESENT ILLNESS: Patient is status post EGD and colonoscopy revealing antral gastritis, lower esophageal mass with minimal bleeding, large hiatal hernia diverticulosis, right colon polyp and diverticulosis. Biopsy results positive for invasive adenocarcinoma of the esophagus. Patient denies any abdominal pain. She is tolerating diet. Patient seen by cardiothoracic service and is not considered a surgical candidate. Oncology service has ordered a CT scan of the chest abdomen pelvis with no evidence of mets. Patient scheduled for discharge today to ECF pending insurance authorization. Patient also planning to follow-up at [facility] to be evaluated by their cardiothoracic team outpatient. hgb 10 to 8.8 PHYSICAL EXAM: VITAL SIGNS: Reviewed. GENERAL: Well-developed in no acute distress. ABDOMEN: Soft. Nondistended. Nontender. NEUROLOGIC: Alert and oriented. Cranial nerves II through XII grossly intact. ASSESSMENT: 1. Anemia likely related to bleeding from the lower esophageal mass. Biopsy result positive for adenocarcinoma of the esophagus 2. Status post EGD and colonoscopy revealing antral gastritis, lower esophageal mass with minimal bleeding, large hiatal hernia diverticulosis, right colon polyp and diverticulosis. PLAN: -Continue regular diet -Continue to monitor hemoglobin -Patient awaiting insurance authorization for ECF placement. They plan to follow-up with the cardiothoracic service at [facility] outpatient -Patient can be discharged from surgical standpoint when medically cleared Physician Band Manager note has been reviewed by physician. Signing provider agrees with the documented findings, assessment, and plan of care. Objective - Vital Signs Vital signs: Vital Signs Temp 97.7 F 11/09/23 07:38 Pulse 92 11/09/23 12:01 Resp 19 11/09/23 08:22 BP 145/95 11/09/23 07:38 Pulse Ox 97 11/09/23 08:33 FiO2 Intake & Output 11/08/23 11/09/23 11/09/23 18:59 06:59 18:59 Intake Total 1840 540 Balance 1840 540 Weight 92.5 kg 94.5 kg Intake: Intake, IV Titration 100 Amount cefTRIAXone 1 gm In 100 Sodium Chloride 0.9% 50 ml @ 100 mls/hr IVPB Q24H [facility] Rx#:[id number] Oral 1740 540 Other: Voiding Method Bedside Commode Bedside Commode # Voids 2 1 - Labs CBC & Chem 7: 11/09/23 06:12 11/09/23 06:12 Labs: Abnormal Lab Results - Last 24 Hours (Table) 11/08/23 11/08/23 11/09/23 Range/Units 17:03 21:10 05:55 RBC (4.10-5.20) X 10*6/uL Hgb (12.0-15.0) g/dL Hct (37.2-46.3) % MCV (80.0-97.0) FL MCH (27.0-32.0) pg MCHC (32.0-37.0) g/dL RDW (11.5-14.5) % Plt Count (140-440) X 10*3/uL Immature Gran # (0.00-0.04) X 10*3/uL Eosinophils # (0.04-0.35) X 10*3/uL NRBC/100 WBC Diff (0.00-0.01) X 10*3/uL Potassium (3.5-5.5) mmol/L Glucose (70-110) mg/dL POC Glucose (mg/dL) 248 H 301 H 168 H (70-110) mg/dL Calcium (8.7-10.3) mg/dL Total Protein (6.2-8.2) g/dL Albumin (3.8-4.9) g/dL Albumin/Globulin Ratio (1.60-3.17) Ratio 11/09/23 11/09/23 11/09/23 Range/Units 06:12 06:12 10:58 RBC 4.08 L (4.10-5.20) X 10*6/uL Hgb 8.8 L (12.0-15.0) g/dL Hct 31.1 L (37.2-46.3) % MCV 76.2 L (80.0-97.0) FL MCH 21.6 L (27.0-32.0) pg MCHC 28.3 L (32.0-37.0) g/dL RDW 25.5 H (11.5-14.5) % Plt Count 476 H (140-440) X 10*3/uL Immature Gran # 0.20 H (0.00-0.04) X 10*3/uL Eosinophils # 0 L (0.04-0.35) X 10*3/uL NRBC/100 WBC Diff 0.30 H (0.00-0.01) X 10*3/uL Potassium 3.4 L (3.5-5.5) mmol/L Glucose 144 H (70-110) mg/dL POC Glucose (mg/dL) 221 H (70-110) mg/dL Calcium 8.6 L (8.7-10.3) mg/dL Total Protein 4.9 L (6.2-8.2) g/dL Albumin 2.9 L (3.8-4.9) g/dL Albumin/Globulin Ratio 1.45 L (1.60-3.17) Ratio
[2023-11-09] MEDS: FUROSEMIDE 10 MG/ML 4 ML VIAL IV SCH (13:59)
[2023-11-09] MEDS: DAPAGLIFLOZIN PROPANEDIOL 10 MG TABLET PO SCH (14:14)
[2023-11-09 17:09] LABS: Glucose,Whole Blood 292 mg/dL (70-110)
--- NOTE | 2023-11-09 19:50 | P.PN ---
Subjective Progress Note Date: 11/09/23 Principal diagnosis: anemia, GI bleed No acute events. Patient is resting comfortably in bed, family at bedside. No reported episodes of melena/blood in stool. Hemoglobin improved, 8.8 today. Spoke with patient and family in detail today in regards to pathology and POC. Objective - Vital Signs Vital signs: Vital Signs Temp 98.1 F 11/09/23 12:55 Pulse 108 H 11/09/23 15:45 Resp 17 11/09/23 12:55 BP 111/73 11/09/23 12:55 Pulse Ox 96 11/09/23 12:55 FiO2 Intake & Output 11/08/23 11/09/23 11/09/23 18:59 06:59 18:59 Intake Total 1840 540 Balance 1840 540 Weight 92.5 kg 94.5 kg Intake: Intake, IV Titration 100 Amount cefTRIAXone 1 gm In 100 Sodium Chloride 0.9% 50 ml @ 100 mls/hr IVPB Q24H [facility] Rx#:[id number] Oral 4350 540 Other: Voiding Method Bedside Commode Bedside Commode # Voids 2 1 - Constitutional General appearance: Present: no acute distress - EENT Eyes: Present: anicteric sclerae, EOMI ENT: Present: hearing grossly normal - Respiratory Details: breathing is even and unlabored - Cardiovascular Details: skin warm and dry - Gastrointestinal General gastrointestinal: Present: soft. Absent: tenderness - Integumentary Integumentary: Absent: cyanotic, jaundiced - Neurologic Neurologic Comment(s): grossly intact - Musculoskeletal Musculoskeletal: Present: strength equal bilaterally - Psychiatric Psychiatric: Present: A&O x's 3 - Labs CBC & Chem 7: 11/09/23 06:12 11/09/23 06:12 Labs: Abnormal Lab Results - Last 24 Hours (Table) 11/08/23 11/08/23 11/09/23 Range/Units 17:03 21:10 05:55 RBC (4.10-5.20) X 10*6/uL Hgb (12.0-15.0) g/dL Hct (37.2-46.3) % MCV (80.0-97.0) FL MCH (27.0-32.0) pg MCHC (32.0-37.0) g/dL RDW (11.5-14.5) % Plt Count (140-440) X 10*3/uL Immature Gran # (0.00-0.04) X 10*3/uL Eosinophils # (0.04-0.35) X 10*3/uL NRBC/100 WBC Diff (0.00-0.01) X 10*3/uL Potassium (3.5-5.5) mmol/L Glucose (70-110) mg/dL POC Glucose (mg/dL) 248 H 301 H 168 H (70-110) mg/dL Calcium (8.7-10.3) mg/dL Total Protein (6.2-8.2) g/dL Albumin (3.8-4.9) g/dL Albumin/Globulin Ratio (1.60-3.17) Ratio 11/09/23 11/09/23 11/09/23 Range/Units 06:12 06:12 10:58 RBC 4.08 L (4.10-5.20) X 10*6/uL Hgb 8.8 L (12.0-15.0) g/dL Hct 31.1 L (37.2-46.3) % MCV 76.2 L (80.0-97.0) FL MCH 21.6 L (27.0-32.0) pg MCHC 28.3 L (32.0-37.0) g/dL RDW 25.5 H (11.5-14.5) % Plt Count 476 H (140-440) X 10*3/uL Immature Gran # 0.20 H (0.00-0.04) X 10*3/uL Eosinophils # 0 L (0.04-0.35) X 10*3/uL NRBC/100 WBC Diff 0.30 H (0.00-0.01) X 10*3/uL Potassium 3.4 L (3.5-5.5) mmol/L Glucose 144 H (70-110) mg/dL POC Glucose (mg/dL) 221 H (70-110) mg/dL Calcium 8.6 L (8.7-10.3) mg/dL Total Protein 4.9 L (6.2-8.2) g/dL Albumin 2.9 L (3.8-4.9) g/dL Albumin/Globulin Ratio 1.45 L (1.60-3.17) Ratio Assessment and Plan (1) Anemia Current Visit: Yes Status: Acute Priority: High Code(s): D64.9 - ANEMIA, UNSPECIFIED SNOMED Code(s): 484782649 (2) GI bleed Current Visit: Yes Status: Acute Priority: High Code(s): K92.2 - GASTROINTESTINAL HEMORRHAGE, UNSPECIFIED SNOMED Code(s): 54373424 (3) Esophageal mass Current Visit: Yes Status: Acute Priority: High Code(s): K22.89 - OTHER SPECIFIED DISEASE OF ESOPHAGUS SNOMED Code(s): 068874290 (4) Esophageal cancer Current Visit: Yes Status: Acute Priority: High Code(s): C15.9 - MALIGNANT NEOPLASM OF ESOPHAGUS, UNSPECIFIED SNOMED Code(s): 709496175 (5) MGUS (monoclonal gammopathy of unknown significance) Current Visit: Yes Status: Acute Priority: Medium Code(s): D47.2 - MONOCLONAL GAMMOPATHY SNOMED Code(s): 629791279 Plan: Microcytic anemia: - Anemia workup ordered, suspect iron deficiency with new microcytic anemia since 05/2023. - Iron studies consistent with [place], parenteral iron ordered. No Vit B12 or folate def noted. - Immunofixation revealed IgG lambda paraprotein, M spike 0.16 , K/L light chain ratio mildly elevated at 1.68. Findings consistent with MGUS. No need for further workup at this time, will continue to monitor in outpt setting. - GI evaluation to rule out GIB. Underwent EGD/colonoscopy. Colonoscopy revealed small polyp in distal right colon. Mild diverticulosis in ascending and sigmoid colon. No acute bleeding noted. EGD revealed large hiatal hernia. With mass noted in distal esophagus. Mass appeared to be friable and was bleeding minimally. Esophageal mass biopsy positive invasive adenocarcinoma. - Monitor H/H, supportive transfusion to maintain Hgb >7 Esophageal adenocarcinoma: -Distal esophageal mass noted on EDG. Biopsy positive for invasive adenocarcinoma -CT CAP showed circumferential wall thickening of the distal esophagus. No lymphadenopathy seen at this time or evidence for distant metastatic disease -Will schedule outpt PET CT and EUS to complete staging of disease, as this will determine plan for treatment - NGS and PDL-1 requested on specimen - Clinic f/u will be scheduled to further discuss goals of care and treatment plan pending workup Patient and family updated on POC and were agreeable -Consult placed to case management for evaluation for home care and PT/OT attests: I have seen and examined patient, performed H&P, developed impression and plan of care. Discussed with dictator. Agree with documentation, dictated as a scribe
[2023-11-09 20:04] LABS: Glucose,Whole Blood 236 mg/dL (70-110)
[2023-11-10 06:07] LABS: Glucose,Whole Blood 119 mg/dL (70-110)
[2023-11-10 08:36] LABS: African American GFR (CKD) >90 (>60 ml/min/1.73 sqM); Anion Gap 2 mmol/L; Blood Urea Nitrogen 15 mg/dL (7-17); Calcium 8.4 mg/dL (8.4-10.2); Carbon Dioxide 32 mmol/L (22-30); Chloride 104 mmol/L (98-107); Glucose 89 mg/dL (74-99); Non-African American GFR(CKD) 81 (>60 ml/min/1.73 sqM); Potassium 3.3 mmol/L (3.5-5.1); Sodium 138 mmol/L (137-145)
[2023-11-10 10:56] LABS: Glucose,Whole Blood 226 mg/dL (70-110)
--- NOTE | 2023-11-10 12:43 | P.PN ---
Subjective Progress Note Date: 11/10/23 Ms. Barlow is a very pleasant 78 yo female with multiple comoribidities including atrial fibrillation and CHF on eliquis, who is here for increased weakness. Found to have Hgb 6.8, normal WBC and plt. Transfused and Hgb up to 8.3. MCV low at 74. Trending her labs, her Hgb was 11-13 as baseline prior to 05/2023, with MCV 80's, but since 05/2023, Hgb has been 7-8's, with MCV 70's. Denies any obvious bleeding. Had recent colonoscopy in 2022 which she says showed polyps that were removed. No prior EGD 11/09. Dr. Birch took over care from Dr. De Santiago. Lab work done this morning showed WBC 8.3, hemoglobin 8.8, platelet count 476, sodium 141, potassium 3.4. Denies any nausea or vomiting. Tolerating diet. 11/10. Patient seen and examined. Lab work done this morning showed sodium 138, potassium 3.3, BUN 15, creatinine 0.73. Swelling of legs is improved compared to yesterday. Complains of lethargy and weakness REVIEW OF SYSTEMS: CONSTITUTIONAL: No fever, no malaise,. CARDIOVASCULAR: No chest pain, no palpitations, no syncope. PULMONARY: No shortness of breath, no cough, GASTROINTESTINAL: No diarrhea, no nausea, no vomiting, no abdominal pain. NEUROLOGICAL: No headaches, no weakness, PHYSICAL EXAMINATION: GENERAL: The patient is alert and oriented x3, not in any acute distress. Well developed, well nourished. HEENT: Pupils are round and equally reacting to light. EOMI. No scleral icterus. No conjunctival pallor. Normocephalic, atraumatic. No pharyngeal erythema. No t hyromegaly. CARDIOVASCULAR: S1 and S2 present. No murmurs, rubs, or gallops. PULMONARY: Chest is clear to auscultation, no wheezing or crackles. ABDOMEN: Soft, nontender, nondistended, normoactive bowel sounds. No palpable organomegaly. MUSCULOSKELETAL: No joint swelling or deformity. EXTREMITIES: 1+ pitting edema lower extremities bilaterally NEUROLOGICAL: Gross neurological examination did not reveal any focal deficits. SKIN: No rashes. Assessment and plan GI bleed Esophageal adenocarcinoma Esophageal mass Weakness due to acute on chronic anemia Anemia likely due to iron deficiency GIB Pulmonary vascular congestion Acute on chronic decompensated systolic heart failure Monitor vital signs Monitor CBC Monitor CMP Continue aspirin and Lipitor Continue breathing treatments Continue IV Lasix 40 mg twice a day continue Toprol Iron studies consistent with [place] Patient underwent EGD/colonoscopy. Colonoscopy revealed small polyp in distal right colon. Mild diverticulosis in ascending and sigmoid colon. No acute bleeding noted. EGD revealed large hiatal hernia. With mass noted in distal esophagus. Mass appeared to be friable and was bleeding minimally. Esophageal mass biopsy positive invasive adenocarcinoma. Hematology oncology following, recommend outpatient PET/CT and EUS. Surgery following Cardiology consulted, recommend holding off on anticoagulation for now Labs and medication were reviewed.. Continue same treatment. Continue with symptomatic treatment. Resume home medication. Monitor labs and vitals. DVT and GI prophylaxis. Further recommendations as per clinical course of the patient Dictation was produced using [employer] dictation software. please excuse any grammatical, word or spelling errors. Objective - Vital Signs Vital signs: Vital Signs Temp 97.9 F 11/10/23 07:23 Pulse 98 11/10/23 09:17 Resp 17 11/10/23 07:23 BP 131/72 11/10/23 07:23 Pulse Ox 98 11/10/23 07:23 FiO2 Intake & Output 11/09/23 11/10/23 11/10/23 18:59 06:59 18:59 Weight 93.5 kg Other: Voiding Method Bedside Commode # Voids 4 6 # Bowel Movements 1 - Labs CBC & Chem 7: 11/09/23 06:12 11/10/23 07:05 Labs: Abnormal Lab Results - Last 24 Hours (Table) 11/09/23 11/09/23 11/09/23 Range/Units 10:58 17:08 19:54 Potassium (3.5-5.1) mmol/L Carbon Dioxide (22-30) mmol/L POC Glucose (mg/dL) 221 H 292 H 236 H (70-110) mg/dL 11/10/23 11/10/23 Range/Units 06:01 07:05 Potassium 3.3 L (3.5-5.1) mmol/L Carbon Dioxide 32 H (22-30) mmol/L POC Glucose (mg/dL) 119 H (70-110) mg/dL
--- NOTE | 2023-11-10 14:23 | P.PN ---
Subjective Progress Note Date: 11/10/23 SUBJECTIVE: BUN 15, creatinine 0.7, hemoglobin 8.8 In atrial fibrillation with a average heart rate around 100 bpm on telemetry, blood pressure 125/68 No new complaints at this time. Still appears to be volume overloaded. History of present illness: Is a pleasant 78-year-old female patient who resides in an extended care facility. She has a history of hypertension, diet-controlled diabetes, recently diagnosed atrial fibrillation and has been on Eliquis for the last 2 to 3 weeks. She was recently admitted here the beginning of October with complaints of shortness of breath at which time she was treated for CHF and noted to have a hemoglobin around 7.5. Echocardiogram at that time showed a normal LV systolic function with moderate to severe pulmonary hypertension. She was discharged home for plans for follow-up with Dr. Mitchell in the office. She was subsequently readmitted to [facility] and found to have new onset paroxysmal atrial fibrillation and was initiated on Eliquis. She was admitted here this admission on November 02 with complaints of weakness and a hemoglobin drawn as an outpatient of 6.9. We were asked to see the patient in consultation for recommendations regarding the anticoagulation. 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 She was seen by Dr. Barnes who felt she is a very high risk candidate and recommended management with chemotherapy and radiation. The patient is anticipating second opinion likely at [facility]. She denies any evidence of melena or gross bleeding. She does feel occasional palpitations and at times mild dizziness but no syncope. She complains of recent edema and 5 pound weight gain this admission. She is short of breath with minimal activity and that has been going on since the beginning of October. She denies any chest discomfort, orthopnea or PND. She has had no nausea or vomiting. PHYSICAL EXAMINATION Vital signs reviewed. Head: Normocephalic. Eyes: Sclerae nonicteric. Neck: Brisk carotid upstroke has elevated JVD Lungs: Mild crackles audible. Heart: Irregularly irregular pulse, no significant murmurs. Abdomen: Soft nontender, bowel sounds present, Extremities: 2+ pitting edema bilateral lower extremity, Neuro: Alert, oriented, no focal neurological deficits. Detailed neuro exam was not performed. ASSESSMENT Congestive heart failure, HFpEF, EF 60%, moderate concentric LVH Severe pulmonary hypertension Anemia likely related to mass in esophagus. It is post EGD and colonoscopy showing antral gastritis, lower esophagus mass, large hiatal hernia, diverticulosis, right colonic polyp, Invasive adenocarcinoma involving distal esophagus Paroxysmal atrial fibrillation Hypertension Type 2 diabetes Dyslipidemia Lower extremity edema PLAN Continue aspirin, atorvastatin, Farxiga Discontinue amiodarone as decided by Dr. Foster as it is very difficult to keep patient in sinus rhythm with amiodarone therapy. Continue metoprolol 50 mg twice daily Continue Lasix 40 mg IV twice daily. Start Aldactone 25 mg daily Jeovany Moise MD, FACC, RPVI Thank you for allowing [facility] to participate in this patient's care. Please contact us in case of any followup questions. Objective - Vital Signs Vital signs: Vital Signs Temp 97.7 F 11/10/23 13:05 Pulse 76 11/10/23 13:05 Resp 16 11/10/23 13:05 BP 96/65 11/10/23 13:05 Pulse Ox 97 11/10/23 13:05 FiO2 Intake & Output 11/09/23 11/10/23 11/10/23 18:59 06:59 18:59 Weight 93.5 kg Other: Voiding Method Bedside Commode # Voids 4 6 # Bowel Movements 1 - Labs CBC & Chem 7: 11/09/23 06:12 11/10/23 07:05 Labs: Abnormal Lab Results - Last 24 Hours (Table) 11/09/23 11/09/23 11/10/23 Range/Units 17:08 19:54 06:01 Potassium (3.5-5.1) mmol/L Carbon Dioxide (22-30) mmol/L POC Glucose (mg/dL) 292 H 236 H 119 H (70-110) mg/dL 11/10/23 11/10/23 Range/Units 07:05 10:54 Potassium 3.3 L (3.5-5.1) mmol/L Carbon Dioxide 32 H (22-30) mmol/L POC Glucose (mg/dL) 226 H (70-110) mg/dL
[2023-11-10] MEDS: SPIRONOLACTONE 25 MG TAB PO SCH (15:41)
[2023-11-10 16:32] LABS: Glucose,Whole Blood 280 mg/dL (70-110)
[2023-11-10 20:01] LABS: Glucose,Whole Blood 351 mg/dL (70-110)
[2023-11-11 06:02] LABS: Glucose,Whole Blood 98 mg/dL (70-110)
[2023-11-11 09:41] LABS: Basophils # (A) 0.01 X 10*3/uL (0.00-0.10); Basophils % (A) 0.1 %; Eosinophils # (A) 0.01 X 10*3/uL (0.04-0.35); Eosinophils % (A) 0.1 %; HCT 34.3 % (37.2-46.3); HGB 9.4 g/dL (12.0-15.0); Lymphocytes # (A) 1.46 X 10*3/uL (0.90-5.00); Lymphocytes % (A) 14.8 %; MCHC 27.4 g/dL (32.0-37.0); MCV 80.1 FL (80.0-97.0); Mean Platelet Volume 9.8 FL (9.5-12.2); Monocytes % (A) 7.1 %; NRBC Per 100 WBC 0.02 X 10*3/uL (0.00-0.01); Neutrophils # (A) 7.58 X 10*3/uL (1.80-7.70); Neutrophils % (A) 76.9 %; Platelet Count 442 X 10*3/uL (140-440); RBC 4.28 X 10*6/uL (4.10-5.20); WBC 9.86 X 10*3/uL (4.50-10.00)
[2023-11-11 09:57] LABS: ALT 19 U/L (8-44); AST 15 U/L (13-35); Albumin 2.9 g/dL (3.8-4.9); Albumin/Globulin Ratio 1.38 Ratio (1.60-3.17); Alkaline Phosphatase 80 U/L (41-126); Blood Urea Nitrogen 15.6 mg/dL (9.0-27.0); Calcium 8.5 mg/dL (8.7-10.3); Carbon Dioxide 30.9 mmol/L (21.6-31.8); Chloride 102 mmol/L (96-109); Globulin 2.1 g/dL (1.6-3.3); Glucose 80 mg/dL (70-110); Potassium 3.3 mmol/L (3.5-5.5); Sodium 141 mmol/L (135-145); Total Bilirubin 0.4 mg/dL (0.3-1.2)
[2023-11-11 11:31] LABS: Glucose,Whole Blood 263 mg/dL (70-110)
--- NOTE | 2023-11-11 12:01 | P.PN ---
Subjective Progress Note Date: 11/11/23 Ms. Barlow is a very pleasant 78 yo female with multiple comoribidities including atrial fibrillation and CHF on eliquis, who is here for increased weakness. Found to have Hgb 6.8, normal WBC and plt. Transfused and Hgb up to 8.3. MCV low at 74. Trending her labs, her Hgb was 11-13 as baseline prior to 05/2023, with MCV 80's, but since 05/2023, Hgb has been 7-8's, with MCV 70's. Denies any obvious bleeding. Had recent colonoscopy in 2022 which she says showed polyps that were removed. No prior EGD 11/09. Dr. Birch took over care from Dr. De Santiago. Lab work done this morning showed WBC 8.3, hemoglobin 8.8, platelet count 476, sodium 141, potassium 3.4. Denies any nausea or vomiting. Tolerating diet. 11/10. Patient seen and examined. Lab work done this morning showed sodium 138, potassium 3.3, BUN 15, creatinine 0.73. Swelling of legs is improved compared to yesterday. Complains of lethargy and weakness 11/11. Patient seen and examined. Continues to feel better. Hemoglobin is stable. No episodes of blood in stool. Blood work done this morning showed WBC 9.8, hemoglobin 9.4, platelet count 442, sodium 141, potassium 3.3, BUN 15.6, creatinine 0.8 REVIEW OF SYSTEMS: CONSTITUTIONAL: No fever, no malaise,. CARDIOVASCULAR: No chest pain, no palpitations, no syncope. PULMONARY: No shortness of breath, no cough, GASTROINTESTINAL: No diarrhea, no nausea, no vomiting, no abdominal pain. NEUROLOGICAL: No headaches, no weakness, PHYSICAL EXAMINATION: GENERAL: The patient is alert and oriented x3, not in any acute distress. Well developed, well nourished. HEENT: Pupils are round and equally reacting to light. EOMI. No scleral icterus. No conjunctival pallor. Normocephalic, atraumatic. No pharyngeal erythema. No thyromegaly. CARDIOVASCULAR: S1 and S2 present. No murmurs, rubs, or gallops. PULMONARY: Chest is clear to auscultation, no wheezing or crackles. ABDOMEN: Soft, nontender, nondistended, normoactive bowel sounds. No palpable organomegaly. MUSCULOSKELETAL: No joint swelling or deformity. EXTREMITIES: 1+ pitting edema lower extremities bilaterally NEUROLOGICAL: Gross neurological examination did not reveal any focal deficits. SKIN: No rashes. Assessment and plan GI bleed Esophageal adenocarcinoma Esophageal mass Weakness due to acute on chronic anemia Anemia likely due to iron deficiency GIB Pulmonary vascular congestion Acute on chronic decompensated systolic heart failure Monitor vital signs Monitor CBC Monitor CMP Continue aspirin and Lipitor Continue breathing treatments Continue IV Lasix 40 mg twice a day continue Toprol Iron studies consistent with [place] Patient underwent EGD/colonoscopy. Colonoscopy revealed small polyp in distal right colon. Mild diverticulosis in ascending and sigmoid colon. No acute bleeding noted. EGD revealed large hiatal hernia. With mass noted in distal esophagus. Mass appeared to be friable and was bleeding minimally. Esophageal mass biopsy positive invasive adenocarcinoma. Hematology oncology following, recommend outpatient PET/CT and EUS. Surgery following Cardiology consulted, recommend holding off on anticoagulation for now, discontinue amiodarone Labs and medication were reviewed.. Continue same treatment. Continue with symptomatic treatment. Resume home medication. Monitor labs and vitals. DVT and GI prophylaxis. Further recommendations as per clinical course of the patient Dictation was produced using [employer] dictation software. please excuse any grammatical, word or spelling errors. Objective - Vital Signs Vital signs: Vital Signs Temp 97.4 F L 11/11/23 07:50 Pulse 85 11/11/23 07:50 Resp 17 11/11/23 07:50 BP 125/79 11/11/23 07:50 Pulse Ox 99 11/11/23 07:50 FiO2 Intake & Output 11/10/23 11/11/23 11/11/23 18:59 06:59 18:59 Output Total 101 Balance -101 Weight 94 kg Output: Urine 100 Urine/Stool Mix 1 Other: # Voids 6 5 # Bowel Movements 2 - Labs CBC & Chem 7: 11/11/23 06:41 11/11/23 06:41 Labs: Abnormal Lab Results - Last 24 Hours (Table) 11/10/23 11/10/23 11/10/23 Range/Units 10:54 16:30 19:30 POC Glucose (mg/dL) 226 H 280 H 351 H (70-110) mg/dL
[2023-11-11] MEDS: POTASSIUM CHLORIDE ER 20 MEQ TAB.ER PO STA (13:50)
--- NOTE | 2023-11-11 15:21 | P.PN ---
Subjective Progress Note Date: 11/11/23 Progress note 11/11/2023 BP 103/68, heart rate 80 bpm, Labs shows hemoglobin 9.4, BUN 15, creatinine 0.8 Patient still appears volume overloaded. She reports mild improvement in her clinical symptoms overall. She reports mild improvement in her shortness of breath. SUBJECTIVE: BUN 15, creatinine 0.7, hemoglobin 8.8 In atrial fibrillation with a average heart rate around 100 bpm on telemetry, blood pressure 125/68 No new complaints at this time. Still appears to be volume overloaded. History of present illness: Is a pleasant 78-year-old female patient who resides in an [facility]. She has a history of hypertension, diet-controlled diabetes, recently diagnosed atrial fibrillation and has been on Eliquis for the last 2 to 3 weeks. She was recently admitted here the beginning of October with complaints of shortness of breath at which time she was treated for CHF and noted to have a hemoglobin around 7.5. Echocardiogram at that time showed a normal LV systolic function with moderate to severe pulmonary hypertension. She was discharged home for plans for follow-up with Dr. Mitchell in the office. She was subsequently readmitted to [facility] and found to have new onset paroxysmal atrial fibrillation and was initiated on Eliquis. She was admitted here this admission on November 02 with complaints of weakness and a hemoglobin drawn as an outpatient of 6.9. We were asked to see the patient in consultation for recommendations regarding the anticoagulation. 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 She was seen by Dr. Barnes who felt she is a very high risk candidate and recommended management with chemotherapy and radiation. The patient is anticipating second opinion likely at [facility]. She denies any evidence of melena or gross bleeding. She does feel occasional palpitations and at times mild dizziness but no syncope. She complains of r ecent edema and 5 pound weight gain this admission. She is short of breath with minimal activity and that has been going on since the beginning of October. She denies any chest discomfort, orthopnea or PND. She has had no nausea or vomiting. PHYSICAL EXAMINATION Vital signs reviewed. Head: Normocephalic. Eyes: Sclerae nonicteric. Neck: Brisk carotid upstroke has elevated JVD Lungs: Rhonchi. Very poor inspiratory effort. Heart: Irregularly irregular pulse, no significant murmurs. Abdomen: Soft nontender, bowel sounds present, Extremities: 2+ pitting edema bilateral lower extremity, Neuro: Alert, oriented, no focal neurological deficits. Detailed neuro exam was not performed. ASSESSMENT Congestive heart failure, HFpEF, EF 60%, moderate concentric LVH Severe pulmonary hypertension Anemia likely related to mass in esophagus. It is post EGD and colonoscopy showing antral gastritis, lower esophagus mass, large hiatal hernia, diverticulosis, right colonic polyp, Invasive adenocarcinoma involving distal esophagus Paroxysmal atrial fibrillation Hypertension Type 2 diabetes Dyslipidemia Lower extremity edema PLAN Continue aspirin, atorvastatin, Farxiga Discontinue amiodarone as decided by Dr. Foster as it is very difficult to keep patient in sinus rhythm with amiodarone therapy. Continue metoprolol 50 mg twice daily Continue Lasix 40 mg IV twice daily. Start Aldactone 25 mg daily Other comorbidities to be managed by primary team. Recommend oral iron, protein, B12 folate supplementation, PT and OT Pulmonary toilet. In spite of spirometry, flutter valve and chest percussions Jeovany Moise MD, FACC, RPVI Thank you for allowing [facility] to participate in this patient's care. Please contact us in case of any followup questions. Objective - Vital Signs Vital signs: Vital Signs Temp 97.8 F 11/11/23 13:15 Pulse 89 11/11/23 13:15 Resp 18 11/11/23 13:15 BP 103/68 11/11/23 13:15 Pulse Ox 99 11/11/23 13:15 FiO2 Intake & Output 11/10/23 11/11/23 11/11/23 18:59 06:59 18:59 Output Total 101 Balance -101 Weight 94 kg Output: Urine 100 Urine/Stool Mix 1 Other: # Voids 6 5 # Bowel Movements 2 - Labs CBC & Chem 7: 11/11/23 06:41 11/11/23 06:41 Labs: Abnormal Lab Results - Last 24 Hours (Table) 11/10/23 11/10/23 11/11/23 Range/Units 16:30 19:30 06:41 Hgb 9.4 L (12.0-15.0) g/dL Hct 34.3 L (37.2-46.3) % MCH 22.0 L (27.0-32.0) pg MCHC 27.4 L (32.0-37.0) g/dL RDW 28.0 H (11.5-14.5) % Plt Count 442 H (140-440) X 10*3/uL Immature Gran # 0.10 H (0.00-0.04) X 10*3/uL Eosinophils # 0.01 L (0.04-0.35) X 10*3/uL NRBC/100 WBC Diff 0.02 H (0.00-0.01) X 10*3/uL Potassium (3.5-5.5) mmol/L POC Glucose (mg/dL) 280 H 351 H (70-110) mg/dL Calcium (8.7-10.3) mg/dL Total Protein (6.2-8.2) g/dL Albumin (3.8-4.9) g/dL Albumin/Globulin Ratio (1.60-3.17) Ratio 11/11/23 11/11/23 Range/Units 06:41 11:30 Hgb (12.0-15.0) g/dL Hct (37.2-46.3) % MCH (27.0-32.0) pg MCHC (32.0-37.0) g/dL RDW (11.5-14.5) % Plt Count (140-440) X 10*3/uL Immature Gran # (0.00-0.04) X 10*3/uL Eosinophils # (0.04-0.35) X 10*3/uL NRBC/100 WBC Diff (0.00-0.01) X 10*3/uL Potassium 3.3 L (3.5-5.5) mmol/L POC Glucose (mg/dL) 263 H (70-110) mg/dL Calcium 8.5 L (8.7-10.3) mg/dL Total Protein 5.0 L (6.2-8.2) g/dL Albumin 2.9 L (3.8-4.9) g/dL Albumin/Globulin Ratio 1.38 L (1.60-3.17) Ratio
[2023-11-11 16:33] LABS: Glucose,Whole Blood 259 mg/dL (70-110)
[2023-11-11 19:55] LABS: Glucose,Whole Blood 326 mg/dL (70-110)
[2023-11-12 06:10] LABS: Glucose,Whole Blood 163 mg/dL (70-110)
[2023-11-12 08:32] LABS: Basophils # (A) 0.01 X 10*3/uL (0.00-0.10); Basophils % (A) 0.1 %; Eosinophils # (A) 0 X 10*3/uL (0.04-0.35); Eosinophils % (A) 0 %; HCT 31.8 % (37.2-46.3); Lymphocytes # (A) 1.26 X 10*3/uL (0.90-5.00); Lymphocytes % (A) 13.7 %; MCH 22.5 pg (27.0-32.0); MCHC 28.3 g/dL (32.0-37.0); MCV 79.5 FL (80.0-97.0); Mean Platelet Volume 10.1 FL (9.5-12.2); Monocytes # (A) 0.71 X 10*3/uL (0.20-1.00); Monocytes % (A) 7.7 %; NRBC Per 100 WBC 0 X 10*3/uL (0.00-0.01); Neutrophils # (A) 7.17 X 10*3/uL (1.80-7.70); Neutrophils % (A) 77.6 %; Platelet Count 410 X 10*3/uL (140-440); RDW 27.9 % (11.5-14.5); WBC 9.23 X 10*3/uL (4.50-10.00)
[2023-11-12 08:52] LABS: ALT 16 U/L (8-44); AST 13 U/L (13-35); Albumin/Globulin Ratio 1.58 Ratio (1.60-3.17); Alkaline Phosphatase 78 U/L (41-126); BUN/Creat Ratio 24.57 Ratio (12.00-20.00); Blood Urea Nitrogen 17.2 mg/dL (9.0-27.0); Calcium 8.9 mg/dL (8.7-10.3); Carbon Dioxide 29.1 mmol/L (21.6-31.8); Chloride 103 mmol/L (96-109); Globulin 1.9 g/dL (1.6-3.3); Glucose 136 mg/dL (70-110); Potassium 3.6 mmol/L (3.5-5.5); Sodium 142 mmol/L (135-145); Total Bilirubin 0.3 mg/dL (0.3-1.2); Total Protein 4.9 g/dL (6.2-8.2)
[2023-11-12 11:26] LABS: Glucose,Whole Blood 166 mg/dL (70-110)
--- NOTE | 2023-11-12 11:39 | P.DS ---
Providers Date of admission: 11/02/23 20:55 Expected date of discharge: 11/12/23 Attending physician: Peter De Santiago Consults: 11/02/23 21:48 Consult Physician Urgent Consulting Provider: Gaurav Correa Consult Reason/Comments: stool occult blood Do you want consulting provider notified?: Yes 11/03/23 09:14 Consult Physician Routine Consulting Provider: Mikel Fletcher Consult Reason/Comments: anemia Do you want consulting provider notified?: Yes 11/07/23 17:07 Consult Physician Routine Consulting Provider: Mikel Fletcher Consult Reason/Comments: esophageal cancer Do you want consulting provider notified?: Yes 11/09/23 10:28 Consult Physician Routine Consulting Provider: Jj Crews Consult Reason/Comments: History of atrial fibr on anticoagulation, currently diagnosed GI bleed Do you want consulting provider notified?: Yes Primary care physician: Peter De Santiago [facility] Course: Discharge diagnoses; Hospital course; Ms. Barlow is a very pleasant 78 yo female with multiple comoribidities including atrial fibrillation and CHF on eliquis, who is here for increased weakness. Found to have Hgb 6.8, normal WBC and plt. Transfused and Hgb up to 8.3. MCV low at 74. Trending her labs, her Hgb was 11-13 as baseline prior to 05/2023, with MCV 80's, but since 05/2023, Hgb has been 7-8's, with MCV 70's. Denies any obvious bleeding. Had recent colonoscopy in 2022 which she says showed polyps that were removed. No prior EGD Patient underwent EGD/colonoscopy. Colonoscopy revealed small polyp in distal right colon. Mild diverticulosis in ascending and sigmoid colon. No acute bleeding noted. EGD revealed large hiatal hernia. With mass noted in distal esophagus. Mass appeared to be friable and was bleeding minimally. Esophageal mass biopsy positive invasive adenocarcinoma. Hematology oncology following, recommend outpatient PET/CT and EUS. Surgery following Cardiology consulted, recommend holding off on anticoagulation for now, discontinue amiodarone 11/09. Dr. Birch took over care from Dr. De Santiago. Lab work done this morning showed WBC 8.3, hemoglobin 8.8, platelet count 476, sodium 141, potassium 3.4. Denies any nausea or vomiting. Tolerating diet. 11/10. Patient seen and examined. Lab work done this morning showed sodium 138, potassium 3.3, BUN 15, creatinine 0.73. Swelling of legs is improved compared to yesterday. Complains of lethargy and weakness 11/11. Patient seen and examined. Continues to feel better. Hemoglobin is stable. No episodes of blood in stool. Blood work done this morning showed WBC 9.8, hemoglobin 9.4, platelet count 442, sodium 141, potassium 3.3, BUN 15.6, creatinine 0.8 11/12. Patient seen and examined. Lab work done this morning showed WBC 9.23, hemoglobin 9, platelet count 410, sodium 142, potassium 3.6, BUN 17.2, creatinine 0.7. Cardiology recommended discharging patient on Lasix twice a day. Outpatient follow-up with cardiology PHYSICAL EXAMINATION: GENERAL: The patient is alert and oriented x3, not in any acute distress. Well developed, well nourished. HEENT: Pupils are round and equally reacting to light. EOMI. No scleral icterus. No conjunctival pallor. Normocephalic, atraumatic. No pharyngeal erythema. No thyromegaly. CARDIOVASCULAR: S1 and S2 present. No murmurs, rubs, or gallops. PULMONARY: Chest is clear to auscultation, no wheezing or crackles. ABDOMEN: Soft, nontender, nondistended, normoactive bowel sounds. No palpable organomegaly. MUSCULOSKELETAL: No joint swelling or deformity. EXTREMITIES: 1+ pitting edema lower extremities bilaterally NEUROLOGICAL: Gross neurological examination did not reveal any focal deficits. SKIN: No rashes. Dictation was produced using [employer] dictation software. please excuse any grammatical, word or spelling errors. Plan - Discharge Summary Discharge Rx Participant: No New Discharge Prescriptions: New Spironolactone [Aldactone] 25 mg PO DAILY #30 tab Dapagliflozin Propanediol [Farxiga] 10 mg PO DAILY 30 Days #30 tab Continue Aspirin EC [Ecotrin Low Dose] 81 mg PO DAILY@0900 Atorvastatin [Lipitor] 40 mg PO HS@2100 Empagliflozin [Jardiance] 10 mg PO DAILY@0900 Ipratropium-Albuterol Nebulize [Duoneb 0.5 mg-3 mg/3 ml Soln] 3 ml INHALATION RT-QID@00,06,12,18 Lactulose 20 gm PO TID@,, metFORMIN HCL [Glucophage] 500 mg PO BID@0900,2099 Metoprolol Tartrate [Lopressor] 50 mg PO BID@0900,2099 PRN PRN Reason: HOLD IF SBP <100 OR HR <60 Potassium Bicarbonate/Cit AC [K-Lyte] 20 meq PO DAILY@0900 Montelukast [Singulair] 10 mg PO HS@2099 Gabapentin 300 mg PO TID@0900,1300,2099 Budesonide [Pulmicort] 0.5 mg INHALATION RT-BID@0600,1800 Melatonin 10 mg PO HS@2099 Ondansetron [Zofran] 4 mg PO Q8H PRN PRN Reason: Nausea Changed Pantoprazole [Protonix] 40 mg PO BID #60 tab Furosemide [Lasix] 40 mg PO BID #30 tab Discontinued Amiodarone [Cordarone] 200 mg PO BID@0900,2099 Apixaban [Eliquis] 5 mg PO BID@0900,2099 Discharge Medication List Montelukast [Singulair] 10 mg PO HS@209907/31/22 [History] Gabapentin 300 mg PO TID@0900,1300,2100 10/06/23 [History] Aspirin EC [Ecotrin Low Dose] 81 mg PO DAILY@89911/03/23 [History] Atorvastatin [Lipitor] 40 mg PO HS@209911/03/23 [History] Budesonide [Pulmicort] 0.5 mg INHALATION RT-BID@0600,1800 11/03/23 [History] Empagliflozin [Jardiance] 10 mg PO DAILY@89911/03/23 [History] Ipratropium-Albuterol Nebulize [Duoneb 0.5 mg-3 mg/3 ml Soln] 3 ml INHALATION RT-QID@00,06,12,18 11/03/23 [History] Lactulose 20 gm PO TID@,,11/03/23 [History] Melatonin 10 mg PO HS@209911/03/23 [History] Metoprolol Tartrate [Lopressor] 50 mg PO BID@0900,2100 PRN 11/03/23 [History] Ondansetron [Zofran] 4 mg PO Q8H PRN 11/03/23 [History] Potassium Bicarbonate/Cit AC [K-Lyte] 20 meq PO DAILY@0900 11/03/23 [History] metFORMIN HCL [Glucophage] 500 mg PO BID@0900,2100 11/03/23 [History] Dapagliflozin Propanediol [Farxiga] 10 mg PO DAILY 30 Days #30 tab 11/12/23 [Rx] Furosemide [Lasix] 40 mg PO BID #30 tab 11/12/23 [Rx] Pantoprazole [Protonix] 40 mg PO BID #60 tab 11/12/23 [Rx] Spironolactone [Aldactone] 25 mg PO DAILY #30 tab 11/12/23 [Rx] Follow up Appointment(s)/Referral(s): Van Mo MD [STAFF PHYSICIAN] - 1-2 days [facility] Visiting Nurse, [NON-STAFF] - 1-2 Days Discharge Disposition: HOME WITH HOME HEALTH SERVICES
--- NOTE | 2023-11-12 12:08 | P.PN ---
Subjective HISTORY OF PRESENT ILLNESS: 11/09/2023 This is a pleasant 78-year-old female patient who resides in an extended care facility. She has a history of hypertension, diet-controlled diabetes, recently diagnosed atrial fibrillation and has been on Eliquis for the last 2 to 3 weeks. She was recently admitted here the beginning of October with complaints of shortness of breath at which time she was treated for CHF and noted to have a hemoglobin around 7.5. Echocardiogram at that time showed a normal LV systolic function with moderate to severe pulmonary hypertension. She was discharged home for plans for follow-up with Dr. Mitchell in the office. She was subsequently readmitted to [facility] and found to have new onset paroxysmal atrial fibrillation and was initiated on Eliquis. She was admitted here this admission on November 02 with complaints of weakness and a hemoglobin drawn as an outpatient of 6.9. We were asked to see the patient in consultation for recommendations regarding the anticoagulation. 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 She was seen by Dr. Barnes who felt she is a very high risk candidate and recommended management with chemotherapy and radiation. The patient is anticipating second opinion likely at [facility]. She denies any evidence of melena or gross bleeding. She does feel occasional palp itations and at times mild dizziness but no syncope. She complains of recent edema and 5 pound weight gain this admission. She is short of breath with minimal activity and that has been going on since the beginning of October. She denies any chest discomfort, orthopnea or PND. She has had no nausea or vomiting. 11/12/2023 Patient examined this morning at the bedside. Patient currently denies chest pain or pressure. She denies shortness of breath. She remains on IV Lasix. She continues to have lower extremity swelling although improved. Vital signs are stable. The patient is being discharged home today with home care. PHYSICAL EXAM: VITAL SIGNS: Reviewed. GENERAL: Well-developed in no acute distress. NECK: Supple. No JVD or thyromegaly LUNGS: Respirations even and unlabored. Lungs essentially clear to auscultation bilaterally, diminished. HEART: Regular rate and rhythm. S1 and S2 heard. EXTREMITIES: Normal range of motion. No clubbing or cyanosis. Peripheral pulses intact. 2+ bilateral lower extremity edema ASSESSMENT: Anemia, likely secondary to esophageal mass. Status post EGD and colonoscopy revealing antral gastritis, lower esophagus mass, large hiatal hernia, diverticulosis, and right colonic polyp Invasive adenocarcinoma involving distal esophagus Paroxysmal atrial fibrillation Acute on chronic heart failure with preserved EF, 60% Hypertension Hyperlipidemia Diabetes PLAN: Continue to hold anticoagulation secondary to anemia Patient is being discharged home with home care today. Recommend Lasix 40 mg twice a day upon discharge Further recommendations pending patient course Nurse practitioner note has been reviewed by physician. Signing provider agrees with the documented findings, assessment, and plan of care documented by REFRESH TECHNICIAN as a scribe. Objective - Vital Signs Vital signs: Vital Signs Temp 98.1 F 11/12/23 06:57 Pulse 85 11/12/23 09:31 Resp 18 11/12/23 08:00 BP 130/85 11/12/23 06:57 Pulse Ox 100 11/12/23 06:57 FiO2 Intake & Output 11/11/23 11/12/23 11/12/23 18:59 06:59 18:59 Intake Total 500 Balance 500 Weight 94 kg Intake: Oral 500 Other: Voiding Method Bedside Commode # Voids 3 4 - Labs CBC & Chem 7: 11/12/23 05:46 11/12/23 05:46 Labs: Abnormal Lab Results - Last 24 Hours (Table) 11/11/23 11/11/23 11/12/23 Range/Units 16:30 19:54 05:46 RBC 4.00 L (4.10-5.20) X 10*6/uL Hgb 9.0 L (12.0-15.0) g/dL Hct 31.8 L (37.2-46.3) % MCV 79.5 L (80.0-97.0) FL MCH 22.5 L (27.0-32.0) pg MCHC 28.3 L (32.0-37.0) g/dL RDW 27.9 H (11.5-14.5) % Immature Gran # 0.08 H (0.00-0.04) X 10*3/uL Eosinophils # 0 L (0.04-0.35) X 10*3/uL BUN/Creatinine Ratio (12.00-20.00) Ratio Glucose (70-110) mg/dL POC Glucose (mg/dL) 259 H 326 H (70-110) mg/dL Total Protein (6.2-8.2) g/dL Albumin (3.8-4.9) g/dL Albumin/Globulin Ratio (1.60-3.17) Ratio 11/12/23 11/12/23 11/12/23 Range/Units 05:46 06:09 11:24 RBC (4.10-5.20) X 10*6/uL Hgb (12.0-15.0) g/dL Hct (37.2-46.3) % MCV (80.0-97.0) FL MCH (27.0-32.0) pg MCHC (32.0-37.0) g/dL RDW (11.5-14.5) % Immature Gran # (0.00-0.04) X 10*3/uL Eosinophils # (0.04-0.35) X 10*3/uL BUN/Creatinine Ratio 24.57 H (12.00-20.00) Ratio Glucose 136 H (70-110) mg/dL POC Glucose (mg/dL) 163 H 166 H (70-110) mg/dL Total Protein 4.9 L (6.2-8.2) g/dL Albumin 3.0 L (3.8-4.9) g/dL Albumin/Globulin Ratio 1.58 L (1.60-3.17) Ratio
--- NOTE | 2023-11-12 13:33 | P.PN ---
Subjective Progress Note Date: 11/12/23 CHIEF COMPLAINT: Anemia HISTORY OF PRESENT ILLNESS: Patient is status post EGD and colonoscopy revealing antral gastritis, lower esophageal mass with minimal bleeding, large hiatal hernia diverticulosis, right colon polyp and diverticulosis. Biopsy results positive for invasive adenocarcinoma of the esophagus. Patient denies any abdominal pain. She is tolerating diet. Hemoglobin stable at 9.4. Vital stable. PHYSICAL EXAM: VITAL SIGNS: Reviewed. GENERAL: Well-developed in no acute distress. ABDOMEN: Soft. Nondistended. Nontender. NEUROLOGIC: Alert and oriented. Cranial nerves II through XII grossly intact. ASSESSMENT: 1. Anemia likely related to bleeding from the lower esophageal mass. Biopsy result positive for adenocarcinoma of the esophagus 2. Status post EGD and colonoscopy revealing antral gastritis, lower esophageal mass with minimal bleeding, large hiatal hernia diverticulosis, right colon polyp and diverticulosis. PLAN: -Continue regular diet -Patient can be discharged from surgical standpoint when medically cleared -Follow-up with oncology service outpatient Physician Controller Instructor note has been reviewed by physician. Signing provider agrees with the documented findings, assessment, and plan of care. Objective - Vital Signs Vital signs: Vital Signs Temp 98.1 F 11/12/23 06:57 Pulse 85 11/12/23 09:31 Resp 18 11/12/23 08:00 BP 130/85 11/12/23 06:57 Pulse Ox 100 11/12/23 06:57 FiO2 Intake & Output 11/11/23 11/12/23 11/12/23 18:59 06:59 18:59 Intake Total 500 Balance 500 Weight 94 kg Intake: Oral 500 Other: Voiding Method Bedside Commode # Voids 3 4 - Labs CBC & Chem 7: 11/12/23 05:46 11/12/23 05:46 Labs: Abnormal Lab Results - Last 24 Hours (Table) 11/11/23 11/11/23 11/12/23 Range/Units 16:30 19:54 05:46 RBC 4.00 L (4.10-5.20) X 10*6/uL Hgb 9.0 L (12.0-15.0) g/dL Hct 31.8 L (37.2-46.3) % MCV 79.5 L (80.0-97.0) FL MCH 22.5 L (27.0-32.0) pg MCHC 28.3 L (32.0-37.0) g/dL RDW 27.9 H (11.5-14.5) % Immature Gran # 0.08 H (0.00-0.04) X 10*3/uL Eosinophils # 0 L (0.04-0.35) X 10*3/uL BUN/Creatinine Ratio (12.00-20.00) Ratio Glucose (70-110) mg/dL POC Glucose (mg/dL) 259 H 326 H (70-110) mg/dL Total Protein (6.2-8.2) g/dL Albumin (3.8-4.9) g/dL Albumin/Globulin Ratio (1.60-3.17) Ratio 11/12/23 11/12/23 11/12/23 Range/Units 05:46 06:09 11:24 RBC (4.10-5.20) X 10*6/uL Hgb (12.0-15.0) g/dL Hct (37.2-46.3) % MCV (80.0-97.0) FL MCH (27.0-32.0) pg MCHC (32.0-37.0) g/dL RDW (11.5-14.5) % Immature Gran # (0.00-0.04) X 10*3/uL Eosinophils # (0.04-0.35) X 10*3/uL BUN/Creatinine Ratio 24.57 H (12.00-20.00) Ratio Glucose 136 H (70-110) mg/dL POC Glucose (mg/dL) 163 H 166 H (70-110) mg/dL Total Protein 4.9 L (6.2-8.2) g/dL Albumin 3.0 L (3.8-4.9) g/dL Albumin/Globulin Ratio 1.58 L (1.60-3.17) Ratio
[2023-11-12 15:05] VITALS: BP 125/91; PULSE 57; RESP 19; TEMP 97.9
[2023-11-12 16:32] LABS: Glucose,Whole Blood 281 mg/dL (70-110)
== END 2023-11-12 17:24 | disposition home health service (06) | DRG 291 ==
LOC: EC 19:24 → 3SCARD 20:55 → 4SSUR 11-03 06:06
PROVIDERS: ADMIT Family Medicine; ATTEND Family Medicine
PROC: 30233N1 Transfusion of Nonautologous Red Blood Cells into Peripheral Vein, Percutaneous Approach (ICD-10-PCS; 2023-11-02)
PROC: 0DBF8ZX Excision of Right Large Intestine, Via Natural or Artificial Opening Endoscopic, Diagnostic (ICD-10-PCS; 2023-11-05)
PROC: 0DB78ZX Excision of Stomach, Pylorus, Via Natural or Artificial Opening Endoscopic, Diagnostic (ICD-10-PCS; principal; 2023-11-05 07:30)
PROC: 0DB38ZX Excision of Lower Esophagus, Via Natural or Artificial Opening Endoscopic, Diagnostic (ICD-10-PCS; 2023-11-05 07:30)
DX: I11.0 Hypertensive heart disease with heart failure (principal); I50.43 Acute on chronic combined systolic (congestive) and diastolic (congestive) heart failure; C15.5 Malignant neoplasm of lower third of esophagus; D64.9 Anemia, unspecified; I27.20 Pulmonary hypertension, unspecified; Z79.01 Long term (current) use of anticoagulants; D50.0 Iron deficiency anemia secondary to blood loss (chronic); Z91.148 Patient's other noncompliance with medication regimen for other reason; Z86.73 Personal history of transient ischemic attack (TIA), and cerebral infarction without residual deficits; H91.90 Unspecified hearing loss, unspecified ear; I48.91 Unspecified atrial fibrillation; K29.70 Gastritis, unspecified, without bleeding; K63.5 Polyp of colon; M81.0 Age-related osteoporosis without current pathological fracture; Z79.82 Long term (current) use of aspirin; Z79.84 Long term (current) use of oral hypoglycemic drugs; K44.9 Diaphragmatic hernia without obstruction or gangrene; Z90.710 Acquired absence of both cervix and uterus; E78.5 Hyperlipidemia, unspecified; I48.0 Paroxysmal atrial fibrillation; K57.30 Diverticulosis of large intestine without perforation or abscess without bleeding; Z79.899 Other long term (current) drug therapy; Z87.19 Personal history of other diseases of the digestive system; Z98.42 Cataract extraction status, left eye; Z98.41 Cataract extraction status, right eye
CPT/HCPCS: 36415; 36430; 43239; 45380; 71046; 71260; 74177; 80048; 80053; 82272; 82607; 82728; 82746; 83036; 83540; 83550; 83605; 83735; 83880; 83883; 84145; 84165; 84484; 85025; 85610; 85730; 86334; 86850; 86900; 86901; 86920; 87040; 88305; 88341; 88342; 93005; 94640; 94664; 94667; 94668; 94760; 96361; 96365; 96366; 99285

== ENCOUNTER 2024-02-15 15:45 | Inpatient (IN) | payer MEDICARE ==
--- NOTE | 2024-02-15 16:30 | ED ---
General Adult HPI <AbhiRick - Last Filed: 02/15/24 16:39> - General Source: RN notes reviewed, old records reviewed, Caregiver Mode of arrival: ambulatory Limitations: no limitations - History of Present Illness -: days(s) (2) Severity scale (1-10): 7 Consistency: constant Improves with: none Associated Symptoms: loss of appetite, malaise, nausea/vomiting, shortness of breath, weakness Treatments Prior to Arrival: none <Peña Ramsay - Last Filed: 02/23/24 21:02> - General Stated complaint: AFIB Time Seen by Provider: 02/15/24 16:24 - History of Present Illness Initial comments: Quick note 78-year-old female with past medical history significant for CHF and A-fib on Eliquis and Lasix presenting to the ED with complaints of dyspnea. Per mery cooney's , patient is supposed to be on Lasix however has stopped taking it as prescribed over the last few days as he reports the patient does not want to go to the bathroom frequently. Over the past few days has developed increasing bilateral lower extremity swelling, generalized fatigue, and dyspnea. Denies chest pain. (Rick Moe) This is a 78-year-old female who presents by patient's for evaluation of shortness of breath increasing shortness of breath and debility for a few days now (Peña Ramsay) - Related Data Home Medications Medication Instructions Recorded Confirmed Montelukast [Singulair] 10 mg PO HS 07/31/22 02/15/24 Gabapentin 300 mg PO HS 10/06/23 02/15/24 Atorvastatin [Lipitor] 40 mg PO HS 11/03/23 02/15/24 Ipratropium-Albuterol Nebulize 3 ml INHALATION RT-TID 11/03/23 02/15/24 [Duoneb 0.5 mg-3 mg/3 ml Soln] Melatonin 10 mg PO HS 11/03/23 02/15/24 Metoprolol Tartrate [Lopressor] 50 mg PO BID 11/03/23 02/15/24 Ondansetron [Zofran] 4 - 8 mg PO Q4H PRN 11/03/23 02/15/24 Insulin Aspart [NovoLOG Flexpen] 5 - 10 units SQ AC-TID PRN 04/15/24 05/17/24 Insulin Glargine,Hum.rec.anlog 10 units INJ DAILY 01/14/24 02/15/24 [Lantus Solostar Pen] Clotrimazole/Betameth Cream 1 applic TOPICAL BID PRN 02/15/24 02/15/24 [Lotrisone] Furosemide [Lasix] 20 mg PO DAILY 02/15/24 02/15/24 Insulin Glargine,Hum.rec.anlog 5 - 7 units SQ HS 02/15/24 02/15/24 [Lantus Solostar Pen] Magic Mouth Wash 10 - 15 ml PO ACHS 02/15/24 02/15/24 Magnesium Oxide [Magox 400] 400 mg PO DAILY 02/15/24 02/15/24 Midodrine [ProAmatine] 5 mg PO TID 02/15/24 02/15/24 Nystatin 100,000 Unit/gm Powd 1 applic TOPICAL BID PRN 02/15/24 02/15/24 [Mycostatin Powder] Nystatin 100,000Unit/gm Cream 1 applic TOPICAL BID PRN 02/15/24 02/15/24 [Mycostatin Cream] Previous Rx's Medication Instructions Recorded Pantoprazole [Protonix] 40 mg PO BID #60 tab 11/12/23 Spironolactone [Aldactone] 25 mg PO DAILY #30 tab 11/12/23 Apixaban [Eliquis] 5 mg PO BID #60 tab 02/21/24 Allergies Allergy/AdvReac Type Severity Reaction Status Date / Time No Known Allergies Allergy Verified 02/15/24 19:08 Review of Systems ROS Other: All systems not noted in ROS Statement are negative. <Rick Moe - Last Filed: 02/15/24 16:39> ROS Other: All systems not noted in ROS Statement are negative. <Peña Ramsay - Last Filed: 02/23/24 21:02> ROS Statement: Those systems with pertinent positive or pertinent negative responses have been documented in the HPI. Past Medical History Past Medical History: Diabetes Mellitus, Eye Disorder, GERD/Reflux, Hearing Disorder / Deafness, Hypertension, Osteoarthritis (OA) Additional Past Medical History / Comment(s): MACULAR DEGENERATION, cataracts, osteoporosis, diet controlled diabetic, TIA History of Any Multi-Drug Resistant Organisms: None Reported Past Surgical History: Cholecystectomy, Hysterectomy Additional Past Surgical History / Comment(s): ORIF RT WRIST-HAD BONE GRAFT FROM HIP, asher fundoplasty, teeth pulled Past Anesthesia/Blood Transfusion Reactions: No Reported Reaction Smoking Status: Second hand smoke exposure - Past Family History Brother(s) Family Medical History: Cancer Additional Family Medical History / Comment(s): LUNG Mother Family Medical History: Cancer Sister(s) Family Medical History: Cancer <Rick Moe - Last Filed: 02/15/24 16:39> General Exam <Rick Moe - Last Filed: 02/15/24 16:39> General appearance: alert, in no apparent distress, anxious Head exam: Present: atraumatic, normocephalic, normal inspection Eye exam: Present: normal appearance, PERRL, EOMI. Absent: scleral icterus, conjunctival injection, periorbital swelling ENT exam: Present: normal exam, mucous membranes moist Neck exam: Present: normal inspection. Absent: tenderness, meningismus, lymphadenopathy Respiratory exam: Present: normal lung sounds bilaterally. Absent: respiratory distress, wheezes, rales, rhonchi, stridor Cardiovascular Exam: Present: tachycardia, irregular rhythm, normal heart sounds. Absent: systolic murmur, diastolic murmur, rubs, gallop, clicks GI/Abdominal exam: Present: soft, normal bowel sounds. Absent: distended, tenderness, guarding, rebound, rigid Extremities exam: Present: normal inspection, full ROM, normal capillary refill. Absent: tenderness, pedal edema, joint swelling, calf tenderness Back exam: Present: normal inspection Neurological exam: Present: alert, oriented X3, CN II-XII intact Psychiatric exam: Present: normal affect, normal mood Skin exam: Present: warm, dry, intact, normal color. Absent: rash <Peña Ramsay - Last Filed: 02/23/24 21:02> - General Exam Comments Initial Comments: Visual Physical Exam Vital signs reviewed General: Well-appearing, nontoxic, no acute distress. Head: Normocephalic, atraumatic Eyes: PERRLA, EOMI ENT: Airway patent Chest: Nonlabored breathing Skin: No visual rash, normal skin tone Neuro: Alert and oriented 3 Musculoskeletal: No gross abnormalities (Rick Moe) Course <Peña Ramsay - Last Filed: 02/23/24 21:02> Vital Signs 02/15/24 02/15/24 02/15/24 16:40 17:10 18:41 Temperature 97.5 F L Pulse Rate 74 111 H Respiratory 20 20 Rate Blood Pressure 94/61 119/96 O2 Sat by Pulse 98 88 L 98 Oximetry 02/15/24 02/15/24 02/16/24 20:12 21:38 01:25 Temperature Pulse Rate 142 H 98 112 H Respiratory 16 18 Rate Blood Pressure 136/109 114/78 101/72 O2 Sat by Pulse 98 99 Oximetry 02/16/24 02/16/24 02/16/24 04:00 06:00 10:47 Temperature Pulse Rate 92 101 H 112 H Respiratory 18 18 22 Rate Blood Pressure 117/70 118/74 98/62 O2 Sat by Pulse 98 98 99 Oximetry 02/16/24 12:17 Temperature 98.0 F Pulse Rate 115 H Respiratory 18 Rate Blood Pressure 106/76 O2 Sat by Pulse 99 Oximetry - Reevaluation(s) Reevaluation #1: 02/15/24 23:09 Medical records reviewed (Peña Ramsay) Reevaluation #2: 02/15/24 23:09 Patient symptoms improved has adequate rate control (Peña Ramsay) Reevaluation #3: 02/15/24 23:09 Patient informed of results questions answered (Peña Ramsay) Reevaluation #4: Was pt. sent in by a medical professional or institution (, PA, MINING MACHINERY ASSEMBLER, urgent care, hospital, or fpc...) When possible be specific @ -no Did you speak to anyone other than the patient for history (EMS, parent, family, police, friend...)? What history was obtained from this source @ -no Did you review nursing and triage notes (agree or disagree)? Why? @ -agree Are old charts reviewed (outside hosp., previous admission, EMS record, old EKG, old radiological studies, urgent care reports/EKG's, fpc records)? Report findings @ -yes Differential Diagnosis (chest pain, altered mental status, abdominal pain women, abdominal pain men, vaginal bleeding, weakness, fever, dyspnea, syncope, headache, dizziness, GI bleed, back pain, seizure, CVA, palpatations, mental health, musculoskeletal)? @ -prior EKG interpreted by me (3pts min.). @ -yes X-rays interpreted by me (1pt min.). @ -yes negative for acute disease CT interpreted by me (1pt min.). @ -no U/S interpreted by me (1pt. min.). @ -no What testing was considered but not performed or refused? (CT, X-rays, U/S, labs)? Why? @ -none What meds were considered but not given or refused? Why? @ -none Did you discuss the management of the patient with other professionals (professionals i.e. , PA, MINING MACHINERY ASSEMBLER, lab, RT, psych nurse, social work case manager, chief business officer, teacher, public safety officer, transplant case manager)? Give summary @ -no Was smoking cessation discussed for >3mins.? @ -no Was critical care preformed (if so, how long)? @ -yes31 Were there social determinants of health that impacted care today? How? (Homelessness, low income, unemployed, alcoholism, drug addiction, transport ation, low edu. Level, literacy, decrease access to med. care, [place] [facility], rehab)? @ -none Was there de-escalation of care discussed even if they declined (Discuss DNR or withdrawal of care, Hospice)? DNR status @ -no What co-morbidities impacted this encounter? (DM, HTN, Smoking, COPD, CAD, Cancer, CVA, ARF, Chemo, Hep., AIDS, mental health diagnosis, sleep apnea, morbid obesity)? @ -none Was patient admitted / discharged? Hospital course, mention meds given and route, prescriptions, significant lab abnormalities, going to OR and other pertinent info. @ - 78 female will be admitted for significant atrial fibrillation with RVR and rate control as well as further evaluation and monitoring. Admitted Undiagnosed new problem with uncertain prognosis? @ -no Drug Therapy requiring intensive monitoring for toxicity (Heparin, Nitro, Insulin, Cardizem)? @ -no Were any procedures done? @ -no Diagnosis/symptom? @ - Acute, or Chronic, or Acute on Chronic? @ -Acute Uncomplicated (without systemic symptoms) or Complicated (systemic symptoms)? @ -Complicated Side effects of treatment? @ -no Exacerbation, Progression, or Severe Exacerbation? @ -exacerbation Poses a threat to life or bodily function? How? (Chest pain, USA, CT, pneumonia, PE, COPD, DKA, ARF, appy, cholecystitis, CVA, Diverticulitis, Homicidal, Suicidal, threat to staff... and all critical care pts) @ -yes with significant arrhythmia (Peña Ramsay) Reevaluation #5: Differential Palpitations Ventricular arrhythmias, atrial arrhythmias, myocardial infarction, anemia, thyrotoxicosis, electrolyte imbalance, hypokalemia, pulmonary embolism, pulmonary disease, drugs, alcohol, anxiety, stress.... This is not meant to be an all-inclusive list. (Peña Ramsay) - Consultations Consultation #1: Spoke with dermatology who agrees to admit this patient (Peña Ramsay) EKG Findings - EKG Comments: EKG Findings:: EKG is A-fib with RVR 148 QRS 77 QTc 371 - EKG Results: EKG: interpreted by ERMD <Peña Ramsay - Last Filed: 02/23/24 21:02> Medical Decision Making <Rick Moe - Last Filed: 02/15/24 16:39> - Lab Data Result diagrams: 02/22/24 08:43 02/21/24 17:30 - EKG Data -: EKG Interpreted by Me - Radiology Data Radiology results: report reviewed (Chest x-ray is negative for acute disease), image reviewed <Peña Ramsay - Last Filed: 02/23/24 21:02> - Medical Decision Making Quicknote portion performed. Signed Rick Moe PA-C (Rick Moe) 78 female will be admitted for significant atrial fibrillation with RVR and rate control as well as further evaluation and monitoring (Peña Ramsay) - Lab Data Lab Results 02/15/24 02/15/24 02/15/24 Range/Units 17:08 17:08 17:08 WBC 1.2 L* (3.8-10.6) k/uL RBC 4.46 (3.80-5.40) m/uL Hgb 11.8 (11.4-16.0) gm/dL Hct 37.3 (34.0-46.0) % MCV 83.6 (80.0-100.0) fL MCH 26.5 (25.0-35.0) pg MCHC 31.7 (31.0-37.0) g/dL RDW 27.1 H (11.5-15.5) % Plt Count 135 L (150-450) k/uL MPV 9.2 Neutrophils % 85 % Lymphocytes % 10 % Monocytes % 3 % Eosinophils % 1 % Basophils % 1 % Neutrophils # 1.0 L (1.3-7.7) k/uL Lymphocytes # 0.1 L (1.0-4.8) k/uL Monocytes # 0.0 (0-1.0) k/uL Eosinophils # 0.0 (0-0.7) k/uL Basophils # 0.0 (0-0.2) k/uL Hypochromasia Slight Anisocytosis Marked Microcytosis Slight Macrocytosis Slight PT 11.4 (10.0-12.5) sec INR 1.1 (<1.2) APTT 21.3 L (22.0-30.0) sec Sodium 135 L (137-145) mmol/L Potassium 4.1 (3.5-5.1) mmol/L Chloride 102 (98-107) mmol/L Carbon Dioxide 26 (22-30) mmol/L Anion Gap 7 mmol/L BUN 15 (7-17) mg/dL Creatinine 0.75 (0.52-1.04) mg/dL Est GFR (CKD-EPI)AfAm 90 (>60 ml/min/1.73 sqM) Est GFR (CKD-EPI)NonAf 78 (>60 ml/min/1.73 sqM) Glucose 138 H (74-99) mg/dL Calcium 8.9 (8.4-10.2) mg/dL Magnesium 1.4 L (1.6-2.3) mg/dL Total Bilirubin 1.6 H (0.2-1.3) mg/dL AST 27 (14-36) U/L ALT 16 (4-34) U/L Alkaline Phosphatase 72 (38-126) U/L Troponin I (0.000-0.034) ng/mL NT-Pro-B Natriuret Pep 2110 pg/mL Total Protein 6.0 L (6.3-8.2) g/dL Albumin 3.4 L (3.5-5.0) g/dL 02/15/24 Range/Units 17:08 WBC (3.8-10.6) k/uL RBC (3.80-5.40) m/uL Hgb (11.4-16.0) gm/dL Hct (34.0-46.0) % MCV (80.0-100.0) fL MCH (25.0-35.0) pg MCHC (31.0-37.0) g/dL RDW (11.5-15.5) % Plt Count (150-450) k/uL MPV Neutrophils % % Lymphocytes % % Monocytes % % Eosinophils % % Basophils % % Neutrophils # (1.3-7.7) k/uL Lymphocytes # (1.0-4.8) k/uL Monocytes # (0-1.0) k/uL Eosinophils # (0-0.7) k/uL Basophils # (0-0.2) k/uL Hypochromasia Anisocytosis Microcytosis Macrocytosis PT (10.0-12.5) sec INR (<1.2) APTT (22.0-30.0) sec Sodium (137-145) mmol/L Potassium (3.5-5.1) mmol/L Chloride (98-107) mmol/L Carbon Dioxide (22-30) mmol/L Anion Gap mmol/L BUN (7-17) mg/dL Creatinine (0.52-1.04) mg/dL Est GFR (CKD-EPI)AfAm (>60 ml/min/1.73 sqM) Est GFR (CKD-EPI)NonAf (>60 ml/min/1.73 sqM) Glucose (74-99) mg/dL Calcium (8.4-10.2) mg/dL Magnesium (1.6-2.3) mg/dL Total Bilirubin (0.2-1.3) mg/dL AST (14-36) U/L ALT (4-34) U/L Alkaline Phosphatase (38-126) U/L Troponin I <0.012 (0.000-0.034) ng/mL NT-Pro-B Natriuret Pep pg/mL Total Protein (6.3-8.2) g/dL Albumin (3.5-5.0) g/dL Critical Care Time Critical Care Time: Yes Total Critical Care Time: 31 <Peña Ramsay - Last Filed: 02/23/24 21:02> Disposition <Rick Moe - Last Filed: 02/15/24 16:39> Is patient prescribed a controlled substance at d/c from ED?: No Time of Disposition: 19:35 <Peña Ramsay - Last Filed: 02/23/24 21:02> Clinical Impression: Congestive heart failure, Weakness, Leukopenia, Atrial fibrillation with rapid ventricular response Disposition: ADMITTED IP TO THIS HOSP Condition: Serious
[2024-02-15 17:28] LABS: Anisocytosis Marked; Basophils % (A) 1 %; Eosinophils % (A) 1 %; HCT 37.3 % (34.0-46.0); HGB 11.8 gm/dL (11.4-16.0); Hypochromasia Slight; Lymphocytes # (A) 0.1 k/uL (1.0-4.8); Lymphocytes % (A) 10 %; MCH 26.5 pg (25.0-35.0); MCHC 31.7 g/dL (31.0-37.0); MCV 83.6 fL (80.0-100.0); Macrocytosis Slight; Mean Platelet Volume 9.2; Microcytosis Slight; Monocytes % (A) 3 %; Neutrophils % (A) 85 %; Platelet Count 135 k/uL (150-450); RBC 4.46 m/uL (3.80-5.40)
[2024-02-15 17:40] LABS: INR 1.1 (<1.2); Prothrombin Time 11.4 sec (10.0-12.5)
[2024-02-15 17:42] LABS: RDW 27.1 % (11.5-15.5); WBC 1.2 k/uL (3.8-10.6)
[2024-02-15 17:47] LABS: ALT 16 U/L (4-34); African American GFR (CKD) 90 (>60 ml/min/1.73 sqM); Albumin 3.4 g/dL (3.5-5.0); Anion Gap 7 mmol/L; Blood Urea Nitrogen 15 mg/dL (7-17); Calcium 8.9 mg/dL (8.4-10.2); Carbon Dioxide 26 mmol/L (22-30); Chloride 102 mmol/L (98-107); Glucose 138 mg/dL (74-99); Non-African American GFR(CKD) 78 (>60 ml/min/1.73 sqM); Sodium 135 mmol/L (137-145); Total Bilirubin 1.6 mg/dL (0.2-1.3)
--- NOTE | 2024-02-15 17:47 | XR ---
EXAMINATION TYPE: XR chest 2V DATE OF EXAM: 02/15/2024 5:19 PM CLINICAL INDICATION:Female, 78 years old with history of dyspnea. stopped taking her lasix; [facility] COMPARISON: Chest radiographs from 11/02/2023. TECHNIQUE: XR chest 2V Frontal and lateral views of the chest. FINDINGS: Lungs/Pleura: There is no evidence of pleural effusion, focal consolidation, or pneumothorax. Pulmonary vascularity: Pulmonary vascular congestion. Heart/mediastinum: Cardiomediastinal silhouette is enlarged and stable. Musculoskeletal: No acute osseous pathology. IMPRESSION: Cardiomegaly and mild pulmonary vascular congestion. Correlate with BNP for congestive heart failure.
[2024-02-15 17:49] LABS: Partial Thromboplastin Time 21.3 sec (22.0-30.0)
[2024-02-15 17:53] LABS: NT-Pro-B-Type Natriuretic Pept 2110 pg/mL
[2024-02-15 17:57] LABS: AST 27 U/L (14-36); Alkaline Phosphatase 72 U/L (38-126); Magnesium 1.4 mg/dL (1.6-2.3); Potassium 4.1 mmol/L (3.5-5.1)
[2024-02-15] MEDS: FUROSEMIDE 10 MG/ML 4 ML VIAL IV SCH (20:44)
[2024-02-15] MEDS: DILTIAZEM DRIP BOLUS FROM BAG 1 MG SOLN IV ONE (20:53)
[2024-02-15] MEDS: DILTIAZEM 125 MG in SODIUM CHLORIDE 0.9% 100 ML IV SCH (20:56)
[2024-02-15] MEDS: ACETAMINOPHEN TAB 500 MG TAB PO STA (22:49)
[2024-02-16 00:46] LABS: Appearance,Urine Clear (Clear); Bilirubin,Urine Negative (Negative); Blood,Urine Negative (Negative); Color,Urine Colorless; Glucose,Urine (UA) Negative (Negative); Ketones,Urine Negative (Negative); Leukocyte Esterase,Urine Negative (Negative); Nitrite,Urine Negative (Negative); Protein,Urine Negative (Negative); Specific Gravity,Urine 1.006 (1.001-1.035); Urobilinogen,Urine <2.0 mg/dL (<2.0)
[2024-02-16] MEDS: ACETAMINOPHEN TAB 325 MG TAB PO PRN (10:22)
[2024-02-16] MEDS ORDERED: DEXTROSE 50% SYRINGE 50 ML IVP PRN ×2 (13:22)
[2024-02-16 14:08] LABS: Anisocytosis Marked; HCT 36.2 % (34.0-46.0); HGB 11.5 gm/dL (11.4-16.0); Hypochromasia Slight; MCH 26.9 pg (25.0-35.0); MCHC 31.9 g/dL (31.0-37.0); MCV 84.4 fL (80.0-100.0); Macrocytosis Slight; Mean Platelet Volume 8.1; Microcytosis Slight; Platelet Count 113 k/uL (150-450); RBC 4.29 m/uL (3.80-5.40)
[2024-02-16 14:19] LABS: RDW 27.4 % (11.5-15.5)
[2024-02-16 14:25] LABS: ALT 12 U/L (4-34); AST 17 U/L (14-36); African American GFR (CKD) >90 (>60 ml/min/1.73 sqM); Alkaline Phosphatase 80 U/L (38-126); Anion Gap 6 mmol/L; Blood Urea Nitrogen 12 mg/dL (7-17); Calcium 8.6 mg/dL (8.4-10.2); Carbon Dioxide 29 mmol/L (22-30); Chloride 99 mmol/L (98-107); Glucose 122 mg/dL (74-99); Non-African American GFR(CKD) 87 (>60 ml/min/1.73 sqM); Potassium 3.1 mmol/L (3.5-5.1); Sodium 134 mmol/L (137-145); Total Bilirubin 1.6 mg/dL (0.2-1.3); Total Protein 5.4 g/dL (6.3-8.2)
[2024-02-16 14:28] LABS: WBC 0.7 k/uL (3.8-10.6)
[2024-02-16] MEDS ORDERED: Potassium Replacement Protocol 1 EACH MISC MISCELLANE PRN (14:41)
[2024-02-16] MEDS: POTASSIUM CHLORIDE ER 20 MEQ TAB.ER PO SCH (15:33)
[2024-02-16] MEDS: MIDODRINE 5 MG TAB PO SCH (15:33)
[2024-02-16] MEDS: HEPARIN SODIUM,PORCINE 5,000 UNIT/ML 1 ML VIAL SQ SCH (15:33)
[2024-02-16 15:35] LABS: Poikilocytosis (M) Present
[2024-02-16 16:42] LABS: Glucose,Whole Blood 236 mg/dL (70-110)
--- NOTE | 2024-02-16 16:43 | HP ---
HISTORY AND PHYSICAL Katherine Barlow came in with leukopenia and generalized weakness, fatigue. MMODL / IJN: [id number] /
[2024-02-16] MEDS: PANTOPRAZOLE 40 MG TABLET PO SCH (17:20)
--- NOTE | 2024-02-16 17:47 | CA ---
Transthoracic Echo Report Name: Katherine Barlow Age: 78 Gender: F : 1945 Exam Date: 02/16/2024 15:01 Exam Location: [facility] Ht (in): 60 Wt (lb): 178 Ordering Physician: Peña Ramsay DO Attending/Referring Phys: [id number], Devendra [employer] Emili Edmond RDCS Procedure CPT: Indications: Heart failure Cardiac Hx: Technical Quality: Fair Contrast 1: Total Dose (mL): Contrast 2: Total Dose (mL): MEASUREMENTS (Male / Female) Normal Values 2D ECHO LV Diastolic Diameter PLAX 3.2 cm 4.2 - 5.9 / 3.9 - 5.3 cm LV Systolic Diameter PLAX 2.0 cm IVS Diastolic Thickness 1.3 cm 0.6 - 1.0 / 0.6 - 0.9 cm LVPW Diastolic Thickness 1.1 cm 0.6 - 1.0 / 0.6 - 0.9 cm LV Relative Wall Thickness 0.8 RV Internal Dim ED PLAX 1.5 cm LV Diastolic Volume MOD BP 19.9 cm??? 67 - 155 / 56 - 104 cm??? LV Systolic Volume MOD BP 8.2 cm??? 22 - 58 / 19 - 49 cm??? LV Ejection Fraction MOD BP 58.7 % >= 55 % LV Cardiac Index MOD BP 847.9 cm???/min???m??? LV Diastolic Volume MOD 4C 22.5 cm??? LV Systolic Volume MOD 4C 7.8 cm??? LV Ejection Fraction MOD 4C 65.5 % LV Cardiac Index MOD 4C 1071.6 cm???/min???m??? LV Diastolic Length 4C 5.0 cm LV Systolic Length 4C 4.3 cm LV Diastolic Volume MOD 2C 17.5 cm??? LV Systolic Volume MOD 2C 8.5 cm??? LV Ejection Fraction MOD 2C 51.5 % LV Cardiac Index MOD 2C 656.3 cm???/min???m??? LV Diastolic Length 2C 4.9 cm LV Systolic Length 2C 4.6 cm LA Volume 82.5 cm??? 18 - 58 / 22 - 52 cm??? LA Volume Index 43.7 cm???/m??? 16 - 28 cm???/m??? M-MODE Aortic Root Diameter MM 2.9 cm LA Systolic Diameter MM 3.9 cm LA Ao Ratio MM 1.4 AV Cusp Separation MM 1.7 cm FINDINGS Left Ventricle Left ventricular ejection fraction is estimated at 60-65 %. Mildly increased septal wall thickness. Mildly increased posterior wall thickness. Left ventricular cavity size normal. Right Ventricle Right Atrium Moderate right atrial dilatation. Left Atrium Severely increased left atrial volume. Mildly increased left atrial area. Mitral Valve Aortic Valve Tricuspid Valve Pulmonic Valve Pericardium Aorta CONCLUSIONS Limited echo Left ventricular ejection fraction is estimated at 60-65 %. Mildly increased septal wall thickness. Moderate right atrial dilatation. Moderate LA dilated No pericardial effusion Previewed by: Dr Jeovany Moise (Electronically Signed) Final Date: 16 Feb 2024 17:47
--- NOTE | 2024-02-16 19:28 | CT ---
EXAMINATION TYPE: CT chest wo con CT DLP: 756.8 mGycm, Automated exposure control for dose reduction was used. DATE OF EXAM: 02/16/2024 6:55 PM COMPARISON: Pet/CT 11/29/2023 CLINICAL INDICATION:Female, 78 years old with history of hap/hypoxia, hypoxia TECHNIQUE: Multiple axial images were obtained through the chest. Sagittal and coronal reformats were created for review. Contrast used: mL of (None if empty) Oral contrast used: (None if empty) FINDINGS: LUNGS/ PLEURA: No focal consolidation, pneumothorax or pleural effusion. Streaky atelectasis in the l cass bases. AIRWAY: Patent and unremarkable. HEART: Size within normal limits. MEDIASTINUM: No gross evidence of adenopathy. Large hiatal hernia with esophageal wall thickening com patible with known malignancy. VASCULATURE: No aortic aneurysm. MUSCULOSKELETAL: No acute osseous abnormalities SOFT TISSUES/LYMPH NODES: Unremarkable. LOWER NECK: No significant findings. UPPER ABDOMEN: The gallbladder is surgically absent. IMPRESSION: 1. No evidence for acute thoracic process. 2. Large hiatal hernia with esophageal wall thickening compatible with known malignancy. No new or e nlarging lymph nodes.
[2024-02-16 20:11] LABS: Glucose,Whole Blood 204 mg/dL (70-110)
[2024-02-16] MEDS: INSULIN DETEMIR (LEVEMIR) 100 UNIT/ML SYR SQ SCH (20:29)
[2024-02-16] MEDS: GABAPENTIN 300 MG CAP PO SCH (20:30)
[2024-02-16] MEDS: METOPROLOL TARTRATE 50 MG TAB PO SCH (20:30)
[2024-02-16] MEDS: ATORVASTATIN 40 MG TAB PO SCH (20:30)
[2024-02-16] MEDS: MELATONIN 5 MG TABLET PO SCH (20:30)
[2024-02-16] MEDS: MONTELUKAST 10 MG TAB PO SCH (20:30)
--- NOTE | 2024-02-16 22:00 | HP ---
HISTORY AND PHYSICAL HISTORY OF PRESENT ILLNESS: A 78-year-old white female, history of CHF, on atrial fibrillation, on Eliquis. The patient returned to the ER with dyspnea. The patient was supposed to be on uses the bathroom frequently, has increased body, lower extremity swelling, generalized fatigue, dyspnea. Denies chest pain. HOME MEDICATIONS: 1. Singulair 10 mg daily. 2. Gabapentin 300 at night. 3. Lipitor 40 daily. 4. DuoNeb t.i.d. 5. Lopressor 50 b.i.d. 6. Zofran 8 mg q.4 hours. 7. Lasix 20 mg daily. 8. Lantus 10 units daily. 9. Accu-Chek, she takes 5 to 10 units a.c. and h.s. ALLERGIES: No known drug allergies. PAST MEDICAL HISTORY: Diabetes mellitus, eye disorder, GERD, hearing disorder, deafness, hypertension, osteoarthritis, macular degeneration, diet-controlled diabetic, TIA. FAMILY HISTORY: Brothers, cancer of the lung. Mother, cancer. Sister, cancer. PHYSICAL EXAMINATION: VITAL SIGNS: Stable. Afebrile. Temperature 97.7, heart rate is 70s to 130s, currently 120s to 130s. Blood pressure is 94 to 119 systolic. CARDIOVASCULAR: S1, S2. She is tachycardic, irregularly irregular rhythm on heart exam. Minimal murmurs, rubs, crackles. LUNGS: Transmitted upper sounds. GI: Soft. HEMATOLOGY: Negative Homans. EXTREMITIES: 2 to 3+ edema. NEUROLOGIC: Cranial nerves intact. BMI is over 40. PSYCH: Fair mood and affect. BNP is 2100. She has white count of she has been going to chemotherapy for cancer. Sodium is 135, potassium 4.1, BUN 15, creatinine 0.75. She has history of COPD, asthma, acute on chronic CHF. She is being treated for atrial fibrillation, RVR, and receiving chemotherapy for cancer, cancers of the esophagus. Prognosis is guarded. Continue current treatments. PT/OT. Please see further orders. MMODL / IJN: [id number] /
[2024-02-16] MEDS: IPRATROPIUM-ALBUTEROL 3 ML NEB INHALATION SCH (22:32)
[2024-02-17 06:12] LABS: Glucose,Whole Blood 130 mg/dL (70-110)
[2024-02-17 06:51] LABS: ALT 12 U/L (4-34); AST 16 U/L (14-36); African American GFR (CKD) >90 (>60 ml/min/1.73 sqM); Albumin 2.8 g/dL (3.5-5.0); Alkaline Phosphatase 72 U/L (38-126); Anion Gap 3 mmol/L; Blood Urea Nitrogen 8 mg/dL (7-17); Calcium 8.5 mg/dL (8.4-10.2); Carbon Dioxide 31 mmol/L (22-30); Chloride 101 mmol/L (98-107); Glucose 131 mg/dL (74-99); Non-African American GFR(CKD) 89 (>60 ml/min/1.73 sqM); Potassium 3.9 mmol/L (3.5-5.1); Sodium 135 mmol/L (137-145); Total Protein 5.1 g/dL (6.3-8.2)
[2024-02-17 07:16] LABS: Anisocytosis Marked; Basophils % (A) 1 %; Eosinophils % (A) 1 %; HCT 35.3 % (34.0-46.0); HGB 11.1 gm/dL (11.4-16.0); Hypochromasia Slight; Lymphocytes # (A) 0.2 k/uL (1.0-4.8); Lymphocytes % (A) 15 %; MCH 26.4 pg (25.0-35.0); MCHC 31.4 g/dL (31.0-37.0); MCV 84.3 fL (80.0-100.0); Macrocytosis Slight; Mean Platelet Volume 9.2; Microcytosis Slight; Monocytes # (A) 0.1 k/uL (0-1.0); Monocytes % (A) 7 %; Neutrophils # (A) 0.7 k/uL (1.3-7.7); Neutrophils % (A) 72 %; Platelet Count 117 k/uL (150-450); RBC 4.19 m/uL (3.80-5.40)
[2024-02-17 07:18] LABS: RDW 27.4 % (11.5-15.5)
[2024-02-17] MEDS: SPIRONOLACTONE 25 MG TAB PO SCH (08:49)
[2024-02-17] MEDS: MAGNESIUM OXIDE 400 MG TAB PO SCH (08:50)
[2024-02-17 10:43] LABS: Poikilocytosis (M) Present
[2024-02-17 11:42] LABS: Glucose,Whole Blood 123 mg/dL (70-110)
--- NOTE | 2024-02-17 15:07 | P.CONS ---
History of Present Illness - Reason for Consult Consult date: 02/17/24 Neutropenia - Chief Complaint Weakness - History of Present Illness Ms. Barlow is a 78-year-old woman with a past medical history significant for stage III esophageal cancer currently undergoing concurrent chemoradiotherapy and completed 5 cycles of weekly carboplatin/paclitaxel (cycle 5 on 02/11/2024) presenting with generalized weakness and fatigue. This has been occurring for approximately 2 to 3 days prior to admission along with mild swelling of the lower extremities. In the ED, she was noted to have tachycardia with heart rates ranging from the 110s to 140s. She did have documented hypoxia at 88 L on room air and was placed on 2 L nasal cannula. EKG noted atrial fibrillation with RVR. Labs noted neutropenia with WBC 1.2 (ANC 1, absolute lymphocyte count 0.1), hemoglobin 11.8, platelets 135. Magnesium was 1.4 with total bilirubin 1.6. Troponins were negative x 3. NT proBNP was 2110. UA was negative. Chest x-ray noted cardiomegaly with mild pulmonary vascular congestion. She was started on diltiazem drip, Lasix 40 mg IV every 12 hours, and given potassium supplement ation. She was admitted to internal medicine for additional management. Since admission, echo noted left-ventricular ejection fraction of 60 to 65% with moderate right atrial and left atrial dilatation and no pericardial effusion. Chest CT revealed no acute process with a large hiatal hernia and thickened esophageal wall compatible with known disease. Today, she did note having intermittent loose stool prior to admission and was taking Imodium as needed. She has had soreness with cramping in the legs, for which she has Tylenol as needed. She also was taking Magic mouthwash for mucositis secondary to concurrent chemoradiotherapy. At this time, she denies any dysphagia, odynophagia, regurgitation of food. She does have nausea on today's visit with decreased appetite and was only able to take in liquids. Review of Systems 14 point review of systems was conducted with pertinent positives and negatives as noted per HPI Past Medical History Past Medical History: Diabetes Mellitus, Eye Disorder, GERD/Reflux, Hearing Disorder / Deafness, Hypertension, Osteoarthritis (OA) Additional Past Medical History / Comment(s): MACULAR DEGENERATION, cataracts, osteoporosis, diet controlled diabetic, TIA History of Any Multi-Drug Resistant Organisms: None Reported Past Surgical History: Cholecystectomy, Hysterectomy Additional Past Surgical History / Comment(s): ORIF RT WRIST-HAD BONE GRAFT FROM HIP, asher fundoplasty, teeth pulled Past Anesthesia/Blood Transfusion Reactions: No Reported Reaction Past Psychological History: Anxiety, Depression Smoking Status: Never smoker Past Alcohol Use History: None Reported Past Drug Use History: None Reported - Past Family History Brother(s) Family Medical History: Cancer Additional Family Medical History / Comment(s): LUNG Mother Family Medical History: Cancer Sister(s) Family Medical History: Cancer Medications and Allergies Home Medications Medication Instructions Recorded Confirmed Type Montelukast [Singulair] 10 mg PO HS 07/31/22 02/15/24 History Gabapentin 300 mg PO HS 10/06/23 02/15/24 History Atorvastatin [Lipitor] 40 mg PO HS 11/03/23 02/15/24 History Ipratropium-Albuterol Nebulize 3 ml INHALATION RT-TID 11/03/23 02/15/24 History [Duoneb 0.5 mg-3 mg/3 ml Soln] Melatonin 10 mg PO HS 11/03/23 02/15/24 History Metoprolol Tartrate [Lopressor] 50 mg PO BID 11/03/23 02/15/24 History Ondansetron [Zofran] 4 - 8 mg PO Q4H PRN 11/03/23 02/15/24 History Pantoprazole [Protonix] 40 mg PO BID #60 tab 11/12/23 02/15/24 Rx Spironolactone [Aldactone] 25 mg PO DAILY #30 tab 11/12/23 02/15/24 Rx Insulin Aspart [NovoLOG Flexpen] 5 - 10 units SQ AC-TID PRN 01/14/24 02/15/24 History Insulin Glargine,Hum.rec.anlog 10 units INJ DAILY 01/14/24 02/15/24 History [Lantus Solostar Pen] Clotrimazole/Betameth Cream 1 applic TOPICAL BID PRN 02/15/24 02/15/24 History [Lotrisone] Furosemide [Lasix] 20 mg PO DAILY 02/15/24 02/15/24 History Insulin Glargine,Hum.rec.anlog 5 - 7 units SQ HS 02/15/24 02/15/24 History [Lantus Solostar Pen] Magic Mouth Wash 10 - 15 ml PO ACHS 02/15/24 02/15/24 History Magnesium Oxide [Magox 400] 400 mg PO DAILY 02/15/24 02/15/24 History Midodrine [ProAmatine] 5 mg PO TID 02/15/24 02/15/24 History Nystatin 100,000 Unit/gm Powd 1 applic TOPICAL BID PRN 02/15/24 02/15/24 History [Mycostatin Powder] Nystatin 100,000Unit/gm Cream 1 applic TOPICAL BID PRN 02/15/24 02/15/24 History [Mycostatin Cream] Allergies Allergy/AdvReac Type Severity Reaction Status Date / Time No Known Allergies Allergy Verified 02/15/24 19:08 Physical Exam Vitals: Vital Signs Temp Pulse Pulse Resp BP BP Pulse Ox 02/17/24 11:41 98.5 F 109 H 20 115/69 100 02/17/24 11:31 104 H 02/17/24 11:19 108 H 02/17/24 08:00 98 F 106 H 20 123/82 99 02/17/24 07:53 100 02/17/24 04:02 113 H 18 115/77 96 02/16/24 23:05 105 H 18 113/77 98 02/16/24 19:53 98.1 F 110 H 19 139/87 98 02/16/24 15:29 98.3 F 130 H 19 117/72 100 02/16/24 13:08 95 02/16/24 12:54 98.1 F 128 H 18 117/73 95 Intake and Output 02/16/24 02/17/24 02/17/24 22:59 06:59 14:59 Intake Total 222.083 50 Output Total 1999 Balance 222.083 -1999 50 Intake: Intake, IV Titration 102.083 Amount Diltiazem 125 mg In 102.083 Sodium Chloride 0.9% 100 ml @ 5 MG/HR 5 mls/hr IV .Q24H [facility] Rx#:[id number] Oral 120 50 Output: Urine 1999 Other: Voiding Method Indwelling Catheter Indwelling Catheter Indwelling Catheter # Bowel Movements 1 Weight 77.2 kg - Constitutional General appearance: cooperative, no acute distress - EENT Eyes: EOMI ENT: normal oropharynx - Neck Neck: no lymphadenopathy - Respiratory Respiratory: bilateral: CTA - Cardiovascular Rhythm: irregularly irregular Heart sounds: normal: S1, S2 leg Peripheral Edema: bilateral: None - Gastrointestinal General gastrointestinal: no distended, hyperactive bowel sounds, soft, no tenderness - Integumentary Integumentary: pale, no rash - Neurologic Neurologic: CNII-XII intact Results CBC & Chem 7: 02/17/24 06:08 02/17/24 06:08 Labs: Abnormal Lab Results - Last 24 Hours (Table) 02/16/24 02/16/24 02/16/24 Range/Units 13:27 13:27 16:41 WBC 0.7 L* (3.8-10.6) k/uL Hgb (11.4-16.0) gm/dL RDW 27.4 H (11.5-15.5) % Plt Count 113 L (150-450) k/uL Neutrophils # (1.3-7.7) k/uL Lymphocytes # (1.0-4.8) k/uL Sodium 134 L (137-145) mmol/L Potassium 3.1 L (3.5-5.1) mmol/L Carbon Dioxide (22-30) mmol/L Glucose 122 H (74-99) mg/dL POC Glucose (mg/dL) 236 H (70-110) mg/dL Hemoglobin A1c (<=6.0) % Total Bilirubin 1.6 H (0.2-1.3) mg/dL Total Protein 5.4 L (6.3-8.2) g/dL Albumin 3.0 L (3.5-5.0) g/dL 02/16/24 02/17/24 02/17/24 Range/Units 20:09 06:08 06:08 WBC 1.0 L* (3.8-10.6) k/uL Hgb 11.1 L (11.4-16.0) gm/dL RDW 27.4 H (11.5-15.5) % Plt Count 117 L (150-450) k/uL Neutrophils # 0.7 L (1.3-7.7) k/uL Lymphocytes # 0.2 L (1.0-4.8) k/uL Sodium (137-145) mmol/L Potassium (3.5-5.1) mmol/L Carbon Dioxide (22-30) mmol/L Glucose (74-99) mg/dL POC Glucose (mg/dL) 204 H (70-110) mg/dL Hemoglobin A1c 7.0 H (<=6.0) % Total Bilirubin (0.2-1.3) mg/dL Total Protein (6.3-8.2) g/dL Albumin (3.5-5.0) g/dL 02/17/24 02/17/24 02/17/24 Range/Units 06:08 06:10 11:41 WBC (3.8-10.6) k/uL Hgb (11.4-16.0) gm/dL RDW (11.5-15.5) % Plt Count (150-450) k/uL Neutrophils # (1.3-7.7) k/uL Lymphocytes # (1.0-4.8) k/uL Sodium 135 L (137-145) mmol/L Potassium (3.5-5.1) mmol/L Carbon Dioxide 31 H (22-30) mmol/L Glucose 131 H (74-99) mg/dL POC Glucose (mg/dL) 130 H 123 H (70-110) mg/dL Hemoglobin A1c (<=6.0) % Total Bilirubin (0.2-1.3) mg/dL Total Protein 5.1 L (6.3-8.2) g/dL Albumin 2.8 L (3.5-5.0) g/dL Assessment and Plan (1) Stage III carcinoma of esophagus Current Visit: Yes Status: Acute Code(s): C15.9 - MALIGNANT NEOPLASM OF ESOPHAGUS, UNSPECIFIED SNOMED Code(s): 916378735 (2) Atrial fibrillation with rapid ventricular response Current Visit: Yes Status: Acute Code(s): I48.91 - UNSPECIFIED ATRIAL FIBRILLATION SNOMED Code(s): 101355279041114 (3) Leukopenia Current Visit: Yes Status: Acute Code(s): D72.819 - DECREASED WHITE BLOOD CELL COUNT, UNSPECIFIED SNOMED Code(s): 63801837 (4) Iron deficiency anemia Current Visit: Yes Status: Acute Code(s): D50.9 - IRON DEFICIENCY ANEMIA, UNSPECIFIED SNOMED Code(s): 77106037 Plan: #Leukopenia -Noted to have WBC of 1.2 with ANC of 1 on admission -This is due to 5 cycles of weekly chemotherapy she received for stage III esophageal cancer along with acute illness with A-fib with RVR -There does not appear to be evidence of infection at this time -Vitamin B12 and folic acid ordered on today's visit -Neutropenia from chemotherapy is expected, with cytopenias most commonly occurring 7 to 10 days after treatment -Otherwise, no acute invention is acquired at the at this time. We will hold on G-CSF as there is no infection at this time #Iron Deficiency Anemia -Due to underlying esophageal adenocarcinoma -Received venofer on 01/08/2024 and 01/28/2024 with chemotherapy -Repeat iron studies ordered to assess need for more IV iron #Stage III esophageal adenocarcinoma -Completed cycle 5 of weekly carboplatin/paclitaxel on 02/11/2024 with last radiation treatment on 02/15/2024 -She was scheduled to complete radiation therapy on 02/20/2024 -We will notify radiation oncology team of her admission -Magic mouthwash every 4 hours as needed ordered #Atrial fibrillation with RVR -She was having diarrhea and found to have mild hypomagnesemia on admission, which could have contributed to development of atrial fibrillation -Continue diltiazem drip and management per primary team -I did discuss obtaining C. difficile PCR with nursing staff if she has recurrent loose stool -If this is negative, she should be started on Imodium as needed for diarrhea to prevent electrolyte abnormalities in the setting of atrial fibrillation Elizabeth Odell MD
[2024-02-17 16:32] LABS: Glucose,Whole Blood 123 mg/dL (70-110)
[2024-02-17] MEDS: NYSTATIN 100,000 UNIT/GM POWD 15 GM TOPICAL SCH (17:18)
--- NOTE | 2024-02-17 17:20 | P.CRDCN ---
History of Present Illness Consult date: 02/17/24 History of present illness: HISTORY OF PRESENTING ILLNESS 78-year-old with PMH of stage III cervical cancer, chemotherapy carboplatin and cisplatin presented with generalized weakness and fatigue. Also has history of CHF atrial fibrillation. She was admitted to the hospital with atrial fibrillation with RVR and acute hypoxic respiratory failure. Her labs showed neutropenia WBC 1.2, hemoglobin 11.8, platelets 135. Magnesium was low at 1.4, BNP 2100. Chest x-ray showed mild pulm congestion REVIEW OF SYSTEMS 14 point review of system is negative except what is mentioned above in HPI. PHYSICAL EXAMINATION Vital signs reviewed. Head: Normocephalic. Eyes: Sclerae nonicteric. Neck: Brisk carotid upstroke, no jugular venous distention. Lungs: Poor respiratory effort, mild crackles, reduced air entry bilateral lung bases Heart: Irregularly irregular, S1-S2, no S3, no murmur or rub. Abdomen: Soft nontender, positive bowel sounds. Extremities: No edema, intact distal pulses. Neuro: Alert, oritented, no focal deficits. Detailed neuro exam was not performed. ASSESSMENT Atrial fibrillation with RVR Acute on chronic HFpEF, mild exacerbation Iron deficiency anemia Stage III esophageal adenocarcinoma carboplatin cisplatin therapy Leukopenia Thrombocytopenia PLAN Continue Lasix 40 mg IV twice daily Continue metoprolol 50 mg twice daily, Aldactone 12 g daily, atorvastatin 40 mg daily Patient is not on systemic anticoagulation. This needs to be addressed tomorrow, by checking clinic records and past chart and seeing if prior decision has been made about systemic anticoagulation or not Jeovany Moise MD, [facility], [place] Thank you for allowing [facility] to participate in this patient's care. Feel free to reach out in case of any followup questions. Past Medical History Past Medical History: Diabetes Mellitus, Eye Disorder, GERD/Reflux, Hearing Disorder / Deafness, Hypertension, Osteoarthritis (OA) Additional Past Medical History / Comment(s): MACULAR DEGENERATION, cataracts, osteoporosis, diet controlled diabetic, TIA History of Any Multi-Drug Resistant Organisms: None Reported Past Surgical History: Cholecystectomy, Hysterectomy Additional Past Surgical History / Comment(s): ORIF RT WRIST-HAD BONE GRAFT FROM HIP, asher fundoplasty, teeth pulled Past Anesthesia/Blood Transfusion Reactions: No Reported Reaction Past Psychological History: Anxiety, Depression Smoking Status: Never smoker Past Alcohol Use History: None Reported Past Drug Use History: None Reported - Past Family History Brother(s) Family Medical History: Cancer Additional Family Medical History / Comment(s): LUNG Mother Family Medical History: Cancer Sister(s) Family Medical History: Cancer Medications and Allergies Home Medications Medication Instructions Recorded Confirmed Type Montelukast [Singulair] 10 mg PO HS 07/31/22 02/15/24 History Gabapentin 300 mg PO HS 10/06/23 02/15/24 History Atorvastatin [Lipitor] 40 mg PO HS 11/03/23 02/15/24 History Ipratropium-Albuterol Nebulize 3 ml INHALATION RT-TID 11/03/23 02/15/24 History [Duoneb 0.5 mg-3 mg/3 ml Soln] Melatonin 10 mg PO HS 11/03/23 02/15/24 History Metoprolol Tartrate [Lopressor] 50 mg PO BID 11/03/23 02/15/24 History Ondansetron [Zofran] 4 - 8 mg PO Q4H PRN 11/03/23 02/15/24 History Pantoprazole [Protonix] 40 mg PO BID #60 tab 11/12/23 02/15/24 Rx Spironolactone [Aldactone] 25 mg PO DAILY #30 tab 11/12/23 02/15/24 Rx Insulin Aspart [NovoLOG Flexpen] 5 - 10 units SQ AC-TID PRN 01/14/24 02/15/24 History Insulin Glargine,Hum.rec.anlog 10 units INJ DAILY 01/14/24 02/15/24 History [Lantus Solostar Pen] Clotrimazole/Betameth Cream 1 applic TOPICAL BID PRN 02/15/24 02/15/24 History [Lotrisone] Furosemide [Lasix] 20 mg PO DAILY 02/15/24 02/15/24 History Insulin Glargine,Hum.rec.anlog 5 - 7 units SQ HS 02/15/24 02/15/24 History [Lantus Solostar Pen] Magic Mouth Wash 10 - 15 ml PO ACHS 02/15/24 02/15/24 History Magnesium Oxide [Magox 400] 400 mg PO DAILY 02/15/24 02/15/24 History Midodrine [ProAmatine] 5 mg PO TID 02/15/24 02/15/24 History Nystatin 100,000 Unit/gm Powd 1 applic TOPICAL BID PRN 02/15/24 02/15/24 History [Mycostatin Powder] Nystatin 100,000Unit/gm Cream 1 applic TOPICAL BID PRN 02/15/24 02/15/24 History [Mycostatin Cream] Allergies Allergy/AdvReac Type Severity Reaction Status Date / Time No Known Allergies Allergy Verified 02/15/24 19:08 Physical Exam Vitals: Vital Signs Temp Pulse Pulse Resp BP BP Pulse Ox 02/17/24 16:34 98 F 97 20 101/70 99 02/17/24 11:41 98.5 F 109 H 20 115/69 100 02/17/24 11:31 104 H 02/17/24 11:19 108 H 02/17/24 08:00 98 F 106 H 20 123/82 99 02/17/24 07:53 100 02/17/24 04:02 113 H 18 115/77 96 02/16/24 23:05 105 H 18 113/77 98 02/16/24 19:53 98.1 F 110 H 19 139/87 98 Intake and Output 02/17/24 02/17/24 02/17/24 06:59 14:59 22:59 Intake Total 230 Output Total 1999 Intake: Oral 230 Output: Urine 1999 1099 Other: Voiding Method Indwelling Catheter Indwelling Catheter Weight 77.2 kg Results 02/17/24 06:08 02/17/24 06:08 Cardiac Enzymes 02/17/24 Range/Units 06:08 AST 16 (14-36) U/L CBC 02/17/24 Range/Units 06:08 WBC 1.0 L* (3.8-10.6) k/uL RBC 4.19 (3.80-5.40) m/uL Hgb 11.1 L (11.4-16.0) gm/dL Hct 35.3 (34.0-46.0) % Plt Count 117 L (150-450) k/uL Comprehensive Metabolic Panel 02/17/24 Range/Units 06:08 Sodium 135 L (137-145) mmol/L Potassium 3.9 (3.5-5.1) mmol/L Chloride 101 (98-107) mmol/L Carbon Dioxide 31 H (22-30) mmol/L BUN 8 (7-17) mg/dL Creatinine 0.60 (0.52-1.04) mg/dL Glucose 131 H (74-99) mg/dL Calcium 8.5 (8.4-10.2) mg/dL AST 16 (14-36) U/L ALT 12 (4-34) U/L Alkaline Phosphatase 72 (38-126) U/L Total Protein 5.1 L (6.3-8.2) g/dL Albumin 2.8 L (3.5-5.0) g/dL Current Medications Generic Name Dose Route Start Last Admin Trade Name Freq PRN Reason Stop Dose Admin Acetaminophen 650 mg 02/16/24 10:15 02/17/24 13:39 Acetaminophen Tab 325 Mg Tab PO 650 mg Q6HR PRN Administration Fever and/ or Pain Albuterol/Ipratropium 3 ml 02/16/24 20:00 02/17/24 11:17 Ipratropium-Albuterol 3 Ml Neb INHALATION 3 ml RT-TID KEE Administration Atorvastatin Calcium 40 mg 02/16/24 21:00 02/16/24 20:30 Atorvastatin 40 Mg Tab PO 40 mg HS KEE Administration Al Hydroxide/Mg Hydroxide 30 0 ml 02/17/24 14:48 ml/ Diphenhydramine HCl 75 mg/ PO Lidocaine HCl 30 ml RT-Q4H PRN GI Upset Dextrose/Water 25 ml 02/16/24 13:22 Dextrose 50% Syringe 50 Ml IVP PER PROTOCOL PRN Hypoglycemia Protocol Dextrose/Water 50 ml 02/16/24 13:22 Dextrose 50% Syringe 50 Ml IVP PER PROTOCOL PRN Hypoglycemia Protocol Furosemide 40 mg 02/15/24 20:00 02/17/24 08:50 Furosemide 10 Mg/Ml 4 Ml Vial IV 40 mg Q12H KEE Administration Gabapentin 300 mg 02/16/24 21:00 02/16/24 20:30 Gabapentin 300 Mg Cap PO 300 mg HS KEE Administration Heparin Sodium (Porcine) 5,000 unit 02/16/24 16:00 02/17/24 17:18 Heparin Sodium,Porcine 5,000 Unit/Ml 1 Ml Vial SQ 5,000 unit Q8HR KEE Administration Diltiazem HCl 125 mg/ Sodium 125 mls @ 5 mls/hr 02/15/24 20:45 02/16/24 17:21 Chloride IV 5 mg/hr .Q24H KEE 5 mls/hr Administration 5 MG/HR Insulin Detemir 10 unit 02/16/24 21:00 02/16/24 20:29 Insulin Detemir (Levemir) 100 Unit/Ml Syr SQ 10 unit HS KEE Administration Magnesium Oxide 400 mg 02/17/24 09:00 02/17/24 08:50 Magnesium Oxide 400 Mg Tab PO 400 mg DAILY KEE Administration Melatonin 10 mg 02/16/24 21:00 02/16/24 20:30 Melatonin 5 Mg Tablet PO 10 mg HS KEE Administration Metoprolol Tartrate 50 mg 02/16/24 21:00 02/17/24 08:50 Metoprolol Tartrate 50 Mg Tab PO 50 mg BID KEE Administration Midodrine 5 mg 02/16/24 16:00 02/17/24 17:17 Midodrine 5 Mg Tab PO 5 mg TID KEE Administration Miscellaneous Information 1 each 02/16/24 14:41 Potassium Replacement Protocol 1 Each Misc MISCELLANE DAILY PRN Per Protocol Protocol Montelukast Sodium 10 mg 02/16/24 21:00 02/16/24 20:30 Montelukast 10 Mg Tab PO 10 mg HS KEE Administration Nystatin 1 applic 02/17/24 16:00 02/17/24 17:18 Nystatin 100,000 Unit/Gm Powd 15 Gm TOPICAL 1 applic TID KEE Administration Protocol Pantoprazole Sodium 40 mg 02/16/24 17:30 02/17/24 17:17 Pantoprazole 40 Mg Tablet PO 40 mg AC-BID KEE Administration Spironolactone 25 mg 02/17/24 09:00 02/17/24 08:49 Spironolactone 25 Mg Tab PO 25 mg DAILY KEE Administration Intake and Output 02/17/24 02/17/24 02/17/24 06:59 14:59 22:59 Intake Total 230 Output Total 1999 -1999 Intake: Oral 230 Output: Urine 1999 1099 Other: Voiding Method Indwelling Catheter Indwelling Catheter Weight 77.2 kg 02/17/24 06:08 02/17/24 06:08
[2024-02-17 20:17] LABS: Glucose,Whole Blood 266 mg/dL (70-110)
[2024-02-17 23:39] LABS: % Iron Saturation 12.44 (12.00-45.00)
[2024-02-18 06:13] LABS: Glucose,Whole Blood 118 mg/dL (70-110)
[2024-02-18 11:37] LABS: Glucose,Whole Blood 141 mg/dL (70-110)
[2024-02-18 11:44] LABS: African American GFR (CKD) >90 (>60 ml/min/1.73 sqM); Anion Gap 6 mmol/L; Blood Urea Nitrogen 12 mg/dL (7-17); Calcium 8.7 mg/dL (8.4-10.2); Carbon Dioxide 32 mmol/L (22-30); Chloride 95 mmol/L (98-107); Glucose 137 mg/dL (74-99); Magnesium 1.3 mg/dL (1.6-2.3); Non-African American GFR(CKD) 87 (>60 ml/min/1.73 sqM); Potassium 3.2 mmol/L (3.5-5.1); Sodium 133 mmol/L (137-145)
[2024-02-18 11:46] LABS: Anisocytosis Marked; Basophils % (A) 1 %; Eosinophils % (A) 2 %; Hypochromasia Slight; Lymphocytes # (A) 0.2 k/uL (1.0-4.8); Lymphocytes % (A) 14 %; MCH 26.3 pg (25.0-35.0); MCHC 30.9 g/dL (31.0-37.0); MCV 85.2 fL (80.0-100.0); Macrocytosis Slight; Mean Platelet Volume 9.6; Microcytosis Slight; Monocytes # (A) 0.1 k/uL (0-1.0); Monocytes % (A) 8 %; Neutrophils % (A) 72 %; Platelet Count 171 k/uL (150-450); RBC 4.57 m/uL (3.80-5.40)
[2024-02-18 12:10] LABS: WBC 1.4 k/uL (3.8-10.6)
[2024-02-18] MEDS ORDERED: Magnesium Replacement Protocol 1 EACH MISC MISCELLANE PRN (12:16)
--- NOTE | 2024-02-18 13:45 | P.PN ---
Subjective Progress Note Date: 02/18/24 Principal diagnosis: Esophageal adenocarcinoma. Admission for congestive heart failure In follow-up today patient is tolerating soft foods. Reports occasional difficulty in swallowing, poor taste. She is doing a nebulizer treatment and feels that her breathing is stable, she is not feeling significantly short of breath. Objective - Vital Signs Vital signs: Vital Signs Temp 98 F 02/18/24 11:38 Pulse 100 02/18/24 12:40 Resp 20 02/18/24 11:38 BP 112/71 02/18/24 11:38 Pulse Ox 93 L 02/18/24 11:38 FiO2 Intake & Output 02/17/24 02/18/24 02/18/24 18:59 06:59 18:59 Intake Total 535 0 118 Output Total 1100 0 Balance -565 0 118 Weight 75.75 kg Intake: Intake, IV Titration 125 Amount Diltiazem 125 mg In 125 Sodium Chloride 0.9% 100 ml @ 5 MG/HR 5 mls/hr IV .Q24H [facility] Rx#:[id number] Oral 410 0 118 Output: Urine 1100 0 Other: Voiding Method Indwelling Catheter Indwelling Catheter Indwelling Catheter - Labs CBC & Chem 7: 02/18/24 10:55 02/18/24 10:55 Labs: Abnormal Lab Results - Last 24 Hours (Table) 02/17/24 02/17/24 02/17/24 Range/Units 14:40 16:30 20:16 WBC (3.8-10.6) k/uL MCHC (31.0-37.0) g/dL RDW (11.5-15.5) % Neutrophils # (1.3-7.7) k/uL Lymphocytes # (1.0-4.8) k/uL Sodium (137-145) mmol/L Potassium (3.5-5.1) mmol/L Chloride (98-107) mmol/L Carbon Dioxide (22-30) mmol/L Glucose (74-99) mg/dL POC Glucose (mg/dL) 123 H 266 H (70-110) mg/dL Magnesium (1.6-2.3) mg/dL Iron 27 L (50-170) UG/DL TIBC 217 L (228-460) UG/DL Transferrin 155.0 L (204.0-354.0) mg/dL Ferritin 568.0 H (10.0-291.0) ng/mL 02/18/24 02/18/24 02/18/24 Range/Units 06:12 10:55 10:55 WBC 1.4 L* (3.8-10.6) k/uL MCHC 30.9 L (31.0-37.0) g/dL RDW 27.0 H (11.5-15.5) % Neutrophils # 1.0 L (1.3-7.7) k/uL Lymphocytes # 0.2 L (1.0-4.8) k/uL Sodium 133 L (137-145) mmol/L Potassium 3.2 L (3.5-5.1) mmol/L Chloride 95 L (98-107) mmol/L Carbon Dioxide 32 H (22-30) mmol/L Glucose 137 H (74-99) mg/dL POC Glucose (mg/dL) 118 H (70-110) mg/dL Magnesium 1.3 L (1.6-2.3) mg/dL Iron (50-170) UG/DL TIBC (228-460) UG/DL Transferrin (204.0-354.0) mg/dL Ferritin (10.0-291.0) ng/mL 02/18/24 Range/Units 11:35 WBC (3.8-10.6) k/uL MCHC (31.0-37.0) g/dL RDW (11.5-15.5) % Neutrophils # (1.3-7.7) k/uL Lymphocytes # (1.0-4.8) k/uL Sodium (137-145) mmol/L Potassium (3.5-5.1) mmol/L Chloride (98-107) mmol/L Carbon Dioxide (22-30) mmol/L Glucose (74-99) mg/dL POC Glucose (mg/dL) 141 H (70-110) mg/dL Magnesium (1.6-2.3) mg/dL Iron (50-170) UG/DL TIBC (228-460) UG/DL Transferrin (204.0-354.0) mg/dL Ferritin (10.0-291.0) ng/mL Assessment and Plan (1) Atrial fibrillation with rapid ventricular response Current Visit: Yes Status: Acute Priority: High Code(s): I48.91 - UNSPECIFIED ATRIAL FIBRILLATION SNOMED Code(s): 922695400684832 (2) Leukopenia Current Visit: Yes Status: Acute Priority: High Code(s): D72.819 - DECREASED WHITE BLOOD CELL COUNT, UNSPECIFIED SNOMED Code(s): 26287244 (3) Stage III carcinoma of esophagus Current Visit: Yes Status: Acute Code(s): C15.9 - MALIGNANT NEOPLASM OF ESOPHAGUS, UNSPECIFIED SNOMED Code(s): 436174987 Plan: A-fib with RVR -Cardiology has assessed the patient. They are currently looking into some additional information from her office chart regarding long-term anticoagulation -From an Oncology standpoint, patient has been treated for her malignancy, curative intent. If patient is needing anticoagulation for cardiac condition there is no contraindication from an oncology standpoint. -Hematologically p latelet counts are adequate for anticoagulation Leukopenia -Treatment induced. WBC 1.4 today, ANC is 1000. No fevers documented. No need for GSS F at this time. -day spa manager inquired about patient's cancer treatment as patient is going to rehab. Patient has completed chemotherapy. -Discussed the case with Radiation Oncologist as the patient has 3 radiation treatments left. When intent of treatment is definitive/curative, would like to ensure that patient receives all treatment, on time, at prescribed doses. Pending a discussion with manager battery as to when patient is going to be disc harged. Radiation oncology is going to try to get her down for a treatment today Esophageal adenocarcinoma -Definitive treatment -Patient has completed the systemic chemotherapy portion of treatment, she has 3 radiation treatments left -Follow-up with Medical Oncology scheduled. Agree with rehabilitation for the patient. She was encouraged to do the same. She was encouraged to continue dietary food consistency modifications as tolerated.
--- NOTE | 2024-02-18 14:04 | P.PN ---
Subjective Progress Note Date: 02/18/24 HISTORY OF PRESENTING ILLNESS 78-year-old with PMH of stage III cervical cancer, chemotherapy carboplatin and cisplatin presented with generalized weakness and fatigue. Also has history of CHF atrial fibrillation. She was admitted to the hospital with atrial fibrillation with RVR and acute hypoxic respiratory failure. Her labs showed neutropenia WBC 1.2, hemoglobin 11.8, platelets 135. Magnesium was low at 1.4, BNP 2100. Chest x-ray showed mild pulm congestion 02/17 Patient states that her breathing is improved and denies any shortness of breath at this time. She has been maintained on IV Lasix 40 mg twice daily. Blood pressure 112/71, heart rate 74, pulse ox 93% on 2 L nasal cannula. Patient has a negative fluid balance and documented weight loss. Repeat blood work reveals WBC 1.4, hemoglobin 12. Sodium 133, potassium 3.2, BUN 12 and creatinine 0.63. Potassium orders have been placed. PHYSICAL EXAMINATION Vital signs reviewed. Head: Normocephalic. Eyes: Sclerae nonicteric. Neck: Brisk carotid upstroke, no jugular venous distention. Lungs: Essentially clear to auscultation, reduced air entry bilateral lung bases Heart: Irregularly irregular, S1-S2, no S3, no murmur or rub. Abdomen: Soft nontender, positive bowel sounds. Extremities: No edema, intact distal pulses. Neuro: Alert, oritented, no focal deficits. Detailed neuro exam was not performed. ASSESSMENT Paroxysmal atrial fibrillation with RVR Acute on chronic HFpEF, mild exacerbation Iron deficiency anemia Stage III esophageal adenocarcinoma carboplatin cisplatin therapy Leukopenia Thrombocytopenia PLAN Continue Lasix 40 mg IV twice daily for 1 more day and then transition to oral Continue metoprolol 50 mg twice daily, Aldactone 12 g daily, atorvastatin 40 mg daily Patient is not on systemic anticoagulation as this was placed on hold during hospitalization in November which time she was treated for GI bleed and invasive adenocarcinoma. Nurse practitioner note has been reviewed, I agree with documented findings and plan of care. Patient was seen and examined. Objective - Vital Signs Vital signs: Vital Signs Temp 97.6 F 02/18/24 09:05 Pulse 72 02/18/24 09:05 Resp 24 02/18/24 09:05 BP 115/74 02/18/24 09:05 Pulse Ox 95 02/18/24 09:05 FiO2 Intake & Output 0502/18/24 02/18/24 18:59 06:59 18:59 Intake Total 535 0 118 Output Total 1100 0 Balance -565 0 118 Weight 75.75 kg Intake: Intake, IV Titration 125 Amount Diltiazem 125 mg In 125 Sodium Chloride 0.9% 100 ml @ 5 MG/HR 5 mls/hr IV .Q24H [facility] Rx#:[id number] Oral 410 0 118 Output: Urine 1100 0 Other: Voiding Method Indwelling Catheter Indwelling Catheter Indwelling Catheter - Labs CBC & Chem 7: 02/18/24 10:55 02/18/24 10:55 Labs: Abnormal Lab Results - Last 24 Hours (Table) 02/17/24 02/17/24 02/17/24 Range/Units 06:08 11:41 14:40 Neutrophils # 0.7 L (1.3-7.7) k/uL Lymphocytes # 0.2 L (1.0-4.8) k/uL POC Glucose (mg/dL) 123 H (70-110) mg/dL Iron 27 L (50-170) UG/DL TIBC 217 L (228-460) UG/DL Transferrin 155.0 L (204.0-354.0) mg/dL Ferritin 568.0 H (10.0-291.0) ng/mL 02/17/24 02/17/24 02/18/24 Range/Units 16:30 20:16 06:12 Neutrophils # (1.3-7.7) k/uL Lymphocytes # (1.0-4.8) k/uL POC Glucose (mg/dL) 123 H 266 H 118 H (70-110) mg/dL Iron (50-170) UG/DL TIBC (228-460) UG/DL Transferrin (204.0-354.0) mg/dL Ferritin (10.0-291.0) ng/mL
[2024-02-18] MEDS: MAGNESIUM SULFATE-D5W PMX 1 GM in DEXTROSE/WATER 1 100ML.BAG IVPB SCH (14:22)
[2024-02-18] MEDS: POTASSIUM BICARBONATE/CIT AC 20 MEQ TABLET.EFF PO SCH (14:23)
[2024-02-18] MEDS: POTASSIUM CHLORIDE ER 20 MEQ TAB.ER PO SCH (15:21)
[2024-02-18] MEDS: METOPROLOL TARTRATE 50 MG TAB PO SCH (15:48)
[2024-02-18] MEDS: MAG HYDROX/AL HYDROX/SIMETH 30 ML, diphenhydrAMINE ELIXIR 75 MG, LIDOCAINE VISCOUS 2% 3... PO PRN (16:42)
[2024-02-18 17:01] LABS: Glucose,Whole Blood 242 mg/dL (70-110)
[2024-02-18 20:52] LABS: Glucose,Whole Blood 219 mg/dL (70-110)
--- NOTE | 2024-02-18 23:52 | PN ---
PROGRESS NOTE SUBJECTIVE: This is a 78-year-old white female, seen by Hematology Oncology for leukopenia, for esophageal adenocarcinoma. Admitted with CHF and some generalized weakness and severe . White count is up today to 1.4, yesterday was 1.0, hemoglobin is 12. Sodium 133, potassium 3.2. OBJECTIVE: VITAL SIGNS: O2 is 93, temp 98, pulse 100, respiratory rate 18 to 20, and blood pressure 112/71. Cardiovascular: S1, S2. LUNGS: Decreased breath sounds x4. PSYCH: Fair mood and affect. NEUROLOGIC: Alert and oriented x3. Atrial fibrillation with RVR. Leukopenia stage III. Carcinoma of esophagitis. She is being treated for malignancy prior to possible surgery. Anticoagulations is susceptible. Leukopenia treatment induced, WBC 1.4 up from 1.0, ANC is 1000. Radiation oncologist, 3 radiation treatments left, definitely curative, radiation is trying to get her down for treatment today. Follow up with med oncology. Prognosis guarded. MMODL / IJN: [id number] /
[2024-02-19 05:51] LABS: Glucose,Whole Blood 147 mg/dL (70-110)
[2024-02-19] MEDS: METOPROLOL TARTRATE 25 MG TAB PO STA (09:28)
[2024-02-19 11:12] LABS: Anisocytosis Marked; Basophils % (A) 1 %; Eosinophils % (A) 1 %; HCT 40.6 % (34.0-46.0); HGB 12.7 gm/dL (11.4-16.0); Hypochromasia Slight; Lymphocytes # (A) 0.2 k/uL (1.0-4.8); Lymphocytes % (A) 12 %; MCH 26.4 pg (25.0-35.0); MCHC 31.2 g/dL (31.0-37.0); MCV 84.7 fL (80.0-100.0); Macrocytosis Slight; Mean Platelet Volume 9.3; Microcytosis Slight; Monocytes # (A) 0.2 k/uL (0-1.0); Monocytes % (A) 14 %; Neutrophils % (A) 69 %; Platelet Count 184 k/uL (150-450); RBC 4.79 m/uL (3.80-5.40); WBC 1.5 k/uL (3.8-10.6)
[2024-02-19 11:13] LABS: RDW 27.2 % (11.5-15.5)
[2024-02-19 11:36] LABS: ALT 13 U/L (4-34); AST 19 U/L (14-36); African American GFR (CKD) >90 (>60 ml/min/1.73 sqM); Albumin 3.2 g/dL (3.5-5.0); Alkaline Phosphatase 90 U/L (38-126); Anion Gap 6 mmol/L; Blood Urea Nitrogen 13 mg/dL (7-17); Calcium 8.7 mg/dL (8.4-10.2); Carbon Dioxide 32 mmol/L (22-30); Chloride 95 mmol/L (98-107); Glucose 139 mg/dL (74-99); Magnesium 1.9 mg/dL (1.6-2.3); Non-African American GFR(CKD) 86 (>60 ml/min/1.73 sqM); Potassium 3.7 mmol/L (3.5-5.1); Sodium 133 mmol/L (137-145); Total Bilirubin 0.8 mg/dL (0.2-1.3); Total Protein 5.7 g/dL (6.3-8.2)
[2024-02-19 11:40] LABS: Glucose,Whole Blood 170 mg/dL (70-110)
[2024-02-19] MEDS: INSULIN ASPART (NovoLOG) 100 UNIT/ML VIAL SQ SCH (12:24)
--- NOTE | 2024-02-19 12:24 | P.PN ---
Subjective Progress Note Date: 02/19/24 HISTORY OF PRESENTING ILLNESS 78-year-old with PMH of stage III cervical cancer, chemotherapy carboplatin and cisplatin presented with generalized weakness and fatigue. Also has history of CHF atrial fibrillation. She was admitted to the hospital with atrial fibrillation with RVR and acute hypoxic respiratory failure. Her labs showed neutropenia WBC 1.2, hemoglobin 11.8, platelets 135. Magnesium was low at 1.4, BNP 2100. Chest x-ray showed mild pulm congestion 02/17 Patient states that her breathing is improved and denies any shortness of breath at this time. She has been maintained on IV Lasix 40 mg twice daily. Blood pressure 112/71, heart rate 74, pulse ox 93% on 2 L nasal cannula. Patient has a negative fluid balance and documented weight loss. Repeat blood work reveals WBC 1.4, hemoglobin 12. Sodium 133, potassium 3.2, BUN 12 and creatinine 0.63. Potassium orders have been placed. 02/18 Patient is seen today in follow-up. She has been maintained on IV Lasix 40 mg twice daily. She has no lower extremity edema. She has a negative fluid balance and documented downward trend on weight. Repeat blood work reveals WBC 1.5, hemoglobin 12.7. Sodium 133, potassium 3.7, creatinine 0.66. Patient states that she underwent radiation treatment this morning and has 2 more to be completed. She denies chest pain, no shortness of breath. PHYSICAL EXAMINATION Vital signs reviewed. Head: Normocephalic. Eyes: Sclerae nonicteric. Neck: Brisk carotid upstroke, no jugular venous distention. Lungs: Essentially clear to auscultation, reduced air entry bilateral lung bases Heart: Irregularly irregular, S1-S2, no S3, no murmur or rub. Abdomen: Soft nontender, positive bowel sounds. Extremities: No edema, intact distal pulses. Neuro: Alert, oritented, no focal deficits. Detailed neuro exam was not performed. ASSESSMENT Paroxysmal atrial fibrillation with RVR Acute on chronic HFpEF, mild exacerbation Iron deficiency anemia Stage III esophageal adenocarcinoma carboplatin cisplatin therapy Leukopenia Thrombocytopenia PLAN Transition IV Lasix to oral 40 mg daily Continue metoprolol 50 mg twice daily, Aldactone 12 g daily, atorvastatin 40 mg daily Patient is not on systemic anticoagulation as this was placed on hold during hospitalization in November which time she was treated for GI bleed and invasive adenocarcinoma. Nurse practitioner note has been reviewed, I agree with documented findings and plan of care. Patient was seen and examined. Objective - Vital Signs Vital signs: Vital Signs Temp 97.9 F 02/19/24 07:45 Pulse 89 02/19/24 07:45 Resp 17 02/19/24 07:45 BP 93/66 02/19/24 07:45 Pulse Ox 93 L 02/19/24 07:45 FiO2 Intake & Output 02/18/24 02/19/24 02/19/24 18:59 06:59 18:59 Intake Total 118 Output Total 700 625 Balance -582 -625 Weight 76.113 kg Intake: Oral 118 Output: Urine 700 625 Other: Voiding Method Indwelling Catheter Indwelling Catheter - Labs CBC & Chem 7: 02/19/24 10:19 02/19/24 10:19 Labs: Abnormal Lab Results - Last 24 Hours (Table) 02/18/24 02/18/24 02/18/24 Range/Units 10:55 10:55 11:35 WBC 1.4 L* (3.8-10.6) k/uL MCHC 30.9 L (31.0-37.0) g/dL RDW 27.0 H (11.5-15.5) % Neutrophils # 1.0 L (1.3-7.7) k/uL Lymphocytes # 0.2 L (1.0-4.8) k/uL Sodium 133 L (137-145) mmol/L Potassium 3.2 L (3.5-5.1) mmol/L Chloride 95 L (98-107) mmol/L Carbon Dioxide 32 H (22-30) mmol/L Glucose 137 H (74-99) mg/dL POC Glucose (mg/dL) 141 H (70-110) mg/dL Magnesium 1.3 L (1.6-2.3) mg/dL 02/18/24 02/18/24 02/19/24 Range/Units 17:00 20:50 05:49 WBC (3.8-10.6) k/uL MCHC (31.0-37.0) g/dL RDW (11.5-15.5) % Neutrophils # (1.3-7.7) k/uL Lymphocytes # (1.0-4.8) k/uL Sodium (137-145) mmol/L Potassium (3.5-5.1) mmol/L Chloride (98-107) mmol/L Carbon Dioxide (22-30) mmol/L Glucose (74-99) mg/dL POC Glucose (mg/dL) 242 H 219 H 147 H (70-110) mg/dL Magnesium (1.6-2.3) mg/dL
[2024-02-19 16:31] LABS: Glucose,Whole Blood 143 mg/dL (70-110)
[2024-02-19] MEDS: METOPROLOL TARTRATE 25 MG TAB PO SCH (16:56)
[2024-02-19] MEDS ORDERED: MIDODRINE 5 MG TAB PO SCH (17:30)
[2024-02-19] MEDS: MIDODRINE 5 MG TAB PO ONE (17:50)
[2024-02-19 20:01] LABS: Glucose,Whole Blood 158 mg/dL (70-110)
--- NOTE | 2024-02-19 20:42 | P.PN ---
Subjective Progress Note Date: 02/19/24 Principal diagnosis: Esophageal adenocarcinoma. Admission for congestive heart failure In follow-up today patient cont to tolerating soft foods, liquids. Persistent difficulty in swallowing, poor taste. No documented fevers. No new c/o. She is anxious about going home Objective - Vital Signs Vital signs: Vital Signs Temp 97.9 F 02/19/24 07:45 Pulse 89 02/19/24 07:45 Resp 17 02/19/24 07:45 BP 93/66 02/19/24 07:45 Pulse Ox 93 L 02/19/24 07:45 FiO2 Intake & Output 02/18/24 02/19/24 02/19/24 18:59 06:59 18:59 Intake Total 118 Output Total 700 625 375 Balance -672 -488 -136 Weight 76.113 kg Intake: Oral 118 Output: Urine 700 625 375 Uretheral (Leon) 375 Other: Voiding Method Indwelling Catheter Indwelling Catheter Indwelling Catheter - Constitutional General appearance: Present: average body habitus, cooperative, no acute distress - EENT Eyes: Present: anicteric sclerae, EOMI ENT: Present: hearing grossly normal - Respiratory Details: resp even and unlabored - Peripheral edema leg Peripheral Edema: bilateral: Trace - Integumentary Integumentary: Present: normal - Neurologic Neurologic: Present: CNII-XII intact - Musculoskeletal Musculoskeletal: Present: generalized weakness, strength equal bilaterally - Psychiatric Psychiatric: Present: A&O x's 3, appropriate affect, intact judgment & insight - Labs CBC & Chem 7: 02/19/24 10:19 02/19/24 10:19 Labs: Abnormal Lab Results - Last 24 Hours (Table) 02/18/24 02/18/24 02/18/24 Range/Units 10:55 10:55 11:35 WBC 1.4 L* (3.8-10.6) k/uL MCHC 30.9 L (31.0-37.0) g/dL RDW 27.0 H (11.5-15.5) % Neutrophils # 1.0 L (1.3-7.7) k/uL Lymphocytes # 0.2 L (1.0-4.8) k/uL Sodium 133 L (137-145) mmol/L Potassium 3.2 L (3.5-5.1) mmol/L Chloride 95 L (98-107) mmol/L Carbon Dioxide 32 H (22-30) mmol/L Glucose 137 H (74-99) mg/dL POC Glucose (mg/dL) 141 H (70-110) mg/dL Magnesium 1.3 L (1.6-2.3) mg/dL 02/18/24 02/18/24 02/19/24 Range/Units 17:00 20:50 05:49 WBC (3.8-10.6) k/uL MCHC (31.0-37.0) g/dL RDW (11.5-15.5) % Neutrophils # (1.3-7.7) k/uL Lymphocytes # (1.0-4.8) k/uL Sodium (137-145) mmol/L Potassium (3.5-5.1) mmol/L Chloride (98-107) mmol/L Carbon Dioxide (22-30) mmol/L Glucose (74-99) mg/dL POC Glucose (mg/dL) 242 H 219 H 147 H (70-110) mg/dL Magnesium (1.6-2.3) mg/dL Assessment and Plan (1) Atrial fibrillation with rapid ventricular response Current Visit: Yes Status: Acute Priority: High Code(s): I48.91 - UNSPECIFIED ATRIAL FIBRILLATION SNOMED Code(s): 959427940459304 (2) Leukopenia Current Visit: Yes Status: Acute Priority: High Code(s): D72.819 - DECREASED WHITE BLOOD CELL COUNT, UNSPECIFIED SNOMED Code(s): 81447266 (3) Stage III carcinoma of esophagus Current Visit: Yes Status: Acute Code(s): C15.9 - MALIGNANT NEOPLASM OF ESOPHAGUS, UNSPECIFIED SNOMED Code(s): 944833089 Plan: A-fib with RVR -Cardiology has assessed the patient. -From an Oncology standpoint, patient has been treated for her malignancy, curative intent. If patient is needing anticoagulation for cardiac condition there is no contraindication from an oncology standpoint. -Hematologically platelet counts are adequate for anticoagulation Leukopenia -Treatment induced. WBC 1.5 today, ANC is 1000. No fevers documented. No need for GSS F at this time. -tactical air control party manager inquired about patient's cancer treatment as patient is going to rehab. Patient has completed chemotherapy. -Discussed the case with Radiation Oncologist as the patient has 3 radiation treatments left. When intent of treatment is definitive/curative, would like to ensure that patient receives all treatment, on time, at prescribed doses. Radiation oncology is completing radiation while inpt Esophageal adenocarcinoma -Definitive treatment -Patient has completed the systemic chemotherapy portion of treatment, she has 2 radiation treatments left -Follow-up with Medical Oncology scheduled. Agree with rehabilitation for the patient. She was encouraged to do the same. She was encouraged to continue dietary food consistency modifications as tolerated. Dietitian consulted Doctor attests: I performed a history and physical examination of this patient, developed impression and plan of care. Discussed with dictator. I agree with dictators note, documented as a scribe.
[2024-02-19] MEDS: METOPROLOL TARTRATE 50 MG TAB PO SCH (20:48)
[2024-02-19] MEDS: BUDESONIDE 0.5 MG/2 ML NEBU INHALATION SCH (23:07)
--- NOTE | 2024-02-19 23:45 | PN ---
PROGRESS NOTE SUBJECTIVE: Temperature 96, pulse is 102 to 89, respiratory rate 16 to 18, blood pressure is 87/63. We cut down her blood pressure medicines as her blood pressure is low, gave her some midodrine, possibly increased her midodrine due to hypotension. She has still leukopenia. White count is 1.5, hemoglobin is 12.7, platelets 184. Sodium 133, potassium 3.7, CO2 is 32. Sugars in 100s. ASSESSMENT: Atrial fibrillation, RVR, hypotension, dehydration, COPD. Switch her off IV Lasix, switch her to oral medications. Possibly cut beta meek down. Monitor for orthostatic hypotension. She will get 2 more days of radiation treatments and then we are going to send her home. CONDITION: Stable. PROGNOSIS: Guarded. Please see further orders. MMODL / IJN: [id number] /
[2024-02-20 05:10] LABS: Glucose,Whole Blood 106 mg/dL (70-110)
[2024-02-20] MEDS: MIDODRINE 5 MG TAB PO SCH ×2 (06:29→17:36)
[2024-02-20] MEDS: FUROSEMIDE 40 MG TAB PO SCH (07:24)
[2024-02-20 11:46] LABS: Anisocytosis Marked; Basophils % (A) 1 %; Eosinophils % (A) 1 %; HCT 38.8 % (34.0-46.0); Lymphocytes # (A) 0.2 k/uL (1.0-4.8); Lymphocytes % (A) 11 %; MCH 26.1 pg (25.0-35.0); MCV 84.4 fL (80.0-100.0); Macrocytosis Slight; Microcytosis Slight; Monocytes # (A) 0.2 k/uL (0-1.0); Monocytes % (A) 12 %; Neutrophils # (A) 1.2 k/uL (1.3-7.7); Neutrophils % (A) 71 %; Platelet Count 179 k/uL (150-450); WBC 1.6 k/uL (3.8-10.6)
[2024-02-20 11:53] LABS: RDW 27.2 % (11.5-15.5)
[2024-02-20 12:07] LABS: Glucose,Whole Blood 126 mg/dL (70-110)
[2024-02-20 12:13] LABS: ALT 14 U/L (4-34); AST 21 U/L (14-36); African American GFR (CKD) >90 (>60 ml/min/1.73 sqM); Albumin 2.9 g/dL (3.5-5.0); Alkaline Phosphatase 91 U/L (38-126); Anion Gap 4 mmol/L; Blood Urea Nitrogen 15 mg/dL (7-17); Calcium 8.9 mg/dL (8.4-10.2); Carbon Dioxide 33 mmol/L (22-30); Chloride 95 mmol/L (98-107); Glucose 104 mg/dL (74-99); Non-African American GFR(CKD) 87 (>60 ml/min/1.73 sqM); Potassium 3.5 mmol/L (3.5-5.1); Sodium 132 mmol/L (137-145); Total Bilirubin 0.8 mg/dL (0.2-1.3); Total Protein 5.3 g/dL (6.3-8.2)
--- NOTE | 2024-02-20 13:44 | P.PN ---
Subjective Progress Note Date: 02/20/24 Principal diagnosis: Esophageal adenocarcinoma. Admission for congestive heart failure In follow-up today patient cont to tolerating soft foods, liquids. Persistent difficulty in swallowing, poor taste. No documented fevers. No new c/o. She is anxious about going home Objective - Vital Signs Vital signs: Vital Signs Temp 97.6 F 02/20/24 11:08 Pulse 70 02/20/24 11:08 Resp 17 02/20/24 11:08 BP 128/90 02/20/24 11:08 Pulse Ox 96 02/20/24 11:08 FiO2 Intake & Output 02/19/24 02/20/24 02/20/24 18:59 06:59 18:59 Intake Total 236 236 Output Total 450 280 400 Balance -214 -280 -164 Weight 75.8 kg Intake: Oral 236 236 Output: Urine 450 280 400 Uretheral (Leon) 375 Other: Voiding Method Toilet Toilet Toilet # Voids 1 - Constitutional General appearance: Present: average body habitus, cooperative, no acute distress - EENT Eyes: Present: anicteric sclerae, EOMI ENT: Present: hard of hearing - Respiratory Details: resp even and unlabored - Cardiovascular Details: skin warm and dry to the touch - Peripheral edema leg Peripheral Edema: bilateral: None - Neurologic Neurologic: Present: CNII-XII intact (grossly) - Psychiatric Psychiatric: Present: A&O x's 3, appropriate affect - Allied health notes Allied health notes reviewed: case management - Labs CBC & Chem 7: 02/20/24 10:54 02/20/24 10:54 Labs: Abnormal Lab Results - Last 24 Hours (Table) 02/19/24 02/19/24 02/20/24 Range/Units 16:30 19:59 10:54 WBC 1.6 L (3.8-10.6) k/uL RDW 27.2 H (11.5-15.5) % Neutrophils # 1.2 L (1.3-7.7) k/uL Lymphocytes # 0.2 L (1.0-4.8) k/uL Sodium (137-145) mmol/L Chloride (98-107) mmol/L Carbon Dioxide (22-30) mmol/L Glucose (74-99) mg/dL POC Glucose (mg/dL) 143 H 158 H (70-110) mg/dL Total Protein (6.3-8.2) g/dL Albumin (3.5-5.0) g/dL 02/20/24 02/20/24 Range/Units 10:54 12:01 WBC (3.8-10.6) k/uL RDW (11.5-15.5) % Neutrophils # (1.3-7.7) k/uL Lymphocytes # (1.0-4.8) k/uL Sodium 132 L (137-145) mmol/L Chloride 95 L (98-107) mmol/L Carbon Dioxide 33 H (22-30) mmol/L Glucose 104 H (74-99) mg/dL POC Glucose (mg/dL) 126 H (70-110) mg/dL Total Protein 5.3 L (6.3-8.2) g/dL Albumin 2.9 L (3.5-5.0) g/dL Assessment and Plan (1) Atrial fibrillation with rapid ventricular response Current Visit: Yes Status: Acute Priority: High Code(s): I48.91 - UNSPECIFIED ATRIAL FIBRILLATION SNOMED Code(s): 349584529020475 (2) Leukopenia Current Visit: Yes Status: Acute Priority: High Code(s): D72.819 - DECREASED WHITE BLOOD CELL COUNT, UNSPECIFIED SNOMED Code(s): 46068218 (3) Stage III carcinoma of esophagus Current Visit: Yes Status: Acute Code(s): C15.9 - MALIGNANT NEOPLASM OF ESOPHAGUS, UNSPECIFIED SNOMED Code(s): 455736939 Plan: A-fib with RVR -Cardiology has assessed the patient. -From an Oncology standpoint, patient has been treated for her malignancy, curat buddy intent. If patient is needing anticoagulation for cardiac condition there is no contraindication from an oncology standpoint. Counts are adequate for anticoagulation. GI bleed from Nov felt to be 2/2 tumor, which has now been treated. Ok to rechallenge with anticoagulation per Hem/Onc, will defer final decision to Cardiology. Leukopenia -Treatment induced. WBC 1.6 today, ANC is 1200. No fevers documented. No need for GSS F at this time. - Patient has completed chemotherapy. She will complete radiation tomorrow. Esophageal adenocarcinoma -Definitive treatment -Patient has completed the systemic chemotherapy portion of treatment, she has 1 radiation treatment after today -Follow-up with Medical Oncology scheduled. Agree with rehabilitation for the patient. She was encouraged to do the same. Speech therapy and Dietitian consulted
--- NOTE | 2024-02-20 14:19 | P.PN ---
Subjective Progress Note Date: 02/20/24 HISTORY OF PRESENTING ILLNESS 78-year-old with PMH of stage III cervical cancer, chemotherapy carboplatin and cisplatin presented with generalized weakness and fatigue. Also has history of CHF atrial fibrillation. She was admitted to the hospital with atrial fibrillation with RVR and acute hypoxic respiratory failure. Her labs showed neutropenia WBC 1.2, hemoglobin 11.8, platelets 135. Magnesium was low at 1.4, BNP 2100. Chest x-ray showed mild pulm congestion 02/17 Patient states that her breathing is improved and denies any shortness of breath at this time. She has been maintained on IV Lasix 40 mg twice daily. Blood pressure 112/71, heart rate 74, pulse ox 93% on 2 L nasal cannula. Patient has a negative fluid balance and documented weight loss. Repeat blood work reveals WBC 1.4, hemoglobin 12. Sodium 133, potassium 3.2, BUN 12 and creatinine 0.63. Potassium orders have been placed. 02/18 Patient is seen today in follow-up. She has been maintained on IV Lasix 40 mg twice daily. She has no lower extremity edema. She has a negative fluid balance and documented downward trend on weight. Repeat blood work reveals WBC 1.5, hemoglobin 12.7. Sodium 133, potassium 3.7, creatinine 0.66. Patient states that she underwent radiation treatment this morning and has 2 more to be completed. She denies chest pain, no shortness of breath. 02/19 Patient underwent radiation therapy again today. Apparently tomorrow is her last treatment. Yesterday, IV Lasix was transitioned to oral. Patient is not on anticoagulation due to recent treatment for GI bleed and invasive adenocarcinoma. Blood pressure 128/90, heart rate 70, pulse ox 96% on 2 L nasal cannula. PHYSICAL EXAMINATION Vital signs reviewed. Head: Normocephalic. Eyes: Sclerae nonicteric. Neck: Brisk carotid upstroke, no jugular venous distention. Lungs: Essentially clear to auscultation, reduced air entry bilateral lung bases Heart: Irregularly irregular, S1-S2, no S3, no murmur or rub. Abdomen: Soft nontender, positive bowel sounds. Extremities: No edema, intact distal pulses. Neuro: Alert, oritented, no focal deficits. Detailed neuro exam was not performed. ASSESSMENT Paroxysmal atrial fibrillation with RVR Acute on chronic HFpEF, mild exacerbation Iron deficiency anemia Stage III esophageal adenocarcinoma carboplatin cisplatin therapy Leukopenia Thrombocytopenia PLAN Transition IV Lasix to oral 40 mg daily Continue metoprolol 50 mg twice daily, Aldactone 12 g daily, atorvastatin 40 mg daily Patient is not on systemic anticoagulation as this was placed on hold during hospitalization in November which time she was treated for GI bleed and invasive adenocarcinoma. Cardiology will sign off this case and follow on an as-needed basis. Please reconsult for any new concerns. Patient may follow-up in the office in one to 2 weeks. Nurse practitioner note has been reviewed, I agree with documented findings and plan of care. Patient was seen and examined. Objective - Vital Signs Vital signs: Vital Signs Temp 97.6 F 02/20/24 11:08 Pulse 70 02/20/24 11:08 Resp 17 02/20/24 11:08 BP 128/90 02/20/24 11:08 Pulse Ox 96 02/20/24 11:08 FiO2 Intake & Output 02/19/24 02/20/24 02/20/24 18:59 06:59 18:59 Intake Total 236 236 Output Total 450 280 400 Balance -214 -280 -164 Weight 75.8 kg Intake: Oral 236 236 Output: Urine 450 280 400 Uretheral (Leon) 375 Other: Voiding Method Toilet Toilet Toilet # Voids 1 - Labs CBC & Chem 7: 02/20/24 10:54 02/20/24 10:54 Labs: Abnormal Lab Results - Last 24 Hours (Table) 02/19/24 02/19/24 02/20/24 Range/Units 16:30 19:59 10:54 WBC 1.6 L (3.8-10.6) k/uL RDW 27.2 H (11.5-15.5) % Neutrophils # 1.2 L (1.3-7.7) k/uL Lymphocytes # 0.2 L (1.0-4.8) k/uL Sodium (137-145) mmol/L Chloride (98-107) mmol/L Carbon Dioxide (22-30) mmol/L Glucose (74-99) mg/dL POC Glucose (mg/dL) 143 H 158 H (70-110) mg/dL Total Protein (6.3-8.2) g/dL Albumin (3.5-5.0) g/dL 05/22/24 05/22/24 Range/Units 10:54 12:01 WBC (3.8-10.6) k/uL RDW (11.5-15.5) % Neutrophils # (1.3-7.7) k/uL Lymphocytes # (1.0-4.8) k/uL Sodium 132 L (137-145) mmol/L Chloride 95 L (98-107) mmol/L Carbon Dioxide 33 H (22-30) mmol/L Glucose 104 H (74-99) mg/dL POC Glucose (mg/dL) 126 H (70-110) mg/dL Total Protein 5.3 L (6.3-8.2) g/dL Albumin 2.9 L (3.5-5.0) g/dL
--- NOTE | 2024-02-20 14:54 | CT ---
EXAMINATION TYPE: CT brain wo con CT DLP: 1095.4 mGycm, Automated exposure control for dose reduction was used. DATE OF EXAM: 02/20/2024 1:40 PM COMPARISON: MRI 05/26/2023, brain 05/24/2023. CLINICAL INDICATION:Female, 78 years old with history of more altered mental status, More Altered Men tatiana Status TECHNIQUE: Brain: Axial CT images of the brain were obtained with coronal and sagittal reformats created and rev iewed. Contrast used: None. Oral contrast used: None. FINDINGS: Brain: Extra-axial spaces: No abnormal extra-axial fluid collections. Ventricular system: Within normal limits Cerebral parenchyma: Right frontal lobe anterior cranial fossa measuring 15 mm with CSF the lesion. N o acute intraparenchymal hemorrhage or mass effect. The remainder of the ramirez-white junctions are we ll differentiated. Cerebellum: Unremarkable. Mass effect: No evidence of midline shift. Intracranial vasculature: Atherosclerotic calcifications of the intracranial vessels. Soft tissues: Normal. Calvarium/osseous structures: No depressed skull fracture. Paranasal sinuses and mastoid air cells: Mild scattered paranasal sinus disease. Visualized orbits: Orbital contents are intact. IMPRESSION: 1. No evidence for acute/subacute CVA 2. Anterior right extra-axial CSF attenuating lesion not seen on prior MRI 05/26/2023 consider follow -up MRI with IV contrast. 3. Extensive nonspecific white matter changes.
[2024-02-20 17:03] LABS: Glucose,Whole Blood 130 mg/dL (70-110)
[2024-02-20] MEDS: METOPROLOL TARTRATE 50 MG TAB PO SCH (17:36)
--- NOTE | 2024-02-20 17:47 | US ---
EXAMINATION TYPE: US venous doppler duplex LE BI DATE OF EXAM: 02/20/2024 4:27 PM COMPARISON: NONE CLINICAL INDICATION: Female, 78 years old with history of elevated ddimer; elevated d dimer. Not on b lood thinners SIDE PERFORMED: Bilateral TECHNIQUE: The lower extremity deep venous system is examined utilizing real time linear array sonog mariluz with graded compression, doppler sonography and color-flow sonography. VESSELS IMAGED: Common Femoral Vein Deep Femoral Vein Greater Saphenous Vein * Femoral Vein Popliteal Vein Small Saphenous Vein * Proximal Calf Veins (* superficial vessels) Right Leg: Groin slightly limited due to pt positioning. No evidence for DVT in vessels visualized Left Leg: Echoes seen from the CFV to mid popliteal vein with no compression or blood flow. Blood fl ow seen again in distal pop vein. IMPRESSION: 1. Deep venous thrombosis within the left common femoral vein to the mid popliteal vein. 2. Right lower extremity negative for deep venous thrombosis. A [place] level critical message alert has been initiated for Peter De Santiago MD via the [employer] Critical Results System on 02/20/2024 5:45 PM. This message alert has been sent to Peter De Santiago MD via the preferences provided by the clinician for the receipt of Radiology Critical Findings. Message ID [id number].
[2024-02-20] MEDS ORDERED: HEPARIN SODIUM 1,000 UN/ML (10ML VL) IV PRN (17:51)
--- NOTE | 2024-02-20 18:58 | CT ---
CTA CHEST EXAMINATION TYPE: CT chest angio for PE DATE OF EXAM: 02/20/2024 INDICATION: elevated d dimer, pain, indigestion. CT DLP: 472.4 mGycm, Automated exposure control for dose reduction was used. CONTRAST: Patient injected with 100ml mL of Isovue 370. COMPARISON: None TECHNIQUE: CT of the chest is performed on a spiral scan at 2 mm thick sections. Study is performed with intravenous contrast timed for evaluation for pulmonary embolism. This will limit additional po rtions of the evaluation. 3-D MIP images reconstructed by the technologist are reviewed on the compu ter in the coronal and sagittal planes. FINDINGS: No persistent filling defects are evident to suggest an acute pulmonary embolism. No mediastinal or hilar adenopathy enlarged by CT criteria is evident. The ascending aorta diameter at the level of the main pulmonary artery is 3.6 cm. The main pulmonary artery diameter at the bifurcation is 3.4 cm. Lung windows are clear. Limited CT sections were through the upper abdomen. Moderate size hiatal hernia is present. IMPRESSION: 1. No acute pulmonary embolism.
[2024-02-20 19:29] LABS: Partial Thromboplastin Time 23.3 sec (22.0-30.0)
[2024-02-20 19:49] LABS: Anisocytosis Marked; Basophils % (A) 1 %; Eosinophils % (A) 0 %; HCT 40.4 % (34.0-46.0); HGB 12.8 gm/dL (11.4-16.0); Lymphocytes # (A) 0.2 k/uL (1.0-4.8); Lymphocytes % (A) 10 %; MCH 26.7 pg (25.0-35.0); MCHC 31.8 g/dL (31.0-37.0); MCV 84.1 fL (80.0-100.0); Macrocytosis Slight; Mean Platelet Volume 8.1; Microcytosis Moderate; Monocytes # (A) 0.3 k/uL (0-1.0); Monocytes % (A) 17 %; Neutrophils # (A) 1.3 k/uL (1.3-7.7); Neutrophils % (A) 68 %; Platelet Count 217 k/uL (150-450); RBC 4.81 m/uL (3.80-5.40); RDW 27.6 % (11.5-15.5); WBC 1.9 k/uL (3.8-10.6)
[2024-02-20 20:18] LABS: Glucose,Whole Blood 115 mg/dL (70-110)
[2024-02-20] MEDS: HEPARIN SODIUM 1,000 UN/ML (10ML VL) IV ONE (21:11)
[2024-02-20] MEDS: HEPARIN SOD,PORK IN 0.45% NACL 25,000 UNIT in 0.45% NACL 1 250ML.BAG IV SCH (21:11)
--- NOTE | 2024-02-20 23:22 | PN ---
PROGRESS NOTE SUBJECTIVE: Katherine Barlow apparently became more confused today. She has a low white count of 1.4, difficulty swallowing, poor taste. She remains leukopenic at 1.6. OBJECTIVE: VITAL SIGNS: Appear to be stable. HEENT: Pupils equal, round, reactive. CARDIOVASCULAR: S1, S2. LUNGS: Scattered rhonchi and wheeze. ASSESSMENT: She has atrial fibrillation with RVR, stage III esophageal cancer, COPD, leukopenia, status post chemotherapy. She is getting radiation. She is almost done with this. She has not improved. We will do a neuro workup on her. CAT scan of the brain is pending. MMODL / IJN: [id number] /
[2024-02-21 04:26] LABS: Anisocytosis Marked; HGB 11.4 gm/dL (11.4-16.0); MCH 26.4 pg (25.0-35.0); MCHC 31.5 g/dL (31.0-37.0); MCV 83.6 fL (80.0-100.0); Macrocytosis Slight; Mean Platelet Volume 9.6; Microcytosis Moderate; Platelet Count 198 k/uL (150-450); RBC 4.31 m/uL (3.80-5.40); WBC 2.1 k/uL (3.8-10.6)
[2024-02-21 04:29] LABS: RDW 27.9 % (11.5-15.5)
[2024-02-21 04:46] LABS: Band Neutrophils % 8 %; Lymphocytes # (M) 0.29 k/uL (1.0-4.8); Monocytes # (M) 0.63 k/uL (0-1.0); Neutrophils % (M) 48 %; Nucleated Red Blood Cells 0 /100 WBC (0-0); Total Cells Counted 100
[2024-02-21 04:47] LABS: Anisocytosis (M) Present; Ovalocytes Present; Poikilocytosis (M) Present; RBC Fragments Present; Tear Drop Cells Present
[2024-02-21 04:48] LABS: Crenated RBC Present
[2024-02-21 06:08] LABS: Glucose,Whole Blood 119 mg/dL (70-110)
[2024-02-21 07:42] LABS: Appearance,Urine Clear (Clear); Bacteria,Urine Moderate /hpf; Bilirubin,Urine Negative (Negative); Blood,Urine Trace (Negative); Color,Urine Yellow; Glucose,Urine (UA) Negative (Negative); Ketones,Urine Negative (Negative); Leukocyte Esterase,Urine Large (Negative); Mucus,Urine Rare /hpf; Nitrite,Urine Negative (Negative); PH, Urine 5.5 (5.0-8.0); Protein,Urine Trace (Negative); RBC,Urine 7 /hpf (0-5); Squamous Epithelial Cell,Urine 1 /hpf (0-4); Urobilinogen,Urine <2.0 mg/dL (<2.0); WBC,Urine 62 /hpf (0-5)
[2024-02-21 08:35] LABS: Specific Gravity,Urine >1.050 (1.001-1.035)
[2024-02-21] MEDS ORDERED: RX INFO: IV CONTRAST WAS GIVEN 1 EACH MISC MISCELLANE PRN (10:44)
[2024-02-21 11:24] LABS: Glucose,Whole Blood 137 mg/dL (70-110)
[2024-02-21 16:30] LABS: Glucose,Whole Blood 137 mg/dL (70-110)
[2024-02-21 18:27] LABS: African American GFR (CKD) 77 (>60 ml/min/1.73 sqM); Anion Gap 8 mmol/L; Blood Urea Nitrogen 20 mg/dL (7-17); Calcium 9.1 mg/dL (8.4-10.2); Carbon Dioxide 28 mmol/L (22-30); Chloride 95 mmol/L (98-107); Glucose 114 mg/dL (74-99); Non-African American GFR(CKD) 67 (>60 ml/min/1.73 sqM); Potassium 3.6 mmol/L (3.5-5.1); Sodium 131 mmol/L (137-145)
--- NOTE | 2024-02-21 20:08 | CT ---
EXAMINATION TYPE: CT brain w con CT DLP: 1117.4 mGycm, Automated exposure control for dose reduction was used. DATE OF EXAM: 02/21/2024 7:29 PM COMPARISON: CT head 02/20/2024. CLINICAL INDICATION:Female, 78 years old with history of abn findings on CT head without contrast; PH H, Abnormal findings on CT head without contrast. TECHNIQUE: Axial CT images of the brain were obtained with coronal and sagittal reformats created and reviewed. Contrast used:100 ml mL of Isovue 300 with IV Contrast, Oral contrast used: none. FINDINGS: Extra-axial spaces: Redemonstration of a low attenuating region involving the inferior right frontal lobe/extra-axial space without evidence of postcontrast enhancement. Ventricular system: Within normal limits Cerebral parenchyma: Acute/subacute infarcts involving the left parietal lobe loss the ramirez-white tammie ction and the peripheral sulci in the region. Additional foci of hypoattenuation within the left inte rnal capsule, slightly more pronounced on the current exam than the prior study. Additional nonspecif ic areas of hypoattenuation within the subcortical white matter which is commonly related to chronic ischemic small vessel disease. No abnormal enhancement is seen after the administration of intravenou s contrast. No evidence of intracranial hemorrhage. Cerebellum: Unremarkable. Mass effect: No evidence of midline shift. Intracranial vasculature: unremarkable Soft tissues: Normal. Calvarium/osseous structures: No depressed skull fracture. Paranasal sinuses and mastoid air cells: Clear. Visualized orbits: Bilateral aphakia IMPRESSION: 1. Interval evolution of an acute/subacute infarct involving the left parietal lobe. Additional nonsp ecific focus of hypoattenuation within the left basal ganglia, may also represent additional site of infarct. No evidence of intracranial hemorrhage. 2. Redemonstrated nonspecific region of hypoattenuation in the right anterior renal fossa, may repres ent encephalomalacia from prior injury versus cystic lesion. Further evaluation with dedicated MRI of the brain as previously recommended
[2024-02-21 20:14] LABS: Glucose,Whole Blood 116 mg/dL (70-110)
--- NOTE | 2024-02-21 20:33 | P.PN ---
Subjective Progress Note Date: 02/21/24 Principal diagnosis: Esophageal adenocarcinoma. Admission for congestive heart failure In follow-up today patient is in chair, she is confused, she is not able to answer questions about where she is or what is going on, it took her several times before she could identify her ex-. She has now been diagnosed with LLE DVT, no DVT in RLE, no PE. She denies any pain or swelling in the legs. She had a CT of head without contrast reporting rt sided CSF attenuating lesion Objective - Vital Signs Vital signs: Vital Signs Temp 98.0 F 02/21/24 11:24 Pulse 95 02/21/24 13:18 Resp 16 02/21/24 13:18 BP 99/66 02/21/24 11:24 Pulse Ox 99 02/21/24 11:24 FiO2 Intake & Output 02/20/24 02/21/24 02/21/24 18:59 06:59 18:59 Intake Total 354 70.267 201.481 Output Total 400 Balance -46 70.267 201.481 Weight 75.8 kg Intake: Intake, IV Titration 70.267 83.481 Amount Heparin Sod,Pork in 0.45% 70.267 83.481 NaCl 25,000 unit In 0.45 % NaCl 1 250ml.bag @ 18 UNITS/KG/HR 13.644 mls/hr IV .[id number] KEE Rx#: [id number] Oral 354 118 Output: Urine 400 Other: Voiding Method Toilet Toilet Toilet # Voids 1 3 # Bowel Movements 1 - Constitutional General appearance: Present: average body habitus, cooperative, no acute distress - EENT Eyes: Present: anicteric sclerae ENT: Present: hearing grossly normal - Respiratory Respiratory: bilateral: CTA - Peripheral edema leg Peripheral Edema: bilateral: None - Gastrointestinal General gastrointestinal: Present: soft - Musculoskeletal Musculoskeletal: Present: strength equal bilaterally - Psychiatric Psychiatric Comment(s): alert, oriented to self. Pleasant affect - Labs CBC & Chem 7: 02/21/24 03:39 02/21/24 17:30 Labs: Abnormal Lab Results - Last 24 Hours (Table) 02/20/24 02/20/24 02/20/24 Range/Units 15:15 16:59 18:42 WBC 1.9 L (3.8-10.6) k/uL RDW 27.6 H (11.5-15.5) % Neutrophils # (Manual) (1.3-7.7) k/uL Lymphocytes # 0.2 L (1.0-4.8) k/uL Lymphocytes # (Manual) (1.0-4.8) k/uL APTT (22.0-30.0) sec D-Dimer 1.36 H (<0.60) mg/L FEU POC Glucose (mg/dL) 130 H (70-110) mg/dL Ur Specific [place] (1.001-1.035) Urine Protein (Negative) Urine Blood (Negative) Ur Leukocyte Esterase (Negative) Urine RBC (0-5) /hpf Urine WBC (0-5) /hpf Urine Bacteria (None) /hpf Urine Mucus (None) /hpf 02/20/24 02/21/24 02/21/24 Range/Units 20:16 00:59 03:39 WBC 2.1 L (3.8-10.6) k/uL RDW 27.9 H (11.5-15.5) % Neutrophils # (Manual) 1.10 L (1.3-7.7) k/uL Lymphocytes # (1.0-4.8) k/uL Lymphocytes # (Manual) 0.29 L (1.0-4.8) k/uL APTT >200.0 H* (22.0-30.0) sec D-Dimer (<0.60) mg/L FEU POC Glucose (mg/dL) 115 H (70-110) mg/dL Ur Specific [place] (1.001-1.035) Urine Protein (Negative) Urine Blood (Negative) Ur Leukocyte Esterase (Negative) Urine RBC (0-5) /hpf Urine WBC (0-5) /hpf Urine Bacteria (None) /hpf Urine Mucus (None) /hpf 02/21/24 02/21/24 02/21/24 Range/Units 06:06 07:08 10:41 WBC (3.8-10.6) k/uL RDW (11.5-15.5) % Neutrophils # (Manual) (1.3-7.7) k/uL Lymphocytes # (1.0-4.8) k/uL Lymphocytes # (Manual) (1.0-4.8) k/uL APTT >200.0 H* (22.0-30.0) sec D-Dimer (<0.60) mg/L FEU POC Glucose (mg/dL) 119 H (70-110) mg/dL Ur Specific [place] >1.050 H (1.001-1.035) Urine Protein Trace H (Negative) Urine Blood Trace H (Negative) Ur Leukocyte Esterase Large H (Negative) Urine RBC 7 H (0-5) /hpf Urine WBC 62 H (0-5) /hpf Urine Bacteria Moderate H (None) /hpf Urine Mucus Rare H (None) /hpf 02/21/24 Range/Units 11:22 WBC (3.8-10.6) k/uL RDW (11.5-15.5) % Neutrophils # (Manual) (1.3-7.7) k/uL Lymphocytes # (1.0-4.8) k/uL Lymphocytes # (Manual) (1.0-4.8) k/uL APTT (22.0-30.0) sec D-Dimer (<0.60) mg/L FEU POC Glucose (mg/dL) 137 H (70-110) mg/dL Ur Specific [place] (1.001-1.035) Urine Protein (Negative) Urine Blood (Negative) Ur Leukocyte Esterase (Negative) Urine RBC (0-5) /hpf Urine WBC (0-5) /hpf Urine Bacteria (None) /hpf Urine Mucus (None) /hpf - Imaging and Cardiology CT scan - chest: report reviewed CT Scan - head: report reviewed Venous US: report reviewed Assessment and Plan (1) Atrial fibrillation with rapid ventricular response Current Visit: Yes Status: Acute Priority: High Code(s): I48.91 - UNSPECIFIED ATRIAL FIBRILLATION SNOMED Code(s): 180764716873193 (2) Leukopenia Current Visit: Yes Status: Acute Priority: High Code(s): D72.819 - DECREASED WHITE BLOOD CELL COUNT, UNSPECIFIED SNOMED Code(s): 78244184 (3) Stage III carcinoma of esophagus Current Visit: Yes Status: Acute Code(s): C15.9 - MALIGNANT NEOPLASM OF ESOPHAGUS, UNSPECIFIED SNOMED Code(s): 718606550 Plan: A-fib with RVR -Cardiology has assessed the patient. -From an Oncology standpoint, patient has been treated for her malignancy, curative intent. If patient is needing anticoagulation for cardiac condition there is no contraindication from an oncology standpoint. Counts are adequate for anticoagulation. GI bleed from Nov felt to be 2/2 tumor, which has now been treated. Ok to rechallenge with anticoagulation per Hem/Onc, will defer final decision to Cardiology. Leukopenia -Treatment induced. WBC 2.1 today, ANC is 1100. No fevers documented. No need for GSS F at this time. - Patient has completed chemotherapy. She was to complete radiation today but she is on heparin drip for newly diagnosed LLE DVT. *PTT was elevated and drip needed to be shut off, she may make it to radiation, will see tomorrow LLE DVT -Provoked-hospitalization, acute illness, decreased mobility -cont heparin drip for now, monitor Hgb -Pt has started on heparin drip. Eliquis Rx was sent for copay verification, Case mgmt consulted Abnormal findings on CT head without contrast -CT of the head reporting no evidence for acute/subacute CVA. Anterior right extra-axial CSF attenuation lesion, not seen on MRI from May 2023. Extensive nonspecific white matter changes -CT of the head with contrast ordered for further clarification. Patient is exhibiting confusion Esophageal adenocarcinoma -Definitive treatment -Patient has completed the systemic chemotherapy portion of treatment, she has 1 radiation treatment after today -Follow-up with Medical Oncology scheduled. Speech therapy and Dietitian consulted
[2024-02-21] MEDS: Apixaban Initiation Dose--VTE 5 MG TAB PO SCH (20:36)
--- NOTE | 2024-02-21 23:04 | PN ---
PROGRESS NOTE SUBJECTIVE: Katherine Barlow is a 78-year-old white female, placed on high-dose heparin for DVT in the left leg, positive large leukocyte esterase, possible UTI. She had become more confused over the last day or 2, O2 is 97% on 2 L. OBJECTIVE: VITAL SIGNS: Blood pressure 93/57, temp 98.2, pulse 86, respiratory rate 16 to 18. Doppler was positive for DVT in the left leg. ASSESSMENT: She had no pulmonary embolism. Continue on blood test, possibly switch to oral anticoagulation depending on what hematology says. Prognosis guarded. Continue current treatments, blood thinners, pressures. Switch to oral anticoagulation soon as she is negative for PE. Prognosis guarded. She had esophageal adenocarcinoma, congestive heart failure, deep venous thrombosis, possibly go home soon. MMODL / IJN: [id number] /
[2024-02-22 06:26] LABS: Glucose,Whole Blood 91 mg/dL (70-110)
[2024-02-22 09:58] LABS: Anisocytosis Marked; HCT 37.2 % (34.0-46.0); HGB 11.8 gm/dL (11.4-16.0); MCH 26.7 pg (25.0-35.0); MCHC 31.6 g/dL (31.0-37.0); MCV 84.7 fL (80.0-100.0); Macrocytosis Slight; Mean Platelet Volume 8.3; Microcytosis Moderate; Platelet Count 195 k/uL (150-450); RBC 4.39 m/uL (3.80-5.40); WBC 2.2 k/uL (3.8-10.6)
[2024-02-22 09:59] LABS: RDW 27.7 % (11.5-15.5)
[2024-02-22 11:25] LABS: Glucose,Whole Blood 189 mg/dL (70-110)
[2024-02-22 12:07] LABS: Lymphocytes # (M) 0.35 k/uL (1.0-4.8); Neutrophils # (M) 1.45 k/uL (1.3-7.7); Neutrophils % (M) 66 %; Nucleated Red Blood Cells 0 /100 WBC (0-0); Total Cells Counted 100
[2024-02-22 12:09] LABS: Poikilocytosis (M) Present
--- NOTE | 2024-02-22 12:35 | US ---
EXAMINATION TYPE: US carotid duplex BILAT DATE OF EXAM: 02/22/2024 COMPARISON: US 2022 CLINICAL INDICATION: Female, 78 years old with history of stroke; TECHNIQUE: Carotid duplex ultrasound examination. Indirect Doppler criteria was utilized. FINDINGS: EXAM MEASUREMENTS: RIGHT: Peak Systolic Velocity (PSV) cm/sec ----- Right CCA: 52.2 ----- Right ICA: 73.7 ----- Right ECA: 43.2 ICA/CCA ratio: 1.4 RIGHT: End Diastole cm/sec ----- Right CCA: 16.0 ----- Right ICA: 16.5 ----- Right ECA: 2.9 LEFT: Peak Systolic Velocity (PSV) cm/sec ----- Left CCA: 68.5 ----- Left ICA: 63.9 ----- Left ECA: 41.1 ICA/CCA ratio: 0.9 LEFT: End Diastole cm/sec ----- Left CCA: 14.4 ----- Left ICA: 19.6 ----- Left ECA: 3.9 VERTEBRALS (direction of flow): Right Vertebral: Antegrade Left Vertebral: Antegrade Rhythm: Arrhythmia No significant stenosis IMPRESSION: 1. No significant flow-limiting stenosis based on velocities. Criteria for Assigning % of Stenosis / Diameter reduction (Estimation based on the indirect measurements of the internal carotid artery velocities (ICA PSV). 1. Normal (no stenosis)=ICA PSV < 125 cm/s: ratio < 2.0: ICA EDV<40 cm/s. 2. Less than 50% stenosis=ICA PSV < 125 cm/s: ratio < 2.0: ICA EDV<40 cm/s. 3. 50 to 69% stenosis=ICA PSV of 125 to 230 cm/s: ration 2.0 ? 4.0: ICA EDV 40-100 cm/s. 4. Greater than 70% stenosis to near occlusion= ICA PSV > 230 cm/s: ratio > 4.0: ICA EDV > 100 cm/s. 5. Near occlusion= ICA PSV velocities may be low or undetectable: variable ratio and ICA EDV. 6. Total occlusion=unable to detect flow.
--- NOTE | 2024-02-22 12:58 | P.CNNES ---
History of Present Illness Consult date: 02/22/24 Requesting physician: Kan Lee Reason for Consult: ct positive for cva History of Present Illness: This is a 78-year-old woman with history of A-fib not on anticoagulation due to history of GI bleed, esophageal cancer who presents because of lower extremity edema. History was obtained from the [id number] who is at bedside. Per the [id number], patient was having edema of her lower extremities and pain and she thinks it was bilateral then that about 2 days ago she had speech difficulty and per the nurse when she was walking she was running into the wall. She had initial CT of the head which was unremarkable. Then she had a repeat CT of the head yesterday which showed interval evolution of acute/subacute infarct involving the left parietal lobe. As well as nonspecific focus of hypoattenuation within the left basal ganglia which may represent a site of infarct. As well as redemonstrated nonspecific region of hypoattenuation in the right anterior fossa may represent encephalomalacia from prior injury versus cystic lesion. During this admission she was newly on heparin drip then she was started on Eliquis 10 mg twice daily by the primary team but and she had clearance from oncology standpoint. According to the [id number] patient was on anticoagulation in the past and she had esophageal bleeding so she was discontinued off of anticoagulation. It seems that the patient has history of chemotherapy for esophageal cancer. Per family members patient does not have any history of stroke to their knowledge. Oncology team consulted our team today for the stroke. I am not sure of the code stroke was activated for this patient and patient did not have any imaging of the neck or head vessels. Patient is on Eliquis 10 mg twice daily that was started yesterday at night. I assume no IV thrombolytics since the patient and the risk outweigh the benefit. Some of the other workup during this hospital visit consisted of: Has leukopenia. Hemoglobin A1c 7.0 Venous duplex is reported as the venous thrombosis in the left common femoral vein to the mid popliteal vein. Right lower extremity negative for DVT. 2D echo was reported as left ventricle ejection fraction of 60 to 65%. Moderate right atrial dilation. Moderate left atrial dilation. Urine analysis seems probable suggestive of UTI. Review of Systems The positive and negative as per HPI. Past Medical History Past Medical History: Diabetes Mellitus, Eye Disorder, GERD/Reflux, Hearing Disorder / Deafness, Hypertension, Osteoarthritis (OA) Additional Past Medical History / Comment(s): MACULAR DEGENERATION, cataracts, osteoporosis, diet controlled diabetic, TIA History of Any Multi-Drug Resistant Organisms: None Reported Past Surgical History: Cholecystectomy, Hysterectomy Additional Past Surgical History / Comment(s): ORIF RT WRIST-HAD BONE GRAFT FROM HIP, asher fundoplasty, teeth pulled Past Anesthesia/Blood Transfusion Reactions: No Reported Reaction Past Psychological History: Anxiety, Depression Smoking Status: Never smoker Past Alcohol Use History: None Reported Past Drug Use History: None Reported - Past Family History Brother(s) Family Medical History: Cancer Additional Family Medical History / Comment(s): LUNG Mother Family Medical History: Cancer Sister(s) Family Medical History: Cancer Medications and Allergies Home Medications Medication Instructions Recorded Confirmed Type Montelukast [Singulair] 10 mg PO HS 07/31/22 02/15/24 History Gabapentin 300 mg PO HS 10/06/23 02/15/24 History Atorvastatin [Lipitor] 40 mg PO HS 11/03/23 02/15/24 History Ipratropium-Albuterol Nebulize 3 ml INHALATION RT-TID 11/03/23 02/15/24 History [Duoneb 0.5 mg-3 mg/3 ml Soln] Melatonin 10 mg PO HS 11/03/23 02/15/24 History Metoprolol Tartrate [Lopressor] 50 mg PO BID 11/03/23 02/15/24 History Ondansetron [Zofran] 4 - 8 mg PO Q4H PRN 11/03/23 02/15/24 History Pantoprazole [Protonix] 40 mg PO BID #60 tab 11/12/23 02/15/24 Rx Spironolactone [Aldactone] 25 mg PO DAILY #30 tab 11/12/23 02/15/24 Rx Insulin Aspart [NovoLOG Flexpen] 5 - 10 units SQ AC-TID PRN 01/14/24 02/15/24 History Insulin Glargine,Hum.rec.anlog 10 units INJ DAILY 01/14/24 02/15/24 History [Lantus Solostar Pen] Clotrimazole/Betameth Cream 1 applic TOPICAL BID PRN 02/15/24 02/15/24 History [Lotrisone] Furosemide [Lasix] 20 mg PO DAILY 02/15/24 02/15/24 History Insulin Glargine,Hum.rec.anlog 5 - 7 units SQ HS 02/15/24 02/15/24 History [Lantus Solostar Pen] Magic Mouth Wash 10 - 15 ml PO ACHS 02/15/24 02/15/24 History Magnesium Oxide [Magox 400] 400 mg PO DAILY 02/15/24 02/15/24 History Midodrine [ProAmatine] 5 mg PO TID 02/15/24 02/15/24 History Nystatin 100,000 Unit/gm Powd 1 applic TOPICAL BID PRN 02/15/24 02/15/24 History [Mycostatin Powder] Nystatin 100,000Unit/gm Cream 1 applic TOPICAL BID PRN 02/15/24 02/15/24 History [Mycostatin Cream] Apixaban [Eliquis] 5 mg PO BID #60 tab 02/21/24 Rx Allergies Allergy/AdvReac Type Severity Reaction Status Date / Time No Known Allergies Allergy Verified 02/15/24 19:08 Physical Examination - Vital Signs Vital Signs: Vital Signs Temp Pulse Pulse Resp BP Pulse Ox 02/22/24 11:52 98.0 F 99 18 115/64 99 02/22/24 08:00 98.0 F 106 H 18 103/65 94 L 02/22/24 03:45 99 16 118/68 95 02/21/24 23:33 95 16 103/59 98 02/21/24 20:42 87 02/21/24 20:30 85 02/21/24 20:15 97.5 F L 58 L 16 110/69 97 02/21/24 16:00 98.2 F 98 16 93/57 97 02/21/24 13:18 95 16 Intake and Output 02/21/24 02/22/24 02/22/24 22:59 06:59 14:59 Other: Voiding Method Toilet Toilet Toilet # Voids 2 # Bowel Movements 1 General: Sitting in a recliner chair and is not in acute distress. Neuro: Limited because of aphasia. Patient is awake alert. Has severe expressive aphasia. Has paraphrasic error. Is following commands with mimicking at times. Pupils are round, equal and reactive to light. Pupils are 3mm. Unable to assess visual blunt because of cooperation. Is tracking. No facial weakness. No dysarthria. Motor: Strength is lifting all extremities above gravity. Sensation: Unable to assess. Reflex: 12 throughout except ankles 1+. Plantars: Mute Results - Laboratory Findings CBC and BMP: 02/22/24 08:43 02/21/24 17:30 Abnormal Lab Findings: Abnormal Labs 02/15/24 02/15/24 02/15/24 17:08 17:08 17:08 WBC 1.2 L* Hgb MCHC RDW 27.1 H Plt Count 135 L Neutrophils # 1.0 L Neutrophils # (Manual) Lymphocytes # 0.1 L Lymphocytes # (Manual) APTT 21.3 L D-Dimer Sodium 135 L Potassium Chloride Carbon Dioxide BUN Glucose 138 H POC Glucose (mg/dL) Hemoglobin A1c Magnesium 1.4 L Iron TIBC Transferrin Ferritin Total Bilirubin 1.6 H Total Protein 6.0 L Albumin 3.4 L Ur Specific [place] Urine Protein Urine Blood Ur Leukocyte Esterase Urine RBC Urine WBC Urine Bacteria Urine Mucus 02/16/24 02/16/24 02/16/24 13:27 13:27 16:41 WBC 0.7 L* Hgb MCHC RDW 27.4 H Plt Count 113 L Neutrophils # Neutrophils # (Manual) Lymphocytes # Lymphocytes # (Manual) APTT D-Dimer Sodium 134 L Potassium 3.1 L Chloride Carbon Dioxide BUN Glucose 122 H POC Glucose (mg/dL) 236 H Hemoglobin A1c Magnesium Iron TIBC Transferrin Ferritin Total Bilirubin 1.6 H Total Protein 5.4 L Albumin 3.0 L Ur Specific [place] Urine Protein Urine Blood Ur Leukocyte Esterase Urine RBC Urine WBC Urine Bacteria Urine Mucus 02/16/24 02/17/24 02/17/24 20:09 06:08 06:08 WBC 1.0 L* Hgb 11.1 L MCHC RDW 27.4 H Plt Count 117 L Neutrophils # 0.7 L Neutrophils # (Manual) Lymphocytes # 0.2 L Lymphocytes # (Manual) APTT D-Dimer Sodium Potassium Chloride Carbon Dioxide BUN Glucose POC Glucose (mg/dL) 204 H Hemoglobin A1c 7.0 H Magnesium Iron TIBC Transferrin Ferritin Total Bilirubin Total Protein Albumin Ur Specific [place] Urine Protein Urine Blood Ur Leukocyte Esterase Urine RBC Urine WBC Urine Bacteria Urine Mucus 02/17/24 02/17/24 02/17/24 06:08 06:10 11:41 WBC Hgb MCHC RDW Plt Count Neutrophils # Neutrophils # (Manual) Lymphocytes # Lymphocytes # (Manual) APTT D-Dimer Sodium 135 L Potassium Chloride Carbon Dioxide 31 H BUN Glucose 131 H POC Glucose (mg/dL) 130 H 123 H Hemoglobin A1c Magnesium Iron TIBC Transferrin Ferritin Total Bilirubin Total Protein 5.1 L Albumin 2.8 L Ur Specific [place] Urine Protein Urine Blood Ur Leukocyte Esterase Urine RBC Urine WBC Urine Bacteria Urine Mucus 02/17/24 02/17/24 02/17/24 14:40 16:30 20:16 WBC Hgb MCHC RDW Plt Count Neutrophils # Neutrophils # (Manual) Lymphocytes # Lymphocytes # (Manual) APTT D-Dimer Sodium Potassium Chloride Carbon Dioxide BUN Glucose POC Glucose (mg/dL) 123 H 266 H Hemoglobin A1c Magnesium Iron 27 L TIBC 217 L Transferrin 155.0 L Ferritin 568.0 H Total Bilirubin Total Protein Albumin Ur Specific [place] Urine Protein Urine Blood Ur Leukocyte Esterase Urine RBC Urine WBC Urine Bacteria Urine Mucus 02/18/24 02/18/24 02/18/24 06:12 10:55 10:55 WBC 1.4 L* Hgb MCHC 30.9 L RDW 27.0 H Plt Count Neutrophils # 1.0 L Neutrophils # (Manual) Lymphocytes # 0.2 L Lymphocytes # (Manual) APTT D-Dimer Sodium 133 L Potassium 3.2 L Chloride 95 L Carbon Dioxide 32 H BUN Glucose 137 H POC Glucose (mg/dL) 118 H Hemoglobin A1c Magnesium 1.3 L Iron TIBC Transferrin Ferritin Total Bilirubin Total Protein Albumin Ur Specific [place] Urine Protein Urine Blood Ur Leukocyte Esterase Urine RBC Urine WBC Urine Bacteria Urine Mucus 02/18/24 02/18/24 02/18/24 11:35 17:00 20:50 WBC Hgb MCHC RDW Plt Count Neutrophils # Neutrophils # (Manual) Lymphocytes # Lymphocytes # (Manual) APTT D-Dimer Sodium Potassium Chloride Carbon Dioxide BUN Glucose POC Glucose (mg/dL) 141 H 242 H 219 H Hemoglobin A1c Magnesium Iron TIBC Transferrin Ferritin Total Bilirubin Total Protein Albumin Ur Specific [place] Urine Protein Urine Blood Ur Leukocyte Esterase Urine RBC Urine WBC Urine Bacteria Urine Mucus 02/19/24 02/19/24 02/19/24 05:49 10:19 10:19 WBC 1.5 L Hgb MCHC RDW 27.2 H Plt Count Neutrophils # 1.0 L Neutrophils # (Manual) Lymphocytes # 0.2 L Lymphocytes # (Manual) APTT D-Dimer Sodium 133 L Potassium Chloride 95 L Carbon Dioxide 32 H BUN Glucose 139 H POC Glucose (mg/dL) 147 H Hemoglobin A1c Magnesium Iron TIBC Transferrin Ferritin Total Bilirubin Total Protein 5.7 L Albumin 3.2 L Ur Specific [place] Urine Protein Urine Blood Ur Leukocyte Esterase Urine RBC Urine WBC Urine Bacteria Urine Mucus 02/19/24 02/19/24 02/19/24 11:39 16:30 19:59 WBC Hgb MCHC RDW Plt Count Neutrophils # Neutrophils # (Manual) Lymphocytes # Lymphocytes # (Manual) APTT D-Dimer Sodium Potassium Chloride Carbon Dioxide BUN Glucose POC Glucose (mg/dL) 170 H 143 H 158 H Hemoglobin A1c Magnesium Iron TIBC Transferrin Ferritin Total Bilirubin Total Protein Albumin Ur Specific [place] Urine Protein Urine Blood Ur Leukocyte Esterase Urine RBC Urine WBC Urine Bacteria Urine Mucus 02/20/24 02/20/24 02/20/24 10:54 10:54 12:01 WBC 1.6 L Hgb MCHC RDW 27.2 H Plt Count Neutrophils # 1.2 L Neutrophils # (Manual) Lymphocytes # 0.2 L Lymphocytes # (Manual) APTT D-Dimer Sodium 132 L Potassium Chloride 95 L Carbon Dioxide 33 H BUN Glucose 104 H POC Glucose (mg/dL) 126 H Hemoglobin A1c Magnesium Iron TIBC Transferrin Ferritin Total Bilirubin Total Protein 5.3 L Albumin 2.9 L Ur Specific [place] Urine Protein Urine Blood Ur Leukocyte Esterase Urine RBC Urine WBC Urine Bacteria Urine Mucus 02/20/24 02/20/24 02/20/24 15:15 16:59 18:42 WBC 1.9 L Hgb MCHC RDW 27.6 H Plt Count Neutrophils # Neutrophils # (Manual) Lymphocytes # 0.2 L Lymphocytes # (Manual) APTT D-Dimer 1.36 H Sodium Potassium Chloride Carbon Dioxide BUN Glucose POC Glucose (mg/dL) 130 H Hemoglobin A1c Magnesium Iron TIBC Transferrin Ferritin Total Bilirubin Total Protein Albumin Ur Specific [place] Urine Protein Urine Blood Ur Leukocyte Esterase Urine RBC Urine WBC Urine Bacteria Urine Mucus 02/20/24 02/21/24 02/21/24 20:16 00:59 03:39 WBC 2.1 L Hgb MCHC RDW 27.9 H Plt Count Neutrophils # Neutrophils # (Manual) 1.10 L Lymphocytes # Lymphocytes # (Manual) 0.29 L APTT >200.0 H* D-Dimer Sodium Potassium Chloride Carbon Dioxide BUN Glucose POC Glucose (mg/dL) 115 H Hemoglobin A1c Magnesium Iron TIBC Transferrin Ferritin Total Bilirubin Total Protein Albumin Ur Specific [place] Urine Protein Urine Blood Ur Leukocyte Esterase Urine RBC Urine WBC Urine Bacteria Urine Mucus 02/21/24 02/21/24 02/21/24 06:06 07:08 10:41 WBC Hgb MCHC RDW Plt Count Neutrophils # Neutrophils # (Manual) Lymphocytes # Lymphocytes # (Manual) APTT >200.0 H* D-Dimer Sodium Potassium Chloride Carbon Dioxide BUN Glucose POC Glucose (mg/dL) 119 H Hemoglobin A1c Magnesium Iron TIBC Transferrin Ferritin Total Bilirubin Total Protein Albumin Ur Specific [place] >1.050 H Urine Protein Trace H Urine Blood Trace H Ur Leukocyte Esterase Large H Urine RBC 7 H Urine WBC 62 H Urine Bacteria Moderate H Urine Mucus Rare H 02/21/24 02/21/24 02/21/24 11:22 16:25 17:30 WBC Hgb MCHC RDW Plt Count Neutrophils # Neutrophils # (Manual) Lymphocytes # Lymphocytes # (Manual) APTT D-Dimer Sodium 131 L Potassium Chloride 95 L Carbon Dioxide BUN 20 H Glucose 114 H POC Glucose (mg/dL) 137 H 137 H Hemoglobin A1c Magnesium Iron TIBC Transferrin Ferritin Total Bilirubin Total Protein Albumin Ur Specific [place] Urine Protein Urine Blood Ur Leukocyte Esterase Urine RBC Urine WBC Urine Bacteria Urine Mucus 02/21/24 02/21/24 02/22/24 20:10 20:51 08:43 WBC 2.2 L Hgb MCHC RDW 27.7 H Plt Count Neutrophils # Neutrophils # (Manual) Lymphocytes # Lymphocytes # (Manual) 0.35 L APTT 44.9 H D-Dimer Sodium Potassium Chloride Carbon Dioxide BUN Glucose POC Glucose (mg/dL) 116 H Hemoglobin A1c Magnesium Iron TIBC Transferrin Ferritin Total Bilirubin Total Protein Albumin Ur Specific [place] Urine Protein Urine Blood Ur Leukocyte Esterase Urine RBC Urine WBC Urine Bacteria Urine Mucus 02/22/24 11:23 WBC Hgb MCHC RDW Plt Count Neutrophils # Neutrophils # (Manual) Lymphocytes # Lymphocytes # (Manual) APTT D-Dimer Sodium Potassium Chloride Carbon Dioxide BUN Glucose POC Glucose (mg/dL) 189 H Hemoglobin A1c Magnesium Iron TIBC Transferrin Ferritin Total Bilirubin Total Protein Albumin Ur Specific [place] Urine Protein Urine Blood Ur Leukocyte Esterase Urine RBC Urine WBC Urine Bacteria Urine Mucus Assessment and Plan Assessment: This is a 78-year-old woman with history of atrial fibrillation and was not on any anticoagulation prior to this hospital visit due to GI bleed, esophageal bleed, esphageal adenocarcinoma presented to emergency department because of edema lower extremity. During this hospital visit about 2 days ago she had speech difficulty and had an initial CT of the head 2 days ago which was negative but then a repeat CT head yesterday showed acute stroke. During this hospital visit she was found to have DVT and was resumed on anticoagulation. No IV thrombolytic since patient is on anticoagulation and risk outweigh benefit. Acute to subacute ischemic stroke (left parietal and suspected left basal ganglia). Patient has significant expressive aphasia. Nonspecific hypoattenuation right anterior fossa may be encephalomalcia vs cyst. Acute DVT of lower extremity on anticoagulation History of atrial fibrillation and was not on anticoagulation b/c of hx of GI bleed but was started during this admission Possible acute UTI History of Esophageal andenocarcinoma DM. Plan: I changed the MRI of the brain without ordered by the primary team to with and without to rule out any mets I ordered the lipid panel, carotid duplex Patient is currently on Eliquis 10 mg twice daily from neurologic perspective I would recommend holding off especially with the recent stroke and to avoid hemorrhagic conversion. She has history of GI bleed and the family members also would like to hold anticoagulation and will defer discussion of use of anticoagulation to primary team. If held then start ASA 325mg daily. If benefit outweigh risk then to be on heparin drip and avoid boluses and keep PTT between 45-60. Currently on Lipitor 40mg qhs. Every 4 hours neurochecks Cardiac monitoring PT OT and SPECIAL TECHNICAL OPERATIONS OFFICER are consulted Neurology is consulted. Will defer the rest of the medical management to primary and other specialist DVT prophylaxis the patient is on Eliquis Plan discussed with the patient [id number] and her ex- who are at bedside. As well as her nurse Time with Patient: Greater than 30
[2024-02-22 16:33] LABS: Glucose,Whole Blood 125 mg/dL (70-110)
[2024-02-22 19:20] LABS: LDL Cholesterol,Calculated 18.2 mg/dL (0.0-131.0)
[2024-02-22 20:13] LABS: Glucose,Whole Blood 209 mg/dL (70-110)
--- NOTE | 2024-02-22 20:17 | P.PN ---
Subjective Progress Note Date: 02/22/24 At follow-up today, patient reports feeling well. Patient experiencing expressive aphasia. Denies any noted unilateral weakness, facial droop, and slurred speech. CT brain with contrast revealed acute/subacute infarct in the left parietal lobe. Neurology has been consulted. Objective - Vital Signs Vital signs: Vital Signs Temp 98.0 F 02/22/24 08:00 Pulse 106 H 02/22/24 08:00 Resp 18 02/22/24 08:00 BP 103/65 02/22/24 08:00 Pulse Ox 94 L 02/22/24 08:00 FiO2 Intake & Output 02/21/24 02/22/24 02/22/24 18:59 06:59 18:59 Intake Total 201.481 Balance 201.481 Intake: Intake, IV Titration 83.481 Amount Heparin Sod,Pork in 0.45% 83.481 NaCl 25,000 unit In 0.45 % NaCl 1 250ml.bag @ 18 UNITS/KG/HR 13.644 mls/hr IV .[id number] [facility] Rx#: [id number] Oral 118 Other: Voiding Method Toilet Toilet Toilet # Voids 3 # Bowel Movements 1 - Constitutional General appearance: Present: average body habitus, no acute distress - EENT Eyes: Present: anicteric sclerae, EOMI ENT: Present: hearing grossly normal - Respiratory Details: breathing is even and unlabored - Cardiovascular Details: well perfused - Integumentary Integumentary: Absent: cyanotic, jaundiced - Neurologic Neurologic Comment(s): Expressive aphasia noted. Was able to verbalize her name, and part of her birthday, but was not able to state place. No slurred speech, facial droop or unilateral weakness noted - Musculoskeletal Musculoskeletal: Present: strength equal bilaterally - Labs CBC & Chem 7: 02/22/24 08:43 02/21/24 17:30 Labs: Abnormal Lab Results - Last 24 Hours (Table) 02/21/24 02/21/24 02/21/24 Range/Units 10:41 11:22 16:25 WBC (3.8-10.6) k/uL RDW (11.5-15.5) % APTT >200.0 H* (22.0-30.0) sec Sodium (137-145) mmol/L Chloride (98-107) mmol/L BUN (7-17) mg/dL Glucose (74-99) mg/dL POC Glucose (mg/dL) 137 H 137 H (70-110) mg/dL 02/21/24 02/21/24 02/21/24 Range/Units 17:30 20:10 20:51 WBC (3.8-10.6) k/uL RDW (11.5-15.5) % APTT 44.9 H (22.0-30.0) sec Sodium 131 L (137-145) mmol/L Chloride 95 L (98-107) mmol/L BUN 20 H (7-17) mg/dL Glucose 114 H (74-99) mg/dL POC Glucose (mg/dL) 116 H (70-110) mg/dL 02/22/24 Range/Units 08:43 WBC 2.2 L (3.8-10.6) k/uL RDW 27.7 H (11.5-15.5) % APTT (22.0-30.0) sec Sodium (137-145) mmol/L Chloride (98-107) mmol/L BUN (7-17) mg/dL Glucose (74-99) mg/dL POC Glucose (mg/dL) (70-110) mg/dL - Imaging and Cardiology CT Scan - head: report reviewed Assessment and Plan (1) Atrial fibrillation with rapid ventricular response Current Visit: Yes Status: Acute Priority: High Code(s): I48.91 - UNSPECIFIED ATRIAL FIBRILLATION SNOMED Code(s): 932357085642406 (2) Iron deficiency anemia Current Visit: Yes Status: Acute Code(s): D50.9 - IRON DEFICIENCY ANEMIA, UNSPECIFIED SNOMED Code(s): 02666903 (3) Leukopenia Current Visit: Yes Status: Acute Priority: High Code(s): D72.819 - DECREASED WHITE BLOOD CELL COUNT, UNSPECIFIED SNOMED Code(s): 48552308 (4) Stage III carcinoma of esophagus Current Visit: Yes Status: Acute Code(s): C15.9 - MALIGNANT NEOPLASM OF ESOPHAGUS, UNSPECIFIED SNOMED Code(s): 576939729 (5) CVA (cerebral vascular accident) Current Visit: Yes Status: Acute Priority: High Code(s): I63.9 - CEREBRAL INFARCTION, UNSPECIFIED SNOMED Code(s): 852384385 Plan: A-fib with RVR -Cardiology has assessed the patient. -From an Oncology standpoint, patient has been treated for her malignancy, curative intent. If patient is needing anticoagulation for cardiac condition there is no contraindication from an oncology standpoint. Counts are adequate for anticoagulation. GI bleed from Nov felt to be 2/2 tumor, which has now been treated. Ok to rechallenge with anticoagulation per Hem/Onc -Patient started on eliquis by cardiology Leukopenia -Treatment induced. Slowing improving. WBC 2.2 today, ANC is 1450. No fevers documented. No need for GCS- F at this time. - Patient has completed chemotherapy. Continues on RT, but was held due to need of heparin drip for newly diagnosed LLE DVT. LLE DVT -Provoked-hospitalization, acute illness, decreased mobility -Pt was started on heparin drip, and has been transitioned to Eliquis. Eliquis Rx was sent for copay verification, Case mgmt consulted Abnormal findings on CT head without contrast -CT of the head reporting no evidence for acute/subacute CVA. Anterior right extra-axial CSF attenuation lesion, not seen on MRI from May 2023. Extensive nonspecific white matter changes -CT of the head with contrast ordered for further clarification. Patient exhibiting confusion. Scan revealed evolution of acute/subacute infarct involving the left parietal lobe. Additional nonspecific focus of hypoattenuation within the left basal ganglia. No evidence for intracranial hemorrhage. Redemonstrated nonspecific region of hypoattenuation in the right anterior renal fossa. -Neurology has been consulted with plan for MRI brain. -Neurology recommending holding anticoagulation for concern for possible hemorrhage. Will defer decision to neurology and IM team. If MRI brain is negative for bleed would recommend restarting Eliquis. If MRI brain positive for hemorrhage, will need consult to vascular surgery for IVC filter evaluation Esophageal adenocarcinoma -Definitive treatment -Patient has completed the systemic chemotherapy portion of treatment, she has 1 radiation treatment remaining -Follow-up with Medical Oncology scheduled. Speech therapy and Dietitian consulted Doctor attests: I performed a history and physical examination of this patient, developed impression and plan of care. Discussed with dictator. I agree with dictators note, documented as a scribe
--- NOTE | 2024-02-23 02:40 | PN ---
PROGRESS NOTE SUBJECTIVE: Katherine Barlow 78-year-old white female, had acute neurologic changes of metabolic encephalopathy versus stroke. At that time, we found a DVT, which was new and she has a history of GI bleeding, etc., but with a new DVT and the altered mental status, we started her on Eliquis due to the risks as she has a history of atrial fibrillation. Her hemoglobin has been okay even though she has been on the Eliquis, but appreciate the neurology note, so we will hold off the Eliquis at this time, even though she had this stroke in the hospital and she was not on Eliquis at that time just aspirin, so she was at high risk for another stroke off blood thinners at this point, give her blood thinner or not. She has been on blood thinner day or so when her hemoglobins went up from 11.[address] shows no intracranial bleeding, so she is at high risk to have another stroke off any without the Eliquis due to atrial fibrillation history and cancer history, but we will leave the anticoagulation up to Neurology at this point. As mentioned, she is going to be a higher risk for another stroke without a blood thinner. OBJECTIVE: VITAL SIGNS: Blood pressure 106/63, O2 95 on 2 L, pulse rate 80 to 99, respiratory rate 16 to 18. CARDIOVASCULAR: S1 and S2. She has expressive aphasia. NEURO: No extremity weakness. LUNGS: Transmitted upper sounds. HEMATOLOGIC: Positive Homans on the one leg, left leg. Right leg negative. ASSESSMENT: Acute deep venous thrombosis, acute on chronic stroke. Neurology recommends no blood thinners, so we will stop the Eliquis and will watch or see what happens as mentioned she has been stable on Eliquis for 24 hours with blood draw, but Neurology recommends stopping, it was stopped even though she would be at high risk for another one. History of esophageal cancer, acute on chronic congestive heart failure, leukopenia from 1.4 on admission, now it is going up to 2.2, which is good. Cholesterol is 71, super low. Carotid arteries show no pocket. Sugars mid 100s. As mentioned, she is high risk for another stroke without any anticoagulation, but we will see how it goes. PT/OT, may be have to go to rehab center now due to her stroke. PROGNOSIS: Guarded. MMODL / IJN: [id number] /
[2024-02-23 06:25] LABS: Glucose,Whole Blood 112 mg/dL (70-110)
--- NOTE | 2024-02-23 10:46 | P.CNPUL ---
History of Present Illness Consult date: 02/23/24 Reason for consult: dyspnea, hypoxemia, DVT Chief complaint: shortness of breath History of present illness: patient is a 78-year-old female with prior history of the chronic atrial fibrillation patient not on anticoagulation for A. fib, due to GI bleed, patient also has esophageal cancer oncology service has been following, data predominantly obtained from the chart as patient unable to give a detailed history, patient remains on 2 L oxygen, patient has been found to have subacute infarct neurology has been following infarct involving left parietal lobe as well as left basal ganglia. Patient has been started on and requests awaiting clearance from oncology, Past medical history significant for diabetes mellitus, GERD, hearing disorder, hypertension hypertensive cardiovascular disease, osteoarthritis, patient denies any smoking or alcohol abuse, esophageal cancer. Patient remains on broad- spectrum antibiotics IV Rocephin along with continuation of the high intensity statin inhaler or supplies steroids furosemide, also on sliding scale insulin radiographic studies include computed tomography scan of the chest performed 1 4patient noted a large hiatal hernia no acute pulmonary process seen, computed tomography scan of the head negative for any acute stroke, venous Doppler lower extremity positive for left femoral vein DVT mid poplitealcomputed tomography scan of his chest negative for pulmonary embolism. Repeat computed tomography scan of the head revealed acute infarct involving left parietal lobe, duplex ultrasound of the carotid negative for any significant obstruction. Patient has been on her liquids 10 mg 2 times a day Review of Systems All systems: negative Past Medical History Past Medical History: Diabetes Mellitus, Eye Disorder, GERD/Reflux, Hearing Disorder / Deafness, Hypertension, Osteoarthritis (OA) Additional Past Medical History / Comment(s): MACULAR DEGENERATION, cataracts, osteoporosis, diet controlled diabetic, TIA History of Any Multi-Drug Resistant Organisms: None Reported Past Surgical History: Cholecystectomy, Hysterectomy Additional Past Surgical History / Comment(s): ORIF RT WRIST-HAD BONE GRAFT FROM HIP, asher fundoplasty, teeth pulled Past Anesthesia/Blood Transfusion Reactions: No Reported Reaction Past Psychological History: Anxiety, Depression Smoking Status: Never smoker Past Alcohol Use History: None Reported Past Drug Use History: None Reported - Past Family History Brother(s) Family Medical History: Cancer Additional Family Medical History / Comment(s): LUNG Mother Family Medical History: Cancer Sister(s) Family Medical History: Cancer Medications and Allergies Home Medications Medication Instructions Recorded Confirmed Type Montelukast [Singulair] 10 mg PO HS 07/31/22 02/15/24 History Gabapentin 300 mg PO HS 10/06/23 02/15/24 History Atorvastatin [Lipitor] 40 mg PO HS 11/03/23 02/15/24 History Ipratropium-Albuterol Nebulize 3 ml INHALATION RT-TID 11/03/23 02/15/24 History [Duoneb 0.5 mg-3 mg/3 ml Soln] Melatonin 10 mg PO HS 11/03/23 02/15/24 History Metoprolol Tartrate [Lopressor] 50 mg PO BID 11/03/23 02/15/24 History Ondansetron [Zofran] 4 - 8 mg PO Q4H PRN 11/03/23 02/15/24 History Pantoprazole [Protonix] 40 mg PO BID #60 tab 11/12/23 02/15/24 Rx Spironolactone [Aldactone] 25 mg PO DAILY #30 tab 11/12/23 02/15/24 Rx Insulin Aspart [NovoLOG Flexpen] 5 - 10 units SQ AC-TID PRN 01/14/24 02/15/24 History Insulin Glargine,Hum.rec.anlog 10 units INJ DAILY 01/14/24 02/15/24 History [Lantus Solostar Pen] Clotrimazole/Betameth Cream 1 applic TOPICAL BID PRN 02/15/24 02/15/24 History [Lotrisone] Furosemide [Lasix] 20 mg PO DAILY 02/15/24 02/15/24 History Insulin Glargine,Hum.rec.anlog 5 - 7 units SQ HS 02/15/24 02/15/24 History [Lantus Solostar Pen] Magic Mouth Wash 10 - 15 ml PO ACHS 02/15/24 02/15/24 History Magnesium Oxide [Magox 400] 400 mg PO DAILY 02/15/24 02/15/24 History Midodrine [ProAmatine] 5 mg PO TID 02/15/24 02/15/24 History Nystatin 100,000 Unit/gm Powd 1 applic TOPICAL BID PRN 02/15/24 02/15/24 History [Mycostatin Powder] Nystatin 100,000Unit/gm Cream 1 applic TOPICAL BID PRN 02/15/24 02/15/24 History [Mycostatin Cream] Apixaban [Eliquis] 5 mg PO BID #60 tab 02/21/24 Rx Allergies Allergy/AdvReac Type Severity Reaction Status Date / Time No Known Allergies Allergy Verified 02/15/24 19:08 Physical Exam Vitals: Vital Signs Temp Pulse Pulse Resp BP Pulse Ox FiO2 02/23/24 08:35 92 02/23/24 08:30 96 93 L 21 02/23/24 07:50 97.6 F 98 16 117/78 93 L 02/23/24 04:20 91 14 104/71 96 02/23/24 00:15 85 14 104/72 99 02/22/24 20:15 99.3 F 111 H 16 90/67 98 02/22/24 16:00 80 16 106/63 95 02/22/24 13:36 99 18 02/22/24 13:31 80 02/22/24 13:22 80 02/22/24 11:52 98.0 F 99 18 115/64 99 Intake and Output 02/22/24 02/23/24 02/23/24 22:59 06:59 14:59 Intake Total 50 Balance 50 Intake: Intake, IV Titration 50 Amount cefTRIAXone 1 gm In 50 Sodium Chloride 0.9% 50 ml @ 100 mls/hr IVPB Q24HR [facility] Rx#:[id number] Other: Voiding Method Toilet Toilet Toilet # Bowel Movements 2 Weight 75.7 kg - Constitutional General appearance: average body habitus, cooperative, disheveled, mild distress - EENT Eyes: EOMI, PERRLA Ears: bilateral: normal - Neck Carotids: bilateral: upstroke normal Thyroid: bilateral: normal size - Respiratory Respiratory: bilateral: CTA - Cardiovascular Rhythm: regular Heart sounds: normal: S1, S2 - Gastrointestinal General gastrointestinal: normal bowel sounds, soft - Integumentary Integumentary: normal turgor - Neurologic Neurologic: CNII-XII intact - Musculoskeletal Musculoskeletal: gait normal, generalized weakness, strength equal bilaterally - Psychiatric Psychiatric: A&O x's 3, appropriate affect Results - Laboratory Findings CBC and BMP: 02/22/24 08:43 02/21/24 17:30 PT/INR, D-dimer PT 11.0 sec (10.0-12.5) 02/20/24 18:42 INR 1.0 (<1.2) 02/20/24 18:42 D-Dimer 1.36 mg/L FEU (<0.60) H 02/20/24 15:15 Abnormal lab findings: Abnormal Labs 02/15/24 02/15/24 02/15/24 17:08 17:08 17:08 WBC 1.2 L* Hgb MCHC RDW 27.1 H Plt Count 135 L Neutrophils # 1.0 L Neutrophils # (Manual) Lymphocytes # 0.1 L Lymphocytes # (Manual) APTT 21.3 L D-Dimer Sodium 135 L Potassium Chloride Carbon Dioxide BUN Glucose 138 H POC Glucose (mg/dL) Hemoglobin A1c Magnesium 1.4 L Iron TIBC Transferrin Ferritin Total Bilirubin 1.6 H Total Protein 6.0 L Albumin 3.4 L HDL Cholesterol Ur Specific [place] Urine Protein Urine Blood Ur Leukocyte Esterase Urine RBC Urine WBC Urine Bacteria Urine Mucus 02/16/24 02/16/24 02/16/24 13:27 13:27 16:41 WBC 0.7 L* Hgb MCHC RDW 27.4 H Plt Count 113 L Neutrophils # Neutrophils # (Manual) Lymphocytes # Lymphocytes # (Manual) APTT D-Dimer Sodium 134 L Potassium 3.1 L Chloride Carbon Dioxide BUN Glucose 122 H POC Glucose (mg/dL) 236 H Hemoglobin A1c Magnesium Iron TIBC Transferrin Ferritin Total Bilirubin 1.6 H Total Protein 5.4 L Albumin 3.0 L HDL Cholesterol Ur Specific [place] Urine Protein Urine Blood Ur Leukocyte Esterase Urine RBC Urine WBC Urine Bacteria Urine Mucus 02/16/24 02/17/24 02/17/24 20:09 06:08 06:08 WBC 1.0 L* Hgb 11.1 L MCHC RDW 27.4 H Plt Count 117 L Neutrophils # 0.7 L Neutrophils # (Manual) Lymphocytes # 0.2 L Lymphocytes # (Manual) APTT D-Dimer Sodium Potassium Chloride Carbon Dioxide BUN Glucose POC Glucose (mg/dL) 204 H Hemoglobin A1c 7.0 H Magnesium Iron TIBC Transferrin Ferritin Total Bilirubin Total Protein Albumin HDL Cholesterol Ur Specific [place] Urine Protein Urine Blood Ur Leukocyte Esterase Urine RBC Urine WBC Urine Bacteria Urine Mucus 02/17/24 02/17/24 02/17/24 06:08 06:10 11:41 WBC Hgb MCHC RDW Plt Count Neutrophils # Neutrophils # (Manual) Lymphocytes # Lymphocytes # (Manual) APTT D-Dimer Sodium 135 L Potassium Chloride Carbon Dioxide 31 H BUN Glucose 131 H POC Glucose (mg/dL) 130 H 123 H Hemoglobin A1c Magnesium Iron TIBC Transferrin Ferritin Total Bilirubin Total Protein 5.1 L Albumin 2.8 L HDL Cholesterol Ur Specific [place] Urine Protein Urine Blood Ur Leukocyte Esterase Urine RBC Urine WBC Urine Bacteria Urine Mucus 02/17/24 02/17/24 02/17/24 14:40 16:30 20:16 WBC Hgb MCHC RDW Plt Count Neutrophils # Neutrophils # (Manual) Lymphocytes # Lymphocytes # (Manual) APTT D-Dimer Sodium Potassium Chloride Carbon Dioxide BUN Glucose POC Glucose (mg/dL) 123 H 266 H Hemoglobin A1c Magnesium Iron 27 L TIBC 217 L Transferrin 155.0 L Ferritin 568.0 H Total Bilirubin Total Protein Albumin HDL Cholesterol Ur Specific [place] Urine Protein Urine Blood Ur Leukocyte Esterase Urine RBC Urine WBC Urine Bacteria Urine Mucus 02/18/24 02/18/24 02/18/24 06:12 10:55 10:55 WBC 1.4 L* Hgb MCHC 30.9 L RDW 27.0 H Plt Count Neutrophils # 1.0 L Neutrophils # (Manual) Lymphocytes # 0.2 L Lymphocytes # (Manual) APTT D-Dimer Sodium 133 L Potassium 3.2 L Chloride 95 L Carbon Dioxide 32 H BUN Glucose 137 H POC Glucose (mg/dL) 118 H Hemoglobin A1c Magnesium 1.3 L Iron TIBC Transferrin Ferritin Total Bilirubin Total Protein Albumin HDL Cholesterol Ur Specific [place] Urine Protein Urine Blood Ur Leukocyte Esterase Urine RBC Urine WBC Urine Bacteria Urine Mucus 02/18/24 02/18/24 02/18/24 11:35 17:00 20:50 WBC Hgb MCHC RDW Plt Count Neutrophils # Neutrophils # (Manual) Lymphocytes # Lymphocytes # (Manual) APTT D-Dimer Sodium Potassium Chloride Carbon Dioxide BUN Glucose POC Glucose (mg/dL) 141 H 242 H 219 H Hemoglobin A1c Magnesium Iron TIBC Transferrin Ferritin Total Bilirubin Total Protein Albumin HDL Cholesterol Ur Specific [place] Urine Protein Urine Blood Ur Leukocyte Esterase Urine RBC Urine WBC Urine Bacteria Urine Mucus 02/19/24 02/19/24 02/19/24 05:49 10:19 10:19 WBC 1.5 L Hgb MCHC RDW 27.2 H Plt Count Neutrophils # 1.0 L Neutrophils # (Manual) Lymphocytes # 0.2 L Lymphocytes # (Manual) APTT D-Dimer Sodium 133 L Potassium Chloride 95 L Carbon Dioxide 32 H BUN Glucose 139 H POC Glucose (mg/dL) 147 H Hemoglobin A1c Magnesium Iron TIBC Transferrin Ferritin Total Bilirubin Total Protein 5.7 L Albumin 3.2 L HDL Cholesterol Ur Specific [place] Urine Protein Urine Blood Ur Leukocyte Esterase Urine RBC Urine WBC Urine Bacteria Urine Mucus 02/19/24 02/19/24 02/19/24 11:39 16:30 19:59 WBC Hgb MCHC RDW Plt Count Neutrophils # Neutrophils # (Manual) Lymphocytes # Lymphocytes # (Manual) APTT D-Dimer Sodium Potassium Chloride Carbon Dioxide BUN Glucose POC Glucose (mg/dL) 170 H 143 H 158 H Hemoglobin A1c Magnesium Iron TIBC Transferrin Ferritin Total Bilirubin Total Protein Albumin HDL Cholesterol Ur Specific [place] Urine Protein Urine Blood Ur Leukocyte Esterase Urine RBC Urine WBC Urine Bacteria Urine Mucus 02/20/24 02/20/24 02/20/24 10:54 10:54 12:01 WBC 1.6 L Hgb MCHC RDW 27.2 H Plt Count Neutrophils # 1.2 L Neutrophils # (Manual) Lymphocytes # 0.2 L Lymphocytes # (Manual) APTT D-Dimer Sodium 132 L Potassium Chloride 95 L Carbon Dioxide 33 H BUN Glucose 104 H POC Glucose (mg/dL) 126 H Hemoglobin A1c Magnesium Iron TIBC Transferrin Ferritin Total Bilirubin Total Protein 5.3 L Albumin 2.9 L HDL Cholesterol Ur Specific [place] Urine Protein Urine Blood Ur Leukocyte Esterase Urine RBC Urine WBC Urine Bacteria Urine Mucus 02/20/24 02/20/24 02/20/24 15:15 16:59 18:42 WBC 1.9 L Hgb MCHC RDW 27.6 H Plt Count Neutrophils # Neutrophils # (Manual) Lymphocytes # 0.2 L Lymphocytes # (Manual) APTT D-Dimer 1.36 H Sodium Potassium Chloride Carbon Dioxide BUN Glucose POC Glucose (mg/dL) 130 H Hemoglobin A1c Magnesium Iron TIBC Transferrin Ferritin Total Bilirubin Total Protein Albumin HDL Cholesterol Ur Specific [place] Urine Protein Urine Blood Ur Leukocyte Esterase Urine RBC Urine WBC Urine Bacteria Urine Mucus 02/20/24 02/21/24 02/21/24 20:16 00:59 03:39 WBC 2.1 L Hgb MCHC RDW 27.9 H Plt Count Neutrophils # Neutrophils # (Manual) 1.10 L Lymphocytes # Lymphocytes # (Manual) 0.29 L APTT >200.0 H* D-Dimer Sodium Potassium Chloride Carbon Dioxide BUN Glucose POC Glucose (mg/dL) 115 H Hemoglobin A1c Magnesium Iron TIBC Transferrin Ferritin Total Bilirubin Total Protein Albumin HDL Cholesterol Ur Specific [place] Urine Protein Urine Blood Ur Leukocyte Esterase Urine RBC Urine WBC Urine Bacteria Urine Mucus 02/21/24 02/21/24 02/21/24 06:06 07:08 10:41 WBC Hgb MCHC RDW Plt Count Neutrophils # Neutrophils # (Manual) Lymphocytes # Lymphocytes # (Manual) APTT >200.0 H* D-Dimer Sodium Potassium Chloride Carbon Dioxide BUN Glucose POC Glucose (mg/dL) 119 H Hemoglobin A1c Magnesium Iron TIBC Transferrin Ferritin Total Bilirubin Total Protein Albumin HDL Cholesterol Ur Specific [place] >1.050 H Urine Protein Trace H Urine Blood Trace H Ur Leukocyte Esterase Large H Urine RBC 7 H Urine WBC 62 H Urine Bacteria Moderate H Urine Mucus Rare H 02/21/24 02/21/24 02/21/24 11:22 16:25 17:30 WBC Hgb MCHC RDW Plt Count Neutrophils # Neutrophils # (Manual) Lymphocytes # Lymphocytes # (Manual) APTT D-Dimer Sodium 131 L Potassium Chloride 95 L Carbon Dioxide BUN 20 H Glucose 114 H POC Glucose (mg/dL) 137 H 137 H Hemoglobin A1c Magnesium Iron TIBC Transferrin Ferritin Total Bilirubin Total Protein Albumin HDL Cholesterol Ur Specific [place] Urine Protein Urine Blood Ur Leukocyte Esterase Urine RBC Urine WBC Urine Bacteria Urine Mucus 02/21/24 02/21/24 02/22/24 20:10 20:51 08:43 WBC 2.2 L Hgb MCHC RDW 27.7 H Plt Count Neutrophils # Neutrophils # (Manual) Lymphocytes # Lymphocytes # (Manual) 0.35 L APTT 44.9 H D-Dimer Sodium Potassium Chloride Carbon Dioxide BUN Glucose POC Glucose (mg/dL) 116 H Hemoglobin A1c Magnesium Iron TIBC Transferrin Ferritin Total Bilirubin Total Protein Albumin HDL Cholesterol Ur Specific [place] Urine Protein Urine Blood Ur Leukocyte Esterase Urine RBC Urine WBC Urine Bacteria Urine Mucus 02/22/24 02/22/24 02/22/24 08:43 11:23 16:26 WBC Hgb MCHC RDW Plt Count Neutrophils # Neutrophils # (Manual) Lymphocytes # Lymphocytes # (Manual) APTT D-Dimer Sodium Potassium Chloride Carbon Dioxide BUN Glucose POC Glucose (mg/dL) 189 H 125 H Hemoglobin A1c Magnesium Iron TIBC Transferrin Ferritin Total Bilirubin Total Protein Albumin HDL Cholesterol 32.20 L Ur Specific [place] Urine Protein Urine Blood Ur Leukocyte Esterase Urine RBC Urine WBC Urine Bacteria Urine Mucus 02/22/24 02/23/24 20:11 06:21 WBC Hgb MCHC RDW Plt Count Neutrophils # Neutrophils # (Manual) Lymphocytes # Lymphocytes # (Manual) APTT D-Dimer Sodium Potassium Chloride Carbon Dioxide BUN Glucose POC Glucose (mg/dL) 209 H 112 H Hemoglobin A1c Magnesium Iron TIBC Transferrin Ferritin Total Bilirubin Total Protein Albumin HDL Cholesterol Ur Specific [place] Urine Protein Urine Blood Ur Leukocyte Esterase Urine RBC Urine WBC Urine Bacteria Urine Mucus - Diagnostic Findings Chest x-ray: report reviewed, image reviewed CT scan - chest: report reviewed, image reviewed (finding as noted above) Assessment and Plan Assessment: DVT left lower extremity has been on and requests now off of it, we'll consult IR for IVC filter, discussed with RN taking care of patient to put a consult for INR Paroxysmal atrial fibrillation, patient is high risk complication with anticoagulation and liquids has been discontinued as per recommendation of neurology Left parietal lobe infarct acute, patient to undergo PT OT evaluation esophageal cancer oncology has been following Plan: as above Time with Patient: Greater than 30
[2024-02-23 11:56] LABS: Glucose,Whole Blood 158 mg/dL (70-110)
--- NOTE | 2024-02-23 13:34 | MR ---
EXAMINATION TYPE: MR brain wo/w con DATE OF EXAM: 02/23/2024 COMPARISON: MRI brain 05/26/2023, CT brain 02/21/2024 HISTORY: Weakness, evaluate for stroke/mets, abnormal CT chest. CONTRAST: Performed utilizing 7.5 mL intravenous Gadavist gadolinium contrast. TECHNIQUE: Multiplanar, multiecho imaging on a 3.0 Dorita magnet is performed through the brain. Stud y is performed within 24 hours of arrival to the hospital. The craniovertebral junction is normal. The pituitary is normal. Diffusion-weighted imaging is performed. There is hyperintensity through the left watershed region c ompatible with an acute infarct. On T2 and inversion recovery weighted sequences there are multiple scattered hyperintensities in deep white matter. Ventricular white matter not correlating with the diffusion imaging compatible with ch ronic white matter ischemic-type changes. The acute infarct in the left watershed region is evident r ecovery sequence. Following contrast, no suspicious enhancement is evident. Ventricles and sulci are appropriate for the patient age. IMPRESSION: 1. Acute infarct left watershed region. 2. Chronic right lateral white matter ischemic-type changes
--- NOTE | 2024-02-23 14:33 | P.PN ---
Subjective Progress Note Date: 02/23/24 I am following-up with patient and she is accompanied with her ex- who feels her speech is improving. She is getting breathing treatment upon seeing her. Objective - Vital Signs Vital signs: Vital Signs Temp 97.6 F 02/23/24 07:50 Pulse 92 02/23/24 11:47 Resp 16 02/23/24 07:50 BP 117/78 02/23/24 07:50 Pulse Ox 93 L 02/23/24 08:30 FiO2 21 02/23/24 08:30 Intake & Output 02/22/24 02/23/24 02/23/24 18:59 06:59 18:59 Intake Total 50 598 Balance 50 598 Weight 75.7 kg Intake: Intake, IV Titration 50 Amount cefTRIAXone 1 gm In 50 Sodium Chloride 0.9% 50 ml @ 100 mls/hr IVPB Q24HR [facility] Rx#:[id number] Oral 598 Other: Voiding Method Toilet Toilet Toilet # Voids 2 2 # Bowel Movements 2 1 - Exam General: Sitting up in bed and is not in acute distress. Lung: Getting breathing treatment. Neuro: Patient is awake alert. Oriented to self and stated she is in hospital. Speech is much better today compared to yesterday. Pupils are round, equal and reactive to light. Pupils are 3mm. Unable to assess visual blunt because of cooperation. Is tracking. No facial weakness. No dysarthria. Motor: Strength is lifting all extremities above gravity. Some of the other workup during this hospital visit consisted of: Has leukopenia. Hemoglobin A1c 7.0 Urine analysis seems probable suggestive of UTI. Lipid panel: TG 103, Cholest 71, LDL 18.2 HDL 32 B12: 733 Venous duplex is reported as the venous thrombosis in the left common femoral vein to the mid popliteal vein. Right lower extremity negative for DVT. 2D echo was reported as left ventricle ejection fraction of 60 to 65%. Moderate right atrial dilation. Moderate left atrial dilation. Venous Duplex: No significant flow-limiting stenosis - Labs CBC & Chem 7: 02/22/24 08:43 02/21/24 17:30 Labs: Abnormal Lab Results - Last 24 Hours (Table) 02/22/24 02/22/24 02/22/24 Range/Units 08:43 16:26 20:11 POC Glucose (mg/dL) 125 H 209 H (70-110) mg/dL HDL Cholesterol 32.20 L (40.00-60.00) mg/dL 02/23/24 02/23/24 Range/Units 06:21 11:55 POC Glucose (mg/dL) 112 H 158 H (70-110) mg/dL HDL Cholesterol (40.00-60.00) mg/dL Microbiology - Last 24 Hours (Table) 02/21/24 07:08 Urine Culture - Final Urine,Voided Assessment and Plan Assessment: This is a 78-year-old woman with history of atrial fibrillation and was not on any anticoagulation prior to this hospital visit due to GI bleed, esophageal bleed, esphageal adenocarcinoma presented to emergency department because of edema lower extremity. During this hospital visit about 2 days ago she had speech difficulty and had an initial CT of the head 2 days ago which was negative but then a repeat CT head yesterday showed acute stroke. During this hospital visit she was found to have DVT and was resumed on anticoagulation. No IV thrombolytic since patient is on anticoagulation and risk outweigh benefit. Acute to subacute ischemic stroke (left parietal and suspected left basal ganglia). Patient has significant expressive aphasia---today doing better. Nonspecific hypoattenuation right anterior fossa may be encephalomalcia vs cyst. Acute DVT of lower extremity on anticoagulation History of atrial fibrillation and was not on anticoagulation b/c of hx of GI bleed but was started during this admission Possible acute UTI History of Esophageal andenocarcinoma DM. Plan: Pending MRI Brain. Patient is yesterday was on Eliquis 10 mg twice daily from neurologic perspective I would recommend holding off especially with the recent stroke and to avoid hemorrhagic conversion which was held. She has history of GI bleed and the family members also would like to hold anticoagulation and will defer discussion of use of anticoagulation to primary team. I started her on ASA 325mg daily. If benefit outweigh risk then to be on heparin drip and avoid boluses and keep PTT between 45-60. Currently on Lipitor 40mg qhs but from neurological perspective can be on 20mg qhs dose. Every 4 hours neurochecks Cardiac monitoring PT OT and [employer] are consulted Neurology is consulted. Will defer the rest of the medical management to primary and other specialist DVT prophylaxis I started patient on subq heparin 5000U every 12 hours. Plan discussed with the patient, her ex- who are at bedside. Time with Patient: Less than 30
--- NOTE | 2024-02-23 15:50 | P.PN ---
Progress Note - Text Progress Note Date: 02/23/24 Ms. Barlow is a very pleasant 78 yo female with history of esophageal cancer, finishing up her curative intent treatment with chemoRT, who is here for SOB and weakness. Course complicated by concerns of acute CVA on CT head as well as acute LE DVT. - MRI done, reviewed, ischemic CVA and no signs of met's or hemorrhage - She is high risk of thrombosis and has acute LE DVT - Would recommend AC, agree with heparin drip and close monitoring for bleeding - She does have history of GI bleed which was due to her esophageal cancer that has been treated - If there is absolute contraindication for AC at this time, agree with IVC filter placement, and initiation of AC once safe to do so from bl eeding/neurological standpoint - Recommend strict bedrest until pt either started on AC or IVC filter placed Discussed with pt and she was agreeable. All questions answered.
[2024-02-23 16:34] LABS: Glucose,Whole Blood 163 mg/dL (70-110)
[2024-02-23] MEDS: ASPIRIN 325 MG TAB PO SCH (18:41)
[2024-02-23] MEDS: HEPARIN SODIUM,PORCINE 5,000 UNIT/ML 1 ML VIAL SQ SCH (18:41)
[2024-02-23 20:09] LABS: Glucose,Whole Blood 195 mg/dL (70-110)
[2024-02-24 05:57] LABS: Glucose,Whole Blood 132 mg/dL (70-110)
[2024-02-24] MEDS: HEPARIN SODIUM,PORCINE 5,000 UNIT/ML 1 ML VIAL SQ SCH (06:19)
--- NOTE | 2024-02-24 10:12 | P.PN ---
Subjective Progress Note Date: 02/24/24 Principal diagnosis: DVT left lower extremity has been on and requests now off of it, we'll consult IR for IVC filter, discussed with RN taking care of patient to put a consult for INR Paroxysmal atrial fibrillation, patient is high risk complication with anticoagulation and liquids has been discontinued as per recommendation of neurology Left parietal lobe infarct acute, patient to undergo PT OT evaluation esophageal cancer oncology has been following 02/24/2024, patient seen eval examined during rounds labs reviewed medications reviewed, patient currently on 2 L oxygen, denies any chest pain patient anticoagulation is back but patient is on DVT prophylaxis Will discuss with Dr. Streeter neurology if systemic anticoagulation consided patient is a 78-year-old female with prior history of the chronic atrial fibrillation patient not on anticoagulation for A. fib, due to GI bleed, patient also has esophageal cancer oncology service has been following, data predominan tly obtained from the chart as patient unable to give a detailed history, patient remains on 2 L oxygen, patient has been found to have subacute infarct neurology has been following infarct involving left parietal lobe as well as left basal ganglia. Patient has been started on and requests awaiting clearance from oncology, Past medical history significant for diabetes mellitus, GERD, hearing disorder, hypertension hypertensive cardiovascular disease, osteoarthritis, patient denies any smoking or alcohol abuse, esophageal cancer. Patient remains on broad- spectrum antibiotics IV Rocephin along with continuation of the high intensity statin inhaler or supplies steroids furosemide, also on sliding scale insulin radiographic studies include computed tomography scan of the chest performed 1 02/16/2024atient noted a large hiatal hernia no acute pulmonary process seen, computed tomography scan of the head negative for any acute stroke, venous Doppler lower extremity positive for left femoral vein DVT mid poplitealcomputed tomography scan of his chest negative for pulmonary embolism. Repeat computed tomography scan of the head revealed acute infarct involving left parietal lobe, duplex ultrasound of the carotid negative for any significant obstruction. Patient has been on her liquids 10 mg 2 times a day Objective - Vital Signs Vital signs: Vital Signs Temp 97.6 F 02/24/24 08:00 Pulse 84 02/24/24 08:54 Resp 20 02/24/24 08:00 BP 98/66 02/24/24 08:00 Pulse Ox 98 02/24/24 08:40 FiO2 21 02/23/24 08:30 Intake & Output 05/02/24/24 02/24/24 18:59 06:59 18:59 Intake Total 716 240 Balance 716 240 Weight 76.2 kg Intake: Oral 716 240 Other: Voiding Method Toilet Toilet Toilet # Voids 2 1 # Bowel Movements 1 - Exam - Constitutional General appearance: average body habitus, cooperative, disheveled, mild distress - EENT Eyes: EOMI, PERRLA Ears: bilateral: normal - Neck Carotids: bilateral: upstroke normal Thyroid: bilateral: normal size - Respiratory Respiratory: bilateral: CTA - Cardiovascular Rhythm: regular Heart sounds: normal: S1, S2 - Gastrointestinal General gastrointestinal: normal bowel sounds, soft - Integumentary Integumentary: normal turgor - Neurologic Neurologic: CNII-XII intact - Musculoskeletal Musculoskeletal: gait normal, generalized weakness, strength equal bilaterally - Psychiatric Psychiatric: A&O x's 3, appropriate affect - Labs CBC & Chem 7: 02/22/24 08:43 02/21/24 17:30 Labs: Abnormal Lab Results - Last 24 Hours (Table) 02/23/24 02/23/24 02/23/24 Range/Units 11:55 16:32 20:07 POC Glucose (mg/dL) 158 H 163 H 195 H (70-110) mg/dL 02/24/24 Range/Units 05:55 POC Glucose (mg/dL) 132 H (70-110) mg/dL Microbiology - Last 24 Hours (Table) 02/21/24 07:08 Urine Culture - Final Urine,Voided Assessment and Plan Assessment: DVT left lower extremity has been on and requests now off of it, we'll consult IR for IVC filter, discussed with RN taking care of patient to put a consult for INR Paroxysmal atrial fibrillation, patient is high risk complication with anticoagulation and liquids has been discontinued as per recommendation of neurology Left parietal lobe infarct acute, patient to undergo PT OT evaluation esophageal cancer oncology has been following Plan: as above Time with Patient: Greater than 30
[2024-02-24 11:12] LABS: Glucose,Whole Blood 156 mg/dL (70-110)
--- NOTE | 2024-02-24 12:06 | P.PN ---
Subjective Progress Note Date: 02/24/24 I am following-up with patient and she is sitting in a recliner chair and feels is doing better. She feels her speech is improving and her nurse agrees. Objective - Vital Signs Vital signs: Vital Signs Temp 97.6 F 02/24/24 08:00 Pulse 98 02/24/24 11:33 Resp 18 02/24/24 11:33 BP 96/67 02/24/24 11:33 Pulse Ox 99 02/24/24 11:33 FiO2 21 02/23/24 08:30 Intake & Output 02/23/24 02/24/24 02/24/24 18:59 06:59 18:59 Intake Total 716 720 Balance 716 720 Weight 76.2 kg Intake: Oral 716 720 Other: Voiding Method Toilet Toilet Toilet # Voids 2 1 # Bowel Movements 1 - Exam General: Sitting up in bed and is not in acute distress. Neuro: Patient is awake alert, oriented to self and stated she is in hospital. Has expressive aphasia but is improving. Pupils are round, equal and reactive to light. Pupils are 3mm. Unable to assess visual blunt because of cooperation. Is tracking. No facial weakness. No dysarthria. Motor: Strength is lifting all extremities above gravity equally. Some of the other workup during this hospital visit consisted of: Has leukopenia. Hemoglobin A1c 7.0 Urine analysis seems probable suggestive of UTI. Lipid panel: TG 103, Cholest 71, LDL 18.2 HDL 32 B12: 733 Venous duplex is reported as the venous thrombosis in the left common femoral vein to the mid popliteal vein. Right lower extremity negative for DVT. 2D echo was reported as left ventricle ejection fraction of 60 to 65%. Moderate right atrial dilation. Moderate left atrial dilation. Venous Duplex: No significant flow-limiting stenosis. Carotid duplex: No significant flow-limiting stenosis. MRI Brain is reported as acute infarct left watershed region. Chronic right later white matter ischemic type changes. I personally reviewed MRI and feel patient had stroke over the left temporal and don't feel it is a watershed infarct. - Labs CBC & Chem 7: 02/22/24 08:43 02/21/24 17:30 Labs: Abnormal Lab Results - Last 24 Hours (Table) 02/23/24 02/23/24 02/24/24 Range/Units 16:32 20:07 05:55 POC Glucose (mg/dL) 163 H 195 H 132 H (70-110) mg/dL 02/24/24 Range/Units 11:09 POC Glucose (mg/dL) 156 H (70-110) mg/dL Assessment and Plan Assessment: This is a 78-year-old woman with history of atrial fibrillation and was not on any anticoagulation prior to this hospital visit due to GI bleed, esophageal bleed, esphageal adenocarcinoma presented to emergency department because of edema lower extremity. During this hospital visit about 2 days ago she had speech difficulty and had an initial CT of the head 2 days ago which was negative but then a repeat CT head yesterday showed acute stroke. During this hospital visit she was found to have DVT and was resumed on anticoagulation. No IV thrombolytic since patient is on anticoagulation and risk outweigh benefit. Acute to subacute ischemic stroke (reported as watershed on left side but I felt it is on left temporal region and do not feel it is watershed). Patient has significant expressive aphasia---improving. Stroke seems cardioembolic especially with hx of a-fib and was not on anticoagulation. Acute DVT of lower extremity on anticoagulation History of atrial fibrillation and was not on anticoagulation b/c of hx of GI bl eed but was started during this admission Possible acute UTI History of Esophageal andenocarcinoma DM. Plan: Eliquis was stopped because of recent stroke to avoid hemorrhagic coversion. She has history of GI bleed and the family members also would like to hold anticoagulation and will defer discussion of use of anticoagulation to primary team. I started her on ASA 325mg daily. If benefit outweigh risk then to be on heparin drip and avoid boluses and keep PTT between 45-60. I started the patient on ASA 325mg daily. I spoke with Dr. Sage Birch who is covering for Dr. De Santiago and consider IVC for hx of DVT Currently on Lipitor 40mg qhs but from neurological perspective can be on 20mg qhs dose. Every 4 hours neurochecks Cardiac monitoring PT OT and [employer] are consulted Oncology is consulted Will defer the rest of the medical management to primary and other specialist Upon discharge, recommend the patient to follow-up with neurologist as outpatient within 1-2 weeks. DVT prophylaxis On subq heparin 5000U every 12 hours. Plan discussed with the patient and primary attending. Will follow-up with patient sporadically. Time with Patient: Less than 30
[2024-02-24 16:19] LABS: Glucose,Whole Blood 198 mg/dL (70-110)
[2024-02-24 20:22] LABS: Glucose,Whole Blood 233 mg/dL (70-110)
[2024-02-25 06:05] LABS: Glucose,Whole Blood 91 mg/dL (70-110)
[2024-02-25 11:30] LABS: Glucose,Whole Blood 115 mg/dL (70-110)
--- NOTE | 2024-02-25 14:14 | P.PN ---
Subjective Progress Note Date: 02/25/24 I am following-up with patient and she feels she is doing better. Objective - Vital Signs Vital signs: Vital Signs Temp 98.3 F 02/25/24 08:40 Pulse 96 02/25/24 09:32 Resp 16 02/25/24 08:40 BP 90/57 02/25/24 08:40 Pulse Ox 97 02/25/24 09:18 FiO2 21 02/23/24 08:30 Intake & Output 02/24/24 02/25/24 02/25/24 18:59 06:59 18:59 Intake Total 1440 118 Balance 1440 118 Intake: Oral 1440 118 Other: Voiding Method Toilet Toilet Toilet # Voids 2 1 - Exam General: Sitting up in bed and is not in acute distress. Neuro: Patient is awake alert, oriented to self and stated she is in hospital. Has expressive aphasia but is improving. Pupils are round, equal and reactive to light. Pupils are 3mm. Is tracking. No facial weakness. No dysarthria. Motor: Strength is lifting all extremities above gravity equally. Some of the other workup during this hospital visit consisted of: Has leukopenia. Hemoglobin A1c 7.0 Urine analysis seems probable suggestive of UTI. Lipid panel: TG 103, Cholest 71, LDL 18.2 HDL 32 B12: 733 Venous duplex is reported as the venous thrombosis in the left common femoral vein to the mid popliteal vein. Right lower extremity negative for DVT. 2D echo was reported as left ventricle ejection fraction of 60 to 65%. Moderate right atrial dilation. Moderate left atrial dilation. Venous Duplex: No significant flow-limiting stenosis. Carotid duplex: No significant flow-limiting stenosis. MRI Brain is reported as acute infarct left watershed region. Chronic right later white matter ischemic type changes. I personally reviewed MRI and feel patient had stroke over the left temporal and don't feel it is a watershed infarct. - Labs CBC & Chem 7: 02/22/24 08:43 02/21/24 17:30 Labs: Abnormal Lab Results - Last 24 Hours (Table) 02/24/24 02/24/24 02/25/24 Range/Units 16:18 20:20 11:28 POC Glucose (mg/dL) 198 H 233 H 115 H (70-110) mg/dL Assessment and Plan Assessment: This is a 78-year-old woman with history of atrial fibrillation and was not on any anticoagulation prior to this hospital visit due to GI bleed, esophageal bleed, esphageal adenocarcinoma presented to emergency department because of edema lower extremity. During this hospital visit about 2 days ago she had s peech difficulty and had an initial CT of the head 2 days ago which was negative but then a repeat CT head yesterday showed acute stroke. During this hospital visit she was found to have DVT and was resumed on anticoagulation. No IV thrombolytic since patient is on anticoagulation and risk outweigh benefit. Acute to subacute ischemic stroke (reported as watershed on left side but I felt it is on left temporal region and do not feel it is watershed). Patient has significant expressive aphasia---improving. Stroke seems cardioembolic especially with hx of a-fib and was not on anticoagulation. Acute DVT of lower extremity on anticoagulation History of atrial fibrillation and was not on anticoagulation b/c of hx of GI bleed but was started during this admission Possible acute UTI History of Esophageal andenocarcinoma DM. Plan: Eliquis was stopped because of recent stroke to avoid hemorrhagic coversion. She has history of GI bleed and the family members also would like to hold anticoagulation and will defer discussion of use of anticoagulation to primary team. I started her on ASA 325mg daily. If benefit outweigh risk then to be on heparin drip and avoid boluses and keep PTT between 45-60. I spoke with Dr. Sage Birch who is covering for Dr. De Santiago and consider IVC for hx of DVT Currently on Lipitor 40mg qhs but from neurological perspective can be on 20mg qhs dose. Every 4 hours neurochecks Cardiac monitoring PT OT and [employer] [employer] are consulted Oncology is consulted Will defer the rest of the medical management to primary and other specialist Upon discharge, recommend the patient to follow-up with neurologist as outpatien t within 1-2 weeks. DVT prophylaxis On subq heparin 5000U every 12 hours. Plan discussed with the patient and primary attending. Will follow-up with patient sporadically. Dr. Li will resume neurology service tomorrow A.M. Time with Patient: Less than 30
[2024-02-25 17:02] LABS: Glucose,Whole Blood 128 mg/dL (70-110)
--- NOTE | 2024-02-25 17:25 | P.PN ---
Subjective Progress Note Date: 02/25/24 Principal diagnosis: DVT left lower extremity has been on and requests now off of it, we'll consult IR for IVC filter, discussed with RN taking care of patient to put a consult for INR Paroxysmal atrial fibrillation, patient is high risk complication with anticoagulation and liquids has been discontinued as per recommendation of neurology Left parietal lobe infarct acute, patient to undergo PT OT evaluation esophageal cancer oncology has been following 02/25/2024, patient seen eval examined during the rounds labs reviewed medications reviewed care plan discussed, respiratory status remains stable on 2 L oxygen, family is present bedside, I have discussed with the family about IVC filter, patient willing to proceed with that 02/24/2024, patient seen eval examined during rounds labs reviewed medications reviewed, patient currently on 2 L oxygen, denies any chest pain patient anticoagulation is back but patient is on DVT prophylaxis Will discuss with Dr. Streeter neurology if systemic anticoagulation consided patient is a 78-year-old female with prior history of the chronic atrial fibrillation patient not on anticoagulation for A. fib, due to GI bleed, patient also has esophageal cancer oncology service has been following, data predominantly obtained from the chart as patient unable to give a detailed history, patient remains on 2 L oxygen, patient has been found to have subacute infarct neurology has been following infarct involving left parietal lobe as well as left basal ganglia. Patient has been started on and requests awaiting clearance from oncology, Past medical history significant for diabetes mellitus, GERD, hearing disorder, hypertension hypertensive cardiovascular disease, osteoarthritis, patient denies any smoking or alcohol abuse, esophageal cancer. Patient remains on broad- spectrum antibiotics IV Rocephin along with continuation of the high intensity statin inhaler or supplies steroids furosemide, also on sliding scale insulin radiographic studies include computed tomography scan of the chest performed 1 4patient noted a large hiatal hernia no acute pulmonary process seen, computed tomography scan of the head negative for any acute stroke, venous Doppler lower extremity positive for left femoral vein DVT mid poplitealcomputed tomography scan of his chest negative for pulmonary embolism. Repeat computed tomography scan of the head revealed acute infarct involving left parietal lobe, duplex ultrasound of the carotid negative for any significant obstruction. Patient has been on her liquids 10 mg 2 times a day Objective - Vital Signs Vital signs: Vital Signs Temp 98.3 F 02/25/24 08:40 Pulse 91 02/25/24 14:18 Resp 16 02/25/24 14:18 BP 96/66 02/25/24 11:50 Pulse Ox 100 02/25/24 11:50 FiO2 21 02/23/24 08:30 Intake & Output 02/24/24 02/25/24 02/25/24 18:59 06:59 18:59 Intake Total 1440 118 Balance 1440 118 Intake: Oral 1440 118 Other: Voiding Method Toilet Toilet Toilet # Voids 2 1 - Exam - Constitutional General appearance: average body habitus, cooperative, disheveled, mild distress - EENT Eyes: EOMI, PERRLA Ears: bilateral: normal - Neck Carotids: bilateral: upstroke normal Thyroid: bilateral: normal size - Respiratory Respiratory: bilateral: CTA - Cardiovascular Rhythm: regular Heart sounds: normal: S1, S2 - Gastrointestinal General gastrointestinal: normal bowel sounds, soft - Integumentary Integumentary: normal turgor - Neurologic Neurologic: CNII-XII intact - Musculoskeletal Musculoskeletal: gait normal, generalized weakness, strength equal bilaterally - Psychiatric Psychiatric: A&O x's 3, appropriate affect - Labs CBC & Chem 7: 02/22/24 08:43 02/21/24 17:30 Labs: Abnormal Lab Results - Last 24 Hours (Table) 02/24/24 02/25/24 02/25/24 Range/Units 20:20 11:28 16:58 POC Glucose (mg/dL) 233 H 115 H 128 H (70-110) mg/dL Assessment and Plan Assessment: DVT left lower extremity has been on and requests now off of it, pending consult IR for IVC filter, discussed with RN taking care of patient awaiting recommendations Paroxysmal atrial fibrillation, patient is high risk complication with anticoagulation and liquids has been discontinued as per recommendation of neurology Left parietal lobe infarct acute, patient to undergo PT OT evaluation esophageal cancer oncology has been following Plan: as above Time with Patient: Greater than 30
[2024-02-25 18:34] LABS: Glucose,Whole Blood 94 mg/dL (70-110)
[2024-02-25 20:31] LABS: Glucose,Whole Blood 141 mg/dL (70-110)
[2024-02-26 06:15] LABS: Glucose,Whole Blood 96 mg/dL (70-110)
[2024-02-26 08:49] LABS: Anisocytosis Marked; Basophils % (A) 1 %; Eosinophils % (A) 1 %; HCT 38.7 % (34.0-46.0); Hypochromasia Slight; Lymphocytes # (A) 0.5 k/uL (1.0-4.8); Lymphocytes % (A) 15 %; MCH 26.6 pg (25.0-35.0); MCV 86.1 fL (80.0-100.0); Macrocytosis Slight; Mean Platelet Volume 8.4; Microcytosis Slight; Monocytes # (A) 0.3 k/uL (0-1.0); Monocytes % (A) 9 %; Neutrophils # (A) 2.6 k/uL (1.3-7.7); Neutrophils % (A) 70 %; Platelet Count 218 k/uL (150-450); WBC 3.6 k/uL (3.8-10.6)
[2024-02-26 08:54] LABS: ALT 19 U/L (4-34); AST 30 U/L (14-36); African American GFR (CKD) >90 (>60 ml/min/1.73 sqM); Albumin 2.8 g/dL (3.5-5.0); Alkaline Phosphatase 80 U/L (38-126); Anion Gap 2 mmol/L; Blood Urea Nitrogen 14 mg/dL (7-17); Calcium 8.8 mg/dL (8.4-10.2); Carbon Dioxide 35 mmol/L (22-30); Chloride 96 mmol/L (98-107); Glucose 81 mg/dL (74-99); Non-African American GFR(CKD) 88 (>60 ml/min/1.73 sqM); Potassium 3.5 mmol/L (3.5-5.1); Sodium 133 mmol/L (137-145); Total Bilirubin 0.5 mg/dL (0.2-1.3); Total Protein 5.2 g/dL (6.3-8.2)
[2024-02-26 08:57] LABS: RDW 27.1 % (11.5-15.5)
--- NOTE | 2024-02-26 09:27 | P.PN ---
Subjective Progress Note Date: 02/26/24 Principal diagnosis: DVT left lower extremity has been on and requests now off of it, we'll consult IR for IVC filter, discussed with RN taking care of patient to put a consult for INR Paroxysmal atrial fibrillation, patient is high risk complication with anticoagulation and liquids has been discontinued as per recommendation of neurology Left parietal lobe infarct acute, patient to undergo PT OT evaluation esophageal cancer oncology has been following 02/26/2024, patient seen eval examined during the rounds labs reviewed medications reviewed care plan discussed, remains on 2 L nasal cannula oxygen saturations stable, awake and alert, denies any chest painongoing dry cough is present, patient remains on bronchodilators and inhaled is a slice to steroids along with broad-spectrum antibiotics with IV Rocephin, patient is on DVT prophylaxis as well, received a call from interventional radiology as they are not doing IVC filter anymore option was to consult vascular surgery, we'll proceed with vascular surgery consult with Drs. Leon/Patric ponce. Labs reviewed white cell count 3.6, sodium was 1:30 percent and 3.5 CO2 is 35 BUN and creatinine 14/0.6 02/25/2024, patient seen eval examined during the rounds labs reviewed medications reviewed care plan discussed, respiratory status remains stable on 2 L oxygen, family is present bedside, I have discussed with the family about IVC filter, patient willing to proceed with that 02/24/2024, patient seen eval examined during rounds labs reviewed medications reviewed, patient currently on 2 L oxygen, denies any chest pain patient anticoagulation is back but patient is on DVT prophylaxis Will discuss with Dr. Streeter neurology if systemic anticoagulation consided patient is a 78-year-old female with prior history of the chronic atrial fibrillation patient not on anticoagulation for A. fib, due to GI bleed, patient also has esophageal cancer oncology service has been following, data predominantly obtained from the chart as patient unable to give a detailed history, patient remains on 2 L oxygen, patient has been found to have subacute infarct neurology has been following infarct involving left parietal lobe as well as left basal ganglia. Patient has been started on and requests awaiting clearance from oncology, Past medical history significant for diabetes mellitus, GERD, hearing disorder, hypertension hypertensive cardiovascular disease, osteoarthritis, patient denies any smoking or alcohol abuse, esophageal cancer. Patient remains on broad- spectrum antibiotics IV Rocephin along with continuation of the high intensity statin inhaler or supplies steroids furosemide, also on sliding scale insulin radiographic studies include computed tomography scan of the chest performed 1 4patient noted a large hiatal hernia no acute pulmonary process seen, computed tomography scan of the head negative for any acute stroke, venous Doppler lower extremity positive for left femoral vein DVT mid poplitealcomputed tomography scan of his chest negative for pulmonary embolism. Repeat computed tomography scan of the head revealed acute infarct involving left parietal lobe, duplex ultrasound of the carotid negative for any significant obstruction. Patient has been on her liquids 10 mg 2 times a day Objective - Vital Signs Vital signs: Vital Signs Temp 97.2 F L 02/26/24 07:59 Pulse 82 02/26/24 08:50 Resp 17 02/26/24 07:59 BP 102/65 02/26/24 07:59 Pulse Ox 99 02/26/24 08:40 FiO2 21 02/23/24 08:30 Intake & Output 02/25/24 02/26/24 02/26/24 18:59 06:59 18:59 Intake Total 118 20 Output Total 320 Balance 118 -300 Weight 76 kg Intake: IV 20 Invasive Line 4 20 Oral 118 Output: Urine 320 Other: Voiding Method Toilet Toilet # Voids 1 1 - Exam - Constitutional General appearance: average body habitus, cooperative, disheveled, mild distress - EENT Eyes: EOMI, PERRLA Ears: bilateral: normal - Neck Carotids: bilateral: upstroke normal Thyroid: bilateral: normal size - Respiratory Respiratory: bilateral: CTA - Cardiovascular Rhythm: regular Heart sounds: normal: S1, S2 - Gastrointestinal General gastrointestinal: normal bowel sounds, soft - Integumentary Integumentary: normal turgor - Neurologic Neurologic: CNII-XII intact - Musculoskeletal Musculoskeletal: gait normal, generalized weakness, strength equal bilaterally - Psychiatric Psychiatric: A&O x's 3, appropriate affect - Labs CBC & Chem 7: 02/26/24 07:50 02/26/24 07:50 Labs: Abnormal Lab Results - Last 24 Hours (Table) 02/25/24 02/25/24 02/25/24 Range/Units 11:28 16:58 20:27 WBC (3.8-10.6) k/uL RDW (11.5-15.5) % Lymphocytes # (1.0-4.8) k/uL Sodium (137-145) mmol/L Chloride (98-107) mmol/L Carbon Dioxide (22-30) mmol/L POC Glucose (mg/dL) 115 H 128 H 141 H (70-110) mg/dL Total Protein (6.3-8.2) g/dL Albumin (3.5-5.0) g/dL 02/26/24 02/26/24 Range/Units 07:50 07:50 WBC 3.6 L (3.8-10.6) k/uL RDW 27.1 H (11.5-15.5) % Lymphocytes # 0.5 L (1.0-4.8) k/uL Sodium 133 L (137-145) mmol/L Chloride 96 L (98-107) mmol/L Carbon Dioxide 35 H (22-30) mmol/L POC Glucose (mg/dL) (70-110) mg/dL Total Protein 5.2 L (6.3-8.2) g/dL Albumin 2.8 L (3.5-5.0) g/dL Microbiology - Last 24 Hours (Table) 02/21/24 07:08 Urine Culture - Final Urine,Voided Assessment and Plan Assessment: DVT left lower extremity has been on Eliquis, now off of it, as per neurology recommendationdue to high risk of bleeding complications, pending consult IR for IVC filter, however no defined as radiology is not doing anymore adhesive filter placement alternative is to consult vascular surgery, consult has been initiated, continue subcu heparin however as outpatient include be appropriate to manage left lower extremity DVT with IVC filter and very low dose Eliquis Paroxysmal atrial fibrillation, patient is high risk complication with anticoagulation Eliquis has been discontinued as per recommendation of neurology, to be resumed again low-dose after IVC filter Left parietal lobe infarct acute, patient to undergo PT OT evaluation esophageal cancer oncology has been following Plan: as above Time with Patient: Greater than 30
[2024-02-26 11:42] LABS: Glucose,Whole Blood 138 mg/dL (70-110)
--- NOTE | 2024-02-26 15:24 | PN ---
PROGRESS NOTE SUBJECTIVE: The patient has DVT in her left leg. She has a positive stroke. OBJECTIVE: VITAL SIGNS: Temperature 97.5, pulse 67, respiratory rate 16 to 18, blood pressure is low at 80/58 and she was started back on her midodrine. CARDIOVASCULAR: S1 and S2. LUNGS: Transmitted upper sounds. GI: Soft. HEMATOLOGY: Negative Homans. Discussed the case with Dr. Birch. For paroxysmal atrial fibrillation complication with anticoagulation and recent parietal lobe infarct. Esophageal cancer. IR is consulted for IVC filter. Temperature is 97.2, pulse 82, respiratory rate 16 to 18, and blood pressure 112/65. Labs reviewed. She has esophageal cancer. Left parietal lobe infarct. PT/OT. Paroxysmal atrial fibrillation. Dr. Birch agrees to restart her Eliquis low dose after IVC filter. Continue subcu heparin, however, as an outpatient to be appropriate to manage left lower extremity DVT with IVC filter and low-dose Eliquis. Continue current treatment. Prognosis guarded. MMODL / IJN: [id number] /
--- NOTE | 2024-02-26 15:49 | P.GSCN ---
History of Present Illness Consult date: 02/26/24 Reason for Consult: Need for IVC filter History of present illness: 78-year-old female with history of left lower extremity DVT who was previously on Eliquis for oral anticoagulation recently was taken off per neurology due to high risk of bleeding complications. She also has esophageal cancer and has had some bleeding and is currently on subcutaneous heparin. Due to her high risk for bleeding as well as unable to take oral anticoagulation they have requested for IVC filter placement. She states that her lower extremities are not causing her any significant issues at this time and her swelling is not severe. She is agreeable to IVC filter placement. Currently she denies any fevers, chills, chest pain or shortness of breath. Review of Systems All systems: negative (What is mentioned in the HPI or past medical history) Past Medical History Past Medical History: Diabetes Mellitus, Eye Disorder, GERD/Reflux, Hearing Disorder / Deafness, Hypertension, Osteoarthritis (OA) Additional Past Medical History / Comment(s): MACULAR DEGENERATION, cataracts, osteoporosis, diet controlled diabetic, TIA History of Any Multi-Drug Resistant Organisms: None Reported Past Surgical History: Cholecystectomy, Hysterectomy Additional Past Surgical History / Comment(s): ORIF RT WRIST-HAD BONE GRAFT FROM HIP, asher fundoplasty, teeth pulled Past Anesthesia/Blood Transfusion Reactions: No Reported Reaction Past Psychological History: Anxiety, Depression Smoking Status: Never smoker Past Alcohol Use History: None Reported Past Drug Use History: None Reported - Past Family History Brother(s) Family Medical History: Cancer Additional Family Medical History / Comment(s): LUNG Mother Family Medical History: Cancer Sister(s) Family Medical History: Cancer Medications and Allergies Home Medications Medication Instructions Recorded Confirmed Type Montelukast [Singulair] 10 mg PO HS 07/31/22 02/15/24 History Gabapentin 300 mg PO HS 10/06/23 02/15/24 History Atorvastatin [Lipitor] 40 mg PO HS 11/03/23 02/15/24 History Ipratropium-Albuterol Nebulize 3 ml INHALATION RT-TID 11/03/23 02/15/24 History [Duoneb 0.5 mg-3 mg/3 ml Soln] Melatonin 10 mg PO HS 11/03/23 02/15/24 History Metoprolol Tartrate [Lopressor] 50 mg PO BID 11/03/23 02/15/24 History Ondansetron [Zofran] 4 - 8 mg PO Q4H PRN 11/03/23 02/15/24 History Pantoprazole [Protonix] 40 mg PO BID #60 tab 11/12/23 02/15/24 Rx Spironolactone [Aldactone] 25 mg PO DAILY #30 tab 11/12/23 02/15/24 Rx Insulin Aspart [NovoLOG Flexpen] 5 - 10 units SQ AC-TID PRN 01/14/24 02/15/24 History Insulin Glargine,Hum.rec.anlog 10 units INJ DAILY 01/14/24 02/15/24 History [Lantus Solostar Pen] Clotrimazole/Betameth Cream 1 applic TOPICAL BID PRN 02/15/24 02/15/24 History [Lotrisone] Furosemide [Lasix] 20 mg PO DAILY 02/15/24 02/15/24 History Insulin Glargine,Hum.rec.anlog 5 - 7 units SQ HS 02/15/24 02/15/24 History [Lantus Solostar Pen] Magic Mouth Wash 10 - 15 ml PO ACHS 02/15/24 02/15/24 History Magnesium Oxide [Magox 400] 400 mg PO DAILY 02/15/24 02/15/24 History Midodrine [ProAmatine] 5 mg PO TID 02/15/24 02/15/24 History Nystatin 100,000 Unit/gm Powd 1 applic TOPICAL BID PRN 02/15/24 02/15/24 History [Mycostatin Powder] Nystatin 100,000Unit/gm Cream 1 applic TOPICAL BID PRN 02/15/24 02/15/24 History [Mycostatin Cream] Apixaban [Eliquis] 5 mg PO BID #60 tab 02/21/24 Rx Allergies Allergy/AdvReac Type Severity Reaction Status Date / Time No Known Allergies Allergy Verified 02/15/24 19:08 Surgical - Exam Vital Signs Temp Pulse Resp BP Pulse Ox 97.5 F L 74 20 94/61 98 02/15/24 16:40 02/15/24 16:40 02/15/24 16:40 02/15/24 16:40 02/15/24 16:40 - General well developed, well nourished, no distress - Eyes PERRL, normal ocular movement - ENT normal pinna, normal nares - Neck no bruits - Respiratory normal expansion, normal respiratory effort - Abdomen Abdomen: soft, non tender - Integumentary no rash - Neurologic normal sensation - Psychiatric oriented to time, oriented to person, oriented to place, speech is normal Palpable PT pulses bilaterally. 1+ edema left lower extremity Results Venous duplex demonstrates left acute DVT involving the femoral to popliteal vein - Labs 02/26/24 07:50 02/26/24 07:50 Abnormal Lab Results - Last 24 Hours (Table) 02/25/24 02/25/24 02/26/24 Range/Units 16:58 20:27 07:50 WBC 3.6 L (3.8-10.6) k/uL RDW 27.1 H (11.5-15.5) % Lymphocytes # 0.5 L (1.0-4.8) k/uL Sodium (137-145) mmol/L Chloride (98-107) mmol/L Carbon Dioxide (22-30) mmol/L POC Glucose (mg/dL) 128 H 141 H (70-110) mg/dL Total Protein (6.3-8.2) g/dL Albumin (3.5-5.0) g/dL 02/26/24 02/26/24 Range/Units 07:50 11:41 WBC (3.8-10.6) k/uL RDW (11.5-15.5) % Lymphocytes # (1.0-4.8) k/uL Sodium 133 L (137-145) mmol/L Chloride 96 L (98-107) mmol/L Carbon Dioxide 35 H (22-30) mmol/L POC Glucose (mg/dL) 138 H (70-110) mg/dL Total Protein 5.2 L (6.3-8.2) g/dL Albumin 2.8 L (3.5-5.0) g/dL Microbiology - Last 24 Hours (Table) 02/21/24 07:08 Urine Culture - Final Urine,Voided Diabetes panel 02/26/24 Range/Units 07:50 Sodium 133 L (137-145) mmol/L Potassium 3.5 (3.5-5.1) mmol/L Chloride 96 L (98-107) mmol/L Carbon Dioxide 35 H (22-30) mmol/L BUN 14 (7-17) mg/dL Creatinine 0.61 (0.52-1.04) mg/dL Glucose 81 (74-99) mg/dL Calcium 8.8 (8.4-10.2) mg/dL AST 30 (14-36) U/L ALT 19 (4-34) U/L Alkaline Phosphatase 80 (38-126) U/L Total Protein 5.2 L (6.3-8.2) g/dL Albumin 2.8 L (3.5-5.0) g/dL Calcium panel 02/26/24 Range/Units 07:50 Calcium 8.8 (8.4-10.2) mg/dL Albumin 2.8 L (3.5-5.0) g/dL Pituitary panel 02/26/24 Range/Units 07:50 Sodium 133 L (137-145) mmol/L Potassium 3.5 (3.5-5.1) mmol/L Chloride 96 L (98-107) mmol/L Carbon Dioxide 35 H (22-30) mmol/L BUN 14 (7-17) mg/dL Creatinine 0.61 (0.52-1.04) mg/dL Glucose 81 (74-99) mg/dL Calcium 8.8 (8.4-10.2) mg/dL Adrenal panel 02/26/24 Range/Units 07:50 Sodium 133 L (137-145) mmol/L Potassium 3.5 (3.5-5.1) mmol/L Chloride 96 L (98-107) mmol/L Carbon Dioxide 35 H (22-30) mmol/L BUN 14 (7-17) mg/dL Creatinine 0.61 (0.52-1.04) mg/dL Glucose 81 (74-99) mg/dL Calcium 8.8 (8.4-10.2) mg/dL Total Bilirubin 0.5 (0.2-1.3) mg/dL AST 30 (14-36) U/L ALT 19 (4-34) U/L Alkaline Phosphatase 80 (38-126) U/L Total Protein 5.2 L (6.3-8.2) g/dL Albumin 2.8 L (3.5-5.0) g/dL Assessment and Plan Assessment: Acute left lower extremity DVT Esophageal cancer with bleed Paroxysmal atrial fibrillation High risk for oral anticoagulation Plan: Reviewed ultrasound with the patient in full detail which demonstrates left lower extremity DVT. Due to patient's history of bleeding as well as esophageal cancer and DVT with the recommendations of no anticoagulation due to increased bleeding risk we discussed IVC filter placement. She is agreeable to IVC filter placement. She has eaten and states that she would like to have sedation so she does not feel the procedure at all and therefore we will schedule her for tomorrow for filter placement. Thank you for the consultation. If there is any questions please feel free to contact us.
[2024-02-26] MEDS: SODIUM CHLORIDE 0.9% 500 ML 500 ML IV ONE (16:35)
[2024-02-26 16:56] LABS: Glucose,Whole Blood 203 mg/dL (70-110)
--- NOTE | 2024-02-26 17:22 | P.CONS ---
History of Present Illness - Reason for Consult Consult date: 02/26/24 Rehab Needs - Chief Complaint weakness, aphasia - History of Present Illness PMR Consult Mrs. Barlow is a 78 yo , right handed female, who lives alone in an apartment with no RADHA. [employer], ambulated with a walker and would get help with showering. She has 4 children who are helpeful, but work. She has a past medical history significant for stage III esophageal cancer currently undergoing concurrent chemoradiotherapy and completed 5 cycles of weekly carboplatin/paclitaxel (cycle 5 on 02/11/2024) presenting with generalized weakness and fatigue. This has been occurring for approximately 2 to 3 days prior to admission along with mild swelling of the lower extremities. In the ED, she was noted to have tachycardia with heart rates ranging from the 110s to 140s. She did have documented hypoxia at 88 L on room air and was placed on 2 L nasal cannula. EKG noted atrial fibrillation with RVR. Labs noted neutropenia with WBC 1.2 (ANC 1, absolute lymphocyte count 0.1), hemoglobin 11.8, platelets 135. Magnesium was 1.4 with total bilirubin 1.6. Troponins were negative x 3. NT proBNP was 2110. UA was negative. Chest x-ray noted cardiomegaly with mild pulmonary vascular congestion. She was started on diltiazem drip, Lasix 40 mg IV every 12 hours, and given potassium suppleme ntation. She was admitted to internal medicine for additional management. Since admission, echo noted left-ventricular ejection fraction of 60 to 65% with moderate right atrial and left atrial dilatation and no pericardial effusion. Chest CT revealed no acute process with a large hiatal hernia and thickened esophageal wall compatible with known disease. She had a repeat CT of the head which showed interval evolution of acute/subacute infarct involving the left parietal lobe. As well as nonspecific focus of hypoattenuation within the left basal ganglia which may represent a site of infarct. As well as redemonstrated nonspecific region of hypoattenuation in the right anterior fossa may represent encephalomalacia from prior injury versus cystic lesion. Oncology team consultedfor the stroke. Venous duplex is reported as venous thrombosis in the left common femoral vein to the mid popliteal vein. Right lower extremity negative for DVT. 2D echo was reported as left ventricle ejection fraction of 60 to 65%. Moderate right atrial dilation. Moderate left atrial dilation. Urine analysis seems probable suggestive of UTI. 5/28/24: PMR consulted for rehab needs. With therapies last week was mod I to ambulate with a RW, supervision with ADLS, but limited by endurance. Though has aphasia, can answer questions at times and seems consistent with yes/no responses. Is tired and has been constipated, but denies KURTZ, CP, SOB, abdominal pain or other pain complaints. Review of Systems + per above, o/w 14 point ROS negative Past Medical History Past Medical History: Diabetes Mellitus, Eye Disorder, GERD/Reflux, Hearing Disorder / Deafness, Hypertension, Osteoarthritis (OA) Additional Past Medical History / Comment(s): MACULAR DEGENERATION, cataracts, osteoporosis, diet controlled diabetic, TIA History of Any Multi-Drug Resistant Organisms: None Reported Past Surgical History: Cholecystectomy, Hysterectomy Additional Past Surgical History / Comment(s): ORIF RT WRIST-HAD BONE GRAFT FROM HIP, asher fundoplasty, teeth pulled Past Anesthesia/Blood Transfusion Reactions: No Reported Reaction Past Psychological History: Anxiety, Depression Smoking Status: Never smoker Past Alcohol Use History: None Reported Past Drug Use History: None Reported - Past Family History Brother(s) Family Medical History: Cancer Additional Family Medical History / Comment(s): LUNG Mother Family Medical History: Cancer Sister(s) Family Medical History: Cancer Medications and Allergies Home Medications Medication Instructions Recorded Confirmed Type Montelukast [Singulair] 10 mg PO HS 07/31/22 02/15/24 History Gabapentin 300 mg PO HS 10/06/23 02/15/24 History Atorvastatin [Lipitor] 40 mg PO HS 11/03/23 02/15/24 History Ipratropium-Albuterol Nebulize 3 ml INHALATION RT-TID 11/03/23 02/15/24 History [Duoneb 0.5 mg-3 mg/3 ml Soln] Melatonin 10 mg PO HS 11/03/23 02/15/24 History Metoprolol Tartrate [Lopressor] 50 mg PO BID 11/03/23 02/15/24 History Ondansetron [Zofran] 4 - 8 mg PO Q4H PRN 11/03/23 02/15/24 History Pantoprazole [Protonix] 40 mg PO BID #60 tab 11/12/23 02/15/24 Rx Spironolactone [Aldactone] 25 mg PO DAILY #30 tab 11/12/23 02/15/24 Rx Insulin Aspart [NovoLOG Flexpen] 5 - 10 units SQ AC-TID PRN 01/14/24 02/15/24 History Insulin Glargine,Hum.rec.anlog 10 units INJ DAILY 01/14/24 02/15/24 History [Lantus Solostar Pen] Clotrimazole/Betameth Cream 1 applic TOPICAL BID PRN 02/15/24 02/15/24 History [Lotrisone] Furosemide [Lasix] 20 mg PO DAILY 02/15/24 02/15/24 History Insulin Glargine,Hum.rec.anlog 5 - 7 units SQ HS 02/15/24 02/15/24 History [Lantus Solostar Pen] Magic Mouth Wash 10 - 15 ml PO ACHS 02/15/24 02/15/24 History Magnesium Oxide [Magox 400] 400 mg PO DAILY 02/15/24 02/15/24 History Midodrine [ProAmatine] 5 mg PO TID 02/15/24 02/15/24 History Nystatin 100,000 Unit/gm Powd 1 applic TOPICAL BID PRN 02/15/24 02/15/24 History [Mycostatin Powder] Nystatin 100,000Unit/gm Cream 1 applic TOPICAL BID PRN 02/15/24 02/15/24 History [Mycostatin Cream] Apixaban [Eliquis] 5 mg PO BID #60 tab 02/21/24 Rx Allergies Allergy/AdvReac Type Severity Reaction Status Date / Time No Known Allergies Allergy Verified 02/15/24 19:08 Physical Exam Vitals: Vital Signs Temp Pulse Pulse Resp BP BP Pulse Ox 02/26/24 12:19 120/61 02/26/24 11:56 97.5 F L 67 17 80/58 94 L 02/26/24 08:50 82 02/26/24 08:40 99 02/26/24 08:37 79 02/26/24 07:59 97.2 F L 77 17 102/65 96 02/26/24 04:00 98.3 F 78 18 98/65 97 02/26/24 02:00 76 18 02/26/24 00:00 98.0 F 76 18 101/65 99 02/25/24 20:00 98.2 F 67 18 122/76 97 02/25/24 16:00 54 L 16 111/65 96 Intake and Output 02/26/24 02/26/24 02/26/24 06:59 14:59 22:59 Intake Total 10 594 Output Total 120 Balance -110 594 Intake: IV 10 Invasive Line 4 10 Oral 594 Output: Urine 120 Other: Voiding Method Toilet Toilet # Voids 1 Weight 76 kg 76 kg Gen: NAD, alert HEENT: PEERLA, EOMI, neck supple Lungs: Non-labored respirations Heart: regular rate Abd: Soft NT/ND Neuro: A&Ox2, CN 2-12 appear intact Speech aphasic, answers yes/no and some spontaneous speech but unable to repeat no ifs ands or buts Does follow 3 step commands MMT ~5/5 bilateral UE/LE Sensation light touch appears intact bilateral UE/LE DTR symmetric UE/LE Finger to nose intact Ext: No significant LE edema, no calf TTP, negative Homans Results CBC & Chem 7: 02/26/24 07:50 02/26/24 07:50 Labs: Abnormal Lab Results - Last 24 Hours (Table) 02/25/24 02/25/24 02/26/24 Range/Units 16:58 20:27 07:50 WBC 3.6 L (3.8-10.6) k/uL RDW 27.1 H (11.5-15.5) % Lymphocytes # 0.5 L (1.0-4.8) k/uL Sodium (137-145) mmol/L Chloride (98-107) mmol/L Carbon Dioxide (22-30) mmol/L POC Glucose (mg/dL) 128 H 141 H (70-110) mg/dL Total Protein (6.3-8.2) g/dL Albumin (3.5-5.0) g/dL 02/26/24 02/26/24 Range/Units 07:50 11:41 WBC (3.8-10.6) k/uL RDW (11.5-15.5) % Lymphocytes # (1.0-4.8) k/uL Sodium 133 L (137-145) mmol/L Chloride 96 L (98-107) mmol/L Carbon Dioxide 35 H (22-30) mmol/L POC Glucose (mg/dL) 138 H (70-110) mg/dL Total Protein 5.2 L (6.3-8.2) g/dL Albumin 2.8 L (3.5-5.0) g/dL Microbiology - Last 24 Hours (Table) 02/21/24 07:08 Urine Culture - Final Urine,Voided Assessment and Plan Assessment: # Acute to subacute ischemic stroke, left parietal lobe infarct - Patient has significant expressive aphasia---improving. Per neurology, stroke seems cardioembolic especially with hx of a-fib and was not on anticoagulation. - Last PT/OT appear to have been last week # Acute DVT of lower extremity - plan for IVC filter # Atrial fibrillation - was not on anticoagulation b/c of hx of GI bleed # Possible acute UTI # History of Esophageal andenocarcinoma # DM. Recommendations: -continue comprehensive PT/OT/SL Based upon therapy notes last week would be too high functioning for IPR. Would like to see new therapy notes to see if still too high functioning. If still doing well with therapies and limited by endurance with minimal home support, would be most appropriate for ADDIE. However, if has declined in overall function as stroke has evolved, would be appropriate for IPR.
--- NOTE | 2024-02-26 17:58 | P.PN ---
Subjective Progress Note Date: 02/26/24 At follow-up today, patient reports feeling well. Noted improvement in aphasia. Answering questions appropriately but speech is delayed. No noted unilateral weakness, facial droop, and slurred speech. MRI brain negative for hemorrhage. Pt/family has declined anticoagulation at this time. Consult placed for IVC filter Objective - Vital Signs Vital signs: Vital Signs Temp 97.2 F L 02/26/24 07:59 Pulse 82 02/26/24 08:50 Resp 17 02/26/24 07:59 BP 102/65 02/26/24 07:59 Pulse Ox 99 02/26/24 08:40 FiO2 21 02/23/24 08:30 Intake & Output 02/25/24 02/26/24 02/26/24 18:59 06:59 18:59 Intake Total 118 20 236 Output Total 320 Balance 118 -300 236 Weight 76 kg Intake: IV 20 Invasive Line 4 20 Oral 118 236 Output: Urine 320 Other: Voiding Method Toilet Toilet Toilet # Voids 1 1 - Constitutional General appearance: Present: no acute distress - EENT Eyes: Present: anicteric sclerae, EOMI ENT: Present: hearing grossly normal - Respiratory Details: breathing is even and unlabored - Cardiovascular Details: skin warm and dry - Integumentary Integumentary: Absent: cyanotic - Neurologic Neurologic Comment(s): improved. speech mildly delayed. No aphasia noted - Musculoskeletal Musculoskeletal: Present: strength equal bilaterally - Psychiatric Psychiatric: Present: A&O x's 3 - Labs CBC & Chem 7: 02/26/24 07:50 02/26/24 07:50 Labs: Abnormal Lab Results - Last 24 Hours (Table) 02/25/24 02/25/24 02/25/24 Range/Units 11:28 16:58 20:27 WBC (3.8-10.6) k/uL RDW (11.5-15.5) % Lymphocytes # (1.0-4.8) k/uL Sodium (137-145) mmol/L Chloride (98-107) mmol/L Carbon Dioxide (22-30) mmol/L POC Glucose (mg/dL) 115 H 128 H 141 H (70-110) mg/dL Total Protein (6.3-8.2) g/dL Albumin (3.5-5.0) g/dL 02/26/24 02/26/24 Range/Units 07:50 07:50 WBC 3.6 L (3.8-10.6) k/uL RDW 27.1 H (11.5-15.5) % Lymphocytes # 0.5 L (1.0-4.8) k/uL Sodium 133 L (137-145) mmol/L Chloride 96 L (98-107) mmol/L Carbon Dioxide 35 H (22-30) mmol/L POC Glucose (mg/dL) (70-110) mg/dL Total Protein 5.2 L (6.3-8.2) g/dL Albumin 2.8 L (3.5-5.0) g/dL Microbiology - Last 24 Hours (Table) 02/21/24 07:08 Urine Culture - Final Urine,Voided - Imaging and Cardiology MRI - head: report reviewed Assessment and Plan (1) Atrial fibrillation with rapid ventricular response Current Visit: Yes Status: Acute Priority: High Code(s): I48.91 - UNSPECIFIED ATRIAL FIBRILLATION SNOMED Code(s): 037417531365238 (2) Iron deficiency anemia Current Visit: Yes Status: Acute Code(s): D50.9 - IRON DEFICIENCY ANEMIA, UNSPECIFIED SNOMED Code(s): 96563612 (3) Leukopenia Current Visit: Yes Status: Acute Priority: High Code(s): D72.819 - DECREASED WHITE BLOOD CELL COUNT, UNSPECIFIED SNOMED Code(s): 58367296 (4) Stage III carcinoma of esophagus Current Visit: Yes Status: Acute Code(s): C15.9 - MALIGNANT NEOPLASM OF ESOPHAGUS, UNSPECIFIED SNOMED Code(s): 724708509 (5) CVA (cerebral vascular accident) Current Visit: Yes Status: Acute Priority: High Code(s): I63.9 - CEREBRAL INFARCTION, UNSPECIFIED SNOMED Code(s): 104516301 Plan: A-fib with RVR -Cardiology has assessed the patient. -From an Oncology standpoint, patient has been treated for her malignancy, curative intent. If patient is needing anticoagulation for cardiac condition there is no contraindication from an oncology standpoint. Counts are adequate for anticoagulation. GI bleed from Nov felt to be 2/2 tumor, which has now been treated. -Patient started on eliquis by cardiology, but since been held due to concern for possible hemorrhagic conversion of noted CVA Leukopenia -Treatment induced. Slowing improving. WBC 2.2 today, ANC is 1450. No fevers documented. No need for GCS- F at this time. - Patient has completed chemotherapy. Continues on RT, but was held due to need of heparin drip for newly diagnosed LLE DVT. LLE DVT -Provoked-hospitalization, acute illness, decreased mobility -Pt was started on heparin drip, and was been transitioned to Eliquis. Eliquis Rx was sent for copay verification, Case mgmt consulted -Anticoagulation since been held due to CVA. Abnormal findings on CT head without contrast -CT of the head reporting no evidence for acute/subacute CVA. Anterior right extra-axial CSF attenuation lesion, not seen on MRI from May 2023. Extensive nonspecific white matter changes -CT of the head with contrast ordered for further clarification. Patient exhibiting confusion. Scan revealed evolution of acute/subacute infarct involving the left parietal lobe. Additional nonspecific focus of hypoattenu ation within the left basal ganglia. No evidence for intracranial hemorrhage. Redemonstrated nonspecific region of hypoattenuation in the right anterior renal fossa. -Neurology following -Neurology recommending holding anticoagulation for concern for possible hemorrhagic conversion. MRI ordered Will defer decision to neurology and IM team. If MRI brain is negative for bleed would recommend restarting Eliquis. If MRI brain positive for hemorrhage, will need consult to vascular surgery for IVC filter evaluation -MRI brain revealed acute infarct left watershed region. Chronic right lateral white matter ischemic type changes. No suspicious enhancement is evident. -MRI negative for hemorrhage, however, due to history of GI bleed, family has declined anticoagulation at this time. Consult placed for IVC filter placement -Recommend strict bedrest until pt either started on AC or IVC filter placed Esophageal adenocarcinoma -Definitive treatment -Patient has completed the systemic chemotherapy portion of treatment, she has 1 radiation treatment remaining -Follow-up with Medical Oncology scheduled.
[2024-02-26 20:07] LABS: Glucose,Whole Blood 139 mg/dL (70-110)
[2024-02-26] MEDS ORDERED: ZINC OXIDE PASTE (Z-GUARD) 1 APPLIC TOPICAL PRN (22:16)
[2024-02-27 07:09] LABS: Glucose,Whole Blood 111 mg/dL (70-110)
--- NOTE | 2024-02-27 08:20 | CT ---
EXAMINATION TYPE: CT brain wo con DATE OF EXAM: 02/27/2024 COMPARISON: 02/21/2024 INDICATION: Follow-up CVA. DLP: 1029.9 mGycm, Automated exposure control for dose reduction was used. CONTRAST: None CT of the brain is performed utilizing 3 mm thick sections through the posterior fossa and 3 mm thick sections through the remaining calvarium. Study is performed within 24 hours of arrival to the hosp [facility]. No abnormal hyperdensity is present to suggest an acute intracranial hemorrhage. No mass lesion is evident. The patient's watershed infarct on the left is more apparent. No significant mass effect is evident. Patchy periventricular white matter hypodensity is present, likely on the basis of chronic white bj er ischemic changes. Ventricles and sulci are prominent for the patient age. Paranasal sinuses and mastoid air cells within the [id number] are clear. IMPRESSION: 1. Some maturation of the left watershed infarct. 2. Chronic appearing periventricular white matter ischemic-type changes
[2024-02-27] MEDS ORDERED: LIDOCAINE 1% INJ 10MG/ML (20 ML MDV) ONE (09:38)
--- NOTE | 2024-02-27 09:41 | P.PN ---
Subjective Progress Note Date: 02/27/24 Principal diagnosis: DVT left lower extremity has been on and requests now off of it, we'll consult IR for IVC filter, discussed with RN taking care of patient to put a consult for INR Paroxysmal atrial fibrillation, patient is high risk complication with anticoagulation and liquids has been discontinued as per recommendation of neurology Left parietal lobe infarct acute, patient to undergo PT OT evaluation esophageal cancer oncology has been following 02/27/2024, patient seen eval examined during the rounds labs reviewed medications reviewed care plan discussed appreciated and noted vascular surgery consultation patient is scheduled for IVC placement tomorrow due to high risk of bleeding complication at high risk of recurrent DVT PE patient likely will benefit from IVC filter in low doses direct oral anticoagulant. She remains at high risk of both complication, in the meantime continue subcu heparinl. Labs from reviewed reviewed white cell count is 3.6hemoglobin and hematocrit is 12/38 patient currently is afebrile on 3 L nasal cannula sats are 97% hemodynamic status stable 02/26/2024, patient seen eval examined during the rounds labs reviewed medications reviewed care plan discussed, remains on 2 L nasal cannula oxygen saturations stable, awake and alert, denies any chest painongoing dry cough is present, patient remains on bronchodilators and inhaled is a slice to steroids along with broad-spectrum antibiotics with IV Rocephin, patient is on DVT pr ophylaxis as well, received a call from interventional radiology as they are not doing IVC filter anymore option was to consult vascular surgery, we'll proceed with vascular surgery consult with Drs. Leon/Patric group. Labs reviewed white cell count 3.6, sodium was 1:30 percent and 3.5 CO2 is 35 BUN and creatinine 14/0.6 02/25/2024, patient seen eval examined during the rounds labs reviewed med ications reviewed care plan discussed, respiratory status remains stable on 2 L oxygen, family is present bedside, I have discussed with the family about IVC filter, patient willing to proceed with that 02/24/2024, patient seen eval examined during rounds labs reviewed medications reviewed, patient currently on 2 L oxygen, denies any chest pain patient anticoagulation is back but patient is on DVT prophylaxis Will discuss with Dr. Streeter neurology if systemic anticoagulation consided patient is a 78-year-old female with prior history of the chronic atrial fibrillation patient not on anticoagulation for A. fib, due to GI bleed, patient also has esophageal cancer oncology service has been following, data predominantly obtained from the chart as patient unable to give a detailed history, patient remains on 2 L oxygen, patient has been found to have subacute infarct neurology has been following infarct involving left parietal lobe as well as left basal ganglia. Patient has been started on and requests awaiting clearance from oncology, Past medical history significant for diabetes mellitus, GERD, hearing disorder, hypertension hypertensive cardiovascular disease, osteoarthritis, patient denies any smoking or alcohol abuse, esophageal cancer. Patient remains on broad- spectrum antibiotics IV Rocephin along with continuation of the high intensity statin inhaler or supplies steroids furosemide, also on sliding scale insulin radiographic studies include computed tomography scan of the chest performed 1 4patient noted a large hiatal hernia no acute pulmonary process seen, computed tomography scan of the head negative for any acute stroke, venous Doppler lower extremity positive for left femoral vein DVT mid poplitealcomputed tomography scan of his chest negative for pulmonary embolism. Repeat computed tomography scan of the head revealed acute infarct involving left parietal lobe, duplex ultrasound of the carotid negative for any significant obstruction. Patient has been on her liquids 10 mg 2 times a day Objective - Vital Signs Vital signs: Vital Signs Temp 98.5 F 02/27/24 07:04 Pulse 92 02/27/24 09:09 Resp 16 02/27/24 07:04 BP 103/69 02/27/24 07:04 Pulse Ox 97 02/27/24 08:55 FiO2 21 02/23/24 08:30 Intake & Output 02/26/24 02/27/24 02/27/24 18:59 06:59 18:59 Intake Total 594 590 Balance 594 590 Weight 76 kg Intake: Oral 594 590 Other: Voiding Method Toilet Toilet # Voids 1 2 - Exam - Constitutional General appearance: average body habitus, cooperative, disheveled, mild distress - EENT Eyes: EOMI, PERRLA Ears: bilateral: normal - Neck Carotids: bilateral: upstroke normal Thyroid: bilateral: normal size - Respiratory Respiratory: bilateral: CTA - Cardiovascular Rhythm: regular Heart sounds: normal: S1, S2 - Gastrointestinal General gastrointestinal: normal bowel sounds, soft - Integumentary Integumentary: normal turgor - Neurologic Neurologic: CNII-XII intact - Musculoskeletal Musculoskeletal: gait normal, generalized weakness, strength equal bilaterally - Psychiatric Psychiatric: A&O x's 3, appropriate affect - Labs CBC & Chem 7: 02/26/24 07:50 02/26/24 07:50 Labs: Abnormal Lab Results - Last 24 Hours (Table) 02/26/24 02/26/24 02/26/24 Range/Units 11:41 16:55 20:06 POC Glucose (mg/dL) 138 H 203 H 139 H (70-110) mg/dL 02/27/24 Range/Units 07:08 POC Glucose (mg/dL) 111 H (70-110) mg/dL Microbiology - Last 24 Hours (Table) 02/21/24 07:08 Urine Culture - Final Urine,Voided Assessment and Plan Assessment: DVT left lower extremity has been on Eliquis, now off of it, as per neurology recommendationdue to high risk of bleeding complications, vascular surgery has evaluated the patient, patient is scheduled for IVC filter placement tomorrow Paroxysmal atrial fibrillation, patient is high risk complication with antic oagulation Eliquis has been discontinued as per recommendation of neurology, to be resumed again low-dose after IVC filter Left parietal lobe infarct acute, patient to undergo PT OT evaluation esophageal cancer oncology has been following Plan: as above Time with Patient: Greater than 30
[2024-02-27] MEDS ORDERED: fentaNYL (PF) 50 MCG/ML 2 ML AMP ONE (09:43)
[2024-02-27] MEDS: LIDOCAINE 1% INJ 10MG/ML (20 ML MDV) SQ ONE (09:58)
[2024-02-27] MEDS: IOPAMIDOL-370 100ML BTL INJ ONE (10:00)
--- NOTE | 2024-02-27 10:25 | IR ---
EXAMINATION TYPE: IR IVC filter placement DATE OF EXAM: 02/27/2024 COMPARISON: NONE HISTORY: Fluoroscopy time. Fluoroscopy was provided to the referring clinician.
[2024-02-27 10:35] LABS: Basophils # (A) 0.03 X 10*3/uL (0.00-0.10); Basophils % (A) 0.9 %; Eosinophils # (A) 0.02 X 10*3/uL (0.04-0.35); Eosinophils % (A) 0.6 %; HCT 34.9 % (37.2-46.3); Lymphocytes # (A) 0.69 X 10*3/uL (0.90-5.00); Lymphocytes % (A) 21.1 %; MCH 26.8 pg (27.0-32.0); MCHC 31.5 g/dL (32.0-37.0); MCV 85.1 FL (80.0-97.0); Mean Platelet Volume 10.3 FL (9.5-12.2); Monocytes # (A) 0.47 X 10*3/uL (0.20-1.00); Monocytes % (A) 14.4 %; NRBC Per 100 WBC 0 X 10*3/uL (0.00-0.01); Neutrophils # (A) 2.03 X 10*3/uL (1.80-7.70); Neutrophils % (A) 62.1 %; Platelet Count 192 X 10*3/uL (140-440); RDW 30.8 % (11.5-14.5); WBC 3.27 X 10*3/uL (4.50-10.00)
[2024-02-27 10:47] LABS: ALT 16 U/L (8-44); AST 20 U/L (13-35); Albumin/Globulin Ratio 1.58 Ratio (1.60-3.17); Alkaline Phosphatase 78 U/L (41-126); BUN/Creat Ratio 20.17 Ratio (12.00-20.00); Blood Urea Nitrogen 12.1 mg/dL (9.0-27.0); Calcium 8.7 mg/dL (8.7-10.3); Carbon Dioxide 29.2 mmol/L (21.6-31.8); Chloride 98 mmol/L (96-109); Globulin 1.9 g/dL (1.6-3.3); Glucose 116 mg/dL (70-110); Potassium 3.9 mmol/L (3.5-5.5); Sodium 136 mmol/L (135-145); Total Bilirubin 0.3 mg/dL (0.3-1.2); Total Protein 4.9 g/dL (6.2-8.2)
[2024-02-27 11:51] LABS: Glucose,Whole Blood 80 mg/dL (70-110)
--- NOTE | 2024-02-27 12:23 | P.OP ---
Date of Procedure: 02/27/24 Preoperative Diagnosis: Left femoral-popliteal deep venous thrombosis with a contraindication to anticoagulation. Postoperative Diagnosis: Same. Procedure(s) Performed: 1: Ultrasound-guided cannulation right common femoral vein. 2: Right iliac and inferior venacavogram 3: Placement of IVC filter. Anesthesia: local (1% Xylocaine.) Surgeon: Papa Jones Estimated Blood Loss (ml): 3 Urine output (ml): 0 Pathology: none sent Condition: stable Disposition: no change Indications for Procedure: Patient is a 78-year-old female with a history of stage III esophageal cancer who has been experiencing bleeding complications from this lesion. Recently she was found to be suffering from left femoral/popliteal deep venous thrombosis and anticoagulation was thought to be contraindicated secondary to bleeding esophageal issues. Patient was thus offered an IVC filter. The procedure, risk and benefits were discussed with the patient. Patient wished to proceed. Consent form signed. Description of Procedure: Patient was brought to the cardiac catheterization laboratory. Both groins were sterilely prepped and draped in usual manner. Ultrasound was utilized to identify the right common femoral vein. Through this anesthetized area with the aid of ultrasound a multipurpose needle was utilized to cannulate the vein. Once cannulated a soft tipped guidewire was advanced into the iliac vein. The needle was withdrawn and a 5 [place] sheath was placed. Right iliac venogram as well as inferior venacavogram was performed. This demonstrated both the iliac and caval system to be free of thrombus. As such a guidewire was readvanced through the sheath and the sheath was withdrawn and replaced with a Symone femoral IVC filter sheath and dilator. The guidewire and dilator were withdrawn and the IVC filter was advanced through the sheath and deployed at the L2-L3 interspace. Completion venogram was performed which demonstrated the filter be in proper position without evidence of complication. With the above findings noted the sheath was withdrawn and pressure was held at the puncture site until all evidence of bleeding ceased. Patient tolerated the procedure well and was returned to her room in satisfactory and stable condition. Total fluoroscopy time: 66 seconds. Total contrast volume: 30 mL of Isovue-370.
[2024-02-27] MEDS: METOPROLOL TARTRATE 50 MG TAB PO STA (13:06)
[2024-02-27] MEDS: ALPRAZolam 0.5 MG TAB PO PRN (13:06)
--- NOTE | 2024-02-27 13:17 | P.PN ---
Subjective Progress Note Date: 02/27/24 HISTORY OF PRESENTING ILLNESS 78-year-old with PMH of stage III cervical cancer, chemotherapy carboplatin and cisplatin presented with generalized weakness and fatigue. Also has history of CHF atrial fibrillation. She was admitted to the hospital with atrial fibrillation with RVR and acute hypoxic respiratory failure. Her labs showed neutropenia WBC 1.2, hemoglobin 11.8, platelets 135. Magnesium was low at 1.4, BNP 2100. Chest x-ray showed mild pulm congestion 02/17 Patient states that her breathing is improved and denies any shortness of breath at this time. She has been maintained on IV Lasix 40 mg twice daily. Blood pressure 112/71, heart rate 74, pulse ox 93% on 2 L nasal cannula. Patient has a negative fluid balance and documented weight loss. Repeat blood work reveals WBC 1.4, hemoglobin 12. Sodium 133, potassium 3.2, BUN 12 and creatinine 0.63. Potassium orders have been placed. 02/18 Patient is seen today in follow-up. She has been maintained on IV Lasix 40 mg twice daily. She has no lower extremity edema. She has a negative fluid balance and documented downward trend on weight. Repeat blood work reveals WBC 1.5, hemoglobin 12.7. Sodium 133, potassium 3.7, creatinine 0.66. Patient states that she underwent radiation treatment this morning and has 2 more to be completed. She denies chest pain, no shortness of breath. 02/19 Patient underwent radiation therapy again today. Apparently tomorrow is her last treatment. Yesterday, IV Lasix was transitioned to oral. Patient is not on anticoagulation due to recent treatment for GI bleed and invasive adenocarcinoma. Blood pressure 128/90, heart rate 70, pulse ox 96% on 2 L nasal cannula. 02/26 We have been asked to reevaluate patient for A-fib with RVR. Patient underwent IVC filter placement today with vascular surgery. Patient has been very anxious following the procedure. Telemetry is atrial fibrillation in the 140s. Patient has been maintained on Lopressor 75 mg 3 times daily. PHYSICAL EXAMINATION Vital signs reviewed. Head: Normocephalic. Eyes: Sclerae nonicteric. Neck: Brisk carotid upstroke, no jugular venous distention. Lungs: Essentially clear to auscultation, reduced air entry bilateral lung bases Heart: Irregularly irregular, S1-S2, no S3, no murmur or rub. Abdomen: Soft nontender, positive bowel sounds. Extremities: No edema, intact distal pulses. Neuro: Alert, oritented, no focal deficits. Detailed neuro exam was not performed. ASSESSMENT Paroxysmal atrial fibrillation with RVR Acute on chronic HFpEF, mild exacerbation Iron deficiency anemia Stage III esophageal adenocarcinoma carboplatin cisplatin therapy Leukopenia Thrombocytopenia Venous thrombosis in the left common femoral vein to the mid popliteal vein. PLAN Increase Lopressor to 200 mg twice daily, 100 mg to be given now Consider starting patient on Cardizem if heart rate is not controlled Continue Lasix 40 mg oral daily, Aldactone 25 mg daily Continue telemetry monitoring Nurse practitioner note has been reviewed, I agree with documented findings and plan of care. Patient was seen and examined. Objective - Vital Signs Vital signs: Vital Signs Temp 98.1 F 02/27/24 11:35 Pulse 71 02/27/24 11:35 Resp 16 02/27/24 11:35 BP 107/71 02/27/24 11:35 Pulse Ox 95 02/27/24 11:35 FiO2 21 02/23/24 08:30 Intake & Output 02/26/24 02/27/24 02/27/24 18:59 06:59 18:59 Intake Total 594 590 Balance 594 590 Weight 76 kg Intake: Oral 594 590 Other: Voiding Method Toilet Toilet Toilet # Voids 1 2 - Labs CBC & Chem 7: 02/27/24 06:43 02/27/24 06:43 Labs: Abnormal Lab Results - Last 24 Hours (Table) 02/26/24 02/26/24 02/27/24 Range/Units 16:55 20:06 06:43 WBC 3.27 L (4.50-10.00) X 10*3/uL Hgb 11.0 L (12.0-15.0) g/dL Hct 34.9 L (37.2-46.3) % MCH 26.8 L (27.0-32.0) pg MCHC 31.5 L (32.0-37.0) g/dL RDW 30.8 H (11.5-14.5) % Lymphocytes # 0.69 L (0.90-5.00) X 10*3/uL Eosinophils # 0.02 L (0.04-0.35) X 10*3/uL BUN/Creatinine Ratio (12.00-20.00) Ratio Glucose (70-110) mg/dL POC Glucose (mg/dL) 203 H 139 H (70-110) mg/dL Total Protein (6.2-8.2) g/dL Albumin (3.8-4.9) g/dL Albumin/Globulin Ratio (1.60-3.17) Ratio 02/27/24 02/27/24 Range/Units 06:43 07:08 WBC (4.50-10.00) X 10*3/uL Hgb (12.0-15.0) g/dL Hct (37.2-46.3) % MCH (27.0-32.0) pg MCHC (32.0-37.0) g/dL RDW (11.5-14.5) % Lymphocytes # (0.90-5.00) X 10*3/uL Eosinophils # (0.04-0.35) X 10*3/uL BUN/Creatinine Ratio 20.17 H (12.00-20.00) Ratio Glucose 116 H (70-110) mg/dL POC Glucose (mg/dL) 111 H (70-110) mg/dL Total Protein 4.9 L (6.2-8.2) g/dL Albumin 3.0 L (3.8-4.9) g/dL Albumin/Globulin Ratio 1.58 L (1.60-3.17) Ratio Microbiology - Last 24 Hours (Table) 02/21/24 07:08 Urine Culture - Final Urine,Voided
[2024-02-27] MEDS: METOPROLOL TARTRATE 50 MG TAB PO SCH ×2 (13:18→23:17)
--- NOTE | 2024-02-27 13:28 | P.PN ---
Subjective Progress Note Date: 02/26/24 Patient was initially seen by Dr. Danilo Streeter. Please refer to his note for details. Patient is a 78-year-old right-handed female with acute left temporal stroke. Patient also has acute DVT and history of atrial fibrillation with history of GI bleed. Family mentions that patient developed was diagnosed with esophageal cancer after patient was found to have very low hemoglobin 6.9. Patient underwe nt EGD, which revealed esophageal cancer. Patient used to be on Eliquis, but was stopped after GI bleed. Patient not taking any antiplatelets or anticoagulants. Patient to undergo IVC filter placement. Currently only on aspirin. Dr. tSreeter has held anticoagulation because of recent stroke. Some of the other workup during this hospital visit consisted of: Has leukopenia. Hemoglobin A1c 7.0 Urine analysis seems probable suggestive of UTI. Lipid panel: TG 103, Cholest 71, LDL 18.2 HDL 32 B12: 733 Venous duplex is reported as the venous thrombosis in the left common femoral vein to the mid popliteal vein. Right lower extremity negative for DVT. 2D echo was reported as left ventricle ejection fraction of 60 to 65%. Moderate right atrial dilation. Moderate left atrial dilation. Venous Duplex: No significant flow-limiting stenosis. Carotid duplex: No significant flow-limiting stenosis. MRI Brain is reported as acute infarct left watershed region. Chronic right later white matter ischemic type changes. I personally reviewed MRI and feel patient had stroke over the left temporal region. Does not appear watershed territory. Objective - Vital Signs Vital signs: Vital Signs Temp 97.5 F L 02/26/24 15:42 Pulse 88 02/26/24 16:54 Resp 17 02/26/24 15:42 BP 85/58 02/26/24 15:42 Pulse Ox 99 02/26/24 15:42 FiO2 21 02/23/24 08:30 Intake & Output 02/25/24 02/26/24 02/26/24 18:59 06:59 18:59 Intake Total 118 20 594 Output Total 320 Balance 118 -300 594 Weight 76 kg 76 kg Intake: IV 20 Invasive Line 4 20 Oral 118 594 Output: Urine 320 Other: Voiding Method Toilet Toilet Toilet # Voids 1 1 - Exam On examination patient is alert and awake. Patient is in no distress. Patient knows her full name and believes that she is 28 or 29 years old. She knows her date of 1945. She states it is and of December and the year is 2023. Patient has some word finding problem. She was able to name the fingers and the nails, but not able to name knuckles. She was able to name the ear, but not the earlobe. Her repetition is okay. On cranial examination, visual blunt are full, but neglects right side on double simultaneous stimulation. On muscle strength testing there is no pronator drift and the strength is normal in arms and legs. Sensory to touch is equal with no neglect. No ataxia for [id number] testing. - Labs CBC & Chem 7: 02/27/24 06:43 02/27/24 06:43 Labs: Abnormal Lab Results - Last 24 Hours (Table) 02/25/24 02/26/24 02/26/24 Range/Units 20:27 07:50 07:50 WBC 3.6 L (3.8-10.6) k/uL RDW 27.1 H (11.5-15.5) % Lymphocytes # 0.5 L (1.0-4.8) k/uL Sodium 133 L (137-145) mmol/L Chloride 96 L (98-107) mmol/L Carbon Dioxide 35 H (22-30) mmol/L POC Glucose (mg/dL) 141 H (70-110) mg/dL Total Protein 5.2 L (6.3-8.2) g/dL Albumin 2.8 L (3.5-5.0) g/dL 02/26/24 02/26/24 Range/Units 11:41 16:55 WBC (3.8-10.6) k/uL RDW (11.5-15.5) % Lymphocytes # (1.0-4.8) k/uL Sodium (137-145) mmol/L Chloride (98-107) mmol/L Carbon Dioxide (22-30) mmol/L POC Glucose (mg/dL) 138 H 203 H (70-110) mg/dL Total Protein (6.3-8.2) g/dL Albumin (3.5-5.0) g/dL Microbiology - Last 24 Hours (Table) 02/21/24 07:08 Urine Culture - Final Urine,Voided Assessment and Plan Assessment: This is a 78-year-old woman with history of atrial fibrillation and was not on any anticoagulation prior to this hospital visit due to esophageal bleed, esphageal adenocarcinoma presented to emergency department because of edema lower extremity. During this hospital visit about 2 days ago she had speech difficulty and had an initial CT of the head 02/20/2024 which was negative but then a repeat CT head 02/21/2024 showed acute stroke. During this hospital visit she was found to have DVT and was resumed on anticoagulation. No IV thrombolytic since patient is on anticoagulation and risk outweigh benefit. Acute to subacute ischemic stroke (reported as watershed on left side but I felt it is on left posterior temporal region and do not feel it is watershed). Patient has significant expressive aphasia---improving. Stroke seems cardioembolic especially with hx of a-fib and was not on anticoagulation. Acute DVT of lower extremity on anticoagulation History of atrial fibrillation and was not on anticoagulation b/c of hx of GI bleed but was started during this admission Possible acute UTI History of Esophageal andenocarcinoma DM. Plan: Patient has acute ischemic stroke, likely due to cardioembolism from atrial fibrillation. Neurologically patient needs to go back on Eliquis unless any medical contraindication. Repeat CT head to evaluate for evolving stroke, rule out any hemorrhagic conversion. If CT head negative for hemorrhage, then will be neurologically cleared to resume Eliquis. Eliquis was stopped because of recent stroke to avoid hemorrhagic coversion. Patient undergoing IVC filter placement in the morning. Currently on Lipitor 40mg qhs but from neurological perspective can be on 20mg qhs dose. Every 4 hours neurochecks Cardiac monitoring PT OT and [employer] E[employer] REPAIRER are consulted Oncology is consulted Will defer the rest of the medical management to primary and other specialist Upon discharge, recommend the patient to follow-up with neurologist as outpatient within 1-2 weeks. DVT prophylaxis On subq heparin 5000U every 12 hours.
[2024-02-27] MEDS: DILTIAZEM ORAL 30 MG TAB PO SCH (15:45)
[2024-02-27 17:14] LABS: Glucose,Whole Blood 159 mg/dL (70-110)
[2024-02-27 20:22] LABS: Glucose,Whole Blood 170 mg/dL (70-110)
[2024-02-27] MEDS: ONDANSETRON 4 MG/2 ML VIAL IVP PRN (22:07)
--- NOTE | 2024-02-28 02:12 | PN ---
PROGRESS NOTE SUBJECTIVE: Status post surgery today. She has been feeling short of breath. Denies any chest pain. Dr. López did ultrasound-guided cannulation of right common femoral vein, right iliac anterior venacavogram, placement of IVC filter. Postoperatively, she appears to be doing okay. OBJECTIVE: VITAL SIGNS: Temp 98.4, blood pressure 97/66, O2 93 on room air, respiratory rate 16 to18, O2 98. PLAN: To continue her back on her oxygen, keep her oxygen on. Discharge to rehab from her stroke. Prognosis guarded. Continue her breathing treatments, etc. Prognosis guarded. Please see further orders. MMODL / IJN: [id number] /
[2024-02-28 07:27] LABS: Glucose,Whole Blood 112 mg/dL (70-110)
--- NOTE | 2024-02-28 09:50 | P.PN ---
Subjective Progress Note Date: 02/28/24 Principal diagnosis: DVT left lower extremity has been on and requests now off of it, we'll consult IR for IVC filter, discussed with RN taking care of patient to put a consult for INR Paroxysmal atrial fibrillation, patient is high risk complication with anticoagulation and liquids has been discontinued as per recommendation of neurology Left parietal lobe infarct acute, patient to undergo PT OT evaluation esophageal cancer oncology has been following February 28, 2024, patient seen evaluate examined during rounds labs reviewed medication care plan discussed, denies any chest pain breathing comfortably, remains on 2 L nasal cannula oxygen saturation mid 90s, patient is status post ultrasound-guided cannulation of the right femoral vein along with right iliac inferior venacavogram followed by placement of IVC filter patient tolerated procedure postop day #1. Patient afebrile temperature 98, hemodynamic status stable oxygen saturation is 98 to 99% on 2 L nasal cannula, now patient is being attempted on room air saturations pending 02/27/2024, patient seen eval examined during the rounds labs reviewed medications reviewed care plan discussed appreciated and noted vascular surgery consultation patient is scheduled for IVC placement tomorrow due to high risk of bleeding complication at high risk of recurrent DVT PE patient likely will benef it from IVC filter in low doses direct oral anticoagulant. She remains at high risk of both complication, in the meantime continue subcu heparinl. Labs from reviewed reviewed white cell count is 3.6hemoglobin and hematocrit is 12/38 patient currently is afebrile on 3 L nasal cannula sats are 97% hemodynamic status stable 02/26/2024, patient seen eval examined during the rounds labs reviewed medi cations reviewed care plan discussed, remains on 2 L nasal cannula oxygen saturations stable, awake and alert, denies any chest painongoing dry cough is present, patient remains on bronchodilators and inhaled is a slice to steroids along with broad-spectrum antibiotics with IV Rocephin, patient is on DVT prophylaxis as well, received a call from interventional radiology as they are not doing IVC filter anymore option was to consult vascular surgery, we'll proceed with vascular surgery consult with Drs. Leon/Patric group. Labs reviewed white cell count 3.6, sodium was 1:30 percent and 3.5 CO2 is 35 BUN and creatinine 14/0.6 02/25/2024, patient seen eval examined during the rounds labs reviewed medications reviewed care plan discussed, respiratory status remains stable on 2 L oxygen, family is present bedside, I have discussed with the family about IVC filter, patient willing to proceed with that 02/24/2024, patient seen eval examined during rounds labs reviewed medications reviewed, patient currently on 2 L oxygen, denies any chest pain patient anticoagulation is back but patient is on DVT prophylaxis Will discuss with Dr. Streeter neurology if systemic anticoagulation consided patient is a 78-year-old female with prior history of the chronic atrial fibrillation patient not on anticoagulation for A. fib, due to GI bleed, patient also has esophageal cancer oncology service has been following, data predominantly obtained from the chart as patient unable to give a detailed his tory, patient remains on 2 L oxygen, patient has been found to have subacute infarct neurology has been following infarct involving left parietal lobe as well as left basal ganglia. Patient has been started on and requests awaiting clearance from oncology, Past medical history significant for diabetes mellitus, GERD, hearing disorder, hypertension hypertensive cardiovascular disease, osteoarthritis, patient denies any smoking or alcohol abuse, esophageal cancer. Patient remains on broad-spect rum antibiotics IV Rocephin along with continuation of the high intensity statin inhaler or supplies steroids furosemide, also on sliding scale insulin radiographic studies include computed tomography scan of the chest performed 1 4patient noted a large hiatal hernia no acute pulmonary process seen, computed tomography scan of the head negative for any acute stroke, venous Doppler lower extremity positive for left femoral vein DVT mid poplitealcomputed tomography scan of his chest negative for pulmonary embolism. Repeat computed tomography scan of the head revealed acute infarct involving left parietal lobe, duplex ultrasound of the carotid negative for any significant obstruction. Patient has been on her liquids 10 mg 2 times a day Objective - Vital Signs Vital signs: Vital Signs Temp 97.9 F 02/28/24 07:26 Pulse 93 02/28/24 09:04 Resp 16 02/28/24 07:26 BP 100/72 02/28/24 07:26 Pulse Ox 99 02/28/24 08:46 FiO2 21 02/23/24 08:30 Intake & Output 02/27/24 02/28/24 02/28/24 18:59 06:59 18:59 Intake Total 300 600 Balance 300 600 Weight 76.3 kg Intake: Oral 300 600 Other: Voiding Method Toilet Bedside Commode Diaper Incontinent # Voids 2 2 # Bowel Movements 1 - Exam - Constitutional General appearance: average body habitus, cooperative, disheveled, mild distress - EENT Eyes: EOMI, PERRLA Ears: bilateral: normal - Neck Carotids: bilateral: upstroke normal Thyroid: bilateral: normal size - Respiratory Respiratory: bilateral: CTA - Cardiovascular Rhythm: regular Heart sounds: normal: S1, S2 - Gastrointestinal General gastrointestinal: normal bowel sounds, soft - Integumentary Integumentary: normal turgor - Neurologic Neurologic: CNII-XII intact - Musculoskeletal Musculoskeletal: gait normal, generalized weakness, strength equal bilaterally - Psychiatric Psychiatric: A&O x's 3, appropriate affect - Labs CBC & Chem 7: 02/27/24 06:43 02/27/24 06:43 Labs: Abnormal Lab Results - Last 24 Hours (Table) 02/27/24 02/27/24 02/27/24 Range/Units 06:43 06:43 17:11 WBC 3.27 L (4.50-10.00) X 10*3/uL Hgb 11.0 L (12.0-15.0) g/dL Hct 34.9 L (37.2-46.3) % MCH 26.8 L (27.0-32.0) pg MCHC 31.5 L (32.0-37.0) g/dL RDW 30.8 H (11.5-14.5) % Lymphocytes # 0.69 L (0.90-5.00) X 10*3/uL Eosinophils # 0.02 L (0.04-0.35) X 10*3/uL BUN/Creatinine Ratio 20.17 H (12.00-20.00) Ratio Glucose 116 H (70-110) mg/dL POC Glucose (mg/dL) 159 H (70-110) mg/dL Total Protein 4.9 L (6.2-8.2) g/dL Albumin 3.0 L (3.8-4.9) g/dL Albumin/Globulin Ratio 1.58 L (1.60-3.17) Ratio 02/27/24 02/28/24 Range/Units 20:16 07:25 WBC (4.50-10.00) X 10*3/uL Hgb (12.0-15.0) g/dL Hct (37.2-46.3) % MCH (27.0-32.0) pg MCHC (32.0-37.0) g/dL RDW (11.5-14.5) % Lymphocytes # (0.90-5.00) X 10*3/uL Eosinophils # (0.04-0.35) X 10*3/uL BUN/Creatinine Ratio (12.00-20.00) Ratio Glucose (70-110) mg/dL POC Glucose (mg/dL) 170 H 112 H (70-110) mg/dL Total Protein (6.2-8.2) g/dL Albumin (3.8-4.9) g/dL Albumin/Globulin Ratio (1.60-3.17) Ratio Assessment and Plan Assessment: DVT left lower extremity has been on Eliquis, now off of it, as per neurology recommendationdue to high risk of bleeding complications, vascular surgery has evaluated the patient, S/p IVC filter Paroxysmal atrial fibrillation, patient is high risk complication with anticoagulation Eliquis has been discontinued as per recommendation of neurology, to be resumed again low-dose after IVC filter Left parietal lobe infarct acute, patient to undergo PT OT evaluation esophageal cancer oncology has been following Chronic hypoxic respiratory failure oxygen saturation progressively improving Plan: as above Time with Patient: Greater than 30
--- NOTE | 2024-02-28 10:15 | P.PN ---
Subjective Progress Note Date: 02/27/24 02/27/2024: Patient was seen for a follow-up. Patient's was present today. Patient is essentially unchanged as compared to yesterday. Offers no complaints. 02/26/2024: Patient was initially seen by Dr. Danilo Streeter. Please refer to his note for details. Patient is a 78-year-old right-handed female with acute left temporal stroke. Patient also has acute DVT and history of atrial fibrillation with history of GI bleed. Family mentions that patient developed was diagnosed with esophageal cancer after patient was found to have very low hemoglobin 6.9. Patient unde rwent EGD, which revealed esophageal cancer. Patient used to be on Eliquis, but was stopped after GI bleed. Patient not taking any antiplatelets or anticoagulants. Patient to undergo IVC filter placement. Currently only on aspirin. Dr. Streeter has held anticoagulation because of recent stroke. Some of the other workup during this hospital visit consisted of: Has leukopenia. Hemoglobin A1c 7.0 Urine analysis seems probable suggestive of UTI. Lipid panel: TG 103, Cholest 71, LDL 18.2 HDL 32 B12: 733 Venous duplex is reported as the venous thrombosis in the left common femoral vein to the mid popliteal vein. Right lower extremity negative for DVT. 2D echo was reported as left ventricle ejection fraction of 60 to 65%. Moderate right atrial dilation. Moderate left atrial dilation. Venous Duplex: No significant flow-limiting stenosis. Carotid duplex: No significant flow-limiting stenosis. MRI Brain is reported as acute infarct left watershed region. Chronic right later white matter ischemic type changes. I personally reviewed MRI and feel patient had stroke over the left temporal region. Does not appear watershed territory. Objective - Vital Signs Vital signs: Vital Signs Temp 98.1 F 02/27/24 11:35 Pulse 71 02/27/24 11:35 Resp 16 02/27/24 11:35 BP 107/71 02/27/24 11:35 Pulse Ox 95 02/27/24 11:35 FiO2 21 02/23/24 08:30 Intake & Output 02/26/24 02/27/24 02/27/24 18:59 06:59 18:59 Intake Total 594 590 Balance 594 590 Weight 76 kg Intake: Oral 594 590 Other: Voiding Method Toilet Toilet Toilet # Voids 1 2 - Exam On examination patient is alert and awake. Patient is in no distress. Patient knows her full name and believes that she is 28 or 29 years old. She knows her date of 1945. She states it is and of December and the year is 2023. Patient has some word finding problem. She was able to name the fingers and the nails, but not able to name knuckles. She was able to name the ear, but not the earlobe. Her repetition is okay. On cranial examination, visual blunt are full, but neglects right side on double simultaneous stimulation. On muscle strength testing there is no pronator drift and the strength is normal in arms and legs. Sensory to touch is equal with no neglect. No ataxia for [id number] testing. - Labs CBC & Chem 7: 02/27/24 06:43 02/27/24 06:43 Labs: Abnormal Lab Results - Last 24 Hours (Table) 02/26/24 02/26/24 02/27/24 Range/Units 16:55 20:06 06:43 WBC 3.27 L (4.50-10.00) X 10*3/uL Hgb 11.0 L (12.0-15.0) g/dL Hct 34.9 L (37.2-46.3) % MCH 26.8 L (27.0-32.0) pg MCHC 31.5 L (32.0-37.0) g/dL RDW 30.8 H (11.5-14.5) % Lymphocytes # 0.69 L (0.90-5.00) X 10*3/uL Eosinophils # 0.02 L (0.04-0.35) X 10*3/uL BUN/Creatinine Ratio (12.00-20.00) Ratio Glucose (70-110) mg/dL POC Glucose (mg/dL) 203 H 139 H (70-110) mg/dL Total Protein (6.2-8.2) g/dL Albumin (3.8-4.9) g/dL Albumin/Globulin Ratio (1.60-3.17) Ratio 02/27/24 02/27/24 Range/Units 06:43 07:08 WBC (4.50-10.00) X 10*3/uL Hgb (12.0-15.0) g/dL Hct (37.2-46.3) % MCH (27.0-32.0) pg MCHC (32.0-37.0) g/dL RDW (11.5-14.5) % Lymphocytes # (0.90-5.00) X 10*3/uL Eosinophils # (0.04-0.35) X 10*3/uL BUN/Creatinine Ratio 20.17 H (12.00-20.00) Ratio Glucose 116 H (70-110) mg/dL POC Glucose (mg/dL) 111 H (70-110) mg/dL Total Protein 4.9 L (6.2-8.2) g/dL Albumin 3.0 L (3.8-4.9) g/dL Albumin/Globulin Ratio 1.58 L (1.60-3.17) Ratio Assessment and Plan Assessment: This is a 78-year-old woman with history of atrial fibrillation and was not on any anticoagulation prior to this hospital visit due to esophageal bleed, esphageal adenocarcinoma presented to emergency department because of edema lower extremity. During this hospital visit about 2 days ago she had speech difficulty and had an initial CT of the head 02/20/2024 which was negative but then a repeat CT head 02/21/2024 showed acute stroke. During this hospital visit she was found to have DVT and was resumed on anticoagulation. No IV thrombolytic since patient is on anticoagulation and risk outweigh benefit. Acute to subacute ischemic stroke (reported as watershed on left side but I felt it is on left posterior temporal region and do not feel it is watershed). Patient has significant expressive aphasia---improving. Stroke seems cardioembolic especially with hx of a-fib and was not on anticoagulation. Acute DVT of lower extremity on anticoagulation History of atrial fibrillation and was not on anticoagulation b/c of hx of GI bleed but was started during this admission Possible acute UTI History of Esophageal andenocarcinoma DM. Plan: * Patient has acute ischemic stroke, likely due to cardioembolism from atrial fibrillation. * Neurologically patient needs to go back on Eliquis unless any medical contraindication. * Repeat CT head performed 5 02/27/2024 revealed some maturation of the left temporal infarct. No hemorrhage. I personally reviewed CT head. * As there is no hemorrhagic conversion, patient is neurologically cleared to resume Eliquis, if no medical contraindications. We will defer to primary and oncology. Eliquis was stopped because of recent stroke to avoid hemorrhagic coversion. Patient had undergone IVC filter placement this morning. Currently on Lipitor 40mg qhs but from neurological perspective can be on 20mg qhs dose. Every 4 hours neurochecks Cardiac monitoring PT OT and [facility] [employer] are consulted Oncology is consulted Will defer the rest of the medical management to primary and other specialist Upon discharge, recommend the patient to follow-up with neurologist as outpatie nt within 1-2 weeks. DVT prophylaxis On subq heparin 5000U every 12 hours.
[2024-02-28 10:34] LABS: Basophils # (A) 0.02 X 10*3/uL (0.00-0.10); Basophils % (A) 0.6 %; Eosinophils # (A) 0.02 X 10*3/uL (0.04-0.35); Eosinophils % (A) 0.6 %; HCT 35.8 % (37.2-46.3); HGB 10.9 g/dL (12.0-15.0); Lymphocytes # (A) 0.72 X 10*3/uL (0.90-5.00); Lymphocytes % (A) 21.8 %; MCH 26.2 pg (27.0-32.0); MCHC 30.4 g/dL (32.0-37.0); MCV 86.1 FL (80.0-97.0); Monocytes # (A) 0.49 X 10*3/uL (0.20-1.00); Monocytes % (A) 14.8 %; NRBC Per 100 WBC 0 X 10*3/uL (0.00-0.01); Neutrophils # (A) 2.04 X 10*3/uL (1.80-7.70); Neutrophils % (A) 61.6 %; Platelet Count 175 X 10*3/uL (140-440); RBC 4.16 X 10*6/uL (4.10-5.20); RDW 31.4 % (11.5-14.5); WBC 3.31 X 10*3/uL (4.50-10.00)
[2024-02-28 11:00] LABS: ALT 20 U/L (8-44); AST 24 U/L (13-35); Albumin 2.9 g/dL (3.8-4.9); Albumin/Globulin Ratio 1.53 Ratio (1.60-3.17); Alkaline Phosphatase 76 U/L (41-126); BUN/Creat Ratio 15.43 Ratio (12.00-20.00); Blood Urea Nitrogen 10.8 mg/dL (9.0-27.0); Calcium 8.8 mg/dL (8.7-10.3); Carbon Dioxide 28.6 mmol/L (21.6-31.8); Chloride 99 mmol/L (96-109); Globulin 1.9 g/dL (1.6-3.3); Glucose 103 mg/dL (70-110); Potassium 4.1 mmol/L (3.5-5.5); Sodium 137 mmol/L (135-145); Total Bilirubin 0.4 mg/dL (0.3-1.2); Total Protein 4.8 g/dL (6.2-8.2)
--- NOTE | 2024-02-28 11:07 | P.PN ---
Subjective Progress Note Date: 02/28/24 HISTORY OF PRESENTING ILLNESS 78-year-old with PMH of stage III cervical cancer, chemotherapy carboplatin and cisplatin presented with generalized weakness and fatigue. Also has history of CHF atrial fibrillation. She was admitted to the hospital with atrial fibrillation with RVR and acute hypoxic respiratory failure. Her labs showed neutropenia WBC 1.2, hemoglobin 11.8, platelets 135. Magnesium was low at 1.4, BNP 2100. Chest x-ray showed mild pulm congestion 02/17 Patient states that her breathing is improved and denies any shortness of breath at this time. She has been maintained on IV Lasix 40 mg twice daily. Blood pressure 112/71, heart rate 74, pulse ox 93% on 2 L nasal cannula. Patient has a negative fluid balance and documented weight loss. Repeat blood work reveals WBC 1.4, hemoglobin 12. Sodium 133, potassium 3.2, BUN 12 and creatinine 0.63. Potassium orders have been placed. 02/18 Patient is seen today in follow-up. She has been maintained on IV Lasix 40 mg twice daily. She has no lower extremity edema. She has a negative fluid balance and documented downward trend on weight. Repeat blood work reveals WBC 1.5, hemoglobin 12.7. Sodium 133, potassium 3.7, creatinine 0.66. Patient states that she underwent radiation treatment this morning and has 2 more to be completed. She denies chest pain, no shortness of breath. 02/19 Patient underwent radiation therapy again today. Apparently tomorrow is her last treatment. Yesterday, IV Lasix was transitioned to oral. Patient is not on anticoagulation due to recent treatment for GI bleed and invasive adenocarcinoma. Blood pressure 128/90, heart rate 70, pulse ox 96% on 2 L nasal cannula. 02/26 We have been asked to reevaluate patient for A-fib with RVR. Patient underwent IVC filter placement today with vascular surgery. Patient has been very anxious following the procedure. Telemetry is atrial fibrillation in the 140s. Patient has been maintained on Lopressor 75 mg 3 times daily. 02/27 Yesterday, Lopressor was increased to 200 mg twice daily, and started oral Cardizem 30 mg TID was added. Overnight, heart rate controlled and she had a drop in her BP. Patient was given Lopressor 100 mg verses 200mg. Patient is currently vomiting. PHYSICAL EXAMINATION Vital signs reviewed. Head: Normocephalic. Eyes: Sclerae nonicteric. Neck: Brisk carotid upstroke, no jugular venous distention. Lungs: Essentially clear to auscultation, reduced air entry bilateral lung bases Heart: Irregularly irregular, S1-S2, no S3, no murmur or rub. Abdomen: Soft nontender, positive bowel sounds. Extremities: No edema, intact distal pulses. Neuro: Alert, oritented, no focal deficits. Detailed neuro exam was not perform ed. ASSESSMENT Paroxysmal atrial fibrillation with RVR Acute on chronic HFpEF, mild exacerbation Iron deficiency anemia Stage III esophageal adenocarcinoma carboplatin cisplatin therapy Leukopenia Thrombocytopenia Venous thrombosis in the left common femoral vein to the mid popliteal vein. PLAN Decrease Lopressor to 100 mg twice daily and discontinue cardizem Repeat EKG in the morning Continue telemetry monitoring Continue Lasix 40 mg oral daily, Aldactone 25 mg daily Further recommendations pending. Nurse practitioner note has been reviewed, I agree with documented findings and plan of care. Patient was seen and examined. Objective - Vital Signs Vital signs: Vital Signs Temp 97.9 F 02/28/24 07:26 Pulse 93 02/28/24 09:04 Resp 16 02/28/24 07:26 BP 100/72 02/28/24 07:26 Pulse Ox 99 02/28/24 08:46 FiO2 21 02/23/24 08:30 Intake & Output 02/27/24 02/28/24 02/28/24 18:59 06:59 18:59 Intake Total 300 600 Balance 300 600 Weight 76.3 kg Intake: Oral 300 600 Other: Voiding Method Toilet Bedside Commode Diaper Incontinent # Voids 2 2 # Bowel Movements 1 - Labs CBC & Chem 7: 02/28/24 06:44 02/28/24 06:44 Labs: Abnormal Lab Results - Last 24 Hours (Table) 02/27/24 02/27/24 02/28/24 Range/Units 17:11 20:16 06:44 WBC 3.31 L (4.50-10.00) X 10*3/uL Hgb 10.9 L (12.0-15.0) g/dL Hct 35.8 L (37.2-46.3) % MCH 26.2 L (27.0-32.0) pg MCHC 30.4 L (32.0-37.0) g/dL RDW 31.4 H (11.5-14.5) % Lymphocytes # 0.72 L (0.90-5.00) X 10*3/uL Eosinophils # 0.02 L (0.04-0.35) X 10*3/uL POC Glucose (mg/dL) 159 H 170 H (70-110) mg/dL Total Protein (6.2-8.2) g/dL Albumin (3.8-4.9) g/dL Albumin/Globulin Ratio (1.60-3.17) Ratio 02/28/24 02/28/24 Range/Units 06:44 07:25 WBC (4.50-10.00) X 10*3/uL Hgb (12.0-15.0) g/dL Hct (37.2-46.3) % MCH (27.0-32.0) pg MCHC (32.0-37.0) g/dL RDW (11.5-14.5) % Lymphocytes # (0.90-5.00) X 10*3/uL Eosinophils # (0.04-0.35) X 10*3/uL POC Glucose (mg/dL) 112 H (70-110) mg/dL Total Protein 4.8 L (6.2-8.2) g/dL Albumin 2.9 L (3.8-4.9) g/dL Albumin/Globulin Ratio 1.53 L (1.60-3.17) Ratio
--- NOTE | 2024-02-28 12:05 | P.PN ---
Subjective Progress Note Date: 02/28/24 Principal diagnosis: Not a good candidate for anticoagulation Patient is seen and examined today as a follow-up. Yesterday she underwent IVC filter placement yesterday. She has been up and ambulating. No no complaints and no bleeding. Objective - Vital Signs Vital signs: Vital Signs Temp 97.9 F 02/28/24 07:26 Pulse 91 02/28/24 07:26 Resp 16 02/28/24 07:26 BP 100/72 02/28/24 07:26 Pulse Ox 99 02/28/24 07:26 FiO2 21 02/23/24 08:30 Intake & Output 02/27/24 02/28/24 02/28/24 18:59 06:59 18:59 Intake Total 300 600 Balance 300 600 Intake: Oral 300 600 Other: Voiding Method Toilet Bedside Commode Diaper Incontinent # Voids 2 2 - Exam General appearance: The patient is alert, oriented, appears in no acute distress. HET: Head is normocephalic and atraumatic. Neck: Supple. Heart: Regular. Lungs: Equal expansion, normal respiratory effort. Abdomen: Soft, nontender, nondistended. Extremities: Normal skin color and turgor. Right groin without any bleeding, hematoma. Neurological: Alert and oriented. - Labs CBC & Chem 7: 02/28/24 06:44 02/28/24 06:44 Labs: Abnormal Lab Results - Last 24 Hours (Table) 02/27/24 02/27/24 02/27/24 Range/Units 06:43 06:43 17:11 WBC 3.27 L (4.50-10.00) X 10*3/uL Hgb 11.0 L (12.0-15.0) g/dL Hct 34.9 L (37.2-46.3) % MCH 26.8 L (27.0-32.0) pg MCHC 31.5 L (32.0-37.0) g/dL RDW 30.8 H (11.5-14.5) % Lymphocytes # 0.69 L (0.90-5.00) X 10*3/uL Eosinophils # 0.02 L (0.04-0.35) X 10*3/uL BUN/Creatinine Ratio 20.17 H (12.00-20.00) Ratio Glucose 116 H (70-110) mg/dL POC Glucose (mg/dL) 159 H (70-110) mg/dL Total Protein 4.9 L (6.2-8.2) g/dL Albumin 3.0 L (3.8-4.9) g/dL Albumin/Globulin Ratio 1.58 L (1.60-3.17) Ratio 02/27/24 02/28/24 Range/Units 20:16 07:25 WBC (4.50-10.00) X 10*3/uL Hgb (12.0-15.0) g/dL Hct (37.2-46.3) % MCH (27.0-32.0) pg MCHC (32.0-37.0) g/dL RDW (11.5-14.5) % Lymphocytes # (0.90-5.00) X 10*3/uL Eosinophils # (0.04-0.35) X 10*3/uL BUN/Creatinine Ratio (12.00-20.00) Ratio Glucose (70-110) mg/dL POC Glucose (mg/dL) 170 H 112 H (70-110) mg/dL Total Protein (6.2-8.2) g/dL Albumin (3.8-4.9) g/dL Albumin/Globulin Ratio (1.60-3.17) Ratio Assessment and Plan Assessment: Acute left lower extremity DVT High risk for oral anticoagulation status post IVC filter placement Esophageal cancer with bleed Paroxysmal atrial fibrillation Plan: Patient is status post IVC filter placement. No further indication for any other vascular surgical intervention at this time. Patient to follow with hematology/oncology and can be referred to our office to follow-up for retrieval. Thank you for this consultation, we will sign off at this time. The impression and plan of care has been dictated as directed. I performed a history and examination of this patient, discussed the same with the dictator. I agree with the dictator's note ,documented as a scribe. Any additional findings or plans will be noted.
[2024-02-28 12:23] LABS: Glucose,Whole Blood 117 mg/dL (70-110)
--- NOTE | 2024-02-28 13:32 | P.PN ---
Subjective Progress Note Date: 02/28/24 02/28/2024: Patient was seen for a follow-up. Patient's was present today. He believes patient is doing better today. No new concerns. 02/27/2024: Patient was seen for a follow-up. Patient's was present today. Patient is essentially unchanged as compared to yesterday. Offers no complaints. 02/26/2024: Patient was initially seen by Dr. Danilo Streeter. Please refer to his note for details. Patient is a 78-year-old right-handed female with acute left temporal stroke. Patient also has acute DVT and history of atrial fibrillation with history of GI bleed. Family mentions that patient developed was diagnosed with esophageal cancer after patient was found to have very low hemoglobin 6.9. Patient underwent EGD, which revealed esophageal cancer. Patient used to be on Eliquis, but was stopped after GI bleed. Patient not taking any antiplatelets or anticoagulants. Patient to undergo IVC filter placement. Currently only on aspirin. Dr. Streeter has held anticoagulation because of recent stroke. Some of the other workup during this hospital visit consisted of: Has leukopenia. Hemoglobin A1c 7.0 Urine analysis seems probable suggestive of UTI. Lipid panel: TG 103, Cholest 71, LDL 18.2 HDL 32 B12: 733 Venous duplex is reported as the venous thrombosis in the left common femoral vein to the mid popliteal vein. Right lower extremity negative for DVT. 2D echo was reported as left ventricle ejection fraction of 60 to 65%. Moderate right atrial dilation. Moderate left atrial dilation. Venous Duplex: No significant flow-limiting stenosis. Carotid duplex: No significant flow-limiting stenosis. MRI Brain is reported as acute infarct left watershed region. Chronic right later white matter ischemic type changes. I personally reviewed MRI and feel patient had stroke over the left temporal region. Does not appear watershed territory. Objective - Vital Signs Vital signs: Vital Signs Temp 98.2 F 02/28/24 12:18 Pulse 86 02/28/24 12:18 Resp 16 02/28/24 12:18 BP 96/69 02/28/24 12:18 Pulse Ox 97 02/28/24 12:18 FiO2 21 02/23/24 08:30 Intake & Output 02/27/24 02/28/24 02/28/24 18:59 06:59 18:59 Intake Total 300 600 Balance 300 600 Weight 76.3 kg Intake: Oral 300 600 Other: Voiding Method Toilet Bedside Commode Bedside Commode Diaper Diaper Incontinent Incontinent # Voids 2 2 # Bowel Movements 1 - Exam On examination patient is alert and awake. Patient is in no distress. Patient knows her full name and states is 87 years old. She knows her date of 1945. She could not tell the month and the year is 2024. Patient has some word finding problem. She was able to name the fingers and the nails, but not able to name knuckles. She was able to name the ear, but not the earlobe. Her repetition is okay. On cranial examination, visual blunt are full, but neglects right side on double simultaneous stimulation. Patient has mild left facial asymmetry On muscle strength testing there is no pronator drift and the strength is normal in arms and legs. Sensory to touch is equal with no neglect. No ataxia for [id number] testing. - Labs CBC & Chem 7: 02/28/24 06:44 02/28/24 06:44 Labs: Abnormal Lab Results - Last 24 Hours (Table) 02/27/24 02/27/24 02/28/24 Range/Units 17:11 20:16 06:44 WBC 3.31 L (4.50-10.00) X 10*3/uL Hgb 10.9 L (12.0-15.0) g/dL Hct 35.8 L (37.2-46.3) % MCH 26.2 L (27.0-32.0) pg MCHC 30.4 L (32.0-37.0) g/dL RDW 31.4 H (11.5-14.5) % Lymphocytes # 0.72 L (0.90-5.00) X 10*3/uL Eosinophils # 0.02 L (0.04-0.35) X 10*3/uL POC Glucose (mg/dL) 159 H 170 H (70-110) mg/dL Total Protein (6.2-8.2) g/dL Albumin (3.8-4.9) g/dL Albumin/Globulin Ratio (1.60-3.17) Ratio 02/28/24 02/28/24 02/28/24 Range/Units 06:44 07:25 12:22 WBC (4.50-10.00) X 10*3/uL Hgb (12.0-15.0) g/dL Hct (37.2-46.3) % MCH (27.0-32.0) pg MCHC (32.0-37.0) g/dL RDW (11.5-14.5) % Lymphocytes # (0.90-5.00) X 10*3/uL Eosinophils # (0.04-0.35) X 10*3/uL POC Glucose (mg/dL) 112 H 117 H (70-110) mg/dL Total Protein 4.8 L (6.2-8.2) g/dL Albumin 2.9 L (3.8-4.9) g/dL Albumin/Globulin Ratio 1.53 L (1.60-3.17) Ratio Assessment and Plan Assessment: This is a 78-year-old woman with history of atrial fibrillation and was not on any anticoagulation prior to this hospital visit due to esophageal bleed, e sphageal adenocarcinoma presented to emergency department because of edema lower extremity. During this hospital visit about 2 days ago she had speech difficulty and had an initial CT of the head 02/20/2024 which was negative but then a repeat CT head 02/21/2024 showed acute stroke. During this hospital visit she was found to have DVT and was resumed on anticoagulation. No IV thrombolytic since patient is on anticoagulation and risk outweigh benefit. Acute to subacute ischemic stroke (reported as watershed on left side but I felt it is on left posterior temporal region and do not feel it is watershed). Patient has significant expressive aphasia---improving. Stroke seems cardioembolic especially with hx of a-fib and was not on anticoagulation. Acute DVT of lower extremity on anticoagulation History of atrial fibrillation and was not on anticoagulation b/c of hx of GI bleed but was started during this admission Possible acute UTI History of Esophageal andenocarcinoma DM. Plan: * Patient has acute ischemic stroke, likely due to cardioembolism from atrial fibrillation. * Neurologically patient needs to go back on Eliquis unless any medical contraindication. * Repeat CT head performed 02/27/2024 revealed some maturation of the left temporal infarct. No hemorrhage. I personally reviewed CT head. * As there is no hemorrhagic conversion, patient is neurologically cleared to resume Eliquis, if no medical contraindications. We will defer to primary and oncology. Eliquis was stopped because of recent stroke to avoid hemorrhagic coversion. Patient had undergone IVC filter placement 02/27/2024. Currently on Lipitor 40mg qhs but from neurological perspective can be on 20mg qhs dose. Every 4 hours neurochecks Cardiac monitoring PT OT and MEASUREMENT PSYCHOLOGIST are consulted Oncology is consulted Will defer the rest of the medical management to primary and other specialist Upon discharge, recommend the patient to follow-up with neurologist as outpatient within 1-2 weeks. DVT prophylaxis On subq heparin 5000U every 12 hours. Once decision about anticoagulation has been made, thereafter patient is clear for transfer to subacute rehab.
[2024-02-28 17:18] LABS: Glucose,Whole Blood 131 mg/dL (70-110)
[2024-02-28 20:15] LABS: Glucose,Whole Blood 145 mg/dL (70-110)
[2024-02-28] MEDS: METOPROLOL TARTRATE 50 MG TAB PO SCH (20:22)
--- NOTE | 2024-02-28 23:33 | P.PN ---
Subjective Progress Note Date: 02/28/24 At follow-up today, patient reports feeling well. Sitting up in bedisde chair, family at bedside. No acute events. Aphasia resolved. Answering questions appropriately. S/p IVC filter as family had declined eliquis due to history of GI bleed. No noted unilateral weakness, facial droop, and slurred speech. No reported episodes of acute bleeding Objective - Vital Signs Vital signs: Vital Signs Temp 98.2 F 02/28/24 12:18 Pulse 86 02/28/24 12:18 Resp 16 02/28/24 12:18 BP 96/69 02/28/24 12:18 Pulse Ox 97 02/28/24 12:18 FiO2 21 02/23/24 08:30 Intake & Output 02/27/24 02/28/24 02/28/24 18:59 06:59 18:59 Intake Total 300 600 Balance 300 600 Weight 76.3 kg Intake: Oral 300 600 Other: Voiding Method Toilet Bedside Commode Bedside Commode Diaper Diaper Incontinent Incontinent # Voids 2 2 # Bowel Movements 1 - Constitutional General appearance: Present: average body habitus, no acute distress - EENT Eyes: Present: anicteric sclerae, EOMI ENT: Present: hearing grossly normal - Respiratory Details: breathing is selam and unlabored - Cardiovascular Details: skin warm and dry - Integumentary Integumentary: Absent: cyanotic, jaundiced - Neurologic Neurologic Comment(s): no focal deficits - Musculoskeletal Musculoskeletal: Present: generalized weakness, strength equal bilaterally - Psychiatric Psychiatric: Present: A&O x's 3 - Labs CBC & Chem 7: 02/28/24 06:44 02/28/24 06:44 Labs: Abnormal Lab Results - Last 24 Hours (Table) 02/27/24 02/27/24 02/28/24 Range/Units 17:11 20:16 06:44 WBC 3.31 L (4.50-10.00) X 10*3/uL Hgb 10.9 L (12.0-15.0) g/dL Hct 35.8 L (37.2-46.3) % MCH 26.2 L (27.0-32.0) pg MCHC 30.4 L (32.0-37.0) g/dL RDW 31.4 H (11.5-14.5) % Lymphocytes # 0.72 L (0.90-5.00) X 10*3/uL Eosinophils # 0.02 L (0.04-0.35) X 10*3/uL POC Glucose (mg/dL) 159 H 170 H (70-110) mg/dL Total Protein (6.2-8.2) g/dL Albumin (3.8-4.9) g/dL Albumin/Globulin Ratio (1.60-3.17) Ratio 02/28/24 02/28/24 02/28/24 Range/Units 06:44 07:25 12:22 WBC (4.50-10.00) X 10*3/uL Hgb (12.0-15.0) g/dL Hct (37.2-46.3) % MCH (27.0-32.0) pg MCHC (32.0-37.0) g/dL RDW (11.5-14.5) % Lymphocytes # (0.90-5.00) X 10*3/uL Eosinophils # (0.04-0.35) X 10*3/uL POC Glucose (mg/dL) 112 H 117 H (70-110) mg/dL Total Protein 4.8 L (6.2-8.2) g/dL Albumin 2.9 L (3.8-4.9) g/dL Albumin/Globulin Ratio 1.53 L (1.60-3.17) Ratio Assessment and Plan (1) Atrial fibrillation with rapid ventricular response Current Visit: Yes Status: Acute Priority: High Code(s): I48.91 - UNSPECIFIED ATRIAL FIBRILLATION SNOMED Code(s): 565467022725673 (2) Iron deficiency anemia Current Visit: Yes Status: Acute Code(s): D50.9 - IRON DEFICIENCY ANEMIA, UNSPECIFIED SNOMED Code(s): 10137836 (3) Leukopenia Current Visit: Yes Status: Acute Priority: High Code(s): D72.819 - DECREASED WHITE BLOOD CELL COUNT, UNSPECIFIED SNOMED Code(s): 58494341 (4) Stage III carcinoma of esophagus Current Visit: Yes Status: Acute Code(s): C15.9 - MALIGNANT NEOPLASM OF ESOPHAGUS, UNSPECIFIED SNOMED Code(s): 830403185 (5) CVA (cerebral vascular accident) Current Visit: Yes Status: Acute Priority: High Code(s): I63.9 - CEREBRAL INFARCTION, UNSPECIFIED SNOMED Code(s): 199033097 Plan: A-fib with RVR -Cardiology has assessed the patient. -From an Oncology standpoint, patient has been treated for her malignancy, curative intent. If patient is needing anticoagulation for cardiac condition there is no contraindication from an oncology standpoint. Counts are adequate for anticoagulation. GI bleed from Nov felt to be 2/2 tumor, which has now been treated. -Patient started on eliquis by cardiology, but was held due to concern for possible hemorrhagic conversion of noted CVA Leukopenia -Treatment induced. Slowing improving. WBC 3.3, ANC adequate at 2,000. No need for GCS- F at this time. - Patient has completed chemotherapy LLE DVT -Provoked-hospitalization, acute illness, decreased mobility -Pt was started on heparin drip, and was transitioned to Eliquis. Eliquis Rx was sent for copay verification, Case mgmt consulted -Anticoagulation since been held per neurology recommendations due to CVA. and concern for hemorrhagic conversion Abnormal findings on CT head without contrast -CT of the head reporting no evidence for acute/subacute CVA. Anterior right extra-axial CSF attenuation lesion, not seen on MRI from May 2023. Extensive nonspecific white matter changes -CT of the head with contrast ordered for further clarification. Patient exhibiting confusion. Scan revealed evolution of acute/subacute infarct involving the left parietal lobe. Additional nonspecific focus of hypoattenuation within the left basal ganglia. No evidence for intracranial hemorrhage. Redemonstrated nonspecific region of hypoattenuation in the right anterior renal fossa. -Neurology following -Neurology recommending holding anticoagulation for concern for possible hemorrhagic conversion. MRI ordered Will defer decision to neurology and IM team. If MRI brain is negative for bleed would recommend restarting Eliquis. If MRI brain positive for hemorrhage, will need consult to vascular surgery for IVC filter evaluation -MRI brain revealed acute infarct left watershed region. Chronic right lateral white matter ischemic type changes. No suspicious enhancement is evident. -MRI negative for hemorrhage, however, due to history of GI bleed, family has declined anticoagulation at this time. IVC filter has since been placed. Esophageal adenocarcinoma -Definitive treatment -Patient has completed the systemic chemotherapy portion of treatment -Follow-up with Medical Oncology scheduled, in d/c plan *From a hematology standpoint, there is no contraindication for anticoagulation, as hgb has been stable and there is no reported episodes of acute bleeding, blood in stool or melena. However, as stated above, pt/family declined AC recommendations for noted DVT and IVC filter was subsequently placed. If AC is necessary from from a cardiology and neurology standpoint, will defer that decision to respective teams, and to have a further discussion with patient/family if they are agreeable to proceed with anticoagulation Doctor attests: I performed a history and physical examination of this patient, developed impression and plan of care. Discussed with dictator. I agree with dictators note, documented as a scribe.
[2024-02-29 07:06] LABS: Glucose,Whole Blood 112 mg/dL (70-110)
[2024-02-29] MEDS: APIXABAN 5 MG TAB PO SCH (08:24)
[2024-02-29] MEDS ORDERED: APIXABAN 2.5 MG TABLET PO SCH (09:00)
--- NOTE | 2024-02-29 09:11 | P.PN ---
Subjective Progress Note Date: 02/29/24 Principal diagnosis: DVT left lower extremity has been on and requests now off of it, we'll consult IR for IVC filter, discussed with RN taking care of patient to put a consult for INR Paroxysmal atrial fibrillation, patient is high risk complication with anticoagulation and liquids has been discontinued as per recommendation of neurology Left parietal lobe infarct acute, patient to undergo PT OT evaluation esophageal cancer oncology has been following 02/29/2024, patient seen eval examined during rounds, overall doing well denies any chest pain, intermittent cough is present,patient remains on supplemental oxygen, currently on 3 liter nasal cannula saturation 92%, family has refused direct oral anticoagulant February 28, 2024, patient seen evaluate examined during rounds labs reviewed medication care plan discussed, denies any chest pain breathing comfortably, remains on 2 L nasal cannula oxygen saturation mid 90s, patient is status post ultrasound-guided cannulation of the right femoral vein along with right iliac inferior venacavogram followed by placement of IVC filter patient tolerated procedure postop day #1. Patient afebrile temperature 98, hemodynamic status stable oxygen saturation is 98 to 99% on 2 L nasal cannula, now patient is being attempted on room air saturations pending 02/27/2024, patient seen eval examined during the rounds labs reviewed medications reviewed care plan discussed appreciated and noted vascular surgery consultation patient is scheduled for IVC placement tomorrow due to high risk of bleeding complication at high risk of recurrent DVT PE patient likely will benefit from IVC filter in low doses direct oral anticoagulant. She remains at high risk of both complication, in the meantime continue subcu heparinl. Labs from reviewed reviewed white cell count is 3.6hemoglobin and hematocrit is 12/38 patient currently is afebrile on 3 L nasal cannula sats are 97% hemodynamic status stable 02/26/2024, patient seen eval examined during the rounds labs reviewed medications reviewed care plan discussed, remains on 2 L nasal cannula oxygen saturations stable, awake and alert, denies any chest painongoing dry cough is present, patient remains on bronchodilators and inhaled is a slice to steroids along with broad-spectrum antibiotics with IV Rocephin, patient is on DVT prophylaxis as well, received a call from interventional radiology as they are not doing IVC filter anymore option was to consult vascular surgery, we'll proceed with vascular surgery consult with Drs. Leon/Patric ponce. Labs rev iewed white cell count 3.6, sodium was 1:30 percent and 3.5 CO2 is 35 BUN and creatinine 14/0.6 02/25/2024, patient seen eval examined during the rounds labs reviewed medications reviewed care plan discussed, respiratory status remains stable on 2 L oxygen, family is present bedside, I have discussed with the family about IVC filter, patient willing to proceed with that 02/24/2024, patient seen eval examined during rounds labs reviewed medications reviewed, patient currently on 2 L oxygen, denies any chest pain patient anticoagulation is back but patient is on DVT prophylaxis Will discuss with Dr. Streeter neurology if systemic anticoagulation consided patient is a 78-year-old female with prior history of the chronic atrial fibrillation patient not on anticoagulation for A. fib, due to GI bleed, patient also has esophageal cancer oncology service has been following, data predominantly obtained from the chart as patient unable to give a detailed history, patient remains on 2 L oxygen, patient has been found to have subacute infarct neurology has been following infarct involving left parietal lobe as well as left basal ganglia. Patient has been started on and requests awaiting clearance from oncology, Past medical history significant for diabetes mellitus, GERD, hearing disorder, hypertension hypertensive cardiovascular disease, osteoarthritis, patient denies any smoking or alcohol abuse, esophageal cancer. Patient remains on broad- spectrum antibiotics IV Rocephin along with continuation of the high intensity statin inhaler or supplies steroids furosemide, also on sliding scale insulin radiographic studies include computed tomography scan of the chest performed 1 4patient noted a large hiatal hernia no acute pulmonary process seen, computed tomography scan of the head negative for any acute stroke, venous Doppler lower extremity positive for left femoral vein DVT mid poplitealcomputed tomography scan of his chest negative for pulmonary embolism. Repeat computed tomography scan of the head revealed acute infarct involving left parietal lobe, duplex ultrasound of the carotid negative for any significant obstruction. Patient has been on her liquids 10 mg 2 times a day Objective - Vital Signs Vital signs: Vital Signs Temp 97.4 F L 02/29/24 07:07 Pulse 85 02/29/24 07:07 Resp 16 02/29/24 07:07 BP 97/70 02/29/24 07:07 Pulse Ox 92 L 02/29/24 07:07 FiO2 21 02/23/24 08:30 Intake & Output 02/28/24 02/29/24 02/29/24 18:59 06:59 18:59 Intake Total 240 600 Balance 240 600 Weight 76.3 kg Intake: Oral 240 600 Other: Voiding Method Bedside Commode Bedside Commode Diaper Diaper Incontinent Incontinent # Voids 2 2 # Bowel Movements 1 - Exam - Constitutional General appearance: average body habitus, cooperative, disheveled, mild distress - EENT Eyes: EOMI, PERRLA Ears: bilateral: normal - Neck Carotids: bilateral: upstroke normal Thyroid: bilateral: normal size - Respiratory Respiratory: bilateral: CTA - Cardiovascular Rhythm: regular Heart sounds: normal: S1, S2 - Gastrointestinal General gastrointestinal: normal bowel sounds, soft - Integumentary Integumentary: normal turgor - Neurologic Neurologic: CNII-XII intact - Musculoskeletal Musculoskeletal: gait normal, generalized weakness, strength equal bilaterally - Psychiatric Psychiatric: A&O x's 3, appropriate affect - Labs CBC & Chem 7: 02/28/24 06:44 02/28/24 06:44 Labs: Abnormal Lab Results - Last 24 Hours (Table) 02/28/24 02/28/24 02/28/24 Range/Units 06:44 06:44 12:22 WBC 3.31 L (4.50-10.00) X 10*3/uL Hgb 10.9 L (12.0-15.0) g/dL Hct 35.8 L (37.2-46.3) % MCH 26.2 L (27.0-32.0) pg MCHC 30.4 L (32.0-37.0) g/dL RDW 31.4 H (11.5-14.5) % Lymphocytes # 0.72 L (0.90-5.00) X 10*3/uL Eosinophils # 0.02 L (0.04-0.35) X 10*3/uL POC Glucose (mg/dL) 117 H (70-110) mg/dL Total Protein 4.8 L (6.2-8.2) g/dL Albumin 2.9 L (3.8-4.9) g/dL Albumin/Globulin Ratio 1.53 L (1.60-3.17) Ratio 02/28/24 02/28/24 02/29/24 Range/Units 17:12 20:13 07:05 WBC (4.50-10.00) X 10*3/uL Hgb (12.0-15.0) g/dL Hct (37.2-46.3) % MCH (27.0-32.0) pg MCHC (32.0-37.0) g/dL RDW (11.5-14.5) % Lymphocytes # (0.90-5.00) X 10*3/uL Eosinophils # (0.04-0.35) X 10*3/uL POC Glucose (mg/dL) 131 H 145 H 112 H (70-110) mg/dL Total Protein (6.2-8.2) g/dL Albumin (3.8-4.9) g/dL Albumin/Globulin Ratio (1.60-3.17) Ratio Assessment and Plan Assessment: DVT left lower extremity has been on Eliquis,noted family and patient have refused Eliquis, so was discontinued, S/p IVC filter Paroxysmal atrial fibrillation, patient is high risk complication with anticoagu lation Eliquis has been discontinued as per recommendation of neurology, to be resumed again low-dose after IVC filter Left parietal lobe infarct acute, patient to undergo PT OT evaluation esophageal cancer oncology has been following Chronic hypoxic respiratory failure oxygen saturation progressively improving Plan: as above Time with Patient: Greater than 30
[2024-02-29] MEDS: DILTIAZEM ORAL 30 MG TAB PO SCH (10:15)
--- NOTE | 2024-02-29 10:34 | P.PN ---
Subjective Progress Note Date: 02/29/24 HISTORY OF PRESENTING ILLNESS 78-year-old with PMH of stage III esophageal cancer, chemotherapy carboplatin and cisplatin presented with generalized weakness and fatigue. Also has history of CHF atrial fibrillation. She was admitted to the hospital with atrial fibrillation with RVR and acute hypoxic respiratory failure. Her labs showed neutropenia WBC 1.2, hemoglobin 11.8, platelets 135. Magnesium was low at 1.4, BNP 2100. Chest x-ray showed mild pulm congestion 02/17 Patient states that her breathing is improved and denies any shortness of breath at this time. She has been maintained on IV Lasix 40 mg twice daily. Blood pressure 112/71, heart rate 74, pulse ox 93% on 2 L nasal cannula. Patient has a negative fluid balance and documented weight loss. Repeat blood work reveals WBC 1.4, hemoglobin 12. Sodium 133, potassium 3.2, BUN 12 and creatinine 0.63. Potassium orders have been placed. 02/18 Patient is seen today in follow-up. She has been maintained on IV Lasix 40 mg twice daily. She has no lower extremity edema. She has a negative fluid balance and documented downward trend on weight. Repeat blood work reveals WBC 1.5, hemoglobin 12.7. Sodium 133, potassium 3.7, creatinine 0.66. Patient states that she underwent radiation treatment this morning and has 2 more to be completed. She denies chest pain, no shortness of breath. 02/19 Patient underwent radiation therapy again today. Apparently tomorrow is her last treatment. Yesterday, IV Lasix was transitioned to oral. Patient is not on anticoagulation due to recent treatment for GI bleed and invasive adenocarcin karthikeyan. Blood pressure 128/90, heart rate 70, pulse ox 96% on 2 L nasal cannula. 02/26 We have been asked to reevaluate patient for A-fib with RVR. Patient underwent IVC filter placement today with vascular surgery. Patient has been very anxious following the procedure. Telemetry is atrial fibrillation in the 140s. Patient has been maintained on Lopressor 75 mg 3 times daily. 02/27 Yesterday, Lopressor was increased to 200 mg twice daily, and started oral Cardizem 30 mg TID was added. Overnight, heart rate controlled and she had a drop in her BP. Patient was given Lopressor 100 mg verses 200mg. Patient is currently vomiting. 02/28 Yesterday, Lopressor was decreased to 100 mg twice daily and Cardizem oral was discontinued. Patient is seen today in follow-up. Her heart rates are fairly controlled in the 80s to 104. Repeat EKG is atrial fibrillation. Blood pressure 105/72. PHYSICAL EXAMINATION Vital signs reviewed. Head: Normocephalic. Eyes: Sclerae nonicteric. Neck: Brisk carotid upstroke, no jugular venous distention. Lungs: Essentially clear to auscultation, reduced air entry bilateral lung bases Heart: Irregularly irregular, S1-S2, no S3, no murmur or rub. Abdomen: Soft nontender, positive bowel sounds. Extremities: No edema, intact distal pulses. Neuro: Alert, oritented, no focal deficits. Detailed neuro exam was not performed. ASSESSMENT Paroxysmal atrial fibrillation with RVR Acute on chronic HFpEF, mild exacerbation Iron deficiency anemia Stage III esophageal adenocarcinoma carboplatin cisplatin therapy Leukopenia Thrombocytopenia Venous thrombosis in the left common femoral vein to the mid popliteal vein. PLAN Continue Lopressor at 100 mg twice daily Add Cardizem 30 mg twice daily Continue Lasix 40 mg oral daily, Aldactone 25 mg daily Cardiology will sign off this case and follow on an as-needed basis. Please reconsult for any new concerns. Patient may follow-up in the office in one to 2 weeks. Nurse practitioner note has been reviewed, I agree with documented findings and plan of care. Patient was seen and examined. Objective - Vital Signs Vital signs: Vital Signs Temp 98 F 02/29/24 02:00 Pulse 73 02/29/24 02:00 Resp 16 02/29/24 02:00 BP 103/67 02/29/24 02:00 Pulse Ox 100 02/29/24 02:00 FiO2 21 02/23/24 08:30 Intake & Output 02/28/24 02/29/24 02/29/24 18:59 06:59 18:59 Intake Total 240 600 Balance 240 600 Weight 76.3 kg Intake: Oral 240 600 Other: Voiding Method Bedside Commode Bedside Commode Diaper Diaper Incontinent Incontinent # Voids 2 2 # Bowel Movements 1 - Labs CBC & Chem 7: 02/28/24 06:44 02/28/24 06:44 Labs: Abnormal Lab Results - Last 24 Hours (Table) 02/28/24 02/28/24 02/28/24 Range/Units 06:44 06:44 12:22 WBC 3.31 L (4.50-10.00) X 10*3/uL Hgb 10.9 L (12.0-15.0) g/dL Hct 35.8 L (37.2-46.3) % MCH 26.2 L (27.0-32.0) pg MCHC 30.4 L (32.0-37.0) g/dL RDW 31.4 H (11.5-14.5) % Lymphocytes # 0.72 L (0.90-5.00) X 10*3/uL Eosinophils # 0.02 L (0.04-0.35) X 10*3/uL POC Glucose (mg/dL) 117 H (70-110) mg/dL Total Protein 4.8 L (6.2-8.2) g/dL Albumin 2.9 L (3.8-4.9) g/dL Albumin/Globulin Ratio 1.53 L (1.60-3.17) Ratio 02/28/24 02/28/24 02/29/24 Range/Units 17:12 20:13 07:05 WBC (4.50-10.00) X 10*3/uL Hgb (12.0-15.0) g/dL Hct (37.2-46.3) % MCH (27.0-32.0) pg MCHC (32.0-37.0) g/dL RDW (11.5-14.5) % Lymphocytes # (0.90-5.00) X 10*3/uL Eosinophils # (0.04-0.35) X 10*3/uL POC Glucose (mg/dL) 131 H 145 H 112 H (70-110) mg/dL Total Protein (6.2-8.2) g/dL Albumin (3.8-4.9) g/dL Albumin/Globulin Ratio (1.60-3.17) Ratio
[2024-02-29 12:03] LABS: Glucose,Whole Blood 167 mg/dL (70-110)
[2024-02-29 17:08] LABS: Glucose,Whole Blood 103 mg/dL (70-110)
[2024-02-29 20:23] LABS: Glucose,Whole Blood 186 mg/dL (70-110)
--- NOTE | 2024-03-01 05:49 | PN ---
PROGRESS NOTE DATE OF SERVICE: 02/28/2024 SUBJECTIVE: Discussed with the family and the patient. Dr. Birch's recommendations for low-dose Eliquis, which I think is a very smart thing to do. Cleared by Oncology, Hematology to give also. We are going to start her on low-dose Eliquis 2.5 b.i.d. on how much her hemoglobin. We thought her bleeding prior was due to some of the tumor. Continue current treatments. OBJECTIVE: CARDIOVASCULAR: S1, S2. LUNGS: Transmitted upper sounds. GI: Soft. NEUROLOGIC: She is alert, and oriented x3. Expressive aphasia is much better. Continue current treatment. Start Eliquis 2.5 b.i.d. Monitor CBCs daily. PT, OT. Possible rehab versus home. MMCAYETANOL / JOEN: [id number] /
[2024-03-01 07:10] LABS: Glucose,Whole Blood 108 mg/dL (70-110)
--- NOTE | 2024-03-01 08:29 | PN ---
PROGRESS NOTE SUBJECTIVE: This is a 78-year-old white female, has a stroke. Dr. Birch and myself talked and we started her back on Eliquis 2.5 mg b.i.d. for stroke prevention. OBJECTIVE: VITAL SIGNS: Temperature 97.8, low blood pressure 98/65 to 102/70, respiratory rate 16 to 18, saturating in the high 90s on 2 L. CARDIOVASCULAR: S1, S2. LUNGS: Transmitted upper sounds. GI: Soft. NEUROLOGIC: She is alert and oriented x3. Expressive aphasia is improved. White count 3.31, hemoglobin is 10.9. Plan is PT, OT, possibly discharge home soon. As she is stable from a stroke, we will make sure her hemoglobin stabilized on Eliquis for couple of days. Continue PT, OT. Prognosis guarded. MMODL / IJN: [id number] /
[2024-03-01 09:37] LABS: ALT 25 U/L (8-44); AST 27 U/L (13-35); Albumin 2.9 g/dL (3.8-4.9); Albumin/Globulin Ratio 1.38 Ratio (1.60-3.17); Alkaline Phosphatase 75 U/L (41-126); BUN/Creat Ratio 16.43 Ratio (12.00-20.00); Blood Urea Nitrogen 11.5 mg/dL (9.0-27.0); Calcium 8.8 mg/dL (8.7-10.3); Carbon Dioxide 27.1 mmol/L (21.6-31.8); Chloride 100 mmol/L (96-109); Globulin 2.1 g/dL (1.6-3.3); Glucose 121 mg/dL (70-110); Potassium 3.9 mmol/L (3.5-5.5); Sodium 136 mmol/L (135-145); Total Bilirubin 0.3 mg/dL (0.3-1.2)
[2024-03-01 09:40] LABS: Basophils # (A) 0.03 X 10*3/uL (0.00-0.10); Eosinophils # (A) 0.02 X 10*3/uL (0.04-0.35); Eosinophils % (A) 0.7 %; HCT 34.7 % (37.2-46.3); HGB 10.9 g/dL (12.0-15.0); Lymphocytes # (A) 0.93 X 10*3/uL (0.90-5.00); Lymphocytes % (A) 30.9 %; MCH 26.5 pg (27.0-32.0); MCHC 31.4 g/dL (32.0-37.0); MCV 84.2 FL (80.0-97.0); Mean Platelet Volume 9.7 FL (9.5-12.2); Monocytes # (A) 0.47 X 10*3/uL (0.20-1.00); Monocytes % (A) 15.6 %; NRBC Per 100 WBC 0 X 10*3/uL (0.00-0.01); Neutrophils # (A) 1.55 X 10*3/uL (1.80-7.70); Neutrophils % (A) 51.5 %; Platelet Count 175 X 10*3/uL (140-440); RBC 4.12 X 10*6/uL (4.10-5.20); RDW 31.5 % (11.5-14.5); WBC 3.01 X 10*3/uL (4.50-10.00)
[2024-03-01 11:58] LABS: Glucose,Whole Blood 251 mg/dL (70-110)
--- NOTE | 2024-03-01 12:48 | P.PN ---
Subjective Progress Note Date: 02/29/24 02/29/2024: Patient is laying in the bed. Offers no new complaints. 02/28/2024: Patient was seen for a follow-up. Patient's was present today. He believes patient is doing better today. No new concerns. 02/27/2024: Patient was seen for a follow-up. Patient's was present today. Patient is essentially unchanged as compared to yesterday. Offers no complaints. 02/26/2024: Patient was initially seen by Dr. Danilo Streeter. Please refer to his note for details. Patient is a 78-year-old right-handed female with acute left temporal stroke. Patient also has acute DVT and history of atrial fibrillation with history of GI bleed. Family mentions that patient developed was diagnosed with esophageal cancer after patient was found to have very low hemoglobin 6.9. Patient underwent EGD, which revealed esophageal cancer. Patient used to be on Eliquis, but was stopped after GI bleed. Patient not taking any antiplatelets or anticoagulants. Patient to undergo IVC filter placement. Currently only on aspirin. Dr. Streeter has held anticoagulation because of recent stroke. Some of the other workup during this hospital visit consisted of: Has leukopenia. Hemoglobin A1c 7.0 Urine analysis seems probable suggestive of UTI. Lipid panel: TG 103, Cholest 71, LDL 18.2 HDL 32 B12: 733 Venous duplex is reported as the venous thrombosis in the left common femoral vein to the mid popliteal vein. Right lower extremity negative for DVT. 2D echo was reported as left ventricle ejection fraction of 60 to 65%. Moderate right atrial dilation. Moderate left atrial dilation. Venous Duplex: No significant flow-limiting stenosis. Carotid duplex: No significant flow-limiting stenosis. MRI Brain is reported as acute infarct left watershed region. Chronic right later white matter ischemic type changes. I personally reviewed MRI and feel patient had stroke over the left temporal region. Does not appear watershed territory. Objective - Vital Signs Vital signs: Vital Signs Temp 98.2 F 02/29/24 12:38 Pulse 71 02/29/24 14:34 Resp 16 02/29/24 07:07 BP 98/66 02/29/24 14:34 Pulse Ox 98 02/29/24 12:38 FiO2 21 02/23/24 08:30 Intake & Output 02/28/24 02/29/24 02/29/24 18:59 06:59 18:59 Intake Total 240 600 Balance 240 600 Weight 76.3 kg 76.3 kg Intake: Oral 240 600 Other: Voiding Method Bedside Commode Bedside Commode Bedside Commode Diaper Diaper Diaper Incontinent Incontinent Incontinent # Voids 2 2 1 # Bowel Movements 1 - Exam On examination patient is alert and awake. Patient is in no distress. Patient knows her full name and states is 87 years old. She knows her date of 1945. She could not tell the month and the year is 2024. Patient has some word finding problem. She was able to name the fingers and the nails, but not able to name knuckles. She was able to name the ear, but not the earlobe. Her repetition is okay. On cranial examination, visual blunt are full, but neglects right side on double simultaneous stimulation. Patient has mild left facial asymmetry On muscle strength testing there is no pronator drift and the strength is normal in arms and legs. Sensory to touch is equal with no neglect. No ataxia for [id number] testing. - Labs CBC & Chem 7: 03/01/24 03:48 03/01/24 03:48 Labs: Abnormal Lab Results - Last 24 Hours (Table) 02/28/24 02/28/24 02/29/24 Range/Units 17:12 20:13 07:05 POC Glucose (mg/dL) 131 H 145 H 112 H (70-110) mg/dL 02/29/24 Range/Units 12:02 POC Glucose (mg/dL) 167 H (70-110) mg/dL Assessment and Plan Assessment: This is a 78-year-old woman with history of atrial fibrillation and was not on any anticoagulation prior to this hospital visit due to esophageal bleed, esphageal adenocarcinoma presented to emergency department because of edema lower extremity. During this hospital visit about 2 days ago she had speech difficulty and had an initial CT of the head 02/20/2024 which was negative but then a repeat CT head 02/21/2024 showed acute stroke. During this hospital visit she was found to have DVT and was resumed on anticoagulation. No IV thrombolytic since patient is on anticoagulation and risk outweigh benefit. Acute to subacute ischemic stroke (reported as watershed on left side but I felt it is on left posterior temporal region and do not feel it is watershed). Patient has significant expressive aphasia---improving. Stroke seems cardioembolic especially with hx of a-fib and was not on anticoagulation. Acute DVT of lower extremity on anticoagulation History of atrial fibrillation and was not on anticoagulation b/c of hx of GI bleed but was started during this admission Possible acute UTI History of Esophageal andenocarcinoma DM. Plan: * Patient has acute ischemic stroke, likely due to cardioembolism from atrial fibrillation. * Neurologically patient needs to go back on Eliquis unless any medical contraindication. * Repeat CT head performed 02/27/2024 revealed some maturation of the left temporal infarct. No hemorrhage. I personally reviewed CT head. * As there is no hemorrhagic conversion, patient is neurologically cleared to resume Eliquis, if no medical contraindications. * Primary physician has cleared. Also discussed with Dr. Fletcher, hematology, who mentions that patient is not bleeding anymore. She has history of esophageal cancer, but she has undergone chemo and radiation and chance of bleeding is much less. They do recommend anticoagulation as well for DVT and A-fib. However Dr. Streeter has recommended to hold off on anticoagulation, and recommended IVC filter placement. * Neurologically, medically and from oncology standpoint patient is cleared to resume Eliquis, and per oncology, should be on 5 mg twice daily. No concurrent antiplatelet. Patient had undergone IVC filter placement 02/27/2024. Currently on Lipitor 40mg qhs but from neurological perspective can be on 20mg qhs dose. Every 4 hours neurochecks Cardiac monitoring PT OT and [employer] are consulted Will defer the rest of the medical management to primary and other specialist Upon discharge, recommend the patient to follow-up with neurologist as outpatient within 1-2 weeks. DVT prophylaxis On subq heparin 5000U every 12 hours. Patient clear for transfer to rehab. Neurology will sign off. Please reconsult if any questions.
[2024-03-01 17:03] LABS: Glucose,Whole Blood 139 mg/dL (70-110)
[2024-03-01 19:58] LABS: Glucose,Whole Blood 216 mg/dL (70-110)
[2024-03-02 07:14] LABS: Glucose,Whole Blood 112 mg/dL (70-110)
[2024-03-02 09:19] LABS: Basophils # (A) 0.03 X 10*3/uL (0.00-0.10); Basophils % (A) 0.8 %; Eosinophils # (A) 0.03 X 10*3/uL (0.04-0.35); Eosinophils % (A) 0.8 %; HCT 36.8 % (37.2-46.3); HGB 11.5 g/dL (12.0-15.0); Lymphocytes # (A) 1.07 X 10*3/uL (0.90-5.00); Lymphocytes % (A) 29.2 %; MCH 27.2 pg (27.0-32.0); MCHC 31.3 g/dL (32.0-37.0); Mean Platelet Volume 10.2 FL (9.5-12.2); Monocytes # (A) 0.52 X 10*3/uL (0.20-1.00); Monocytes % (A) 14.2 %; NRBC Per 100 WBC 0 X 10*3/uL (0.00-0.01); Neutrophils # (A) 1.99 X 10*3/uL (1.80-7.70); Neutrophils % (A) 54.5 %; Platelet Count 166 X 10*3/uL (140-440); RBC 4.23 X 10*6/uL (4.10-5.20); RDW 31.6 % (11.5-14.5); WBC 3.66 X 10*3/uL (4.50-10.00)
[2024-03-02 09:21] LABS: ALT 21 U/L (8-44); AST 25 U/L (13-35); Alkaline Phosphatase 76 U/L (41-126); BUN/Creat Ratio 15.43 Ratio (12.00-20.00); Blood Urea Nitrogen 10.8 mg/dL (9.0-27.0); Calcium 9.1 mg/dL (8.7-10.3); Carbon Dioxide 26.5 mmol/L (21.6-31.8); Chloride 100 mmol/L (96-109); Glucose 123 mg/dL (70-110); Potassium 3.8 mmol/L (3.5-5.5); Sodium 138 mmol/L (135-145); Total Bilirubin 0.4 mg/dL (0.3-1.2)
[2024-03-02 11:56] LABS: Glucose,Whole Blood 162 mg/dL (70-110)
[2024-03-02 17:07] LABS: Glucose,Whole Blood 137 mg/dL (70-110)
[2024-03-02 20:32] LABS: Glucose,Whole Blood 156 mg/dL (70-110)
[2024-03-02] MEDS: DILTIAZEM 125 MG in SODIUM CHLORIDE 0.9% 100 ML IV SCH (22:03)
--- NOTE | 2024-03-03 01:38 | PN ---
PROGRESS NOTE SUBJECTIVE: 78-year-old white female. Laboratory on her hemoglobin stable at 11.5. No signs of GI bleed. Sugars are 100s to 200s. Sodium and potassium better. Mental stage is much more alert. Going to get physical therapy involved Dr. Love will take over at [facility]. OBJECTIVE: CARDIOVASCULAR: S1 and S2. LUNGS: Transmitted upper sounds. GI: Soft. HEMATOLOGY: Negative Homans. PSYCH: Fair mood and affect. VITAL SIGNS: Temperature 97.8, blood pressure 106/72, respiratory rate 18, O2 saturation 98. PLAN: Continue current treatment after parietal stroke, oxygen, breathing treatments, Eliquis low-dose. Prognosis guarded. Follow up next 24 to 48 hours. MMODL / IJN: [id number] /
[2024-03-03 06:10] LABS: Glucose,Whole Blood 120 mg/dL (70-110)
[2024-03-03 08:39] LABS: Anisocytosis Marked; Basophils % (A) 1 %; Eosinophils % (A) 1 %; HCT 35.8 % (34.0-46.0); Hypochromasia Slight; Lymphocytes # (A) 0.9 k/uL (1.0-4.8); Lymphocytes % (A) 22 %; MCH 27.3 pg (25.0-35.0); MCHC 30.9 g/dL (31.0-37.0); MCV 88.3 fL (80.0-100.0); Macrocytosis Slight; Mean Platelet Volume 8.4; Microcytosis Slight; Monocytes # (A) 0.4 k/uL (0-1.0); Monocytes % (A) 8 %; Neutrophils # (A) 2.7 k/uL (1.3-7.7); Neutrophils % (A) 64 %; Platelet Count 171 k/uL (150-450); RBC 4.05 m/uL (3.80-5.40); WBC 4.2 k/uL (3.8-10.6)
[2024-03-03 08:52] LABS: ALT 19 U/L (4-34); AST 24 U/L (14-36); African American GFR (CKD) >90 (>60 ml/min/1.73 sqM); Albumin 2.6 g/dL (3.5-5.0); Albumin/Globulin Ratio 1.1; Alkaline Phosphatase 73 U/L (38-126); Anion Gap 2 mmol/L; Blood Urea Nitrogen 14 mg/dL (7-17); Calcium 8.7 mg/dL (8.4-10.2); Carbon Dioxide 30 mmol/L (22-30); Chloride 103 mmol/L (98-107); Globulin 2.3 g/dL; Glucose 99 mg/dL (74-99); Non-African American GFR(CKD) 86 (>60 ml/min/1.73 sqM); Potassium 3.7 mmol/L (3.5-5.1); Sodium 135 mmol/L (137-145); Total Bilirubin 0.7 mg/dL (0.2-1.3); Total Protein 4.9 g/dL (6.3-8.2)
--- NOTE | 2024-03-03 09:13 | P.PN ---
Subjective Progress Note Date: 03/03/24 Principal diagnosis: DVT left lower extremity has been on and requests now off of it, we'll consult IR for IVC filter, discussed with RN taking care of patient to put a consult for INR Paroxysmal atrial fibrillation, patient is high risk complication with anticoagulation and liquids has been discontinued as per recommendation of neurology Left parietal lobe infarct acute, patient to undergo PT OT evaluation esophageal cancer oncology has been following 03/03/2024, patient seen eval reexamined during the rounds labs reviewed medications reviewed care plan discussedpatient transferred from medical floor to [facility] due to A. fib with RVR last night, heart rate went up to 140-170 with low blood pressure of 100/60. Oxygen saturation 100% on 2 L oxygen, which however remains stable however blood pressure remains soft 9465 patient otherwise remains afebrile, chemistry reviewed today sodium 135% 2.7. Crit 14/0.66no heart rate improved to 17. Patient remains on bronchodilator 3 times a day, on direct acting oral anticoagulant and being continued on home medications including Lipitor she is being continued on Pulmicort as well. She is has been on Cardizem dripnow off of it, cardiology following 02/29/2024, patient seen eval examined during rounds, overall doing well denies any chest pain, intermittent cough is present,patient remains on supplemental oxygen, currently on 3 liter nasal cannula saturation 92%, family has refused direct oral anticoagulant February 28, 2024, patient seen evaluate examined during rounds labs reviewed medication care plan discussed, denies any chest pain breathing comfortably, remains on 2 L nasal cannula oxygen saturation mid 90s, patient is status post ultrasound-guided cannulation of the right femoral vein along with right iliac inferior venacavogram followed by placement of IVC filter patient tolerated procedure postop day #1. Patient afebrile temperature 98, hemodynamic status stable oxygen saturation is 98 to 99% on 2 L nasal cannula, now patient is being attempted on room air saturations pending 02/27/2024, patient seen eval examined during the rounds labs reviewed medications reviewed care plan discussed appreciated and noted vascular surgery consultation patient is scheduled for IVC placement tomorrow due to high risk of bleeding complication at high risk of recurrent DVT PE patient likely will benefit from IVC filter in low doses direct oral anticoagulant. She remains at high risk of both complication, in the meantime continue subcu heparinl. Labs from reviewed reviewed white cell count is 3.6hemoglobin and hematocrit is 12/38 patient currently is afebrile on 3 L nasal cannula sats are 97% hemodynamic status stable 02/26/2024, patient seen eval examined during the rounds labs reviewed medications reviewed care plan discussed, remains on 2 L nasal cannula oxygen saturations stable, awake and alert, denies any chest painongoing dry cough is present, patient remains on bronchodilators and inhaled is a slice to steroids along with broad-spectrum antibiotics with IV Rocephin, patient is on DVT prophylaxis as well, received a call from interventional radiology as they are n ot doing IVC filter anymore option was to consult vascular surgery, we'll proceed with vascular surgery consult with Drs. Leon/Patric group. Labs reviewed white cell count 3.6, sodium was 1:30 percent and 3.5 CO2 is 35 BUN and creatinine 14/0.6 02/25/2024, patient seen eval examined during the rounds labs reviewed medications reviewed care plan discussed, respiratory status remains stable on 2 L oxygen, family is present bedside, I have discussed with the family about IVC filter, patient willing to proceed with that 02/24/2024, patient seen eval examined during rounds labs reviewed medications reviewed, patient currently on 2 L oxygen, denies any chest pain patient anticoagulation is back but patient is on DVT prophylaxis Will discuss with Dr. Streeter neurology if systemic anticoagulation consided patient is a 78-year-old female with prior history of the chronic atrial fibrillation patient not on anticoagulation for A. fib, due to GI bleed, patient also has esophageal cancer oncology service has been following, data predominantly obtained from the chart as patient unable to give a detailed history, patient remains on 2 L oxygen, patient has been found to have subacute infarct neurology has been following infarct involving left parietal lobe as well as left basal ganglia. Patient has been started on and requests awaiting clearance from oncology, Past medical history significant for diabetes mellitus, GERD, hearing disorder, hypertension hypertensive cardiovascular disease, osteoarthritis, patient denies any smoking or alcohol abuse, esophageal cancer. Patient remains on broad- spectrum antibiotics IV Rocephin along with continuation of the high intensity statin inhaler or supplies steroids furosemide, also on sliding scale insulin radiographic studies include computed tomography scan of the chest performed 1 4patient noted a large hiatal hernia no acute pulmonary process seen, computed tomography scan of the head negative for any acute stroke, venous Doppler lower extremity positive for left femoral vein DVT mid poplitealcomputed tomography scan of his chest negative for pulmonary embolism. Repeat computed tomography scan of the head revealed acute infarct involving left parietal lobe, duplex ultrasound of the carotid negative for any significant obstruction. Patient has been on her liquids 10 mg 2 times a day Objective - Vital Signs Vital signs: Vital Signs Temp 97.3 F L 03/03/24 08:00 Pulse 69 03/03/24 08:00 Resp 18 03/03/24 08:00 BP 94/65 03/03/24 08:00 Pulse Ox 99 03/03/24 08:00 FiO2 21 02/23/24 08:30 Intake & Output 03/02/24 03/03/24 03/03/24 18:59 06:59 18:59 Intake Total 280 110 Balance 280 110 Intake: Oral 280 110 Other: Voiding Method Bedside Commode Bedside Commode Diaper Diaper # Voids 2 - Exam - Constitutional General appearance: average body habitus, cooperative, disheveled, mild distress - EENT Eyes: EOMI, PERRLA Ears: bilateral: normal - Neck Carotids: bilateral: upstroke normal Thyroid: bilateral: normal size - Respiratory Respiratory: bilateral: CTA - Cardiovascular Rhythm: regular Heart sounds: normal: S1, S2 - Gastrointestinal General gastrointestinal: normal bowel sounds, soft - Integumentary Integumentary: normal turgor - Neurologic Neurologic: CNII-XII intact - Musculoskeletal Musculoskeletal: gait normal, generalized weakness, strength equal bilaterally - Psychiatric Psychiatric: A&O x's 3, appropriate affect - Labs CBC & Chem 7: 03/02/24 05:40 03/03/24 07:26 Labs: Abnormal Lab Results - Last 24 Hours (Table) 03/02/24 03/02/24 03/02/24 Range/Units 05:40 05:40 11:55 WBC 3.66 L (4.50-10.00) X 10*3/uL Hgb 11.5 L (12.0-15.0) g/dL Hct 36.8 L (37.2-46.3) % MCHC 31.3 L (32.0-37.0) g/dL RDW 31.6 H (11.5-14.5) % Eosinophils # 0.03 L (0.04-0.35) X 10*3/uL Sodium (137-145) mmol/L Glucose 123 H (70-110) mg/dL POC Glucose (mg/dL) 162 H (70-110) mg/dL Total Protein 5.0 L (6.2-8.2) g/dL Albumin 3.0 L (3.8-4.9) g/dL Albumin/Globulin Ratio 1.50 L (1.60-3.17) Ratio 03/02/24 03/02/24 03/03/24 Range/Units 17:06 20:30 05:44 WBC (4.50-10.00) X 10*3/uL Hgb (12.0-15.0) g/dL Hct (37.2-46.3) % MCHC (32.0-37.0) g/dL RDW (11.5-14.5) % Eosinophils # (0.04-0.35) X 10*3/uL Sodium (137-145) mmol/L Glucose (70-110) mg/dL POC Glucose (mg/dL) 137 H 156 H 120 H (70-110) mg/dL Total Protein (6.2-8.2) g/dL Albumin (3.8-4.9) g/dL Albumin/Globulin Ratio (1.60-3.17) Ratio 03/03/24 Range/Units 07:26 WBC (4.50-10.00) X 10*3/uL Hgb (12.0-15.0) g/dL Hct (37.2-46.3) % MCHC (32.0-37.0) g/dL RDW (11.5-14.5) % Eosinophils # (0.04-0.35) X 10*3/uL Sodium 135 L (137-145) mmol/L Glucose (70-110) mg/dL POC Glucose (mg/dL) (70-110) mg/dL Total Protein 4.9 L (6.2-8.2) g/dL Albumin 2.6 L (3.8-4.9) g/dL Albumin/Globulin Ratio (1.60-3.17) Ratio Assessment and Plan Assessment: A. fib with RVR, required Cardizem also on diuretic tach. Oral anticoagulant low-dose, rate better controlled now DVT left lower extremity Status post IVC filter Left parietal lobe infarct acute, patient to undergo PT OT evaluation esophageal cancer oncology has been following Chronic hypoxic respiratory failure oxygen saturation progressively improving Plan: as above Time with Patient: Greater than 30
[2024-03-03 09:32] LABS: RDW 28.1 % (11.5-15.5)
--- NOTE | 2024-03-03 10:10 | P.PN ---
Subjective Progress Note Date: 03/03/24 Principal diagnosis: Paroxysmal atrial fibrillation The patient is a pleasant 78-year-old female patient with a past medical history significant for paroxysmal atrial fibrillation and stroke who was admitted to the hospital with A-fib RVR and subsequently converted to normal sinus mechanism. March 03, 2024 The patient went into A-fib again and currently she is in a flutter with controlled heart rate but her pressure has been marginal. With that being said I am going to stop the Cardizem IV and start the patient on amiodarone IV and subsequently switch her to amiodarone orally. Continue oral anticoagulation. Consider starting the patient on AV aylin meek agents once the pressure is improving. The examination is remarkable for irregular rhythm with clear breathing sounds bilaterally and no edema was noted Assessment Paroxysmal atrial fibrillation/flutter CVA Multiple comorbid conditions Plan Continue oral anticoagulation DC Cardizem IV in the light of low blood pressure and start the patient on amiodarone Consider starting the patient on AV aylin meek agents like beta-meek Objective - Vital Signs Vital signs: Vital Signs Temp 97.3 F L 03/03/24 08:00 Pulse 69 03/03/24 08:00 Resp 18 03/03/24 08:00 BP 94/65 03/03/24 08:00 Pulse Ox 99 03/03/24 08:00 FiO2 21 02/23/24 08:30 Intake & Output 03/02/24 03/03/24 03/03/24 18:59 06:59 18:59 Intake Total 280 214.5 Balance 280 214.5 Intake: Intake, IV Titration 104.5 Amount Diltiazem 125 mg In 104.5 Sodium Chloride 0.9% 100 ml @ 10 MG/HR 10 mls/hr IV .[id number] [facility] Rx#: [id number] Oral 280 110 Other: Voiding Method Bedside Commode Bedside Commode Diaper Diaper # Voids 2 - Labs CBC & Chem 7: 03/03/24 07:26 03/03/24 07:26 Labs: Abnormal Lab Results - Last 24 Hours (Table) 03/02/24 03/02/24 03/02/24 Range/Units 11:55 17:06 20:30 Hgb (11.4-16.0) gm/dL MCHC (31.0-37.0) g/dL RDW (11.5-15.5) % Sodium (137-145) mmol/L POC Glucose (mg/dL) 162 H 137 H 156 H (70-110) mg/dL Total Protein (6.3-8.2) g/dL Albumin (3.5-5.0) g/dL 03/03/24 03/03/24 03/03/24 Range/Units 05:44 07:26 07:26 Hgb 11.0 L (11.4-16.0) gm/dL MCHC 30.9 L (31.0-37.0) g/dL RDW 28.1 H (11.5-15.5) % Sodium 135 L (137-145) mmol/L POC Glucose (mg/dL) 120 H (70-110) mg/dL Total Protein 4.9 L (6.3-8.2) g/dL Albumin 2.6 L (3.5-5.0) g/dL
[2024-03-03] MEDS: DEXTROSE 5% IN WATER 100 ML with AMIODARONE 150 MG IV ONE (10:42)
[2024-03-03] MEDS: AMIODARONE 360 MG in DEXTROSE 5% IN WATER 200 ML IV ONE (10:49)
[2024-03-03 11:35] LABS: Glucose,Whole Blood 161 mg/dL (70-110)
[2024-03-03 12:56] LABS: Band Neutrophils % 1 %; Lymphocytes # (M) 0.88 k/uL (1.0-4.8); Monocytes # (M) 0.29 k/uL (0-1.0); Neutrophils % (M) 71 %; Nucleated Red Blood Cells 0 /100 WBC (0-0); Total Cells Counted 100
[2024-03-03 12:57] LABS: Poikilocytosis (M) Present
--- NOTE | 2024-03-03 13:20 | P.PN ---
Subjective Progress Note Date: 03/03/24 PMR follow up Mrs. 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 She has 4 children who are helpeful, but work. She has a past medical history significant for stage III esophageal cancer cur rently undergoing concurrent chemoradiotherapy and completed 5 cycles of weekly carboplatin/paclitaxel (cycle 5 on 02/11/2024) presenting with generalized weakness and fatigue. This has been occurring for approximately 2 to 3 days prior to admission along with mild swelling of the lower extremities. In the ED, she was noted to have tachycardia with heart rates ranging from the 110s to 140s. She did have documented hypoxia at 88 L on room air and was placed on 2 L nasal cannula. EKG noted atrial fibrillation with RVR. Labs noted neutropenia with WBC 1.2 (ANC 1, absolute lymphocyte count 0.1), hemoglobin 11.8, platelets 135. Magnesium was 1.4 with total bilirubin 1.6. Troponins were negative x 3. NT proBNP was 2110. UA was negative. Chest x-ray noted cardiomegaly with mild pulmonary vascular congestion. She was started on diltiazem drip, Lasix 40 mg IV every 12 hours, and given potassium supplementation. She was admitted to internal medicine for additional management. Since admission, echo noted left-ventricular ejection fraction of 60 to 65% with moderate right atrial and left atrial dilatation and no pericardial effusion. Chest CT revealed no acute process with a large hiatal hernia and thickened esophageal wall compatible with known disease. She had a repeat CT of the head which showed interval evolution of acute/subacute infarct involving the left parietal lobe. As well as nonspecific focus of hypoattenuation within the left basal ganglia which may represent a site of infarct. As well as redemonstrated nonspecific region of hypoattenuation in the right anterior fossa may represent encephalomalacia from prior injury versus cystic lesion. Oncology team consultedfor the stroke. Venous duplex is reported as venous thrombosis in the left common femoral vein to the mid popliteal vein. Right lower extremity negative for DVT. 2D echo was reported as left ventricle ejection fraction of 60 to 65%. Moderate right atrial dilation. Moderate left atrial dilation. Urine analysis seems probable suggestive of UTI. 02/26/24: PMR consulted for rehab needs. With therapies last week was mod I to ambulate with a RW, supervision with ADLS, but limited by endurance. Though has aphasia, can answer questions at times and seems consistent with yes/no responses. Is tired and has been constipated, but denies KURTZ, CP, SOB, abdominal pain or other pain complaints. 03/03/24: Patient is s/p IVC filter for her DVT LLE. She was in Afib yesterday and on IV amiodarone per cardiology note. She notes doing well today, denies any pain issues, KURTZ, CP, SOB, abdominal pain. With therapies has been Min A with bed mobility, ambulate 60' with RW, LE dressing and toilet transfer. Objective - Vital Signs Vital signs: Vital Signs Temp 97.3 F L 03/03/24 08:00 Pulse 69 03/03/24 08:00 Resp 18 03/03/24 08:00 BP 94/65 03/03/24 08:00 Pulse Ox 99 03/03/24 08:00 FiO2 21 02/23/24 08:30 Intake & Output 03/02/24 03/03/24 03/03/24 18:59 06:59 18:59 Intake Total 280 214.5 Balance 280 214.5 Intake: Intake, IV Titration 104.5 Amount Diltiazem 125 mg In 104.5 Sodium Chloride 0.9% 100 ml @ 10 MG/HR 10 mls/hr IV .[id number] [facility] Rx#: [id number] Oral 280 110 Other: Voiding Method Bedside Commode Bedside Commode Bedside Commode Diaper Diaper Diaper # Voids 2 1 Gen: NAD, alert HEENT: PEERLA, EOMI, neck supple Lungs: Non-labored respirations Heart: regular rate Abd: Soft NT/ND Neuro: A&Ox4 (with correction), CN 2-12 appear intact Does follow 3 step commands MMT ~5/5 bilateral UE/LE EXCEPT 4/5 LUE Sensation light touch appears intact bilateral UE/LE DTR symmetric UE/LE Finger to nose intact Ext: Left LE edema - Labs CBC & Chem 7: 03/03/24 07:26 03/03/24 07:26 Labs: Abnormal Lab Results - Last 24 Hours (Table) 03/02/24 03/02/24 03/03/24 Range/Units 17:06 20:30 05:44 Hgb (11.4-16.0) gm/dL MCHC (31.0-37.0) g/dL RDW (11.5-15.5) % Lymphocytes # (1.0-4.8) k/uL Lymphocytes # (Manual) (1.0-4.8) k/uL Sodium (137-145) mmol/L POC Glucose (mg/dL) 137 H 156 H 120 H (70-110) mg/dL Total Protein (6.3-8.2) g/dL Albumin (3.5-5.0) g/dL 03/03/24 03/03/24 03/03/24 Range/Units 07:26 07:26 11:34 Hgb 11.0 L (11.4-16.0) gm/dL MCHC 30.9 L (31.0-37.0) g/dL RDW 28.1 H (11.5-15.5) % Lymphocytes # 0.9 L (1.0-4.8) k/uL Lymphocytes # (Manual) 0.88 L (1.0-4.8) k/uL Sodium 135 L (137-145) mmol/L POC Glucose (mg/dL) 161 H (70-110) mg/dL Total Protein 4.9 L (6.3-8.2) g/dL Albumin 2.6 L (3.5-5.0) g/dL Assessment and Plan Plan: # Acute to subacute ischemic stroke, left parietal lobe infarct - Improving, but still min A with therapies. # Acute DVT of lower extremity - s/p IVC filter 02/26 # Atrial fibrillation - was on cardizem gtt, went back into afib and appears to be switched to amiordarone gtt. - cardiology following # History of Esophageal andenocarcinoma - being followed by hem/onc # DM. Recommendations: -continue comprehensive PT/OT/SL As still needs Min A for mobility and ADLs, recommend IPR pending insurance approval. Would need to be on oral medications for her Afib.
--- NOTE | 2024-03-03 14:02 | P.PN ---
Subjective Progress Note Date: 03/03/24 patient is a 78-year-old female with prior history of the chronic atrial fibrillation patient not on anticoagulation for A. fib, due to GI bleed, patient also has esophageal cancer oncology service has been following, data predominantly obtained from the chart as patient unable to give a detailed history, patient remains on 2 L oxygen, patient has been found to have subacute infarct neurology has been following infarct involving left parietal lobe as well as left basal ganglia. Past medical history significant for diabetes mellitus, GERD, hearing disorder, hypertension hypertensive cardiovascular disease, osteoarthritis, patient denies any smoking or alcohol abuse, esophageal cancer. Patient remains on broad- spectrum antibiotics IV Rocephin along with continuation of the high intensity statin inhaler or supplies steroids furosemide, also on sliding scale insulin 03/[address] Birch took over care for Dr. De Santiago. Patient went into A-fib with RVR overnight. Currently on Cardizem drip. Currently feeling better REVIEW OF SYSTEMS: CONSTITUTIONAL: No fever, no malaise,. CARDIOVASCULAR: No chest pain, no palpitations, no syncope. PULMONARY: No shortness of breath, no cough, GASTROINTESTINAL: No diarrhea, no nausea, no vomiting, no abdominal pain. NEUROLOGICAL: No headaches, no weakness, PHYSICAL EXAMINATION: GENERAL: The patient is alert and oriented x3, chronically ill looking HEENT: Pupils are round and equally reacting to light. EOMI. No scleral icterus. No conjunctival pallor. Normocephalic, atraumatic. No pharyngeal erythema. No thyromegaly. CARDIOVASCULAR: S1 and S2 present. Tachycardic PULMONARY: Chest is clear to auscultation, no wheezing or crackles. ABDOMEN: Soft, nontender, nondistended, normoactive bowel sounds. No palpable organomegaly. MUSCULOSKELETAL: No joint swelling or deformity. EXTREMITIES: No cyanosis, clubbing, or pedal edema. NEUROLOGICAL: Gross neurological examination did not reveal any focal deficits. SKIN: No rashes. Assessment and plan A. fib with RVR, DVT left lower extremity Status post IVC filter Left parietal lobe infarct acute, esophageal cancer Chronic hypoxic respiratory failure Monitor vital signs Monitor CBC Monitor CMP Continue telemetry monitoring Continue amiodarone Continue Eliquis Continue Lipitor Neurology following Cardiology following Pulmonology following Labs and medication were reviewed.. Continue same treatment. Continue with symptomatic treatment. Resume home medication. Monitor labs and vitals. DVT and GI prophylaxis. Further recommendations as per clinical course of the patient Dictation was produced using [employer] dictation software. please excuse any grammatical, word or spelling errors. Objective - Vital Signs Vital signs: Vital Signs Temp 97.3 F L 03/03/24 08:00 Pulse 69 03/03/24 08:00 Resp 18 03/03/24 08:00 BP 94/65 03/03/24 08:00 Pulse Ox 99 03/03/24 08:00 FiO2 21 02/23/24 08:30 Intake & Output 03/02/24 03/03/24 03/03/24 18:59 06:59 18:59 Intake Total 280 214.5 Balance 280 214.5 Intake: Intake, IV Titration 104.5 Amount Diltiazem 125 mg In 104.5 Sodium Chloride 0.9% 100 ml @ 10 MG/HR 10 mls/hr IV .[id number] [facility] Rx#: [id number] Oral 280 110 Other: Voiding Method Bedside Commode Bedside Commode Diaper Diaper # Voids 2 - Labs CBC & Chem 7: 03/03/24 07:26 03/03/24 07:26 Labs: Abnormal Lab Results - Last 24 Hours (Table) 03/02/24 03/02/24 03/02/24 Range/Units 11:55 17:06 20:30 Hgb (11.4-16.0) gm/dL MCHC (31.0-37.0) g/dL RDW (11.5-15.5) % Sodium (137-145) mmol/L POC Glucose (mg/dL) 162 H 137 H 156 H (70-110) mg/dL Total Protein (6.3-8.2) g/dL Albumin (3.5-5.0) g/dL 03/03/24 03/03/24 03/03/24 Range/Units 05:44 07:26 07:26 Hgb 11.0 L (11.4-16.0) gm/dL MCHC 30.9 L (31.0-37.0) g/dL RDW 28.1 H (11.5-15.5) % Sodium 135 L (137-145) mmol/L POC Glucose (mg/dL) 120 H (70-110) mg/dL Total Protein 4.9 L (6.3-8.2) g/dL Albumin 2.6 L (3.5-5.0) g/dL
[2024-03-03 16:06] LABS: Glucose,Whole Blood 138 mg/dL (70-110)
[2024-03-03] MEDS: AMIODARONE 450 MG in DEXTROSE 5% IN WATER 250 ML IV SCH (16:52)
[2024-03-03 20:20] LABS: Glucose,Whole Blood 192 mg/dL (70-110)
[2024-03-04 06:20] LABS: Glucose,Whole Blood 85 mg/dL (70-110)
[2024-03-04 11:22] LABS: Glucose,Whole Blood 137 mg/dL (70-110)
--- NOTE | 2024-03-04 11:34 | P.PN ---
Subjective Progress Note Date: 03/04/24 Paroxysmal atrial fibrillation The patient is a pleasant 78-year-old female patient with a past medical history significant for paroxysmal atrial fibrillation and stroke who was admitted to the hospital with A-fib RVR and subsequently converted to normal sinus mechanism. March 03, 2024 The patient went into A-fib again and currently she is in a flutter with controlled heart rate but her pressure has been marginal. With that being said I am going to stop the Cardizem IV and start the patient on amiodarone IV and subsequently switch her to amiodarone orally. Continue oral anticoagulation. Consider starting the patient on AV aylin meek agents once the pressure is improving. The examination is remarkable for irregular rhythm with clear breathing sounds bilaterally and no edema was noted 03/04 Patient is seen today in follow-up. Yesterday, Cardizem drip was discontinued due to hypotension and patient started on amiodarone drip. Heart rate is currently controlled in the 80s, blood pressure 109/77, pulse ox 96% on 2 L nasal cannula. Patient denies having any chest pain. She does complain of a cough. Regarding ambulation she is only going to the bathroom and back to her chair. Patient is maintained on oral Eliquis. Examination reveals irregular rhythm, breath sounds are clear. Telemetry is atrial flutter. Examination reveals irregular rhythm, clear breath sounds, no lower extremity edema. Assessment Paroxysmal atrial fibrillation/flutter CVA Left femoral-popliteal deep vein thrombosis status post IVC filter Multiple comorbid conditions Plan Continue oral anticoagulation DC amiodarone drip and start patient on oral amiodarone 400 mg twice daily Continue patient on Lopressor 100 mg twice daily Nurse practitioner note has been reviewed, I agree with documented findings and plan of care. Patient was seen and examined. Objective - Vital Signs Vital signs: Vital Signs Temp 97.4 F L 03/04/24 04:00 Pulse 84 03/04/24 08:28 Resp 20 03/04/24 04:00 BP 109/77 03/04/24 04:00 Pulse Ox 96 03/04/24 08:13 FiO2 21 02/23/24 08:30 Intake & Output 03/03/24 03/04/24 03/04/24 18:59 06:59 18:59 Intake Total 914.5 234.727 Balance 914.5 234.727 Intake: Intake, IV Titration 104.5 234.727 Amount Amiodarone 450 mg In 234.727 Dextrose 5% in Water 250 ml @ 0.5 MG/MIN 16.667 mls/hr IV .Q15H [facility] Rx#: [id number] Diltiazem 125 mg In 104.5 Sodium Chloride 0.9% 100 ml @ 10 MG/HR 10 mls/hr IV .[id number] [facility] Rx#: [id number] Oral 810 Other: Voiding Method Bedside Commode Bedside Commode Diaper Diaper # Voids 2 1 - Labs CBC & Chem 7: 03/03/24 07:26 03/03/24 07:26 Labs: Abnormal Lab Results - Last 24 Hours (Table) 03/03/24 03/03/24 03/03/24 Range/Units 07:26 07:26 11:34 Hgb 11.0 L (11.4-16.0) gm/dL MCHC 30.9 L (31.0-37.0) g/dL RDW 28.1 H (11.5-15.5) % Lymphocytes # 0.9 L (1.0-4.8) k/uL Lymphocytes # (Manual) 0.88 L (1.0-4.8) k/uL Sodium 135 L (137-145) mmol/L POC Glucose (mg/dL) 161 H (70-110) mg/dL Total Protein 4.9 L (6.3-8.2) g/dL Albumin 2.6 L (3.5-5.0) g/dL 03/03/24 03/03/24 Range/Units 16:05 20:06 Hgb (11.4-16.0) gm/dL MCHC (31.0-37.0) g/dL RDW (11.5-15.5) % Lymphocytes # (1.0-4.8) k/uL Lymphocytes # (Manual) (1.0-4.8) k/uL Sodium (137-145) mmol/L POC Glucose (mg/dL) 138 H 192 H (70-110) mg/dL Total Protein (6.3-8.2) g/dL Albumin (3.5-5.0) g/dL
[2024-03-04] MEDS: AMIODARONE 200 MG TAB PO SCH (12:26)
[2024-03-04 16:25] LABS: Glucose,Whole Blood 142 mg/dL (70-110)
--- NOTE | 2024-03-04 17:58 | P.PN ---
Subjective Progress Note Date: 03/04/24 Principal diagnosis: DVT left lower extremity has been on and requests now off of it, we'll consult IR for IVC filter, discussed with RN taking care of patient to put a consult for INR Paroxysmal atrial fibrillation, patient is high risk complication with anticoagulation and liquids has been discontinued as per recommendation of neurology Left parietal lobe infarct acute, patient to undergo PT OT evaluation esophageal cancer oncology has been following 03/04/2024, overall no significant change, respiratory status heart rate slightly improved,patient is afebrile, heart rate is 106 blood pressure is 86/54 saturation 100%, medications reviewedpatient on and requests as per primary and cardiovascular services off of Cardizem drip 03/03/2024, patient seen eval reexamined during the rounds labs reviewed medications reviewed care plan discussedpatient transferred from medical floor to select due to A. fib with RVR last night, heart rate went up to 140-170 with low blood pressure of 100/60. Oxygen saturation 100% on 2 L oxygen, which however remains stable however blood pressure remains soft 9465 patient otherwise remains afebrile, chemistry reviewed today sodium 135% 2.7. Crit 14/0.66no heart rate improved to 17. Patient remains on bronchodilator 3 times a day, on direct acting oral anticoagulant and being continued on home medications including Lipitor she is being continued on Pulmicort as well. She is has been on Cardizem dripnow off of it, cardiology following 02/29/2024, patient seen eval examined during rounds, overall doing well denies any chest pain, intermittent cough is present,patient remains on supplemental oxygen, currently on 3 liter nasal cannula saturation 92%, family has refused direct oral anticoagulant February 28, 2024, patient seen evaluate examined during rounds labs reviewed medication care plan discussed, denies any chest pain breathing comfortably, remains on 2 L nasal cannula oxygen saturation mid 90s, patient is status post ultrasound-guided cannulation of the right femoral vein along with right iliac inferior venacavogram followed by placement of IVC filter patient tolerated procedure postop day #1. Patient afebrile temperature 98, hemodynamic status stable oxygen saturation is 98 to 99% on 2 L nasal cannula, now patient is being attempted on room air saturations pending 02/27/2024, patient seen eval examined during the rounds labs reviewed medications reviewed care plan discussed appreciated and noted vascular surgery consultation patient is scheduled for IVC placement tomorrow due to high risk of bleeding complication at high risk of recurrent DVT PE patient likely will benefit from IVC filter in low doses direct oral anticoagulant. She remains at high risk of both complication, in the meantime continue subcu heparinl. Labs from reviewed reviewed white cell count is 3.6hemoglobin and hematocrit is 12/38 patient currently is afebrile on 3 L nasal cannula sats are 97% hemodynamic status stable 02/26/2024, patient seen eval examined during the rounds labs reviewed medications reviewed care plan discussed, remains on 2 L nasal cannula oxygen saturations stable, awake and alert, denies any chest painongoing dry cough is present, patient remains on bronchodilators and inhaled is a slice to steroids along with broad-spectrum antibiotics with IV Rocephin, patient is on DVT prophylaxis as well, received a call from interventional radiology as they are not doing IVC filter anymore option was to consult vascular surgery, we'll proceed with vascular surgery consult with Drs. Leon/Patric group. Labs reviewed white cell count 3.6, sodium was 1:30 percent and 3.5 CO2 is 35 BUN and creatinine 14/0.6 02/25/2024, patient seen eval examined during the rounds labs reviewed m edications reviewed care plan discussed, respiratory status remains stable on 2 L oxygen, family is present bedside, I have discussed with the family about IVC filter, patient willing to proceed with that 02/24/2024, patient seen eval examined during rounds labs reviewed medications reviewed, patient currently on 2 L oxygen, denies any chest pain patient anticoagulation is back but patient is on DVT prophylaxis Will discuss with Dr. Streeter neurology if systemic anticoagulation consided patient is a 78-year-old female with prior history of the chronic atrial fibrillation patient not on anticoagulation for A. fib, due to GI bleed, patient also has esophageal cancer oncology service has been following, data predominantly obtained from the chart as patient unable to give a detailed history, patient remains on 2 L oxygen, patient has been found to have subacute infarct neurology has been following infarct involving left parietal lobe as well as left basal ganglia. Patient has been started on and requests awaiting clearance from oncology, Past medical history significant for diabetes mellitus, GERD, hearing disorder, hypertension hypertensive cardiovascular disease, osteoarthritis, patient denies any smoking or alcohol abuse, esophageal cancer. Patient remains on broad- spectrum antibiotics IV Rocephin along with continuation of the high intensity statin inhaler or supplies steroids furosemide, also on sliding scale insulin radiographic studies include computed tomography scan of the chest performed 1 4patient noted a large hiatal hernia no acute pulmonary process seen, computed tomography scan of the head negative for any acute stroke, venous Doppler lower extremity positive for left femoral vein DVT mid poplitealcomputed tomography scan of his chest negative for pulmonary embolism. Repeat computed tomography scan of the head revealed acute infarct involving left parietal lobe, duplex ultrasound of the carotid negative for any significant obstruction. Laurence cooney has been on her liquids 10 mg 2 times a day Objective - Vital Signs Vital signs: Vital Signs Temp 97.6 F 03/04/24 16:00 Pulse 106 H 03/04/24 16:00 Resp 20 03/04/24 16:00 BP 86/54 03/04/24 16:00 Pulse Ox 100 03/04/24 16:00 FiO2 21 02/23/24 08:30 Intake & Output 03/03/24 03/04/24 03/04/24 18:59 06:59 18:59 Intake Total 914.5 234.727 330 Balance 914.5 234.727 330 Weight 76.1 kg Intake: Intake, IV Titration 104.5 234.727 Amount Amiodarone 450 mg In 234.727 Dextrose 5% in Water 250 ml @ 0.5 MG/MIN 16.667 mls/hr IV .Q15H [facility] Rx#: [id number] Diltiazem 125 mg In 104.5 Sodium Chloride 0.9% 100 ml @ 10 MG/HR 10 mls/hr IV .[id number] [facility] Rx#: [id number] Oral 810 330 Other: Voiding Method Bedside Commode Bedside Commode Bedside Commode Diaper Diaper Diaper # Voids 2 1 - Exam - Constitutional General appearance: average body habitus, cooperative, disheveled, mild distress - EENT Eyes: EOMI, PERRLA Ears: bilateral: normal - Neck Carotids: bilateral: upstroke normal Thyroid: bilateral: normal size - Respiratory Respiratory: bilateral: CTA - Cardiovascular Rhythm: regular Heart sounds: normal: S1, S2 - Gastrointestinal General gastrointestinal: normal bowel sounds, soft - Integumentary Integumentary: normal turgor - Neurologic Neurologic: CNII-XII intact - Musculoskeletal Musculoskeletal: gait normal, generalized weakness, strength equal bilaterally - Psychiatric Psychiatric: A&O x's 3, appropriate affect - Labs CBC & Chem 7: 03/03/24 07:26 03/03/24 07:26 Labs: Abnormal Lab Results - Last 24 Hours (Table) 03/03/24 03/04/24 03/04/24 Range/Units 20:06 11:20 16:22 POC Glucose (mg/dL) 192 H 137 H 142 H (70-110) mg/dL Assessment and Plan Assessment: A. fib with RVR, now with controlled ventricular response, received IV Cardizem infusion and amiodarone infusion,required off of Cardizemand amiodarone DVT left lower extremity Status post IVC filter Left parietal lobe infarct acute, patient to undergo PT OT evaluation esophageal cancer oncology has been following Chronic hypoxic respiratory failure oxygen saturation progressively improving Plan: as above at this point time we'll sign off will be available as he arrives Time with Patient: Greater than 30
[2024-03-04 20:30] LABS: Glucose,Whole Blood 182 mg/dL (70-110)
--- NOTE | 2024-03-04 21:12 | P.PN ---
Subjective Progress Note Date: 03/04/24 Principal diagnosis: Esophageal adenocarcinoma. Admission for congestive heart failure In follow-up today patient is in chair, she she continues to be mildly confused. She denies any bleeding though, nursing does not report any bleeding either. Patient is on anticoagulation currently for left lower extremity DVT. She has completed chemotherapy for esophageal adenocarcinoma. She has completed radiation. Objective - Vital Signs Vital signs: Vital Signs Temp 97.6 F 03/04/24 16:00 Pulse 106 H 03/04/24 16:00 Resp 20 03/04/24 16:00 BP 86/54 03/04/24 16:00 Pulse Ox 100 03/04/24 16:00 FiO2 21 02/23/24 08:30 Intake & Output 03/04/24 03/04/24 03/05/24 06:59 18:59 06:59 Intake Total 234.727 810 Balance 234.727 810 Weight 76.1 kg Intake: Intake, IV Titration 234.727 Amount Amiodarone 450 mg In 234.727 Dextrose 5% in Water 250 ml @ 0.5 MG/MIN 16.667 mls/hr IV .Q15H [facility] Rx#: [id number] Oral 810 Other: Voiding Method Bedside Commode Bedside Commode Diaper Diaper # Voids 1 1 - Constitutional General appearance: Present: average body habitus, cooperative, no acute distress - EENT Eyes: Present: anicteric sclerae, EOMI ENT: Present: hearing grossly normal - Respiratory Details: Respirations even and unlabored at rest - Neurologic Neurologic: Present: CNII-XII intact - Musculoskeletal Musculoskeletal Comment(s): Patient has standby assist and assistive device to ambulate - Psychiatric Psychiatric Comment(s): A&O x 2, appropriate affect - Labs CBC & Chem 7: 03/03/24 07:26 03/03/24 07:26 Labs: Abnormal Lab Results - Last 24 Hours (Table) 03/04/24 03/04/24 03/04/24 Range/Units 11:20 16:22 20:16 POC Glucose (mg/dL) 137 H 142 H 182 H (70-110) mg/dL Assessment and Plan (1) Atrial fibrillation with rapid ventricular response Current Visit: Yes Status: Acute Priority: High Code(s): I48.91 - UNSPECIFIED ATRIAL FIBRILLATION SNOMED Code(s): 673458802455488 (2) Leukopenia Current Visit: Yes Status: Acute Priority: High Code(s): D72.819 - DECREASED WHITE BLOOD CELL COUNT, UNSPECIFIED SNOMED Code(s): 08873688 (3) Stage III carcinoma of esophagus Current Visit: Yes Status: Acute Code(s): C15.9 - MALIGNANT NEOPLASM OF ESOPHAGUS, UNSPECIFIED SNOMED Code(s): 774515170 Plan: A-fib with RVR -Cardiology following Leukopenia -Treatment induced. Prolonged recovery time because of acute illness -WBC normal 03/03/2024 - Patient has completed chemotherapy. LLE DVT -Provoked-hospitalization, acute illness, decreased mobility -IVC filter was placed as there were concerns for if pt should be anticoagulated. A few mo ago pt had GI bleed when diagnosed noticed with esophageal adenocarcinoma. Cancer has been treated. Cardiology and Neurology have provided opinions and rationale for risk/benefit of anticoagulation. Patient is currently on prophylactic dose of anticoagulation with 5 mg of Eliquis twice daily per Neurology. Close monitoring of hemoglobin, which is stable. No reported bleeding. Abnormal findings on CT head without contrast -CT of the head reporting no evidence for acute/subacute CVA. Anterior right extra-axial CSF attenuation lesion, not seen on MRI from May 2023. Extensive nonspecific white matter changes -CT of the head with contrast reported evolution of acute/subacute infarct involving the left parietal lobe. Additional nonspecific focus of hypoattenuation within the left basal ganglia. No evidence for intracranial hemorrhage. Redemonstrated nonspecific region of hypoattenuation in the right anterior renal fossa. -Neurology has seen and is treating pt. Esophageal adenocarcinoma -Definitive treatment, completed -Follow-up with Medical Oncology scheduled.
[2024-03-05 06:03] LABS: Glucose,Whole Blood 117 mg/dL (70-110)
[2024-03-05 11:19] LABS: Glucose,Whole Blood 132 mg/dL (70-110)
--- NOTE | 2024-03-05 13:55 | P.PN ---
Subjective Progress Note Date: 03/05/24 Paroxysmal atrial fibrillation The patient is a pleasant 78-year-old female patient with a past medical history significant for paroxysmal atrial fibrillation and stroke who was admitted to the hospital with A-fib RVR and subsequently converted to normal sinus mechanism. March 03, 2024 The patient went into A-fib again and currently she is in a flutter with controlled heart rate but her pressure has been marginal. With that being said I am going to stop the Cardizem IV and start the patient on amiodarone IV and subsequently switch her to amiodarone orally. Continue oral anticoagulation. Consider starting the patient on AV aylin meek agents once the pressure is improving. The examination is remarkable for irregular rhythm with clear breathing sounds bilaterally and no edema was noted 03/04 Patient is seen today in follow-up. Yesterday, Cardizem drip was discontinued due to hypotension and patient started on amiodarone drip. Heart rate is currently controlled in the 80s, blood pressure 109/77, pulse ox 96% on 2 L nasal cannula. Patient denies having any chest pain. She does complain of a cough. Regarding ambulation she is only going to the bathroom and back to her chair. Patient is maintained on oral Eliquis. Examination reveals irregular rhythm, breath sounds are clear. Telemetry is atrial flutter. Examination reveals irregular rhythm, clear breath sounds, no lower extremity edema. 03/05 Patient appears to be tachycardic during the night but this morning better controlled with brief episodes of elevated heart rate to 140s. Patient states that she is feeling better today. She states her breathing is better. She has no chest pain. No lower extremity edema. Blood pressure 81/52-102/73, heart rate mostly in the 70s. Yesterday, amiodarone drip was discontinued and started on oral 400 mg twice daily. Examination reveals irregular rhythm, clear breath sounds, no lower extremity edema Assessment Paroxysmal atrial fibrillation/flutter CVA Left femoral-popliteal deep vein thrombosis status post IVC filter Multiple comorbid conditions Plan Continue oral anticoagulation Continue patient on oral amiodarone 400 mg twice daily for 7 days, 200 mg twice daily for 7 days, then 200 mg daily--prescription has been sent to her pharmacy. Continue patient on Lopressor 100 mg twice daily Patient is cleared for discharge from cardiology and may follow-up in the office in 1 to 2 weeks. Nurse practitioner note has been reviewed, I agree with documented findings and plan of care. Patient was seen and examined. Objective - Vital Signs Vital signs: Vital Signs Temp 97.8 F 03/05/24 08:00 Pulse 75 03/05/24 08:00 Resp 16 03/05/24 08:00 BP 102/73 03/05/24 08:00 Pulse Ox 95 03/05/24 08:00 FiO2 21 02/23/24 08:30 Intake & Output 03/04/24 03/05/24 03/05/24 18:59 06:59 18:59 Intake Total 810 0 Balance 810 0 Weight 76.1 kg Intake: Oral 810 0 Other: Voiding Method Bedside Commode Bedside Commode Diaper Diaper # Voids 3 - Labs CBC & Chem 7: 03/03/24 07:26 03/03/24 07:26 Labs: Abnormal Lab Results - Last 24 Hours (Table) 03/04/24 03/04/24 03/04/24 Range/Units 11:20 16:22 20:16 POC Glucose (mg/dL) 137 H 142 H 182 H (70-110) mg/dL 03/05/24 Range/Units 05:49 POC Glucose (mg/dL) 117 H (70-110) mg/dL
[2024-03-05 16:43] LABS: Glucose,Whole Blood 143 mg/dL (70-110)
[2024-03-05 19:58] LABS: Glucose,Whole Blood 142 mg/dL (70-110)
--- NOTE | 2024-03-05 23:57 | PN ---
PROGRESS NOTE SUBJECTIVE: A 78-year-old white female who is going to be sent to the rehab center today, but she has hypotension. Blood pressure is 80 over 60s. We are going to do orthostatic changes, cut down her Lasix from 40 to 20. Monitor overnight. We will check some labs in the morning. She is ambulating to the chair with help. She is back to her baseline mental status. She has good extremity motion x4. Expressive aphasia is greatly improved from parietal stroke. Eliquis has been given, which is a smart move. She has no signs of any bleeding after this. OBJECTIVE: CARDIOVASCULAR: S1, S2. LUNGS: Transmitted upper sounds. GI: Soft. HEMATOLOGY: Negative Homans on the right. Positive on the left. ASSESSMENT: Acute deep venous thrombosis, left leg. Probable CVA, most likely embolic from atrial fibrillation. Start Eliquis and it could be continued. Continue current treatment for her other multiple medical problems. We will check orthostatic changes prior to her going to rehab center. May have to increase ProAmatine from 5 to 10 t.i.d. MMODL / IJN: [id number] /
--- NOTE | 2024-03-06 00:16 | PN ---
PROGRESS NOTE SUBJECTIVE: [facility]. OBJECTIVE: CARDIOVASCULAR: S1, S2. LUNGS: Clear. NEUROLOGIC: She is neurologically back to normal. PSYCH: Fair mood and affect. PLAN: Continue PT, OT, possibly go back to rehab center. Prognosis guarded. YESSICA / JOEN: [id number] /
[2024-03-06 06:12] LABS: Glucose,Whole Blood 123 mg/dL (70-110)
[2024-03-06 08:05] LABS: Anisocytosis Marked; Basophils % (A) 1 %; Eosinophils % (A) 1 %; HCT 39.1 % (34.0-46.0); HGB 12.3 gm/dL (11.4-16.0); Hypochromasia Slight; Lymphocytes # (A) 1.3 k/uL (1.0-4.8); Lymphocytes % (A) 24 %; MCH 27.8 pg (25.0-35.0); MCHC 31.5 g/dL (31.0-37.0); MCV 88.1 fL (80.0-100.0); Macrocytosis Slight; Mean Platelet Volume 8.2; Microcytosis Moderate; Monocytes # (A) 0.4 k/uL (0-1.0); Monocytes % (A) 7 %; Neutrophils # (A) 3.5 k/uL (1.3-7.7); Neutrophils % (A) 65 %; Platelet Count 188 k/uL (150-450); RBC 4.43 m/uL (3.80-5.40); WBC 5.4 k/uL (3.8-10.6)
[2024-03-06 08:11] LABS: RDW 28.2 % (11.5-15.5)
[2024-03-06 08:26] LABS: ALT 19 U/L (4-34); AST 27 U/L (14-36); African American GFR (CKD) 74 (>60 ml/min/1.73 sqM); Albumin 2.7 g/dL (3.5-5.0); Alkaline Phosphatase 94 U/L (38-126); Anion Gap 3 mmol/L; Blood Urea Nitrogen 18 mg/dL (7-17); Calcium 8.4 mg/dL (8.4-10.2); Carbon Dioxide 31 mmol/L (22-30); Chloride 100 mmol/L (98-107); Glucose 93 mg/dL (74-99); Non-African American GFR(CKD) 64 (>60 ml/min/1.73 sqM); Potassium 3.6 mmol/L (3.5-5.1); Sodium 134 mmol/L (137-145); Total Protein 5.2 g/dL (6.3-8.2)
[2024-03-06] MEDS: DILTIAZEM 125 MG in SODIUM CHLORIDE 0.9% 100 ML IV SCH (09:02)
[2024-03-06] MEDS: DILTIAZEM DRIP BOLUS FROM BAG 1 MG SOLN IV ONE (09:02)
[2024-03-06] MEDS: FUROSEMIDE 20 MG TAB PO SCH (09:18)
[2024-03-06] MEDS ORDERED: AMIODARONE 450 MG in DEXTROSE 5% IN WATER 250 ML IV SCH (12:00)
[2024-03-06 12:11] LABS: Glucose,Whole Blood 114 mg/dL (70-110)
[2024-03-06] MEDS: AMIODARONE 360 MG in DEXTROSE 5% IN WATER 200 ML IV ONE (12:55)
--- NOTE | 2024-03-06 14:24 | P.PN ---
Subjective Progress Note Date: 03/06/24 Paroxysmal atrial fibrillation The patient is a pleasant 78-year-old female patient with a past medical history significant for paroxysmal atrial fibrillation and stroke who was admitted to the hospital with A-fib RVR and subsequently converted to normal sinus mechanism. March 03, 2024 The patient went into A-fib again and currently she is in a flutter with controlled heart rate but her pressure has been marginal. With that being said I am going to stop the Cardizem IV and start the patient on amiodarone IV and subsequently switch her to amiodarone orally. Continue oral anticoagulation. Consider starting the patient on AV aylin meek agents once the pressure is improving. The examination is remarkable for irregular rhythm with clear breathing sounds bilaterally and no edema was noted 03/04 Patient is seen today in follow-up. Yesterday, Cardizem drip was discontinued due to hypotension and patient started on amiodarone drip. Heart rate is currently controlled in the 80s, blood pressure 109/77, pulse ox 96% on 2 L nasal cannula. Patient denies having any chest pain. She does complain of a cough. Regarding ambulation she is only going to the bathroom and back to her chair. Patient is maintained on oral Eliquis. Examination reveals irregular rhythm, breath sounds are clear. Telemetry is atrial flutter. Examination reveals irregular rhythm, clear breath sounds, no lower extremity edema. 03/05 Patient appears to be tachycardic during the night but this morning better controlled with brief episodes of elevated heart rate to 140s. Patient states that she is feeling better today. She states her breathing is better. She has no chest pain. No lower extremity edema. Blood pressure 81/52-102/73, heart rate mostly in the 70s. Yesterday, amiodarone drip was discontinued and started on oral 400 mg twice daily. Examination reveals irregular rhythm, clear breath sounds, no lower extremity edema 03/06 Patient is seen today in follow-up. We had cleared the patient yesterday for discharge but heart rate went up to 144 this morning. Blood pressures have been soft. Patient was unable to tolerate Cardizem drip. This was discontinued and amiodarone IV started. She has been maintained on oral amiodarone which was discontinued this morning. Repeat blood work reveals hemoglobin 12.3. Sodium 134, potassium 3.6, creatinine 0.88. Examination reveals irregular rhythm, ta chycardic, clear breath sounds, no lower extremity edema Assessment Paroxysmal atrial fibrillation/flutter CVA Left femoral-popliteal deep vein thrombosis status post IVC filter Multiple comorbid conditions Plan Continue oral anticoagulation Start patient on IV amiodarone and discontinue oral amiodarone Discontinue Cardizem drip Continue patient on Lopressor 100 mg twice daily Nurse practitioner note has been reviewed, I agree with documented findings and plan of care. Patient was seen and examined. Objective - Vital Signs Vital signs: Vital Signs Temp 98 F 03/06/24 00:00 Pulse 88 03/06/24 04:00 Resp 18 03/06/24 04:00 BP 104/61 03/06/24 05:34 Pulse Ox 93 L 03/06/24 04:00 FiO2 21 02/23/24 08:30 Intake & Output 03/05/24 03/06/24 03/06/24 18:59 06:59 18:59 Intake Total 1050 Balance 1050 Intake: Oral 1050 Other: # Voids 4 # Bowel Movements 1 - Labs CBC & Chem 7: 03/06/24 07:31 03/06/24 07:31 Labs: Abnormal Lab Results - Last 24 Hours (Table) 03/05/24 03/05/24 03/05/24 Range/Units 11:16 16:41 19:54 RDW (11.5-15.5) % POC Glucose (mg/dL) 132 H 143 H 142 H (70-110) mg/dL 03/06/24 03/06/24 Range/Units 06:05 07:31 RDW 28.2 H (11.5-15.5) % POC Glucose (mg/dL) 123 H (70-110) mg/dL
[2024-03-06 17:00] LABS: Glucose,Whole Blood 124 mg/dL (70-110)
[2024-03-06] MEDS: AMIODARONE 450 MG in DEXTROSE 5% IN WATER 250 ML IV SCH (18:37)
[2024-03-06 19:59] LABS: Glucose,Whole Blood 173 mg/dL (70-110)
[2024-03-07 06:01] LABS: Glucose,Whole Blood 106 mg/dL (70-110)
[2024-03-07] MEDS: AMIODARONE 200 MG TAB PO SCH (08:46)
[2024-03-07] MEDS: DIGOXIN 250 MCG/ML 2 ML AMP IVP ONE (08:46)
[2024-03-07 11:46] LABS: Glucose,Whole Blood 79 mg/dL (70-110)
--- NOTE | 2024-03-07 12:58 | P.PN ---
Subjective Progress Note Date: 03/07/24 Paroxysmal atrial fibrillation The patient is a pleasant 78-year-old female patient with a past medical history significant for paroxysmal atrial fibrillation and stroke who was admitted to the hospital with A-fib RVR and subsequently converted to normal sinus mechanism. March 03, 2024 The patient went into A-fib again and currently she is in a flutter with controlled heart rate but her pressure has been marginal. With that being said I am going to stop the Cardizem IV and start the patient on amiodarone IV and subsequently switch her to amiodarone orally. Continue oral anticoagulation. Consider starting the patient on AV aylin meek agents once the pressure is improving. The examination is remarkable for irregular rhythm with clear breathing sounds bilaterally and no edema was noted 03/04 Patient is seen today in follow-up. Yesterday, Cardizem drip was discontinued due to hypotension and patient started on amiodarone drip. Heart rate is currently controlled in the 80s, blood pressure 109/77, pulse ox 96% on 2 L nasal cannula. Patient denies having any chest pain. She does complain of a cough. Regarding ambulation she is only going to the bathroom and back to her chair. Patient is maintained on oral Eliquis. Examination reveals irregular rhythm, breath sounds are clear. Telemetry is atrial flutter. Examination reveals irregular rhythm, clear breath sounds, no lower extremity edema. 03/05 Patient appears to be tachycardic during the night but this morning better controlled with brief episodes of elevated heart rate to 140s. Patient states that she is feeling better today. She states her breathing is better. She has no chest pain. No lower extremity edema. Blood pressure 81/52-102/73, heart rate mostly in the 70s. Yesterday, amiodarone drip was discontinued and started on oral 400 mg twice daily. Examination reveals irregular rhythm, clear breath sounds, no lower extremity edema 03/06 Patient is seen today in follow-up. We had cleared the patient yesterday for discharge but heart rate went up to 144 this morning. Blood pressures have been soft. Patient was unable to tolerate Cardizem drip. This was discontinued and amiodarone IV started. She has been maintained on oral amiodarone which was discontinued this morning. Repeat blood work reveals hemoglobin 12.3. Sodium 134, potassium 3.6, creatinine 0.88. Examination reveals irregular rhythm, ta chycardic, clear breath sounds, no lower extremity edema 03/07 Yesterday, patient was started back on IV amiodarone as she was not able to tolerate IV Cardizem due to hypotension. Patient remains in atrial fibrillation, heart rate is up to 90-120. She states that she is feeling much better today. Assessment Paroxysmal atrial fibrillation/flutter CVA Left femoral-popliteal deep vein thrombosis status post IVC filter Multiple comorbid conditions Plan Continue oral anticoagulation Discontinue IV amiodarone and start patient on oral 400 mg twice daily Give patient 1 dose of IV digoxin 250 mcg and start oral digoxin 125 mcg daily tomorrow Continue patient on Lopressor 100 mg twice daily Continue monitoring patient for the next 24 hours and possible discharge home tomorrow. Nurse practitioner note has been reviewed, I agree with documented findings and plan of care. Patient was seen and examined. Objective - Vital Signs Vital signs: Vital Signs Temp 98 F 03/07/24 00:00 Pulse 78 03/07/24 07:40 Resp 17 03/07/24 04:00 BP 107/73 03/07/24 04:00 Pulse Ox 96 03/07/24 07:40 FiO2 21 02/23/24 08:30 Intake & Output 03/06/24 03/07/24 03/07/24 18:59 06:59 18:59 Intake Total 480 Balance 480 Weight 76.1 kg Intake: Oral 480 Other: Voiding Method Bedside Commode Bedside Commode Diaper Diaper # Voids 2 2 - Labs CBC & Chem 7: 03/06/24 07:31 03/06/24 07:31 Labs: Abnormal Lab Results - Last 24 Hours (Table) 03/06/24 03/06/24 03/06/24 Range/Units 07:31 12:08 16:56 Sodium 134 L (137-145) mmol/L Carbon Dioxide 31 H (22-30) mmol/L BUN 18 H (7-17) mg/dL POC Glucose (mg/dL) 114 H 124 H (70-110) mg/dL Total Protein 5.2 L (6.3-8.2) g/dL Albumin 2.7 L (3.5-5.0) g/dL 03/06/24 Range/Units 19:57 Sodium (137-145) mmol/L Carbon Dioxide (22-30) mmol/L BUN (7-17) mg/dL POC Glucose (mg/dL) 173 H (70-110) mg/dL Total Protein (6.3-8.2) g/dL Albumin (3.5-5.0) g/dL
[2024-03-07 16:38] LABS: Glucose,Whole Blood 106 mg/dL (70-110)
[2024-03-07 20:47] LABS: Glucose,Whole Blood 208 mg/dL (70-110)
--- NOTE | 2024-03-07 20:49 | PN ---
PROGRESS NOTE DATE OF SERVICE: 03/06/2024 SUBJECTIVE: A 78-year-old white female, was kept overnight for atrial fibrillation, RVR. Cardiology placed her on IV amiodarone drip. She is sitting in bed, giving appropriate answers. Her mental state is back to normal. Expressive aphasia is better. OBJECTIVE: CARDIOVASCULAR: S1, S2. Irregularly irregular rhythm. LUNGS: Wheezes, rhonchi. HEMATOLOGY: Negative Homans. PSYCH: Fair mood and affect. VITAL SIGNS: Reviewed. ASSESSMENT: Atrial fibrillation, rapid ventricular response, chronic obstructive pulmonary disease, prior strokes, cerebrovascular accident, coronary artery disease, hypoxic respiratory failure. Prognosis guarded. Wait for Cardiology to stabilize atrial fibrillation, rapid ventricular response and possibly go to rehab center for rehab. Prognosis guarded. She is on Bactrim. Normal mental status. MMODL / IJN: [id number] /
--- NOTE | 2024-03-08 01:10 | PN ---
PROGRESS NOTE SUBJECTIVE: A 78-year-old white female, stayed in hospital due to atrial fibrillation, RVR. Cardiology had her on amiodarone drip yesterday. She was not able to tolerate IV Cardizem due to hypotension. She remains in atrial fibrillation, heart rate 90 to 120. She feels much better today. OBJECTIVE: CARDIOVASCULAR: Irregularly irregular rhythm. LUNGS: Clear. GI: Soft. Hematology: Negative Homans. ASSESSMENT: Paroxysmal atrial flutter, fibrillation, cerebrovascular accident, left temporal popliteal deep venous thrombosis, status post IVC, chronic obstructive pulmonary disease, pulmonary hypertension. She had IV digoxin and oral digoxin, Lopressor 100 b.i.d. Possible discharge to rehab in the next day or 2 once cleared by Cardiology. Prognosis guarded. MMODL / IJN: [id number] /
[2024-03-08 06:15] LABS: Glucose,Whole Blood 83 mg/dL (70-110)
[2024-03-08 06:49] LABS: Glucose,Whole Blood 108 mg/dL (70-110)
--- NOTE | 2024-03-08 08:55 | P.PN ---
Subjective Progress Note Date: 03/08/24 Principal diagnosis: Paroxysmal atrial fibrillation The patient is a pleasant 78-year-old female patient with a past medical history significant for atrial fibrillation and history of stroke as well as history of DVT status post IVC filter as well as multiple comorbid conditions who was admitted to the hospital with atrial fibrillation with rapid ventricular response March 08, 2024 The patient was seen and evaluated this morning. She is doing overall better. She continues to be in atrial fibrillation with controlled heart rate on the current dose of oral amiodarone and oral beta-meek. She is also on oral anticoagulation. The examination is remarkable for irregular rhythm with controlled heart rate and diminished breathing sounds bilaterally and no edema was noted. Assessment Atrial fibrillation with controlled heart rate History of stroke History of DVT status post IVC filter Obesity Multiple comorbid conditions Plan Continue the current medical regimen Continue the current dose of beta-meek and amiodarone Follow-up with the patient Objective - Vital Signs Vital signs: Vital Signs Temp 97.6 F 03/08/24 04:20 Pulse 75 03/08/24 08:52 Resp 16 03/08/24 04:20 BP 110/71 03/08/24 06:40 Pulse Ox 96 03/08/24 04:20 FiO2 21 02/23/24 08:30 Intake & Output 03/07/24 03/08/24 03/08/24 18:59 06:59 18:59 Intake Total 354 10 Balance 354 10 Intake: IV 10 Invasive Line 6 10 Oral 354 Other: Voiding Method Bedside Commode Toilet Diaper Diaper # Voids 2 1 # Bowel Movements 1 - Labs CBC & Chem 7: 03/06/24 07:31 03/06/24 07:31 Labs: Abnormal Lab Results - Last 24 Hours (Table) 03/07/24 Range/Units 20:45 POC Glucose (mg/dL) 208 H (70-110) mg/dL
[2024-03-08] MEDS: DIGOXIN 125 MCG TAB PO SCH (09:11)
[2024-03-08 10:04] LABS: Anisocytosis Marked; HCT 38.7 % (34.0-46.0); HGB 12.1 gm/dL (11.4-16.0); Hypochromasia Slight; MCH 27.6 pg (25.0-35.0); MCHC 31.2 g/dL (31.0-37.0); MCV 88.4 fL (80.0-100.0); Macrocytosis Slight; Mean Platelet Volume 7.9; Microcytosis Moderate; Platelet Count 201 k/uL (150-450); RBC 4.38 m/uL (3.80-5.40)
[2024-03-08 10:15] LABS: ALT 18 U/L (4-34); AST 24 U/L (14-36); African American GFR (CKD) 86 (>60 ml/min/1.73 sqM); Albumin 2.7 g/dL (3.5-5.0); Alkaline Phosphatase 89 U/L (38-126); Anion Gap 5 mmol/L; Blood Urea Nitrogen 18 mg/dL (7-17); Calcium 8.6 mg/dL (8.4-10.2); Carbon Dioxide 29 mmol/L (22-30); Chloride 101 mmol/L (98-107); Glucose 142 mg/dL (74-99); Non-African American GFR(CKD) 74 (>60 ml/min/1.73 sqM); Potassium 3.5 mmol/L (3.5-5.1); Sodium 135 mmol/L (137-145); Total Bilirubin 0.8 mg/dL (0.2-1.3); Total Protein 5.1 g/dL (6.3-8.2)
[2024-03-08 11:39] LABS: Glucose,Whole Blood 127 mg/dL (70-110)
[2024-03-08 12:01] LABS: Band Neutrophils % 1 %; Basophils # (M) 0.05 k/uL (0-0.2); Neutrophils % (M) 58 %; Nucleated Red Blood Cells 0 /100 WBC (0-0); Total Cells Counted 100
[2024-03-08 12:02] LABS: Poikilocytosis (M) Present
[2024-03-08 16:39] LABS: Glucose,Whole Blood 127 mg/dL (70-110)
[2024-03-08 20:16] LABS: Glucose,Whole Blood 159 mg/dL (70-110)
--- NOTE | 2024-03-09 03:07 | PN ---
PROGRESS NOTE Katherine Barlow was seen by Dr. Obrien for AFib with RVR, status post IVC filter for DVT, multiple comorbidities. She is doing good with AFib with RVR. She is on oral amiodarone, oral beta meek, and oral anticoagulation. ASSESSMENT: 1. Atrial fibrillation with controlled heart rate. 2. History of stroke. 3. History of deep venous thrombosis. 4. Obesity. 5. Comorbid conditions. PLAN: Current dose of beta meek and amiodarone. Follow up with patient. Possibly discharge to home on Sunday to a rehab center. MMODL / IJN: [id number] /
[2024-03-09 06:14] LABS: Glucose,Whole Blood 75 mg/dL (70-110)
[2024-03-09 06:54] LABS: Glucose,Whole Blood 103 mg/dL (70-110)
--- NOTE | 2024-03-09 08:55 | P.PN ---
Subjective Progress Note Date: 03/09/24 Principal diagnosis: Paroxysmal atrial fibrillation The patient is a pleasant 78-year-old female patient with a past medical history significant for atrial fibrillation and history of stroke as well as history of DVT status post IVC filter as well as multiple comorbid conditions who was admitted to the hospital with atrial fibrillation with rapid ventricular response March 08, 2024 The patient was seen and evaluated this morning. She is doing overall better. She continues to be in atrial fibrillation with controlled heart rate on the current dose of oral amiodarone and oral beta-meek. She is also on oral anticoagulation. The examination is remarkable for irregular rhythm with controlled heart rate and diminished breathing sounds bilaterally and no edema was noted. March 09, 2024 The patient was seen and evaluated this morning. She is doing better clinically. She continues to be in atrial fibrillation with controlled heart rate on the current medical regimen and she continues to be on oral anticoagulation. Examination is remarkable for stable vital signs with irregular rhythm and clear breathing sounds bilaterally and no edema was noted in the lower extremities. Assessment Atrial fibrillation with controlled heart rate History of stroke History of DVT status post IVC filter Obesity Multiple comorbid conditions Plan Continue the current medical regimen Continue the current dose of beta-meek and amiodarone Objective - Vital Signs Vital signs: Vital Signs Temp 97.8 F 03/09/24 08:00 Pulse 84 03/09/24 08:00 Resp 18 03/09/24 08:00 BP 108/71 03/09/24 08:00 Pulse Ox 94 L 03/09/24 08:00 FiO2 21 02/23/24 08:30 Intake & Output 03/08/24 03/09/24 03/09/24 18:59 06:59 18:59 Intake Total 354 180 Balance 354 180 Intake: Oral 354 180 Other: Voiding Method Toilet Toilet Diaper Diaper # Voids 2 - Labs CBC & Chem 7: 03/08/24 09:24 03/08/24 09:24 Labs: Abnormal Lab Results - Last 24 Hours (Table) 03/08/24 03/08/24 03/08/24 Range/Units :24 11:37 RDW 28.0 H (11.5-15.5) % Sodium 135 L (137-145) mmol/L BUN 18 H (7-17) mg/dL Glucose 142 H (74-99) mg/dL POC Glucose (mg/dL) 127 H (70-110) mg/dL Total Protein 5.1 L (6.3-8.2) g/dL Albumin 2.7 L (3.5-5.0) g/dL 03/08/24 03/08/24 Range/Units 16:37 20:14 RDW (11.5-15.5) % Sodium (137-145) mmol/L BUN (7-17) mg/dL Glucose (74-99) mg/dL POC Glucose (mg/dL) 127 H 159 H (70-110) mg/dL Total Protein (6.3-8.2) g/dL Albumin (3.5-5.0) g/dL
[2024-03-09 11:20] LABS: Glucose,Whole Blood 130 mg/dL (70-110)
[2024-03-09 16:11] LABS: Glucose,Whole Blood 98 mg/dL (70-110)
[2024-03-09 20:14] LABS: Glucose,Whole Blood 125 mg/dL (70-110)
[2024-03-10 06:09] LABS: Glucose,Whole Blood 103 mg/dL (70-110)
--- NOTE | 2024-03-10 06:18 | PN ---
PROGRESS NOTE SUBJECTIVE: She was seen by Cardiology for atrial fibrillation with RVR, which kept her in over the weekend. Started on amiodarone, treated with digoxin. She has atrial fibrillation with controlled heart rate. History of stroke, much improved. Her respiratory failure is healed. History of DVT status post IVC filter, obesity. OBJECTIVE: VITAL SIGNS: Her pulse ox 94, she is on 3 L. Blood pressure 108/71, pulse 84, respiratory rate 16 to 18, and temperature 97.8. CARDIOVASCULAR: S1, S2. LUNGS: Transmitted upper sounds. GI: Soft. HEMATOLOGY: Negative for Homans. PSYCH: Fair mood and affect. She will need to go to physical therapy. She is to get her ambulation better for generalized weakness. ASSESSMENT: DVT, left leg, status post IVC filter, COPD, pulmonary hypertension, prior stroke, paroxysmal atrial fibrillation, embolic. Hemoglobin stable on Eliquis, to continue this long-term. Hemoglobin is 12.1, stable. White count is 5, possibly go to the [facility] tomorrow for physical therapy. She is much better. MMODL / IJN: [id number] /
[2024-03-10 07:18] LABS: Anisocytosis Marked; HCT 40.7 % (34.0-46.0); HGB 12.8 gm/dL (11.4-16.0); Hypochromasia Slight; MCHC 31.5 g/dL (31.0-37.0); MCV 88.7 fL (80.0-100.0); Macrocytosis Slight; Mean Platelet Volume 8.4; Microcytosis Moderate; Platelet Count 189 k/uL (150-450); RBC 4.59 m/uL (3.80-5.40); WBC 4.8 k/uL (3.8-10.6)
[2024-03-10 07:35] LABS: ALT 21 U/L (4-34); AST 35 U/L (14-36); African American GFR (CKD) 86 (>60 ml/min/1.73 sqM); Albumin 2.9 g/dL (3.5-5.0); Alkaline Phosphatase 95 U/L (38-126); Anion Gap 3 mmol/L; Blood Urea Nitrogen 16 mg/dL (7-17); Calcium 8.7 mg/dL (8.4-10.2); Carbon Dioxide 30 mmol/L (22-30); Chloride 100 mmol/L (98-107); Glucose 100 mg/dL (74-99); Non-African American GFR(CKD) 74 (>60 ml/min/1.73 sqM); Potassium 3.7 mmol/L (3.5-5.1); Sodium 133 mmol/L (137-145); Total Protein 5.5 g/dL (6.3-8.2)
[2024-03-10 07:45] LABS: RDW 27.9 % (11.5-15.5)
[2024-03-10] MEDS ORDERED: AMIODARONE 200 MG TAB PO SCH (09:00)
[2024-03-10 09:24] LABS: Band Neutrophils % 1 %; Lymphocytes # (M) 1.49 k/uL (1.0-4.8); Monocytes # (M) 0.38 k/uL (0-1.0); Neutrophils % (M) 58 %; Nucleated Red Blood Cells 0 /100 WBC (0-0); Total Cells Counted 100
[2024-03-10 09:26] LABS: Large Platelets Present; Ovalocytes Present
[2024-03-10 11:19] LABS: Glucose,Whole Blood 153 mg/dL (70-110)
--- NOTE | 2024-03-10 11:38 | P.PN ---
Subjective HISTORY OF PRESENT ILLNESS: The patient is a pleasant 78-year-old female patient with a past medical history significant for atrial fibrillation and history of stroke as well as history of DVT status post IVC filter as well as multiple comorbid conditions who was admitted to the hospital with atrial fibrillation with rapid ventricular response March 08, 2024 The patient was seen and evaluated this morning. She is doing overall better. She continues to be in atrial fibrillation with controlled heart rate on the current dose of oral amiodarone and oral beta-meek. She is also on oral anticoagulation. The examination is remarkable for irregular rhythm with controlled heart rate and diminished breathing sounds bilaterally and no edema was noted. March 09, 2024 The patient was seen and evaluated this morning. She is doing better clini dudley. She continues to be in atrial fibrillation with controlled heart rate on the current medical regimen and she continues to be on oral anticoagulation. Examination is remarkable for stable vital signs with irregular rhythm and clear breathing sounds bilaterally and no edema was noted in the lower extremities. 03/10/2024 Patient examined this morning at the bedside. Patient currently denies any chest pain or pressure. She denies any shortness of breath. Vital signs are stable. Telemetry reveals atrial fibrillation/flutter with controlled ventricular rate. PHYSICAL EXAM: VITAL SIGNS: Reviewed. GENERAL: Well-developed in no acute distress. NECK: Supple. No JVD or thyromegaly LUNGS: Respirations even and unlabored. Lungs essentially clear to auscultation bilaterally. HEART: Irregular rate and rhythm. S1 and S2 heard. EXTREMITIES: Normal range of motion. No clubbing or cyanosis. Peripheral pulses intact. No lower extremity edema ASSESSMENT: Paroxysmal atrial fibrillation/typical atrial flutter History of DVT status post IVC filter Stage III esophageal adenocarcinoma carboplatin cisplatin therapy Acute on chronic HFpEF, mild exacerbation, currently euvolemic Thrombocytopenia, resolved, platelet 189 today PLAN: Continue current cardiac medications Decrease amiodarone to 200 mg daily Continue anticoagulation with Eliquis Continue telemetry monitoring Further recommendations pending patient course Nurse practitioner note has been reviewed by physician. Signing provider agrees with the documented findings, assessment, and plan of care documented by [employer] as a scribe. Objective - Vital Signs Vital signs: Vital Signs Temp 98 F 03/10/24 08:00 Pulse 80 03/10/24 08:37 Resp 16 03/10/24 08:00 BP 102/67 03/10/24 08:00 Pulse Ox 99 03/10/24 08:17 FiO2 21 02/23/24 08:30 Intake & Output 03/09/24 03/10/24 03/10/24 18:59 06:59 18:59 Intake Total 540 10 130 Balance 540 10 130 Weight 74.2 kg Intake: IV 10 10 Invasive Line 6 10 10 Oral 540 120 Other: Voiding Method Toilet Toilet Toilet Diaper Diaper Diaper # Voids 1 1 0 # Bowel Movements 0 - Labs CBC & Chem 7: 03/10/24 07:02 03/10/24 07:02 Labs: Abnormal Lab Results - Last 24 Hours (Table) 03/09/24 03/10/24 03/10/24 Range/Units 20:10 07:02 07:02 RDW 27.9 H (11.5-15.5) % Sodium 133 L (137-145) mmol/L Glucose 100 H (74-99) mg/dL POC Glucose (mg/dL) 125 H (70-110) mg/dL Total Protein 5.5 L (6.3-8.2) g/dL Albumin 2.9 L (3.5-5.0) g/dL 03/10/24 Range/Units 11:18 RDW (11.5-15.5) % Sodium (137-145) mmol/L Glucose (74-99) mg/dL POC Glucose (mg/dL) 153 H (70-110) mg/dL Total Protein (6.3-8.2) g/dL Albumin (3.5-5.0) g/dL
[2024-03-10 11:46] VITALS: BMI 31.9
[2024-03-10 12:59] VITALS: BP 110/69; RESP 18; TEMP 97.8
--- NOTE | 2024-03-10 13:51 | DS ---
DISCHARGE SUMMARY Discharge to the rehab center for physical therapy, although she is up ambulating a little bit. She needs to get a little bit stronger. MEDICATIONS: She takes, 1. Nystatin powder b.i.d. 2. She takes DuoNeb updraft t.i.d. 3. Midodrine 5 mg a.c. t.i.d. 4. Eliquis 5 mg b.i.d. 5. Atorvastatin 40 mg daily. 6. Oxygen 2 L while she is sleeping and when napping all the time, do not stop this. 7. Spironolactone 25 mg daily. 8. Amiodarone 200 mg daily. 9. Digoxin 0.125 mcg daily. 10.Metoprolol 100 mg b.i.d. 11.Gabapentin 300 mg at night. 12.Alprazolam 0.5 mg q.i.d. p.r.n. 13.Lasix 40 mg 1 daily. 14.Mag oxide 400 mg daily. 15.Pantoprazole 40 mg b.i.d. 16.Accu-Cheks a.c. h.s. 17.Levemir 10 mg daily at night. 18.Melatonin 10 mg daily at night. 19.Magic mouthwash 5 mL q.i.d. swish and swallow. 20.Benadryl elixir p.r.n. 21.Montelukast 10 mg daily. 22.Budesonide 0.5 mg nebulizer treatments b.i.d., continue breathing treatments. 23.Continue oxygen. 24.Zinc oxide paste to her buttocks. Continue PT, OT. She had a left parietal CVA. She had atrial fibrillation with RVR, multiple times. She has COPD, pulmonary hypertension, GERD, allergies, asthma, hypothyroidism. Prognosis guarded. Continue current treatment for physical therapy. Maintain on oxygen and breathing treatments all the time. She will follow up with Dr. De Santiago in the office when she gets out of [facility]. Condition stable. Prognosis guarded. Ambulate as tolerated. Diet will be as tolerated. Regular diet. Continue oxygen, breathing treatments. She is going to rehab for a week or 2 to get her mobility back. She has expressive aphasia status post her stroke which she started her Eliquis for that. Her hemoglobin has been stable on Eliquis. Her expressive aphasia is completely resolved. She has been up ambulating to the bathroom with help. She needs a short-term physical therapy for a week or 2 for diagnosis of iron deficiency anemia, CVA, congestive heart failure, atrial fibrillation, RVR, COPD, pulmonary hypertension. Prognosis guarded. Please see further orders. MMODL / IJN: [id number] /
[2024-03-10 14:47] VITALS: PULSE 72
[2024-03-11] MEDS ORDERED: AMIODARONE 200 MG TAB PO SCH (09:00)
== END 2024-03-10 16:33 | DRG 291 ==
LOC: EC 15:45 → 3SCARD 19:36 → OBSVTOIN 19:36 → 3SCARD 21:52 → 5NMEDONC 02-26 20:53 → 6NMEDSUR 02-27 10:33 → 5NMEDONC 02-27 10:42 → 3SCARD 03-02 23:17
PROVIDERS: ADMIT Family Medicine; ATTEND Family Medicine
PROC: D70 Radiation Therapy, Lymphatic and Hematologic System, Beam Radiation (ICD-10-PCS; 2024-02-20)
PROC: B5191ZZ Fluoroscopy of Inferior Vena Cava using Low Osmolar Contrast (ICD-10-PCS; 2024-02-27)
PROC: B51F1ZZ Fluoroscopy of Right Pelvic (Iliac) Veins using Low Osmolar Contrast (ICD-10-PCS; 2024-02-27)
PROC: 06H03DZ Insertion of Intraluminal Device into Inferior Vena Cava, Percutaneous Approach (ICD-10-PCS; principal; 2024-02-27 12:50)
DX: I11.0 Hypertensive heart disease with heart failure (principal); I50.33 Acute on chronic diastolic (congestive) heart failure; J96.21 Acute and chronic respiratory failure with hypoxia; I63.40 Cerebral infarction due to embolism of unspecified cerebral artery; C15.9 Malignant neoplasm of esophagus, unspecified; I82.412 Acute embolism and thrombosis of left femoral vein; I82.432 Acute embolism and thrombosis of left popliteal vein; I48.20 Chronic atrial fibrillation, unspecified; I48.3 Typical atrial flutter; R47.01 Aphasia; D70.9 Neutropenia, unspecified; D69.6 Thrombocytopenia, unspecified; I48.0 Paroxysmal atrial fibrillation; Z85.01 Personal history of malignant neoplasm of esophagus; E11.9 Type 2 diabetes mellitus without complications; K21.9 Gastro-esophageal reflux disease without esophagitis; M19.90 Unspecified osteoarthritis, unspecified site; Z79.01 Long term (current) use of anticoagulants; E66.9 Obesity, unspecified; D50.9 Iron deficiency anemia, unspecified; I27.20 Pulmonary hypertension, unspecified; J44.9 Chronic obstructive pulmonary disease, unspecified; I25.10 Atherosclerotic heart disease of native coronary artery without angina pectoris; R00.0 Tachycardia, unspecified; R41.0 Disorientation, unspecified; I95.9 Hypotension, unspecified; K44.9 Diaphragmatic hernia without obstruction or gangrene; H91.90 Unspecified hearing loss, unspecified ear; M81.0 Age-related osteoporosis without current pathological fracture; Z79.4 Long term (current) use of insulin; Z77.22 Contact with and (suspected) exposure to environmental tobacco smoke (acute) (chronic); Z79.899 Other long term (current) drug therapy; Z86.718 Personal history of other venous thrombosis and embolism; Z86.73 Personal history of transient ischemic attack (TIA), and cerebral infarction without residual deficits; Z90.710 Acquired absence of both cervix and uterus; Z92.21 Personal history of antineoplastic chemotherapy; Z90.49 Acquired absence of other specified parts of digestive tract; Z68.31 Body mass index [BMI] 31.0-31.9, adult; Z87.19 Personal history of other diseases of the digestive system; E86.0 Dehydration; K59.00 Constipation, unspecified; Z85.41 Personal history of malignant neoplasm of cervix uteri; I95.1 Orthostatic hypotension
CPT/HCPCS: 36415; 37191; 51701; 51702; 70450; 70460; 70553; 71046; 71250; 71275; 77336; 77386; 80048; 80053; 80061; 81001; 81003; 82525; 82607; 82728; 82746; 83036; 83540; 83550; 83735; 83880; 84132; 84145; 84484; 85025; 85379; 85610; 85730; 87086; 93005; 93306; 93880; 93970; 94640; 94760; 96365; 96366; 96375; 96376; 99291

== ENCOUNTER → 2024-04-11 | Outpatient (CLI) | payer MEDICARE ==
--- NOTE | 2024-04-21 17:08 | PE ---
EXAMINATION TYPE: PET CT fusion skull to thigh DATE OF EXAM: 04/11/2024 COMPARISON: CTA chest 02/20/2024 Prior PET/CT: 11/29/2023 HISTORY: Esophageal cancer TECHNIQUE: Following the intravenous administration of 13.05 mCi of F-18 FDG, whole body images are performed from the skull Vertex to the midthigh. Images are reviewed on the computer in the coronal, axial, and sagittal planes. Reconstructed rotating images are created on independent workstation an d reviewed on the computer. A localization and attenuation correction CT is performed in conjunctio n with the PET scan. DLP: 764.35 mGycm SCAN: Subsequent Blood glucose: 86 mg/dL Average Mediastinum SUV: 2.76 Average Liver SUV: 3.09 FINDINGS: NECK: No abnormal uptake THORAX: No abnormal uptake ABDOMEN: No abnormal uptake. There is some uptake within what appears to be the gastric pull-through with an SUV of 6.66. Image 108. Direct visualization recommended. PELVIS: No abnormal uptake OSSEOUS STRUCTURES: No abnormal uptake LOCALIZATION CT: Filters within the inferior vena cava. There may be a gastric pull-through. COMPARISON: Previous esophageal cancer in the esophagus at approximately the level of the macy was previously markedly intense and not identified on the current exam. IMPRESSION: 1. Some mild uptake within the gastric pull-through. Direct visualization recommended. 2. Previous esophageal uptake not identified
== END | disposition home or self-care (01) ==
LOC: RADPETMAIN 07:16
PROVIDERS: ATTEND Internal Medicine Hematology & Oncology
DX: C15.5 Malignant neoplasm of lower third of esophagus (principal); E11.9 Type 2 diabetes mellitus without complications; I48.91 Unspecified atrial fibrillation; J44.9 Chronic obstructive pulmonary disease, unspecified
CPT/HCPCS: 78815; A9552

== ENCOUNTER 2024-05-19 11:56 | Day surgery (SDC) | payer MEDICARE ==
[2024-05-19] MEDS ORDERED: LACTATED RINGERS 1,000 ML BAG ONE (13:05)
[2024-05-19] MEDS ORDERED: LIDOCAINE 1% INJ 10MG/ML (20 ML MDV) ONE (13:45)
[2024-05-19] MEDS ORDERED: PROPOFOL 10 MG/ML 20 ML VIAL IV ONE (13:45)
--- NOTE | 2024-05-23 15:56 | OP ---
OPERATIVE REPORT DATE OF SERVICE : 05/19/2024 PREOPERATIVE DIAGNOSIS: History of esophageal cancer. POSTOPERATIVE DIAGNOSES: 1. No evidence of any residual esophageal cancer. 2. Esophagitis. 3. Large hiatal hernia. PROSTHETIC TECHNICIAN: None. ANESTHESIA: MAC. DESCRIPTION OF PROCEDURE: The patient was placed on the endoscopy table in the lateral position. She received IV sedation. The gastroscope was placed in oropharynx, passed down the esophagus and the stomach. The scope was then placed through the pylorus. The 1st and 2nd portion of the duodenum appeared normal. Scope was then brought back to the antrum and this appeared mildly inflamed. The scope was then retroflexed. The patient had a large hiatal hernia. The GE junction was at 37 cm. The previously visualized esophageal cancer appeared to have resolved. There was evidence of esophagitis. The lower esophagus was biopsied. The midesophagus was also biopsied. The scope was withdrawn. There was no evidence of esophageal cancer. The scope was withdrawn from the patient. MMODL / IJN: [id number] /
== END 2024-05-19 14:42 ==
LOC: ORWHC2ENDO 11:56
PROVIDERS: ATTEND Surgery
DX: C15.5 Malignant neoplasm of lower third of esophagus (principal); K21.00 Gastro-esophageal reflux disease with esophagitis, without bleeding; K44.9 Diaphragmatic hernia without obstruction or gangrene; J44.89 Other specified chronic obstructive pulmonary disease; E11.9 Type 2 diabetes mellitus without complications; E78.5 Hyperlipidemia, unspecified; F41.9 Anxiety disorder, unspecified; Z79.01 Long term (current) use of anticoagulants; Z79.84 Long term (current) use of oral hypoglycemic drugs; Z79.899 Other long term (current) drug therapy
CPT/HCPCS: 43239; 88305; 88341; 88342